=== PATIENT | male | born 1945 | race Caucasian/White ===

== ENCOUNTER 2023-12-30 10:14 | Inpatient (IN) | payer MEDICARE, SELFPAY ==
[2023-12-30] VITALS (12 sets, daily range): BP systolic 111–152; BP diastolic 62–82; PULSE 77–82; RESP 16–24; TEMP 36.2–36.9; O2SAT 93–99; BMI 23.5
--- NOTE | ~2023-12-30 | XR_ITS ---
EXAMINATION: XR chest 1V DATE: 12/30/2023 11:19 INDICATION: Cough. Weakness. TECHNIQUE: A single frontal view of the chest was obtained on 2 radiographs. COMPARISON: None. FINDINGS: A calcified right lung nodule and calcified right hilar lymph nodes are consistent with old granulomatous disease. No pleural effusion or pneumothorax. The heart size is normal. There are ashley ges of aortic valve replacement. There is a left chest wall pacer with leads in the right atrium and right ventricle. IMPRESSION: 1. No acute cardiopulmonary disease. Reviewed, dictated and finalized at location A.
--- NOTE | ~2023-12-30 | CT_ITS ---
EXAMINATION: CTA BRAIN/CAROTID DATE: 12/30/2023 11:14 INDICATION: Stroke with weakness and transient left facial droop TECHNIQUE: Computed tomographic angiography (CTA) of the head and neck was performed with 100 mL Omni paque-350 intravenous contrast. Multiplanar reconstructions and maximum intensity projection 3D-recon structions of the carotid arteries and of the intracranial arteries were created by the technologist on a separate workstation. Precontrast CT of the head was also obtained. Automated exposure control and iterative reconstruction technique were employed.The dose-length product was 1801.02 mGy-cm. COMPARISON: None. FINDINGS: Carotid arteries: Small amount of nonhemodynamically significant atherosclerotic plaque along the normal caliber aortic arch and along the proximal aspect of the arteries arising from the arch. No aneurysm or dissection. There is small amount of atherosclerotic plaque with 0% stenosis of the right and left carotid bulbs relative to normal distal artery lumen diameter (NASCET criteria). Bilateral vertebral arteries are codominant with small amount nonhemodynamically significant atherosclerotic plaque at the origins of both arteries. Expiratory phase of imaging with minimal dependent atelectasis in the bilateral upper lobes. Cervical soft tissues are unremarkable. Mild cervical spondylosis. Head: Small old lacunar infarct at the right internal capsule. No acute intracranial hemorrhage, acute infa rction or abnormal extra axial fluid collection. There is mild scattered white matter hypoattenuation consistent with chronic small vessel ischemic disease. Symmetric prominence of the sulci and ventric les consistent with mild to moderate age-appropriate diffuse cerebral volume loss. No mass/mass effec t. Changes of bilateral intraocular lens replacement. The orbits, paranasal sinuses and mastoid air c ells are normal. No abnormally enhancing brain lesions on the postcontrast imaging Intracranial arteries Arteries are codominant with small amount of nonhemodynamically significant atherosclerotic plaque al teetee both arteries. There is additional small amount of nonhemodynamically significant atherosclerotic plaque at the bilateral carotid siphons. There is no hemodynamically significant stenosis in the jordan tebral, basilar and internal carotid arteries. There are no aneurysms identified. Both A1 and P1 seg ments are patent. Cerebral arterial arborization appears symmetric. IMPRESSION: 1. 0% stenosis of the right and left carotid bulbs relative to normal distal artery lumen diameter (N ASCET criteria). 2. Small amount of nonhemodynamically significant atherosclerotic plaque at the bilateral vertebral a rteries and bilateral carotid siphons. No cerebral hemodynamically significant stenosis, thrombosis o r aneurysm. 3. Small old lacunar infarct in the right internal capsule and mild scattered white matter hypoattenu ation consistent with additional chronic small vessel ischemic disease. No acute intracranial process or abnormally enhancing brain lesions. Reviewed, dictated and finalized at location B. IMPRESSION: 1. 0% stenosis of the right and left carotid bulbs relative to normal distal ar an lumen diameter (NASCET criteria). 2. Small amount of nonhemodynamically significant atherosclerotic plaque at the bilateral vertebral arteries and bilateral carotid siphons. No cerebral hemody namically significant stenosis, thrombosis or aneurysm. 3. Small old lacunar infarct in the right internal capsule and mild scattered w pavithra matter hypoattenuation consistent with additional chronic small vessel isc hemic disease. No acute intracranial process or abnormally enhancing brain lesi ons.
--- NOTE | 2023-12-30 11:09 | PC.NURSE ---
Pt to CT/XRAY via stretcher at this time.
[2023-12-30 11:10] LABS: Basophils Percent Auto 0.2 % (0.2-1.2); Eosinophils Absolute Auto 0.1 K/mm3 (0-0.3); Eosinophils Percent Auto 0.7 % (0-4.4); Hematocrit 35.5 % (42.0-52.0); Hemoglobin 12.1 g/dL (14.0-18.0); Immature Granulocyte Absolute 0.21 K/mm3 (0.00-0.031); Immature Granulocyte Percent A 1.1 % (0-0.5); Immature Platelet Fraction Pct 16.4 % (0.9-11.2); Lymphocytes Absolute Auto 2.45 K/mm3 (0.9-3.2); Lymphocytes Percent Auto 13.2 % (18.3-44.2); Mean Corpuscular HGB Conc 34.1 g/dl (32-36); Mean Corpuscular Hemoglobin 31.8 pg (26-34); Mean Corpuscular Volume 93.4 fl (80-100); Mean Platelet Volume 13.7 fl (7.4-10.4); Monocytes Absolute Auto 1.6 K/mm3 (0.1-0.6); Monocytes Percent Auto 8.5 % (2.6-8.5); Neutrophils Absolute Auto 14.2 K/mm3 (1.3-6.7); Neutrophils Percent Auto 76.3 % (45.5-73.1); Platelet Count Result 55 k/mm3 (150-375); White Blood Count 18.6 K/mm3 (4.5-10.0)
[2023-12-30 11:19] LABS: INR 1.1; Prothrombin Time 14.2 Seconds (11.1-14.7)
[2023-12-30 11:20] LABS: Partial Thromboplastin Time 28.8 Seconds (22.3-36.8)
[2023-12-30 11:21] LABS: Alanine Aminotransferase 63 U/L (6-50); Albumin Level 3.4 g/dL (3.5-5.1); Alkaline Phosphatase 88 U/L (38-126); Anion Gap 5 mmol/L (4-12); Aspartate Amino Transferase 48 U/L (17-59); Bilirubin,Total 0.7 mg/dL (0.2-1.3); Blood Urea Nitrogen 66 mg/dL (9-20); Calcium 8.7 mg/dL (8.4-10.2); Carbon Dioxide 30 mmol/L (22-30); Chloride 100 mmol/L (98-107); Estimated CRCL calculation 34 ml/min; Estimated Glomerular Filt Rate 37; Glucose 131 mg/dL (65-110); Lactic Acid Reflex 1.5 mmol/L (0.7-2.0); Potassium 3.9 mmol/L (3.4-5.0); Sodium 135 mmol/L (137-145)
[2023-12-30 11:32] LABS: Troponin I < 0.012 ng/mL (0.000-0.034)
[2023-12-30 11:39] LABS: Magnesium 2.4 mg/dL (1.6-2.3)
[2023-12-30 12:22] LABS: Procalcitonin 0.1 ng/mL
[2023-12-30 13:00] LABS: Appearance Urine Clear (Clear); Bacteria Urine None Seen /hpf; Bilirubin Urine Negative (Negative); Blood Urine Negative (Negative); Color Urine Yellow (Yellow); Glucose Urine UA Negative (Negative); Ketones Urine Negative (Negative); Leukocyte Esterase Ur Negative LEU/UL (Negative); Need Manual Microscopic Reviewed; Nitrate Urine Negative (Negative); Protein Urine 1+ mg/dL (Negative); RBC Urine 0-2 /hpf (0-2); Specific Grav Ur 1.035 (1.001-1.035); Squamous Epithelial Cell Urine None Seen /hpf (Few); Urobilinogen Urine 0.2 mg/dL (<2.0); WBC Urine 0-5 /hpf (0-3)
[2023-12-30 13:03] LABS: Add Urine Microscopic? NO
--- NOTE | 2023-12-30 13:22 | ECG_ITS ---
Test Date: 2023-12-30 13:31:08 Measurements Intervals [place] Rate: 81 P: 255 MT: 211 QRS: -10 QRSD: 113 T: 73 QT: 385 QTc: 449 Interpretive Statements ELECTRONIC ATRIAL PACEMAKER INTRAVENTRICULAR CONDUCTION DELAY NONSPECIFIC ST & T-WAVE ABNORMALITY- LAT/HIGH LAT LEADS BORDERLINE ECG No previous ECG available for comparison Electronically Signed On 12-30-2023 14:59:43 CDT by Rashaad Gallagher D.O.
[2023-12-30 13:58] LABS: Troponin I < 0.012 ng/mL (0.000-0.034)
--- NOTE | 2023-12-30 15:18 | ED.GENADULT ---
HPI - General Adult General Chief complaint: Neuro Symptoms/Deficit Stated complaint: poss stroke Time Seen by Provider: 12/30/23 10:20 History of Present Illness HPI narrative: Patient 78-year-old gentleman who presents emergency department with chief complaint of an left-sided weakness. Patient was at rehab had sudden onset of left upper extremity weakness and facial droop the patient's symptoms had resolved upon EMS arrival the patient has continued to be at his baseline since the episode. The patient does have prior history of a pacemaker Related Data Home Medications Medication Instructions Recorded Confirmed Glucosamine Chondroitin 1,500 mg PO BID 12/29/23 12/29/23 atorvastatin 80 mg tablet 80 mg PO HS 12/29/23 12/29/23 cefdinir 300 mg capsule 300 mg PO Q12H 12/29/23 12/29/23 cetirizine 10 mg tablet 10 mg PO HS 12/29/23 12/29/23 donepezil 10 mg tablet 10 mg PO HS 12/29/23 12/29/23 ezetimibe 10 mg tablet 10 mg PO HS 12/29/23 12/29/23 ferrous sulfate 325 mg (65 mg 325 mg PO DAILY 12/29/23 12/29/23 iron) tablet fluticasone propionate 50 50 mcg intranasal DAILY 12/29/23 12/29/23 mcg/actuation nasal spray,suspension levothyroxine 75 mcg tablet 75 mcg PO DAILY 12/29/23 12/29/23 losartan 100 mg tablet 100 mg PO 12/29/23 12/29/23 melatonin 5 mg tablet 5 mg PO HS 12/29/23 12/29/23 nebivolol 20 mg PO DAILY 12/29/23 12/29/23 prednisone 20 mg tablet 20 mg PO DAILY 12/29/23 12/29/23 sertraline 50 mg tablet 50 mg PO HS 12/29/23 12/29/23 tamsulosin 0.4 mg capsule 0.4 mg PO DAILY 12/29/23 12/29/23 trazodone 50 mg tablet 50 mg PO HS 12/29/23 12/29/23 trospium 20 mg tablet 20 mg PO BID 12/29/23 12/29/23 Allergies Allergy/AdvReac Type Severity Reaction Status Date / Time No Known Allergies Allergy Verified 06/10/23 19:40 Review of Systems Review of Systems: A 10 system review of systems was completed on the patient and is negative except for what is stated in the HPI. Nursing and ancillary documentation was reviewed. PMFSH Family History Family History Mother Hypertension Father Polycythemia Sibling Cancer Social History Social History Smoking status: Never smoker Alcohol intake: former Substance use: never Do You Feel Safe in your Home?: Yes Lack of Transportation: No Lack of Food: Never True Current Housing: I Have Housing Concerned About Future Housing: No Difficulty Paying Gas/Electric Bills: No Difficulty Paying for Meds: No Currently Unemployed: No Education: High School Diploma/GED Difficulty w/ Childcare or Family Care: No Spiritual care concerns: No Exam Narrative: GENERAL: Well-appearing, well-nourished, and in no acute distress. HEAD: Normocephalic, atraumatic. EYES: PERRLA and EOMI. ENT: Nares clear, no rhinorrhea or epistaxis. Mucous membranes moist. NECK: Supple. CHEST: Clear to auscultation. No respiratory distress. HEART: Regular rate and rhythm. No murmur heard. Normal peripheral pulses. ABDOMEN: Soft, nontender, nondistended, normal active bowel sounds. EXTREMITIES: Normal range of motion. No edema. SKIN: Warm, dry, no rash. NEURO: No focal deficits. Alert and oriented x3. PSYCH: Normal mood and affect. Course Vital Signs Vital signs: Vital Signs Temperature 36.2 C L 12/30/23 10:10 Pulse Rate 77 12/30/23 10:10 Respiratory Rate 20 12/30/23 10:10 Blood Pressure 112/62 12/30/23 10:10 Pulse Oximetry 97 12/30/23 10:10 Oxygen Delivery Room Air 12/30/23 10:10 Temperature 36.2 C L 12/30/23 10:10 Pulse Rate 80 12/30/23 15:23 Respiratory Rate 20 12/30/23 15:23 Blood Pressure 142/78 H 12/30/23 15:23 Pulse Oximetry 98 12/30/23 15:23 Oxygen Delivery Room Air 12/30/23 10:10 Medical Decision Making MDM Narrative Medical decision making narrative: Differential diagnosis
--- NOTE | 2023-12-30 17:28 | ADMGEN ---
This patient, David Acosta, was admitted to Medical Room 345-01. Patient/family oriented to hospital policies and general routines including ID bracelet, bed and alarms, visiting hours, pain management, procedures, bathroom and other care routines, personal items, smoking policy, room service/diet, and visiting hours. Information on how to activate the Rapid Response Team has been discussed. Patient/Family are encouraged to report perceived risks to care and to ask questions if they do not understand what they are told or what they should do.
[2023-12-30] MEDS: BENZOCAINE (*SP) 60 ML SPRAY CAN (HURRICAINE) 1 SPRAY MUCOUS MEM (22:08)
[2023-12-31] VITALS (10 sets, daily range): BP systolic 125–165; BP diastolic 61–84; PULSE 70–87; RESP 18–20; TEMP 36.1–37; O2SAT 97–99
--- NOTE | 2023-12-31 01:51 | PM.IMHP ---
H&P: HPI History of Present Illness Date/Time: 12/31/23 01:51 Chief Complaint: Left upper extremity weakness and facial droop Narrative: 78-year-old male with PMH dementia, hypertension, history of DVT, paroxysmal AFib, CKD, aortic stenosis, cardiomyopathy, hyperlipidemia, osteoarthritis sick sinus syndrome status post permanent pacemaker, history of SVT, BPH, iron deficiency anemia, hypothyroidism, who presents with left-sided arm weakness with slurred speech and facial droop (not reported which side). A few weeks ago the patient presented to [facility] emergency room with progressive weakness and was diagnosed with likely upper respiratory infection. He also had a fall at home and had swelling of the left gluteus muscle and his blood thinners were stopped. He then went [facility], transferred from there to [facility]. ER demonstrated a hemodynamic stable male with the with WBC count 16.9 and then 18.6. Hemoglobin 12.1. Platelets 57, sodium 134, serum creatinine 1.5-1.8, BUN 65, blood sugar 132, procalcitonin 0.1. Chest x-ray did not demonstrate acute disease, head and neck CTA demonstrates small old lacunar infarct in the right internal capsule with chronic small-vessel disease in 0% stenosis of the right and left carotid bulbs. Patient has a pacemaker, neurology at [facility] transfer center suggested no transferred for MRI since the symptoms had resolved by the time the patient was evaluated in the ER. Dr. Ram suggested the patient could be handled locally without MRI performed. Speaking to the patient in room 345 he has no focal deficits. He only complains of a dry cough and a sore throat. Denies shortness of breath. Review of Systems Review of Systems: All systems reviewed & are unremarkable except as noted in HPI and below (Subjective) [facility] Family History Family History Mother Hypertension Father Polycythemia Sibling Cancer Social History Social History Smoking status: Never smoker Alcohol intake: former Substance use: never Do You Feel Safe in your Home?: Yes Lack of Transportation: No Lack of Food: Never True Current Housing: I Have Housing Concerned About Future Housing: No Difficulty Paying Gas/Electric Bills: No Difficulty Paying for Meds: No Currently Unemployed: No Education: High School Diploma/GED Difficulty w/ Childcare or Family Care: No Spiritual care concerns: No Meds Home Medications and Allergies Home Medications Medication Instructions Recorded Confirmed Type Glucosamine Chondroitin 1,500 mg PO BID 12/29/23 12/30/23 History atorvastatin 80 mg tablet 80 mg PO HS 12/29/23 12/30/23 History cefdinir 300 mg capsule 300 mg PO Q12H 12/29/23 12/30/23 History cetirizine 10 mg tablet 10 mg PO HS 12/29/23 12/30/23 History donepezil 10 mg tablet 10 mg PO HS 12/29/23 12/30/23 History ezetimibe 10 mg tablet 10 mg PO HS 12/29/23 12/30/23 History ferrous sulfate 325 mg (65 mg 325 mg PO DAILY 12/29/23 12/30/23 History iron) tablet fluticasone propionate 50 50 mcg intranasal DAILY 12/29/23 12/30/23 History mcg/actuation nasal spray,suspension levothyroxine 75 mcg tablet 75 mcg PO DAILY 12/29/23 12/30/23 History losartan 100 mg tablet 100 mg PO HS 12/29/23 12/30/23 History melatonin 5 mg tablet 6 mg PO HS 12/29/23 12/30/23 History nebivolol 20 mg PO DAILY 12/29/23 12/30/23 History sertraline 50 mg tablet 50 mg PO HS 12/29/23 12/30/23 History tamsulosin 0.4 mg capsule 0.4 mg PO DAILY 12/29/23 12/30/23 History trazodone 50 mg tablet 50 mg PO HS 12/29/23 12/30/23 History oxybutynin chloride 5 mg PO BID 12/30/23 12/30/23 History Allergies Allergy/AdvReac Type Severity Reaction Status Date / Time No Known Allergies Allergy Verified 12/30/23 17:27 Vital Signs Vital Signs - 24 hr 12/30/23 10:10 12/30/23 10:18 12/30/23 10:22 Temper
[2023-12-31 02:52] LABS: Influenza A QL RT-PCR Negative (Negative); Influenza B QL RT-PCR Negative (Negative); RSV RNA, RT-PCR Negative (Negative); SARS-CoV-2 RNA PCR Negative (Negative)
[2023-12-31] MEDS: LEVOTHYROXINE SODIUM 75 MCG TABLET PO (05:35)
[2023-12-31 05:43] LABS: Basophils Absolute Auto 0.1 K/mm3 (0.0-0.1); Basophils Percent Auto 0.3 % (0.2-1.2); Eosinophils Absolute Auto 0.1 K/mm3 (0-0.3); Eosinophils Percent Auto 0.7 % (0-4.4); Hematocrit 40.3 % (42.0-52.0); Hemoglobin 13.5 g/dL (14.0-18.0); Immature Granulocyte Absolute 0.19 K/mm3 (0.00-0.031); Immature Granulocyte Percent A 1.2 % (0-0.5); Immature Platelet Fraction Pct 15.1 % (0.9-11.2); Lymphocytes Absolute Auto 2.71 K/mm3 (0.9-3.2); Lymphocytes Percent Auto 17.7 % (18.3-44.2); Mean Corpuscular HGB Conc 33.5 g/dl (32-36); Mean Corpuscular Volume 92.6 fl (80-100); Monocytes Absolute Auto 1.1 K/mm3 (0.1-0.6); Monocytes Percent Auto 7.3 % (2.6-8.5); Neutrophils Absolute Auto 11.1 K/mm3 (1.3-6.7); Neutrophils Percent Auto 72.8 % (45.5-73.1); Platelet Count Result 59 k/mm3 (150-375); Red Blood Count 4.35 M/mm3 (4.6-6.20); Red Cell Distribution Width 12.8 % (11.5-14.5); White Blood Count 15.3 K/mm3 (4.5-10.0)
[2023-12-31 05:55] LABS: Alanine Aminotransferase 74 U/L (6-50); Albumin Level 3.8 g/dL (3.5-5.1); Alkaline Phosphatase 105 U/L (38-126); Anion Gap 3 mmol/L (4-12); Aspartate Amino Transferase 54 U/L (17-59); Bilirubin,Total 0.8 mg/dL (0.2-1.3); Blood Urea Nitrogen 53 mg/dL (9-20); Calcium 9.2 mg/dL (8.4-10.2); Carbon Dioxide 29 mmol/L (22-30); Chloride 101 mmol/L (98-107); Estimated CRCL calculation 36 ml/min; Estimated Glomerular Filt Rate 39; Glucose 102 mg/dL (65-110); Magnesium 2.2 mg/dL (1.6-2.3); Potassium 4.3 mmol/L (3.4-5.0); Sodium 133 mmol/L (137-145)
[2023-12-31] MEDS: TAMSULOSIN HCL 0.4 MG CAPSULE PO (09:51)
[2023-12-31] MEDS: oxyBUTYnin CHLORIDE 5 MG TABLET PO ×2 (09:51→17:42)
[2023-12-31] MEDS: FLUTICASONE PROPIONATE 0.05% NA SPR 16 GM BTL (*BKC) 2 SPRAY NASAL (09:51)
[2023-12-31] MEDS: NEBIVOLOL HCL 5 MG TABLET 20 MG PO (09:51)
--- NOTE | 2023-12-31 10:06 | PM.IMPN ---
Progress Note: A&P Assessment and Plan (1) Brain TIA: Code(s): G45.9 - Transient cerebral ischemic attack, unspecified Status: Acute Assessment and Plan: Presented with left-sided weakness and questionable facial droop. CTA on arrival with no acute infarcts, however evidence of old lacunar infarct, 0% stenosis of bilateral carotid bulbs. Case was discussed with transfer center a [facility] this patient has a pacemaker and not able to have MRI at this facility. It was determined that MRI could be deferred as his symptoms had resolved. Neuro exam unremarkable today. Appreciate neurology consult. Will check TSH, B12, folate, lipid panel, and A1c. Continue neurologic checks. Continue to monitor on telemetry. Continue home atorvastatin. (2) Dementia: Code(s): F03.90 - Unspecified dementia, unspecified severity, without behavioral disturbance, psychotic disturbance, mood disturbance, and anxiety Status: Acute Assessment and Plan: Seems to be at baseline. Continue home donepezil (3) Thrombocytopenia: Code(s): D69.6 - Thrombocytopenia, unspecified Status: Acute Assessment and Plan: Chronic issue with acute worsening. Platelet count [id number] today. Anticoagulation has been on hold as a result of this. Holding off on initiation of aspirin/Plavix at this time due to this. Can consider Hematology evaluation if aspirin/Plavix is necessary from neurologic standpoint (4) Leukocytosis: Code(s): D72.829 - Elevated white blood cell count, unspecified Status: Acute Assessment and Plan: Allergy not entirely clear. WBC elevated up to 18.6. Possibly stress response. UA and CXR without findings consistent with infection. Quad viral panel negative. Patient is afebrile. WBC improving today to 15.3 without initiation of antibiotics or other intervention. Continue to monitor WBC closely. (5) PRIYANKA (acute kidney injury): Code(s): N17.9 - Acute kidney failure, unspecified Status: Acute Assessment and Plan: Slight elevation of creatinine from baseline to 1.7 today. IV fluids ordered on admission, though patient refused. Now no longer has IV axis. Begin IV fluids once IV access is reobtained if pain is agreeable. Monitor BUN and creatinine closely. Losartan on hold at this time (6) Atrial fibrillation: Code(s): I48.91 - Unspecified atrial fibrillation Status: Acute Assessment and Plan: Rate is controlled at this time. Continue nebivolol. Chronic anticoagulation was recently stopped due to thrombocytopenia and recent falls (7) Upper respiratory tract infection: Code(s): J06.9 - Acute upper respiratory infection, unspecified Status: Resolved Assessment and Plan: Recently hospitalized at outside facility for presumed upper respiratory infection. Asymptomatic at this time Subjective Date/time seen: 12/31/23 10:06 Interval history: David is doing well today. He complains of feeling weak and fatigued. He endorses mild dizziness and lightheadedness which he states is typical for him. Is unsure why he is hospitalized currently he denies headache, visual changes, speech changes, facial drooping, focal weakness. He denies abdominal pain, nausea, vomiting, fever, or chills. Denies shortness of breath, cough, chest pain, or palpitations. He does report constipation, though he cannot recall his last bowel movement. He denies any urinary symptoms. Review of Systems Review of Systems: All systems reviewed & are unremarkable except as noted in HPI and below Exam Narrative: General: Well-nourished, well-appearing 78-year-old male, sitting up in bed, comfortable, NARD Neuro: awake, alert and oriented x2, speech clear, CN II-XII intact, strength 4/5 throughout, sensation intact, no pronator drift, bilateral map colorer strength equal, some difficulty following instructions when completing neuro exam, slightl
[2023-12-31] MEDS: BENZOCAINE (*SP) 60 ML SPRAY CAN (HURRICAINE) 1 SPRAY MUCOUS MEM ×2 (10:13→12:12)
[2023-12-31] MEDS: FERROUS SULFATE 325 MG TABLET DR PO (12:12)
--- NOTE | 2023-12-31 14:08 | WPDNEURCNPN ---
Assessment and Plan Assessment and plan (1) Brain TIA: Code(s): G45.9 - Transient cerebral ischemic attack, unspecified Status: Acute Assessment and Plan: The differential diagnosis with partial seizure would be a consideration however over description is seems to lean towards a vascular etiology. She is not show any large vessel occlusion. Possibility of small vessel disease is likely however antiplatelets will be difficult to justify in view of the low platelet count falls since he already noted during this examination. I spoke to the family members regarding the risk of using antiplatelets and if they would still like to take a risk Plavix could be a consideration of complications such as bleeding an undesirable areas. (2) Dementia: Code(s): F03.90 - Unspecified dementia, unspecified severity, without behavioral disturbance, psychotic disturbance, mood disturbance, and anxiety Status: Acute Assessment and Plan: The patient does appear to have moderate degree of dementia and cognitive impairment. He is already on Aricept 10 mg a day we can add data 5 mg a day for now and gradually increase the dose to next 1 or 2 months to 10 mg twice a day (3) Atrial fibrillation: Code(s): I48.91 - Unspecified atrial fibrillation Status: Acute Assessment and Plan: The patient has been through ablation and I believe a left at atrial appendage ablation is being considered and is off Eliquis on account of low platelet count and falls. Doing by the patient daughter (4) [id number]-[id number] kidney injury: Code(s): N17.9 - Acute kidney failure, unspecified; N18.9 - Chronic kidney disease, unspecified Status: Acute (5) Thrombocytopenia: Code(s): D69.6 - Thrombocytopenia, unspecified Status: Acute Plan At this time the patient was noted to be on Lipitor 80 mg a day his 's account high at 15,000 thousand and platelet count is low. Anticoagulation or antiplatelets and as per the discussion above the be difficult to put him on any of those in view of and low platelet count. And hence supportive care is recommended. Platelet count should be followed up and at the appropriate point if feasible 1 May conceivably consider 1 of the antiplatelets and he should follow with no bake molder regarding ablation of the left atrial appendage. An EEG is recommended will also obtain a baseline prolactin level also order a serum B12 and folic acid level and thyroid function test and lipid profile. Consult date: 12/31/23 HPI: David Acosta is a 78 year old male with history of recurrent spells of the weakness in the left upper limb speech difficulty. His daughter show me a very she was driving with him he suddenly had some being for few seconds. T of the left face. And then spell that flu which also lasted for few minutes and he there are any lapse in his awareness for sure taken off Eliquis because of low platelet count and some bruising tendency at [facility] where he go for his cardiac care. Patient has had a vertigo is valve surgery and also a 10. He has a cardiac pacemaker in place. He also been diagnosed to have dementia and is on at CT scan of the brain done on this admission CT angiogram of the head and neck did not show significant abnormalities. In the renal function. His platelet count was 10542. Patient is a bruise on the left face for having a fall. He also tends to fall frequently patient's son El is a power of health care attorney. Patient himself does not offer much in the way of history which was obtained mainly from his daughter he denies any headache Review of Systems Review of Systems: All systems reviewed & are unremarkable except as noted in HPI and below PMFSH Family History Family History Mother Hypertension Father Polycythemia Sibling Cancer Social History Social History (Reviewed 12/31/23 @ 14:11 by
[2023-12-31 15:53] LABS: Cholesterol 107 mg/dL (0-200); HDL Direct 30 mg/dL; Triglycerides 246 mg/dL (<150)
[2023-12-31 16:04] LABS: LDL Cholesterol Direct 54 mg/dL
[2023-12-31 17:27] LABS: Vitamin D 25 Hydroxy 71.3 ng/mL
[2023-12-31] MEDS: ATORVASTATIN 40 MG TABLET 80 MG PO (19:59)
[2023-12-31] MEDS: EZETIMIBE 10 MG TABLET PO (19:59)
[2023-12-31] MEDS: SERTRALINE HCL 50 MG TABLET PO (20:00)
[2023-12-31] MEDS: traZODone HCL 50 MG TABLET PO (20:00)
[2023-12-31] MEDS: DONEPEZIL HCL 10 MG TABLET PO (20:00)
[2023-12-31] MEDS: MELATONIN 3 MG TABLET 6 MG PO (20:00)
[2023-12-31] MEDS: LORATADINE 10 MG TABLET PO (20:00)
[2023-12-31] MEDS: SODIUM CHLORIDE 0.9% IV 1,000 ML 75 ML IV CONT (22:45)
[2024-01-01] VITALS: PULSE 80
[2024-01-01 04:00] VITALS: PULSE 80
[2024-01-01 05:38] VITALS: BP 169/93; PULSE 78; RESP 20; TEMP 36.6; O2SAT 98
[2024-01-01] MEDS: LEVOTHYROXINE SODIUM 75 MCG TABLET PO (06:01)
[2024-01-01 06:03] LABS: Basophils Percent Auto 0.3 % (0.2-1.2); Eosinophils Absolute Auto 0.2 K/mm3 (0-0.3); Eosinophils Percent Auto 2.6 % (0-4.4); Hematocrit 38.1 % (42.0-52.0); Hemoglobin 12.9 g/dL (14.0-18.0); Immature Granulocyte Absolute 0.09 K/mm3 (0.00-0.031); Immature Platelet Fraction Pct 13.3 % (0.9-11.2); Lymphocytes Absolute Auto 2.17 K/mm3 (0.9-3.2); Lymphocytes Percent Auto 23.7 % (18.3-44.2); Mean Corpuscular HGB Conc 33.9 g/dl (32-36); Mean Corpuscular Hemoglobin 31.2 pg (26-34); Mean Corpuscular Volume 92.3 fl (80-100); Mean Platelet Volume 12.6 fl (7.4-10.4); Monocytes Absolute Auto 0.8 K/mm3 (0.1-0.6); Monocytes Percent Auto 8.6 % (2.6-8.5); Neutrophils Absolute Auto 5.8 K/mm3 (1.3-6.7); Neutrophils Percent Auto 63.8 % (45.5-73.1); Platelet Count Result 58 k/mm3 (150-375); Red Blood Count 4.13 M/mm3 (4.6-6.20); Red Cell Distribution Width 12.7 % (11.5-14.5); White Blood Count 9.1 K/mm3 (4.5-10.0)
[2024-01-01 06:16] LABS: Alanine Aminotransferase 76 U/L (6-50); Albumin Level 3.4 g/dL (3.5-5.1); Alkaline Phosphatase 97 U/L (38-126); Anion Gap 3 mmol/L (4-12); Aspartate Amino Transferase 59 U/L (17-59); Blood Urea Nitrogen 44 mg/dL (9-20); Carbon Dioxide 30 mmol/L (22-30); Chloride 103 mmol/L (98-107); Cholesterol 108 mg/dL (0-200); Estimated CRCL calculation 47 ml/min; Estimated Glomerular Filt Rate 54; Glucose 108 mg/dL (65-110); HDL Direct 31 mg/dL; Potassium 4.5 mmol/L (3.4-5.0); Sodium 136 mmol/L (137-145); Triglycerides 156 mg/dL (<150)
[2024-01-01 06:27] LABS: LDL Cholesterol Direct 58 mg/dL
[2024-01-01 07:08] LABS: Hemoglobin A1C 5.9 % (<5.7)
[2024-01-01 07:21] LABS: Folic Acid 12.2 ng/mL (2.76->20)
[2024-01-01 09:04] VITALS: O2SAT 97
[2024-01-01] MEDS: TAMSULOSIN HCL 0.4 MG CAPSULE PO (10:01)
[2024-01-01 10:02] VITALS: PULSE 80
[2024-01-01] MEDS: NEBIVOLOL HCL 5 MG TABLET 20 MG PO (10:02)
[2024-01-01] MEDS: oxyBUTYnin CHLORIDE 5 MG TABLET PO (10:02)
[2024-01-01] MEDS: MEMANTINE 5 MG TABLET PO (10:02)
[2024-01-01] MEDS: FLUTICASONE PROPIONATE 0.05% NA SPR 16 GM BTL (*BKC) 2 SPRAY NASAL (10:03)
[2024-01-01] MEDS: BENZOCAINE (*SP) 60 ML SPRAY CAN (HURRICAINE) 1 SPRAY MUCOUS MEM (10:04)
[2024-01-01] MEDS: FERROUS SULFATE 325 MG TABLET DR PO (12:39)
[2024-01-01] MEDS: SODIUM CHLORIDE 0.9% IV 1,000 ML 75 ML IV CONT (12:39)
--- NOTE | 2024-01-01 13:56 | PM.DS ---
DS: Admitting Diagnosis Discharge Date 12/31/2022 Admitting Diagnosis Left upper extremity weakness and facial droop DS: Summary Hospital Course Reason for hospitalization: Left upper extremity weakness and facial droop Hospital Course: Left upper extremity weakness and facial droop Narrative: 78-year-old male with PMH dementia, hypertension, history of DVT, paroxysmal AFib, CKD, aortic stenosis, cardiomyopathy, hyperlipidemia, osteoarthritis sick sinus syndrome status post permanent pacemaker, history of SVT, BPH, iron deficiency anemia, hypothyroidism, who presents with left-sided arm weakness with slurred speech and facial droop (not reported which side). A few weeks ago the patient presented to [facility] emergency room with progressive weakness and was diagnosed with likely upper respiratory infection. He also had a fall at home and had swelling of the left gluteus muscle and his blood thinners were stopped. He then went [facility], transferred from there to [facility]. ER demonstrated a hemodynamic stable male with the with WBC count 16.9 and then 18.6. Hemoglobin 12.1. Platelets 57, sodium 134, serum creatinine 1.5-1.8, BUN 65, blood sugar 132, procalcitonin 0.1. Chest x-ray did not demonstrate acute disease, head and neck CTA demonstrates small old lacunar infarct in the right internal capsule with chronic small-vessel disease in 0% stenosis of the right and left carotid bulbs. Patient has a pacemaker, neurology at [facility] transfer center suggested no transferred for MRI since the symptoms had resolved by the time the patient was evaluated in the ER. Dr. Ram suggested the patient could be handled locally without MRI performed. patient was seen by neurologist recommended antiplatelets to prevent strokes however patient with low platelets counts is high risk of bleeding, family has decided not to start antiplatelets, patient is clinically stable is accepted by [facility], will transfer patient today Time Spent with Patient Time attestation: Total time spent providing and/or coordinating discharge services: Exam Narrative: GENE: elderly frail, comfortable, NAD HEENT: eyes are icteric, clear, HEART: RR S1S2 LUNGS: CTA ABD: BS+ soft nontender Ext: no edema Neuro: grossly intact; DS: Data Data Completed and Pending Labs on day of discharge: Labs from last 24 hours 01/01/24 12/31/23 05:37 15:36 WBC 9.1 RBC 4.13 L Hgb 12.9 L Hct 38.1 L MCV 92.3 MCH 31.2 MCHC 33.9 RDW 12.7 Plt Count 58 L MPV 12.6 H Immature Gran % (Auto) 1.0 H Neut % (Auto) 63.8 Lymph % (Auto) 23.7 Lucas % (Auto) 8.6 H Eos % (Auto) 2.6 Baso % (Auto) 0.3 Lymph # (Auto) 2.17 Lucas # (Auto) 0.8 H Eos # (Auto) 0.2 Baso # (Auto) 0.0 Abs Immat Gran (auto) 0.09 H Absolute Neuts (auto) 5.8 Absolute Nucleated RBC 0.000 Nucleated RBC % 0.0 % Immature Plt Fraction 13.3 H Sodium 136 L Potassium 4.5 Chloride 103 Carbon Dioxide 30 Anion Gap 3 L BUN 44 H Creatinine 1.30 Estim Creat Clear Calc 47 Estimated GFR 54 L Glucose 108 Hemoglobin A1c 5.9 H Calcium 9.0 Total Bilirubin 1.0 AST 59 ALT 76 H Alkaline Phosphatase 97 Total Protein 6.0 L Albumin 3.4 L Triglycerides 156 H 246 H Cholesterol 108 107 LDL Cholesterol Direct 58 54 HDL Direct 31 30 Vitamin B12 749.0 Methylmalonic Acid Pending Vitamin D 25-Hydroxy 71.3 Folate 12.2 TSH 1.780 TSH (Reflex) 2.570 Discharge Plan Discharge Attending physician on discharge: Santosh Ahuja Consulting providers: Pollo Ram Discharging Clinician: Santosh Ahuja Patient Disposition: [facility] Activity: as tolerated Diet: heart healthy Discharge Instructions: patient is being discharged to [facility], patient to follow up with his primary care provider and neurologist as soon as possible. Discharge Medications: New
[2024-01-04 04:14] LABS: Methylmalonic Acid 277 nmol/L (69-390)
== END 2024-01-01 16:40 | DRG 69 ==
LOC: ANHED 15:21 → ANH3MED 16:17
PROVIDERS: General Practice; Physician Assistant; Psychiatry & Neurology Neurology; Admitting Provider Family Medicine; Emergency Provider Emergency Medicine; PCP Internal Medicine; Visit Provider Family Medicine
DX: G45.9 Transient cerebral ischemic attack, unspecified (principal); I42.9 Cardiomyopathy, unspecified; N17.9 Acute kidney failure, unspecified; N18.9 Chronic kidney disease, unspecified; I12.9 Hypertensive chronic kidney disease with stage 1 through stage 4 chronic kidney disease, or unspecified chronic kidney disease; I48.0 Paroxysmal atrial fibrillation; I35.0 Nonrheumatic aortic (valve) stenosis; I49.5 Sick sinus syndrome; D69.6 Thrombocytopenia, unspecified; N40.0 Benign prostatic hyperplasia without lower urinary tract symptoms; E78.5 Hyperlipidemia, unspecified; D50.9 Iron deficiency anemia, unspecified; E03.9 Hypothyroidism, unspecified; M19.90 Unspecified osteoarthritis, unspecified site; F03.90 Unspecified dementia, unspecified severity, without behavioral disturbance, psychotic disturbance, mood disturbance, and anxiety; Z86.718 Personal history of other venous thrombosis and embolism; Z95.0 Presence of cardiac pacemaker; Z86.73 Personal history of transient ischemic attack (TIA), and cerebral infarction without residual deficits
CPT/HCPCS: 36415; 70496; 70498; 71045; 80053; 80061; 81003; 82306; 82607; 82746; 83036; 83605; 83735; 83921; 84145; 84443; 84484; 85025; 85055; 85610; 85730; 87637; 93005; 99285; A9270; G0378; J7030; Q9967

== ENCOUNTER 2024-08-31 08:38 | Inpatient (IN) | payer MEDICARE, SELFPAY ==
--- NOTE | ~2024-08-31 | XR_ITS ---
XR chest 1V Ordering provider: Parris Myers PA-C History: 79 years Male with . ams, hypoxia . Comparison: December 30, 2023 FINDINGS: MEDIASTINUM: The cardiac silhouette is not enlarged. Left bipolar pacemaker. Valve prosthesis is note d. LUNGS: No effusions or pneumothorax. Minimal opacification the left lung base medially is seen which may indicate atelectasis versus pneumonia. Follow-up advised. Calcified granuloma in the right midzon e. OTHER: No free air under the diaphragm. Degenerative spine. IMPRESSION: Left basilar atelectasis versus pneumonia. Reviewed, dictated and finalized at location A. [employer]
--- NOTE | ~2024-08-31 | XR_ITS ---
EXAMINATION: XR barium swallow modified DATE: 09/02/2024 11:08 INDICATION: Choking. TECHNIQUE: The patient was given barium-containing material of multiple consistencies to swallow by t mariajose speech pathologist while I performed fluoroscopy. Fluoroscopy exposure time was 0.8 minutes. The n umber of fluoroscopy images saved to the PACS was 1. Dose-area product was 0.441 Gy-cm^2. FINDINGS: There is reduced laryngeal elevation, reduced laryngeal adduction, reduced tongue base retraction, re duced pharyngeal squeeze, vallecular residue, pyriform sinus residue, pharyngeal wall residue, laryng eal penetration, and aspiration. IMPRESSION: 1. Silent aspiration of thin liquids and pudding. 2. Please refer to the speech therapy report for recommendations. Reviewed, dictated and finalized at location A. CIPAL SYSTEMS ARCHITECT
--- NOTE | ~2024-08-31 | XR_ITS ---
EXAMINATION: XR abdomen gastric tube insert DATE: 09/02/2024 15:20 INDICATION: Nasogastric tube placement TECHNIQUE: A supine view of the abdomen and lower chest was obtained for evaluation of feeding tube placement. COMPARISON: None. FINDINGS: Nasogastric tube tip in the body the stomach with proximal side-port approximately 1 cm above level o f the gastroesophageal junction. No dilated loops of gas-filled bowel to suggest obstruction. Promine nt calcific densities project over the left lower quadrant which could represent heterotopic ossifica tion or ingested material. Calcified nodule right midlung zone along with calcified right hilar and m ediastinal lymph nodes consistent with old granulomatous disease. Heart size is normal. Dual lead pac emaker seen with leads projecting over the expected locations of the right atrium and right ventricle . Aortic valve repair. Left atrial appendage occlusion device. IMPRESSION: 1. Nasogastric tube tip in the body the stomach. Consider advancement by [address] the proximal s diana-port below level of the gastroesophageal junction. Reviewed, dictated and finalized at location B. [employer] TE[employer] IMPRESSION: 1. Nasogastric tube tip in the body the stomach. Consider advancement by [address] the proximal side-port below level of the gastroesophageal junction.
--- NOTE | ~2024-08-31 | CT_ITS ---
CT brain wo con Ordering provider: Parris Myers PA-C History: 79 years Male with . ams . Comparison: January 02, 2024 Technique: CT of the head without contrast. Radiation reduction technique utilized. The dose-length p roduct was 605.33 mGy-cm. FINDINGS: BRAIN PARENCHYMA AND CSF SPACES: Mild leukoaraiosis and diffuse cortical atrophy. Mild atheromatous d isease. No midline shift, mass effect or hemorrhage. The brain parenchyma and CSF spaces are otherwi se normal. VISUALIZED PARANASAL SINUSES: Well aerated. MASTOIDS: Well aerated. BONES: The bones appear intact. SOFT TISSUES: Visualized nasopharynx is normal. Superficial soft tissues are normal. IMPRESSION: No acute intracranial findings. Reviewed, dictated and finalized at location A. [employer]
[2024-08-31 08:33] VITALS: BP 156/64; PULSE 88; RESP 20; TEMP 36.7; O2SAT 94
--- NOTE | 2024-08-31 08:46 | ECG_ITS ---
Test Date: 2024-08-31 08:41:22 Measurements Intervals [place] Rate: 80 P: 259 [place]: 205 QRS: -12 QRSD: 109 T: 51 QT: 371 QTc: 428 Interpretive Statements ELECTRONIC ATRIAL PACEMAKER NONSPECIFIC ST AND T WAVE ABNORMALITY ABNORMAL RHYTHM ECG Compared to ECG 12/30/2023 13:31:08 NO SIGNIFICANT CHANGES Electronically Signed On 08-31-2024 15:47:53 BLOW MOLD MACHINE OPERATOR by Lan Easley M.D.
[2024-08-31 08:57] LABS: Basophils Percent Auto 0.3 % (0.2-1.2); Eosinophils Percent Auto 0.4 % (0-4.4); Hemoglobin 10.8 g/dL (14.0-18.0); Immature Granulocyte Absolute 0.05 K/mm3 (0.00-0.031); Immature Granulocyte Percent A 0.7 % (0-0.5); Lymphocytes Absolute Auto 1.53 K/mm3 (0.9-3.2); Lymphocytes Percent Auto 21.4 % (18.3-44.2); Mean Corpuscular HGB Conc 31.8 g/dl (32-36); Mean Corpuscular Volume 97.7 fl (80-100); Mean Platelet Volume 12.4 fl (7.4-10.4); Monocytes Absolute Auto 0.9 K/mm3 (0.1-0.6); Monocytes Percent Auto 12.3 % (2.6-8.5); Neutrophils Absolute Auto 4.6 K/mm3 (1.3-6.7); Neutrophils Percent Auto 64.9 % (45.5-73.1); Platelet Count Result 84 k/mm3 (150-375); Red Blood Count 3.48 M/mm3 (4.6-6.20); Red Cell Distribution Width 13.8 % (11.5-14.5); White Blood Count 7.1 K/mm3 (4.5-10.0)
--- NOTE | 2024-08-31 09:01 | ED_ITS ---
HPI - Altered Mental Status General Chief Complaint: Altered Mental Status <Parris Myers PA-C - Last Filed: 08/31/24 13:37> Stated Complaint: AMS <KHADAR Gómez Last Filed: 08/31/24 13:37> Time Seen by Provider: 08/31/24 09:00 <Parris Myers PA-C - Last Filed: 08/31/24 13:37> Source: patient, family, RN notes reviewed and old records reviewed <KHADAR Gómez Last Filed: 08/31/24 13:37> Mode of arrival: EMS <KHADAR Gómez Last Filed: 08/31/24 13:37> Limitations: clinical condition <KHADAR Gómez Last Filed: 08/31/24 13:37> History of Present Illness HPI narrative: Patient is a 79 y/o male, with PMH of dementia, CVA, AFIB on eliquis, hypothyroidism, CKD, seizure disorder on keppra, pacemaker, who presents to the ED via EMS with report of AMS. Patient is resident of [facility]. Per family at bedside, patient has been steadily declining over the last several years. Reports his baseline mental status will vary from day-to-day, but he has been increasingly confused and weak over the last few days. They are concerned for dehydration. They are also concerned for aspiration. Patient has had issues with this since last year. Patient denies any pain. Per EMS, patient was noted to be hypoxic upon arrival down to 88% on room air. He was placed on 2 L nasal cannula. O2 stable upon arrival. <KHADAR Gómez Last Filed: 08/31/24 13:37> Related Data Home Medications: Home Medications ?Medication ?Instructions ?Recorded ?Confirmed ?Last Taken ?Type Glucosamine Chondroitin 1,500 mg PO BID 12/29/23 04/28/24 Unknown History <KHADAR Gómez Last Filed: 08/31/24 13:37> Allergies/Adverse Reactions: Allergies Allergy/AdvReac Type Severity Reaction Status Date / Time No Known Allergies Allergy Verified 08/31/24 09:57 <Parris Myers PA-C - Last Filed: 08/31/24 13:37> Review of Systems 2 Review of Systems: All systems reviewed & are unremarkable except as noted in HPI. <Parris Myers PA-C - Last Filed: 08/31/24 13:37> All systems reviewed & are unremarkable except as noted in HPI and below < Parris Myers PA-C - Last Filed: 08/31/24 13:37> [facility] Family History Family History: Family History Mother Hypertension Father Polycythemia Sibling Cancer <Parris Myers PA-C - Last Filed: 08/31/24 13:37> Social History Social History: Social History Smoking status: Never smoker Alcohol intake: former Substance use: never Do You Feel Safe in your Home?: Yes Lack of Transportation: No Lack of Food: Never True Current Housing: I Have Housing Concerned About Future Housing: No Difficulty Paying Gas/Electric Bills: No Difficulty Paying for Meds: No Currently Unemployed: No Education: High School Diploma/GED Difficulty w/ Childcare or Family Care: No Spiritual care concerns: No <Parris Myers PA-C - Last Filed: 08/31/24 13:37> Exam 2 Narrative: GENERAL: Elderly, chronically ill-appearing, thin, non-toxic, in no acute distress. HEAD: Normocephalic, atraumatic. ENT: MMs very dry. RESPIRATORY: Airway patent, respirations nonlabored. Coarse lung sounds in bases bilaterally. No significant distress. CARDIOVASCULAR: Regular rate and rhythm without murmurs, rubs, or gallops. ABDOMINAL: Soft, no appreciable tenderness, nondistended. Normoactive BS. MUSCULOSKELETAL: Moves all extremities. No gross deformities. No peripheral edema. SKIN: Warm, dry, normal color. NEURO: A&O X2, unsure of year/month/president. Speech clear. Cranial nerves II- XII grossly intact. No ataxic movements. No appreciable focal deficits. Follows most commands. PSYCHIATRIC: Appropriate mood and affect. Normal interaction. <Parris Myers PA-C - Last Filed: 08/31/24 13:37> Course PROFESSOR OF LANGUAGES/PA Physician Supervision For this patient encounter, I reviewed the PROFESSOR OF LANGUAGES or PA documentation, treatment plan, and medical decision making; and I had [id number] time with this patient. <Peter George MD - Last Filed: 08/31/24 18:32> Vital Signs Vital signs: Vital Signs Temperature 98.1 F 08/31/24 08:33 Pulse Rate 88 08/31/24 08:33 Respiratory Rate 20 08/31/24 08:33 Blood Pressure 156/64 H 08/31/24 08:33 Pulse Oximetry 94 08/31/24 08:33 Oxygen Delivery Room Air 08/31/24 08:33 Temperature 98.1 F 08/31/24 08:33 Pulse Rate 85 08/31/24 13:39 Respiratory Rate 14 08/31/24 13:39 Blood Pressure 177/88 H 08/31/24 13:39 Pulse Oximetry 96 08/31/24 13:39 Oxygen Delivery Room Air 08/31/24 15:22 <Parris Myers PA-C - Last Filed: 08/31/24 13:37> Vital Signs Temperature 98.1 F 08/31/24 08:33 Pulse Rate 88 08/31/24 08:33 Respiratory Rate 20 08/31/24 08:33 Blood Pressure 156/64 H 08/31/24 08:33 Pulse Oximetry 94 08/31/24 08:33 Oxygen Delivery Room Air 08/31/24 08:33 Temperature 98.1 F 08/31/24 08:33 Pulse Rate 85 08/31/24 13:39 Respiratory Rate 14 08/31/24 13:39 Blood Pressure 177/88 H 08/31/24 13:39 Pulse Oximetry 96 08/31/24 13:39 Oxygen Delivery Room Air 08/31/24 15:22 <Peter George MD - Last Filed: 08/31/24 18:32> MDM - Altered Mental Status MDM Narrative Medical decision making narrative: Patient presented to ED with altered mental status, concerned for dehydration/aspiration. From local long-term facility. Family unable to give a clear picture on patient's baseline mental status. He does have hx of dementia. Vital signs are stable upon arrival. He was noted to be hypoxic by EMS, but is not currently requiring any supplemental oxygen. SaO2 ranging around 94% on room air upon my evaluation. He is afebrile here. I do not appreciate any focal neurologic deficits. He denies any acute complaints. CBC without leukocytosis. Chronic mild anemia, consistent with previous records. Chronic thrombocytopenia, again consistent with previous records. CMP with stable electrolytes. Does appear consistent with slight dehydration. BUN elevated to 39. Fluids initiated. Creatinine is stable. Consistent with previous records. CK within normal range. TSH WNL. EKG with paced rhythm, nonspecific ST changes. Baseline troponin is undetectable. Patient denies chest pain. Urine appears infectious. Sent for culture. No previous positive culture results to review. Blood cultures obtained. Rocephin started in the ED. Viral swabs resulted positive for Influenza A. CT brain negative for acute intracranial pathology. Chest x-ray showing left basilar atelectasis versus pneumonia. Given influenza positive and family's report of frequent aspiration and concern over this recently, will cover for infectious pulm etiology. Will switch to zosyn to cover for potential aspiration. Patient will be admitted for further evaluation. Discussed case with Dr. Rush, hospitalist, accepted patient for admission. Family in agreement with plan and admission. < Parris Myers PA-C - Last Filed: 08/31/24 13:37> Medical Records Attestation: I reviewed the patient's medical records. <Parris Myers PA-C - Last Filed: 08/31/24 13:37> Lab Data Attestation: I reviewed the patient's lab results. <Parris Myers PA-C - Last Filed: 08/31/24 13:37> Result diagrams: 08/31/24 08:49 08/31/24 08:49 <Parris Myers PA-C - Last Filed: 08/31/24 13:37> Labs: Lab Results 08/31/24 08/31/24 08/31/24 Range/Units 08:48 08:49 08:51 WBC 7.1 (4.5-10.0) K/mm3 RBC 3.48 L (4.6-6.20) M/mm3 Hgb 10.8 L (14.0-18.0) g/dL Hct 34.0 L (42.0-52.0) % MCV 97.7 (80-100) fl MCH 31.0 (26-34) pg MCHC 31.8 L (32-36) g/dl RDW 13.8 (11.5-14.5) % Plt Count 84 L (150-375) k/mm3 MPV 12.4 H (7.4-10.4) fl Immature Gran % (Auto) 0.7 H (0-0.5) % Neut % (Auto) 64.9 (45.5-73.1) % Lymph % (Auto) 21.4 (18.3-44.2) % Todd % (Auto) 12.3 H (2.6-8.5) % Eos % (Auto) 0.4 (0-4.4) % Baso % (Auto) 0.3 (0.2-1.2) % Lymph # (Auto) 1.53 (0.9-3.2) K/mm3 Todd # (Auto) 0.9 H (0.1-0.6) K/mm3 Eos # (Auto) 0.0 (0-0.3) K/mm3 Baso # (Auto) 0.0 (0.0-0.1) K/mm3 Abs Immat Gran (auto) 0.05 H (0.00-0.031) K/mm3 Absolute Neuts (auto) 4.6 (1.3-6.7) K/mm3 Absolute Nucleated RBC 0.000 (0.0-0.012) K/mm3 Nucleated RBC % 0.0 (0.0-0.2) % % Immature Plt Fraction 10.0 (0.9-11.2) % PT 16.2 H (11.1-14.7) Seconds INR 1.3 APTT 41.8 H (22.3-36.8) Seconds Sodium 145 (137-145) mmol/L Potassium 4.4 (3.4-5.0) mmol/L Chloride 108 H (98-107) mmol/L Carbon Dioxide 28 (22-30) mmol/L Anion Gap 9 (4-12) mmol/L BUN 39 H (9-20) mg/dL Creatinine 1.29 (0.7-1.3) mg/dL Estim Creat Clear Calc 39 ml/min Estimated GFR 54 L (59 - ) Glucose 114 H (65-110) mg/dL Calcium 9.2 (8.4-10.2) mg/dL Total Bilirubin 0.5 (0.2-1.3) mg/dL AST 35 (17-59) U/L ALT 27 (6-50) U/L Alkaline Phosphatase 74 (38-126) U/L Total Creatine Kinase 23 L (55-170) U/L Troponin I < 0.012 (0.000-0.034) ng/mL NT-Pro-B Natriuret Pep 1380 H (19.9-100) pg/mL Total Protein 6.0 L (6.3-8.2) g/dL Albumin 3.5 (3.5-5.1) g/dL TSH (Reflex) 3.590 (0.465-4.68) uIU/mL Urine Color Dark yellow (Yellow) Urine Appearance Clear (Clear) Urine pH 5.0 (5.0-9.0) Ur Specific [place] 1.024 (1.001-1.035) Urine Protein 2+ H (Negative) mg/dL Urine Glucose (UA) Negative (Negative) mg/dL Urine Ketones Trace H (Negative) mg/dL Ur Blood (Man) Negative (Negative) Urine Nitrate Positive H (Negative) Urine Bilirubin Negative (Negative) Urine Urobilinogen 0.2 (<2.0) mg/dL Leukocyte Esterase Rfl 1+ H (Negative) MEHNAZ/UL Urine RBC 0-2 (0-2) /hpf Urine WBC 21-50 H (0-3) /hpf Ur Squamous Epith Cells None seen (Few) /hpf Urine Bacteria 4+ H /hpf Urine Casts 3-5 Influenza A (RT-PCR) (Negative) Influenza B (RT-PCR) (Negative) RSV (RT-PCR) (Negative) SARS-CoV-2 RNA (RT-PCR) (Negative) 08/31/24 Range/Units 09:32 WBC (4.5-10.0) K/mm3 RBC (4.6-6.20) M/mm3 Hgb (14.0-18.0) g/dL Hct (42.0-52.0) % MCV (80-100) fl MCH (26-34) pg MCHC (32-36) g/dl RDW (11.5-14.5) % Plt Count (150-375) k/mm3 MPV (7.4-10.4) fl Immature Gran % (Auto) (0-0.5) % Neut % (Auto) (45.5-73.1) % Lymph % (Auto) (18.3-44.2) % Todd % (Auto) (2.6-8.5) % Eos % (Auto) (0-4.4) % Baso % (Auto) (0.2-1.2) % Lymph # (Auto) (0.9-3.2) K/mm3 Todd # (Auto) (0.1-0.6) K/mm3 Eos # (Auto) (0-0.3) K/mm3 Baso # (Auto) (0.0-0.1) K/mm3 Abs Immat Gran (auto) (0.00-0.031) K/mm3 Absolute Neuts (auto) (1.3-6.7) K/mm3 Absolute Nucleated RBC (0.0-0.012) K/mm3 Nucleated RBC % (0.0-0.2) % % Immature Plt Fraction (0.9-11.2) % PT (11.1-14.7) Seconds INR APTT (22.3-36.8) Seconds Sodium (137-145) mmol/L Potassium (3.4-5.0) mmol/L Chloride (98-107) mmol/L Carbon Dioxide (22-30) mmol/L Anion Gap (4-12) mmol/L BUN (9-20) mg/dL Creatinine (0.7-1.3) mg/dL Estim Creat Clear Calc ml/min Estimated GFR (59 - ) Glucose (65-110) mg/dL Calcium (8.4-10.2) mg/dL Total Bilirubin (0.2-1.3) mg/dL AST (17-59) U/L ALT (6-50) U/L Alkaline Phosphatase (38-126) U/L Total Creatine Kinase (55-170) U/L Troponin I (0.000-0.034) ng/mL NT-Pro-B Natriuret Pep (19.9-100) pg/mL Total Protein (6.3-8.2) g/dL Albumin (3.5-5.1) g/dL TSH (Reflex) (0.465-4.68) uIU/mL Urine Color (Yellow) Urine Appearance (Clear) Urine pH (5.0-9.0) Ur Specific [place] (1.001-1.035) Urine Protein (Negative) mg/dL Urine Glucose (UA) (Negative) mg/dL Urine Ketones (Negative) mg/dL Ur Blood (Man) (Negative) Urine Nitrate (Negative) Urine Bilirubin (Negative) Urine Urobilinogen (<2.0) mg/dL Leukocyte Esterase Rfl (Negative) MEHNAZ/UL Urine RBC (0-2) /hpf Urine WBC (0-3) /hpf Ur Squamous Epith Cells (Few) /hpf Urine Bacteria /hpf Urine Casts Influenza A (RT-PCR) Positive A (Negative) Influenza B (RT-PCR) Negative (Negative) RSV (RT-PCR) Negative (Negative) SARS-CoV-2 RNA (RT-PCR) Negative (Negative) <Parris Myers PA-C - Last Filed: 08/31/24 13:37> Lab Results 08/31/24 08/31/24 08/31/24 Range/Units 08:48 08:49 08:51 WBC 7.1 (4.5-10.0) K/mm3 RBC 3.48 L (4.6-6.20) M/mm3 Hgb 10.8 L (14.0-18.0) g/dL Hct 34.0 L (42.0-52.0) % MCV 97.7 (80-100) fl MCH 31.0 (26-34) pg MCHC 31.8 L (32-36) g/dl RDW 13.8 (11.5-14.5) % Plt Count 84 L (150-375) k/mm3 MPV 12.4 H (7.4-10.4) fl Immature Gran % (Auto) 0.7 H (0-0.5) % Neut % (Auto) 64.9 (45.5-73.1) % Lymph % (Auto) 21.4 (18.3-44.2) % Todd % (Auto) 12.3 H (2.6-8.5) % Eos % (Auto) 0.4 (0-4.4) % Baso % (Auto) 0.3 (0.2-1.2) % Lymph # (Auto) 1.53 (0.9-3.2) K/mm3 Todd # (Auto) 0.9 H (0.1-0.6) K/mm3 Eos # (Auto) 0.0 (0-0.3) K/mm3 Baso # (Auto) 0.0 (0.0-0.1) K/mm3 Abs Immat Gran (auto) 0.05 H (0.00-0.031) K/mm3 Absolute Neuts (auto) 4.6 (1.3-6.7) K/mm3 Absolute Nucleated RBC 0.000 (0.0-0.012) K/mm3 Nucleated RBC % 0.0 (0.0-0.2) % % Immature Plt Fraction 10.0 (0.9-11.2) % PT 16.2 H (11.1-14.7) Seconds INR 1.3 APTT 41.8 H (22.3-36.8) Seconds Sodium 145 (137-145) mmol/L Potassium 4.4 (3.4-5.0) mmol/L Chloride 108 H (98-107) mmol/L Carbon Dioxide 28 (22-30) mmol/L Anion Gap 9 (4-12) mmol/L BUN 39 H (9-20) mg/dL Creatinine 1.29 (0.7-1.3) mg/dL Estim Creat Clear Calc 39 ml/min Estimated GFR 54 L (59 - ) Glucose 114 H (65-110) mg/dL Calcium 9.2 (8.4-10.2) mg/dL Total Bilirubin 0.5 (0.2-1.3) mg/dL AST 35 (17-59) U/L ALT 27 (6-50) U/L Alkaline Phosphatase 74 (38-126) U/L Total Creatine Kinase 23 L (55-170) U/L Troponin I < 0.012 (0.000-0.034) ng/mL NT-Pro-B Natriuret Pep 1380 H (19.9-100) pg/mL Total Protein 6.0 L (6.3-8.2) g/dL Albumin 3.5 (3.5-5.1) g/dL TSH (Reflex) 3.590 (0.465-4.68) uIU/mL Urine Color Dark yellow (Yellow) Urine Appearance Clear (Clear) Urine pH 5.0 (5.0-9.0) Ur Specific [place] 1.024 (1.001-1.035) Urine Protein 2+ H (Negative) mg/dL Urine Glucose (UA) Negative (Negative) mg/dL Urine Ketones Trace H (Negative) mg/dL Ur Blood (Man) Negative (Negative) Urine Nitrate Positive H (Negative) Urine Bilirubin Negative (Negative) Urine Urobilinogen 0.2 (<2.0) mg/dL Leukocyte Esterase Rfl 1+ H (Negative) MEHNAZ/UL Urine RBC 0-2 (0-2) /hpf Urine WBC 21-50 H (0-3) /hpf Ur Squamous Epith Cells None seen (Few) /hpf Urine Bacteria 4+ H /hpf Urine Casts 3-5 Influenza A (RT-PCR) (Negative) Influenza B (RT-PCR) (Negative) RSV (RT-PCR) (Negative) SARS-CoV-2 RNA (RT-PCR) (Negative) 08/31/24 Range/Units 09:32 WBC (4.5-10.0) K/mm3 RBC (4.6-6.20) M/mm3 Hgb (14.0-18.0) g/dL Hct (42.0-52.0) % MCV (80-100) fl MCH (26-34) pg MCHC (32-36) g/dl RDW (11.5-14.5) % Plt Count (150-375) k/mm3 MPV (7.4-10.4) fl Immature Gran % (Auto) (0-0.5) % Neut % (Auto) (45.5-73.1) % Lymph % (Auto) (18.3-44.2) % Todd % (Auto) (2.6-8.5) % Eos % (Auto) (0-4.4) % Baso % (Auto) (0.2-1.2) % Lymph # (Auto) (0.9-3.2) K/mm3 Todd # (Auto) (0.1-0.6) K/mm3 Eos # (Auto) (0-0.3) K/mm3 Baso # (Auto) (0.0-0.1) K/mm3 Abs Immat Gran (auto) (0.00-0.031) K/mm3 Absolute Neuts (auto) (1.3-6.7) K/mm3 Absolute Nucleated RBC (0.0-0.012) K/mm3 Nucleated RBC % (0.0-0.2) % % Immature Plt Fraction (0.9-11.2) % PT (11.1-14.7) Seconds INR APTT (22.3-36.8) Seconds Sodium (137-145) mmol/L Potassium (3.4-5.0) mmol/L Chloride (98-107) mmol/L Carbon Dioxide (22-30) mmol/L Anion Gap (4-12) mmol/L BUN (9-20) mg/dL Creatinine (0.7-1.3) mg/dL Estim Creat Clear Calc ml/min Estimated GFR (59 - ) Glucose (65-110) mg/dL Calcium (8.4-10.2) mg/dL Total Bilirubin (0.2-1.3) mg/dL AST (17-59) U/L ALT (6-50) U/L Alkaline Phosphatase (38-126) U/L Total Creatine Kinase (55-170) U/L Troponin I (0.000-0.034) ng/mL NT-Pro-B Natriuret Pep (19.9-100) pg/mL Total Protein (6.3-8.2) g/dL Albumin (3.5-5.1) g/dL TSH (Reflex) (0.465-4.68) uIU/mL Urine Color (Yellow) Urine Appearance (Clear) Urine pH (5.0-9.0) Ur Specific [place] (1.001-1.035) Urine Protein (Negative) mg/dL Urine Glucose (UA) (Negative) mg/dL Urine Ketones (Negative) mg/dL Ur Blood (Man) (Negative) Urine Nitrate (Negative) Urine Bilirubin (Negative) Urine Urobilinogen (<2.0) mg/dL Leukocyte Esterase Rfl (Negative) MEHNAZ/UL Urine RBC (0-2) /hpf Urine WBC (0-3) /hpf Ur Squamous Epith Cells (Few) /hpf Urine Bacteria /hpf Urine Casts Influenza A (RT-PCR) Positive A (Negative) Influenza B (RT-PCR) Negative (Negative) RSV (RT-PCR) Negative (Negative) SARS-CoV-2 RNA (RT-PCR) Negative (Negative) <Peter George MD - Last Filed: 08/31/24 18:32> Imaging Data Attestation: I personally reviewed and interpreted this imaging study as follows: < Parris Myers PA-C - Last Filed: 08/31/24 13:37> Radiologist's impression: ITS Impressions Head CT 08/31/24 09:34 IMPRESSION: No acute intracranial findings. Chest X-Ray 08/31/24 09:52 IMPRESSION: Left basilar atelectasis versus pneumonia. <Parris Myers PA-C - Last Filed: 08/31/24 13:37> ECG Data EKG #1: Attestation: I personally reviewed and interpreted this ECG as follows: <Parris Myers PA-C - Last Filed: 08/31/24 13:37> ECG completion date: 08/31/24 <Parris Myers PA-C - Last Filed: 08/31/24 13:37> ECG completion time: 08:41 <Parris Myers PA-C - Last Filed: 08/31/24 13:37> EKG Interpretation: normal rate (80), sinus rhythm and non-specific ST changes <Parris Myers PA-C - Last Filed: 08/31/24 13:37> Pacemaker function: normal pacer function <Parris Myers PA-C - Last Filed: 08/31/24 13:37> Discharge Plan Discharge Clinical Impression: Influenza A, Thrombocytopenia Altered mental status Qualifiers: Altered mental status type: unspecified Qualified Code(s): R41.82 - Altered mental status, unspecified UTI (urinary tract infection) Qualifiers: Urinary tract infection type: acute cystitis Hematuria presence: without hematuria Qualified Code(s): N30.00 - Acute cystitis without hematuria Left lower lobe pneumonia Qualifiers: Pneumonia type: due to unspecified organism Qualified Code(s): J18.9 - Pneumonia, unspecified organism <Parris Myers PA-C - Last Filed: 08/31/24 13:37> Patient Disposition: Still a Patient <Parris Myers PA-C - Last Filed: 08/31/24 13:37> Condition: Stable <Parris Myesr PA-C - Last Filed: 08/31/24 13:37>
[2024-08-31 09:05] LABS: Alanine Aminotransferase 27 U/L (6-50); Albumin Level 3.5 g/dL (3.5-5.1); Alkaline Phosphatase 74 U/L (38-126); Anion Gap 9 mmol/L (4-12); Aspartate Amino Transferase 35 U/L (17-59); Bilirubin,Total 0.5 mg/dL (0.2-1.3); Blood Urea Nitrogen 39 mg/dL (9-20); Calcium 9.2 mg/dL (8.4-10.2); Carbon Dioxide 28 mmol/L (22-30); Chloride 108 mmol/L (98-107); Estimated CRCL calculation 39 ml/min; Estimated Glomerular Filt Rate 54; Glucose 114 mg/dL (65-110); Potassium 4.4 mmol/L (3.4-5.0); Sodium 145 mmol/L (137-145)
[2024-08-31 09:07] LABS: INR 1.3; Prothrombin Time 16.2 Seconds (11.1-14.7)
[2024-08-31 09:08] LABS: Partial Thromboplastin Time 41.8 Seconds (22.3-36.8)
--- OUTSIDE RECORDS SUMMARY | 2024-08-31 09:09 | XMS_ITS | Data Portability ---
Author Organization [place] - [facility], Main Office Address [address] [facility] [address] [place] [address] Care Team Providers Care Watch Adjuster Name Role Phone SABINE DIAZ Primary Care Provider [phone] Assessment No assessment recorded. Plan of Treatment Reminders Order Date Submit Date Provider Last Modified By Organization Details Last Modified Time Details Appointments None recorded. Lab None recorded. Referral None recorded. Procedures None recorded. Surgeries None recorded. Imaging None recorded. Medication Orders clotrimaz ole-betam ethasone 1 %-0.05 % topical cream 2018 019 INTERFACE [facility], [address] [place], [address], 9 11:21:52 Patient TargetsNo targets recorded. Patient Instructions Encounter Date Encounter Id Patient Instructions Last Modified By Organization Details Last Modified Time 04/29/2018 [id number] Patient counsele d to F/U immediately if temp. greater than 100.4, if is unable to urinate, increased rectal pain or any other concerns. Not available 05/07/2018 17:46:08 He will follow u p in 1 - 2 weeks and I will treat his LL internal hemorrhoid (maybe take another look at his RA). I discussed with him he will probably be 3 - 5 treatments total this series. On today's visit I spent a total of {{30 35* 40 45 50 55 60}} minutes evhg-mq-eioc with the patient and over 50% of this time was spent discussing treatment options, risks/benefits of each option and alternatives. Not available 05/07/2018 17:48:01 05/11/2018 [id number] Patient counsele d to F/U immediately if temp. greater than 100.4, if is unable to urinate, increased rectal pain or any other concerns. Not available 05/11/2018 12:57:22 He will follow u p in 7 - 8 weeks and I will try to retreat all 3 areas. That will probably be his last treatment. Not available 05/11/2018 20:01:30 07/13/2018 [id number] He will follow u p with me only as needed. On today's visit I spent a total of {{15# 30 35 40 45 50 55 60}} minutes meri-ws-nflz with the patient and over 50% of this time was spent discussing treatment options, risks/benefits of each option and alternatives. Not available 07/25/2018 17:41:19 05/12/2019 [id number] Patient counsele d to F/U immediately if temp. greater than 100.4, if is unable to urinate, increased rectal pain or any other concerns. Not available 05/29/2019 18:49:33 He will follow u p with me only as needed. I advised that if he feels he needs another treatment the soonest I would see him would be in 8 weeks. On today's visit I spent a total of {{25# 30 35 40 45 50 55 60}} minutes rrul-tj-yucl with the patient and over 50% of this time was spent discussing treatment options, risks/benefits of each option and alternatives and answering his questions. Not available 05/29/2019 18:50:07 Reason for Referral None Reported. Problems Name Problem SNOMED Code Status Onset Date Resolution Date Notes Provider Name and Address Organization Details Recorded Time External hemorrhoids 88868072 Active 2011 Betty Fontenot [facility] 9 15:19:09 Pile easily reducible 820168178 Active 2011 Tx #1: 09/15/11 1.2 x 10 RP Tx #2: 09/22/11 1.2 x 8 LL Tx #3: 09/29/11 1.1 x 6 RA Tx #4: 10/13/11 1.2 x 7 RP Tx #5: 10/27/11 1.2 x 6 LL and 1.2 x 3 RA Tx #6: 04/29/18 1.2 x 9 RP Tx #7: 05/11/18 1.2 x 6 LL and 1.1 x 4 RA07/13/18 : No Tx - on warfarin Tx #8: 05/12/19 1.2 x 4 RP and 1.2 x 5 LL Adriane Franco MD [address] [place] [address],[address], [place], [address], [facility] 9 18:41:52 Constipatio n 49319431 [facility] 9 15:19:09 Screening for malignant neoplasm [facility] colon [facility] 9 15:19:09 History of deep vein thrombosis 210991763 [facility] 9 15:19:09 Anticoagula nt therapy Active [facility] 9 15:19:09 Perianal dermatitis 088451764 Active 2018 Adriane Franco MD [address] [place] [address],[address], [place], [address], [facility] 9 11:20:56 Problem Notes None recorded. Procedures Surgical History Date Name Laterality Status Provider Name and Address Organization Details Recorded Time 9 IRC completed Adriane Franco MD [address] [place] [address],[address], [place], [address], [facility] 05/29/2019 18:44:11 9 Prostate Surgery completed Adriane Franco MD [address] [place] [address],[address], [place], [address], [facility] 05/29/2019 18:39:13 8 IRC completed Adriane Franco MD [address] [place] [address],[address], [place], [address], [facility] 05/11/2018 13:24:06 8 IRC completed Adriane Franco MD [address] [facility],[address], [place], [address], [facility] 05/07/2018 17:28:19 4 Colonoscopy completed Siria Fuentes [facility] 04/29/2018 12:52:03 2 [place] [address] [place] [address],[address], [place], [address], [facility] 04/28/2018 19:06:10 Imaging Results None recorded. Procedure Notes None recorded. Medical Equipment None Reported. Allergies No known drug allergies Medications Name Sig Start Date Stop Date Status Note LastModified by Organization Details LastModified Time atorvasta tin 40 mg tablet active Not Available Not Available Not Available Tylenol 500 mg capsule Take 2 tablets every 4 hours by oral route. active Not Available Not Available No t Available amiodaron e 200 mg tablet Take 1 tablet every day by oral route for 30 days. active Not Available Not Available No t Available valacyclo vir 1 gram tablet Take 1 tablet every 12 hours by oral route. active Not Available Not Available No t Available hydrocodo ne 5 mg-acetam inophen 325 mg tablet active Not Available Not Available Not Available fluticaso ne propionat e 0.05 % topical cream active Not Available Not Available Not Available betametha sone, augmented 0.05 % topical cream active Not Available Not Available Not Available aspirin 81 mg tablet,de layed release Take 1 tablet every day by oral route. 07/13 completed 04/29/18: He takes for preventi on only and denies taking any other aspirin products . Not Available Not Available Not Available spironola ctone 25 mg tablet active Not Available Not Available No t Available simvastat in 40 mg tablet Take 1 tablet every day by oral route. 07/13 completed Not Available Not Available Not Available warfarin 3 mg tablet 05/12 completed Not Available Not Available Not Available nortripty line 25 mg capsule 05/12 completed Not Available Not Available Not Available losartan 100 mg-hydroc hlorothia zide 25 mg tablet 07/13 completed Not Available Not Available Not Available alprazola m 0.5 mg tablet active Not Available Not Available Not Available levothyro xine 50 mcg tablet active Not Available Not Available Not Available hydrocodo ne 7.5 mg-acetam inophen 325 mg tablet Take 1 tablet every 6 hours by oral route. active Not Available Not Available No t Available cephalexi n 500 mg capsule active Not Available Not Available Not Available clotrimaz ole-betam ethasone 1 %-0.05 % topical cream Apply 2 g twice a day by topical route as directed for 14 days. 2018 active Not Available Not Available Not Avai lable warfarin 2 mg tablet 05/12 completed Not Available Not Available Not Available warfarin 5 mg tablet Take 1 tablet every day by oral route. 05/12 completed Not Available Not Available Not Available minocycli ne 50 mg capsule 07/13 completed Not Available Not Available Not Available metoprolo l tartrate 50 mg tablet Take 1 tablet twice a day by oral route. active Not Available Not Available No t Available ipratropi um bromide 42 mcg (0.06 %) nasal spray active Not Available Not Available Not Available indometha kaylie ER 75 mg capsule,e xtended release active Not Available Not Available Not Available clobetaso l 0.05 % scalp solution active Not Available Not Available Not Available losartan 100 mg tablet Take 1 tablet every day by oral route. active Not Available Not Available No t Available naproxen 500 mg tablet Take 1 tablet twice a day by oral route. 07/13 completed Not Available Not Available Not Available cyclobenz aprine 5 mg tablet 07/13 completed Not Available Not Available Not Available Restasis 0.05 % eye drops in a dropperet te 07/13 completed Not Available Not Available Not Available Cialis 10 mg tablet Take 1 tablet every day by oral route. 07/13 completed Not Available Not Available Not Available zinc active Not Available Not Availa ble Not Available Fish Oil 07/13 completed Not Available Not Available Not Available Vitamin D active Not Available Not Natalie ilable Not Available Glucosami ne active Not Available Not Available Not Available cane active Not Available Not Availa ble Not Available amlodipin e besylate (bulk) 10 mg 2018 active Not Available Not Available Not Avai lable doxycycli ne 100mg capsule and topical skin cleanser no.19 active Not Available Not Available Not Available Eliquis 5 mg tablet active Not Available Not Available No t Available testoster one cypionate 200 mg/mL intramusc ular kit Inject 0.75 mL every 2 weeks by intramus cular route. 07/13 completed Not Available Not Available Not Available biotin 5,000 mcg disintegr ating tablet Take by oral route. active Not Available Not Available No t Available Vitals Date Recorded Body weight Body mass index (BMI) Body height Respiratory rate Body temperature Heart rate Systolic blood pressure Diastolic blood pressure Provider Name and Address Organization Details Last Updated DateTime 8 63166.7 1 g 28.6 kg/m2 182.88 cm 16 /min 98.6 [degF] 77 /min 163 mm[Hg] 87 mm[Hg] [facility] 8 13:28:19 Date Recorded Body height Provider Name an d Address Organization Details Last Updated DateTime 05/11/2018 182.88 cm [facility] 05/11/2018 12:52:02 Date Recorded Body height Provider Name an d Address Organization Details Last Updated DateTime 07/13/2018 182.88 cm [facility] 07/13/2018 11:23:24 Date Recorded Body height Body mass index (BMI) Body weight Body temperature Respiratory rate Heart rate Systolic blood pressure Diastolic blood pressure Provider Name and Address Organization Details Last Updated DateTime 9 182.88 cm 29.4 kg/m2 82494.5 4 g 98.1 [degF] 14 /min 59 /min 167 mm[Hg] 86 mm[Hg] [facility] 9 10:47:48 Social History Question Answer Notes LastModified by Organizat ion Details LastModified Time Tobacco Smoking Status Never Smoker Not Available [facility] 05/01/2020 03:38:34 Alcohol Use No Information n ot available 04/29/2018 Caffeine Use Yes Information not available 04/29/2018 Illicit Drug Use No Information not available 04/29/2018 What Was The Date Of Your Most Recent Tobacco Screening? 07/13/2018 [id number] Information not available 05/01/2020 Sex: Unknown Functional Status None recorded. Mental Status None recorded. Family History Relationship Description Onset Age of this Age Resolved Age Notes LastModified by Organization Details LastModified Time Mother Cerebrovascu lar accident Not available 06/2017 12:51:18 Medical History Condition Response Coronary Artery Disease N Other Y Atrial Fibrillation Y Kidney Stones N Hyperthyroidism N Hernia N Depression N COPD N Glaucoma N Hypothyroidism N Accidental Bowel Leakage N Headaches/Migraines N Deep Vein Thrombosis Y Anxiety Disorder N Cardiac Dysrhythmia N MRSA/VRE Exposure N Diverticulosis N Cancer N Stroke N Head Trauma N Crohn's Disease N Genital Warts N Liver Disease/Hepatitis N HIV/AIDS N High Cholesterol Y Irritable Bowel Syndrome N Autoimmune Disease N Kidney Disease N Anemia N Arthritis/Gout Y Celiac Disease N Anal/Rectal Trauma/Injury N Diabetes N Cataracts N Bleeding Disorder N Seizures/Epilepsy N Diverticulitis N Asthma N Reflux/GERD N Ulcerative Colitis N Sleep Apnea N Aneurysm N Heart Disease N Pulmonary Embolism Y Hypertension Y Colon/Rectal Polyps N Past Encounters Encounter ID Performer Location Encounter Start Date Encounter Closed Date Diagnosis/Indication Diagnosis SNOMED-CT Code Diagnosis ICD10 Code Diagnosis Note [id number] Adriane Franco MD Main Office [address] [address] 04/29/2018 12:49:55 04/29/2018 14:45:02 Pile easily reducible 410584446 K64.1 Stage 2 - 3 internal hemorrhoid s: He has done well with infrared coagulatio n in the past and I think he would benefit now. I reviewed full informed consent with him including risks/bene fits and alternativ es. He wanted to proceed with treatment. His 6th overall (1st in this series) treatment was done today on the right posterior. I advised that he should go off of his baby aspirin as we go through treatment until 3 weeks after his last treatment. External hemorrhoids 239 69234 K64.4 These will improve with IRC. He understand s the only way to directly treat external hemorrhoid s would be with surgery and he does not wish to pursue this and his hemorrhoid s are not bad enough to require surgery. I discussed with him he should consistent ly use the flushable wipes as well as a good skin protectant (I wrote down Desitin, Calmosepte ne, Pranicura and powders). Constipation 67415095 K5 9.00 This is not bad. He of course needs to be eating a high fiber diet and drinking plenty of water. I advised that he start Bene Fiber at very low dose and slowly increase to try to maintain soft daily BM's. Screening for malignant neoplasm of colon 332505160 Z12.11 He is not due for a colonoscop y until 2023 however that would put him at 79 years old. I discussed with him that if he is still very healthy he might want to go ahead and get a scope or possibly a ColoGuard test. It is still 6 years away. [id number] Adriane Franco MD Main Office [address] [facility] [address] [place] [address] 05/11/2018 12:51:32 05/11/2018 13:30:00 Rhoda easily reducible 790602149 K64.1 Stage 2 - 3 internal hemorrhoid s: He is doing well with infrared coagulatio n treatment. His 7th overall (2nd in this series) treatment was done today on the LL and RA internal hemorrhoid s. External hemorrhoids 239 04176 K64.4 Improved with IRC. He is going to continue with the Desitin but not use so much at 1 time. Constipation 60278728 K5 9.00 Is doing well with the Bene Fiber. I advised take forever and adjust doses as needed to maintain soft daily BM's. Screening for malignant neoplasm of colon 414144411 Z12.11 He is not due for a colonoscop y until 2023 however that would put him at 79 years old. I discussed with him that if he is still very healthy he might want to go ahead and get a scope or possibly a ColoGuard test. It is still 6 years away. [id number] Adriane Franco MD Main Office [address] [place] [address] 07/13/2018 11:14:15 07/13/2018 12:19:26 Pile easily reducible 407596862 K64.1 I discussed with him that is he is not having much in the way of symptoms I do not want to do another treatment given he will be back on his warfarin soon (and should be back on it now). If his symptoms worsen or he goes off of the warfarin (which he things he is supposed to at 6 months) then we will consider treating again. History of deep vein thrombosis 988858951 Z86.718 See above. I advised he needs to let his cardiology office know he is not back on his warfarin and he should not go off of it unless he has been instructed to do so (and should go back on when he is instructed to do so). Anticoagulant therapy 18 5777772 Z79.01 [id number] Adriane Franco MD Main Office [address] [facility] [address] [place] [address] 05/12/2019 10:20:54 05/12/2019 11:27:35 Perianal dermatitis 586093665 L30.9 I discussed with him how to use the Lotrisone Cream - he should use it consistent ly BID for 2 weeks but then go off of it. He needs to then consistent ly use a good skin protectant (I wrote down Desitin, Calmosepte ne and Pranicura) . He needs to be following good skin care techniques (I pointed him to the [employer] website for these). Pile easily reducible 27 8640480 K64.1 Stage 2 internal hemorrhoid s: He has done well with infrared coagulatio n in the past and I think he would benefit now. I reviewed full informed consent with him including risks/bene fits and alternativ es. He wanted to proceed with treatment. His 8th overall treatment was done today on his RP and LL internal hemorrhoid s. External hemorrhoids 239 37976 K64.4 These will improve with IRC. He understand s the only way to directly treat external hemorrhoid s/skin tags would be with a surgical excision. He does not wish to pursue this and his hemorrhoid s are not bad enough to warrant surgery. Constipation 63204550 K5 9.00 He of course needs to consistent ly eat a high fiber diet and drink plenty of water. Is doing well with his fiber supplement . I advised take forever and adjust doses as needed to maintain soft daily BM's. History of deep vein thrombosis 322567280 Z86.718 He is going to go on Eliquis. He understand s that this does increase his risk for bleeding. I voiced understand ing that he should go off of it if he does get heavy bleeding. Health Concerns Section Related Observation LastModified by Organization Detai ls LastModified Time None Recorded Concern Status LastModified by Organization Details LastModified Time None Recorded Advance Directives Directive None Recorded Payers Encounter Date Sequence Insurance Name Policy Number Policy Reid Covered Member ID Reid Member ID Guarantor Name 04/29/2018 1 [place]LON Leslie Dave [id number] David Leslie Dave 04/29/2018 2 [place] [id number] David Leslie Dave [id number] David Leslie Dave 05/11/2018 1 [place] Leslie Dave [id number] David Leslie Dave 05/11/2018 2 [place] [id number] David Leslie Dave [id number] David Leslie Dave 07/13/2018 1 [place] Leslie Dave [id number] David Leslie Dave 07/13/2018 2 [employer] OPTIONS (MEDICARE SUPPLEMENT) Murali Leslie Dave [id number] David Leslie Dave 05/12/2019 1 [place] Leslie Dave [id number] David Leslie Dave 05/12/2019 2 [employer] OPTIONS (MEDICARE SUPPLEMENT) Murali Leslie Dave [id number] David Leslie Dave Notes Date Note Type Note Provider Name and Address Organization Details Recorded Time 04/29/2018 text/html See previous visits. He states he has been doing extremely well with his hemorrhoid symptoms since I last treated him on 10/27/11. He had no symptoms at all until the last 6 months. His symptoms were intermittent for the first 3 months but have been getting much more persistent. He presents today for an evaluation and treatment if it is appropriate. Bleeding: He has had some bright red blood on the wipe with BM's and this is getting more frequent. He has had a few episodes of some drip in the water. Pain: Not really Itching: He has had some external itching. It is not bad. Discharge: It is always hard to get clean after BM's because of swelling and irritation. He does not have difficulty staying clean - he does not have to re-wipe. He has no drainage. Prolapse: Not that he feels External swelling: He has had external swelling after BM's and if he is more flared. Discomfort: He has the external irritation and discomfort. He has some internal pressure, a sense of being blocked when trying to have a BM and a sense of incomplete emptying after BM's. Previous Hemorrhoid Treatment: Only the [facility] treatments here Previous Lower GI Endoscopy: He is up to date on his colonoscopies Bowel Habits: His BM's are daily but are not always soft depending on his diet. He has not been taking any fiber supplements. Adriane Franco MD [address] [place] [address],[address], [place], [address], [facility] 05/07/2018 17:50:54 05/11/2018 text/html No problem with tx and he feels he is doing very well. He has less swelling and discomfort. He has been using the Desitin but states it is really messy . He has been putting quite a bit on at one time. He has had no bleeding. It is easier to get clean. He did start a very low dose of Bene Fiber and his [place] [address] [place] [address],[address], [place], [address], [facility] 05/11/2018 20:01:56 07/13/2018 text/html See previous vis its and phone note from 07/06. He has been started on warfarin due to a. fib. and a DVT with PE. I advised that he not come back in for another treatment until he gets this stabilized and his hemorrhoid symptoms were doing well. He cancelled his appointment. He called yesterday telling the office staff he was off warfarin so he made an appointment today. He states that his hemorrhoid symptoms are still doing much better than they had been in April. He occasionally gets some slight external irritation but he uses a small amount of Prep H and it goes away (sometimes it just goes away with using the Prep H). What he did not tell the office staff is that he is off of the warfarin because his INR was elevated (he thinks it was a 2.7). He has since had his INR rechecked and it is back in treatment range and he has been instructed by the cardiology office to go back on his warfarin (this was yesterday). He however is staying off of it because he his having an steroid spinal injection on 07/15 for some minor back pain. He did not tell his cardiology office he is not going back on the warfarin. His BM's have been soft. Adriane Franco MD [address] [facility],[address], [place], [address], [facility] 07/25/2018 17:42:36 05/12/2019 text/html See previous visits. He is off of his warfarin but is getting ready to go on Eliquis due to his history of DVT with a PE in 05/2018. He recently had prostate clips placed for BPH with significant nocturia symptoms so he had to go off of his warfarin. He states his hemorrhoid symptoms have been doing well over the last year (his last IRC treatment was on 05/11/18). We did not do a final treatment last year due to the fact that he was doing so well and he had been placed on the warfarin. He comes in today because he is off all blood thinners, but also because he has had anal swelling and irritation over the last 3 weeks. He presents for an evaluation and treatment if it would be helpful. Bleeding: He has had a scant amount of bright red blood on the wipe with some BM's. He has not had heavy bleeding or leakage of blood in between BM's. Pain: None Itching: He has a lot of external irritation and itching. He has been using OTC hemorrhoid creams but they have not been helpful. Discharge: Over the last 3 weeks he has had difficulty getting clean after BM's and has to re-wipe shortly after his BM's. He has not had leakage heavy enough that he has to wear a pad. Prolapse: Not that he feels or has to manually reduce. External swelling: He gets some external swelling after BM's but does not have persistent swelling. Discomfort: He has the external irritation/discomfo rt. He denies internal symptoms of pressure, a sense of being blocked when trying to have a BM or a sense of incomplete emptying after BM's. Previous Hemorrhoid Treatment: He has had the IRC treatments here. He has used OTC products. Previous Lower GI Endoscopy: He has had 2 negative colonoscopies - his last one was in about 2013. He is due for a repeat in 2023. Bowel Habits: He has been taking fiber supplements and his BM's are daily and soft. Ardiane Franco MD [address] [facility],[address], [place], [address], [facility] 05/29/2019 18:50:50
--- OUTSIDE RECORDS SUMMARY | 2024-08-31 09:09 | XMS_ITS | Encounter Summary ---
Author Organization [facility] Address [address] [place] [address] Phone Care Team Providers Care Battery Installer Name Role Phone Torres Manzano MD Primary Care Provider [phone] Johnathon Gonsalez MD Unavailable Encounter Details Date Type Department Care Team (Late st Contact Info) Description 07/01/2021 Orders Only [facility] Cardiology [address] [facility] [address] [place] [address] [place] [address] Fahad Gutierrez MD [address] [facility] [address] [place] [address] Social History Tobacco Use Types Packs/Day Years Used Date Smoking Tobacco: Never Smokeless Tobacco: Never Alcohol Use Standard Drinks/Week Comments Yes 0 (1 standard drink = 0.6 oz pur e alcohol) AUDIT-C Answer Date Recorded Q1: How often do you have a drink containing alc ohol? Monthly or less 07/01/2021 Q2: How many drinks containi ng alcohol do you have on a typical day when you are drinking? 1 or 2 07/01/2021 Q3: How often do you have si x or more drinks on one occasion? Never 07/01/2021 Sex and Gender Information Value Date Recorded Sex Assigned at Not on file Legal Sex Male 9:21 AM [employer] Gender Identity Not on file Sexual Orientation Not on file documented as of this encounter Functional Status documented as of this encounter Plan of Treatment Not on file documented as of this encounter Visit Diagnoses Not on filedocumented in this encounter Care Teams Battery Installer Relationship Specialty Start Date End Date Torres Manzano MD [address] [place] [address] PCP - General 02/02/19 Johnathon Gonsalez MD [address] [place] [address] Referring Physician Neurology 08/05/22 09/26/22 Christiane Sanchez, BIOLOGICAL SCIENCE TECHNICIAN FISH [address] [facility] [address] [employer] Worker Infectious Diseases 09/22/22 documented as of this encounter
--- OUTSIDE RECORDS SUMMARY | 2024-08-31 09:10 | XMS_ITS | Patient Health Record ---
Author Organization [facility] Address [address] [place] [address] Care Team Providers Care Car Seat Maker Name Role Phone Sally Beltran Unavailable [phone] Migration, Provider Unavailable Unavailable Allergies No Known Allergies Reason For Referral No Information Medications Medication SIG (Take, Route, Frequency, Duration) Notes Start Date End Date Status Fluticasone Propionate 50 MCG/ACT USE 2 SPRAY(S) IN EACH NOSTRIL ONCE DAILY Nasal for 30 Days Active Tamsulosin HCl 0.4 MG TAKE 1 CAPSULE BY MOUTH ONCE DAILY Oral for 90 Days Active Donepezil HCl 10 MG TAKE 1 TABLET BY ADI TH AT BEDTIME FOR 30 DAYS Oral for 30 Days Active Losartan Potassium 100 MG TAKE 1 TABLET BY MOUTH IN THE EVENING Oral for 90 Days Active Nebivolol HCl 20 MG TAKE 1 TABLET BY ADI TH ONCE DAILY Oral for 90 Days Active Trospium Chloride 20 MG TAKE 1 TABLET BY MOUTH TWICE DAILY Oral for 30 Days Active Levothyroxine Sodium 75 MCG Oral for 90 Days Active Atorvastatin Calcium 80 MG TAKE 1 TABLET BY MOUTH ONCE DAILY Oral for 90 Days Active Sertraline HCl 50 MG 1 tablet Oral at be dtime for 30 days Active traZODone HCl 50 MG 1 tablet at bedtime Orally at bedtime for 30 days Active Cefdinir 300 MG TAKE 1 CAPSULE BY MO UTH TWICE DAILY Oral for 10 Days Active Ezetimibe 10 MG TAKE 1 TABLET BY ADI TH ONCE DAILY Oral for 90 Days Active Social History Sex Assigned At : Social History Observation Description Sex Assigned At Male Section Notes: Substance UseDo you or have you ever smoked tobacco?: Never smokerHow much tobacco do you smoke?: NoneDo you or have you ever used any other forms of tobacco or nicotine?: NoDo you or have you ever used e-cigarettes or vape?: Never used electronic cigarettesWhat was the date of your most recent tobacco screening?: 03/05/2023Has tobacco cessation counseling been provided?: NoWhat is your level of alcohol consumption?: NoneHave you ever been counseled for unhealthy alcohol use?: NoDo you use any illicit or recreational drugs?: NoHave you used IV drugs?: NoWhat is your level of caffeine consumption?: NoneEducation and OccupationWhat is the highest grade or level of school you have completed or the highest degree you have received?: High school graduateAre you currently in school?: NoAre you currently employed?: NoMarriage and SexualityWhat is your relationship status?: DivorcedAre you sexually active?: NoHow many children do you have?: 3Home and EnvironmentAre you a caregiver?: NoAre there any guns present in your home?: YesLifestyleDo you feel stressed (tense, restless, nervous, or anxious, or unable to sleep at night)?: Only a littleDo you participate in Joturl?: NoDo you use your seat belt or car seat routinely?: YesAdvance DirectiveDo you have an advance directive?: YesDo you have a medical power of piping blocker?: YesPublic Health and TravelHave you been to an area known to be high risk for COVID-19?: NoIn the 14 days before symptom onset, have you had close contact with a laboratory-confirmed COVID-19 while that case was ill?: NoIn the 14 days before symptom onset, have you had close contact with a person who is under investigation for COVID-19 while that person was ill?: NoDo you reside in or have you traveled to an area where Ebola virus transmission is active?: NoGender Identity and LGBTQ IdentityGender identity: Identifies as MaleAssigned sex at : MaleFirst name used: TOMSexual orientation: Straight or heterosexual Substance UseDo you or have you ever smoked tobacco?: Never smokerHow much tobacco do you smoke?: NoneDo you or have you ever used any other forms of tobacco or nicotine?: NoDo you or have you ever used e-cigarettes or vape?: Never used electronic cigarettesWhat was the date of your most recent tobacco screening?: 03/05/2023Has tobacco cessation counseling been provided?: NoWhat is your level of alcohol consumption?: NoneHave you ever been counseled for unhealthy alcohol use?: NoDo you use any illicit or recreational drugs?: NoHave you used IV drugs?: NoWhat is your level of caffeine consumption?: NoneEducation and OccupationWhat is the highest grade or level of school you have completed or the highest degree you have received?: High school graduateAre you currently in school?: NoAre you currently employed?: NoMarriage and SexualityWhat is your relationship status?: DivorcedAre you sexually active?: NoHow many children do you have?: 3Home and EnvironmentAre you a caregiver?: NoAre there any guns present in your home?: YesLifestyleDo you feel stressed (tense, restless, nervous, or anxious, or unable to sleep at night)?: Only a littleDo you participate in social media?: NoDo you use your seat belt or car seat routinely?: YesAdvance DirectiveDo you have an advance directive?: YesDo you have a medical power of piping blocker?: YesPublic Health and TravelHave you been to an area known to be high risk for COVID-19?: NoIn the 14 days before symptom onset, have you had close contact with a laboratory-confirmed COVID-19 while that case was ill?: NoIn the 14 days before symptom onset, have you had close contact with a person who is under investigation for COVID-19 while that person was ill?: NoDo you reside in or have you traveled to an area where Ebola virus transmission is active?: NoGender Identity and LGBTQ IdentityGender identity: Identifies as MaleAssigned sex at : MaleFirst name used: TOMSexual orientation: Straight or heterosexual Problems Problem Type SNOMED Code ICD Code Onset Dates Problem Status W/U Status Risk Notes Problem Mild recurrent major depression (46414956) Major depressive disorder, recurrent, mild (F33.0) 3 Active confirmed Problem Generalized anxiety disorder (93948509) Generalized anxiety disorder (F41.1) 3 Active confirmed Problem 2091093 Primary insomnia (F51.01) Active confirmed Problem Amnesia (97834130) Other amnesia (R41.3) Active confirmed Vital Signs Heart Rate 84 /min 02/23/2024 Respiratory Rate 17 /min 12/24/2023 Height-cm 182.88 cm 02/23/2024 Blood pressure diastolic 89 mm Hg 02/23/2024 Weight-kg 77.11 kg 12/24/2023 Height 72.00 in 02/23/2024 Blood pressure systolic 143 mm Hg 02/23/2024 Weight 170.0 lbs 12/24/2023 BMI 23.05 kg/m2 12/24/2023 Encounters Encounter Location Date Provider Diagnosis [facility] [employer] [address] [address] 12/24/2023 Sally Beltran Major depressive disorder, recurrent, mild F33.0 ; Generalized anxiety disorder F41.1 ; Other amnesia R41.3 and Primary insomnia F51.01 [facility] [employer] [address] [address] 02/23/2024 Sally Beltran Major depressive disorder, recurrent, mild F33.0 ; Generalized anxiety disorder F41.1 ; Other amnesia R41.3 and Primary insomnia F51.01 [facility] [employer] [place] [address] [facility] [address] [address] 05/31/2024 Sally Beltran Major depressive disorder, recurrent, mild F33.0 ; Generalized anxiety disorder F41.1 ; Other amnesia R41.3 and Primary insomnia F51.01 [facility] [employer] [place] [address] [facility] [address] [address] 11/14/2023 Provider Migration [facility] [employer] [address] [place] [phone] 11/15/2023 Provider Migration [facility] [employer] [address] 12/03/2023 Sally Beltran Assessments Encounter Date Diagnosis (ICD Code) Assessment Notes Treatment Notes Treatment Clinical Notes Section Notes 12/24/2023 Major depressive disorder, recurrent, mild (ICD-10 - F33.0) Mild recurrent major depression -patient see pocket machine operator Zoloft 50 mg to take at bedtime educated on medications therapy educated on healthy diet and eating on regular basis and protien and stay hydrated discuss using walker and/or for gait- educated on all medications, benefits, side effects and risk, and educated on depression, anxiety, and mood d/o and educated on compliance of medications, metabolic and movement d/o education appointment's , continue therapy discussion with patient about course of treatmentand patient instructions. education on serotonin syndrome F33.0: Major depressive disorder, recurrent, mild recurrent sertraline 50 mg tablet - Take 1 tablet(s) every day by oral route at bedtime for 30 days. Qty: (30) tablet Refills: 0 Pharmacy: [facility] 2. Generalized anxiety disorder -Sertraline 50 mg bedtime F41.1: Generalized anxiety disorde rZoloft 50 mg bedtime 3. Primary Insomnia Add Trazodone 25-50 mg at bedtime - educated on rx 4. Memory impairment - reviewed CANS/MCI 01/28/23 reviewed SLUMS 18 01/28/[address] [facility] - Neurologist prescribed Aricpet 12/24/2023 Generalized anxiety disorder (ICD-10 - F41.1) Mild recurrent major depression -patient see pocket machine operator Zoloft 50 mg to take at bedtime educated on medications therapy educated on healthy diet and eating on regular basis and protien and stay hydrated discuss using walker and/or for gait- educated on all medications, benefits, side effects and risk, and educated on depression, anxiety, and mood d/o and educated on compliance of medications, metabolic and movement d/o education appointment's , continue therapy discussion with patient about course of treatmentand patient instructions. education on serotonin syndrome F33.0: Major depressive disorder, recurrent, mild recurrent sertraline 50 mg tablet - Take 1 tablet(s) every day by oral route at bedtime for 30 days. Qty: (30) tablet Refills: 0 Pharmacy: [id number] 2. Generalized anxiety disorder -Sertraline 50 mg bedtime F41.1: Generalized anxiety disorde rZoloft 50 mg bedtime 3. Primary Insomnia Add Trazodone 25-50 mg at bedtime - educated on rx 4. Memory impairment - reviewed CANS/MCI 01/28/23 reviewed SLUMS 18 01/28/[address] [facility] - Neurologist prescribed Aricpet 02/23/2024 Major depressive disorder, recurrent, mild (ICD-10 - F33.0) Mild recurrent major depression -patient see pocket machine operator Zoloft 50 mg to take at bedtime discuss increase Zoloft for depression and anxiety patient reported prefer not to increase or change rx educated on medications therapy educated on healthy diet and eating on regular basis and protien and stay hydrated discuss using walker and/or for gait- educated on all medications, benefits, side effects and risk, and educated on depression, anxiety, and mood d/o and educated on compliance of medications, metabolic and movement d/o education appointment's , continue therapy discussion with patient about course of treatmentand patient instructions. education on serotonin syndrome 2. Generalized anxiety disorder -Sertraline 50 mg bedtime 3. Primary Insomnia Trazodone 50 mg at bedtime - educated on rx Melatonin 10 mg OTC 4. Memory impairment - reviewed CANS/MCI 01/28/23 reviewed SLUMS 18 01/28/[address] [facility] - Neurologist prescribed Aricpet 05/31/2024 Major depressive disorder, recurrent, mild (ICD-10 - F33.0) Mild recurrent major depression -patient see pocket machine operator Zoloft 50 mg to take at bedtime daughter check with [facility] with Pharmacy for [facility] [place] patient will see PCP today discuss Zoloft for depression and anxiety pateint in PT educated on medications therapy educated on healthy diet and eating on regular basis and protien and stay hydrated educated on all medications, benefits, side effects and risk, and educated on depression, anxiety, and mood d/o and educated on compliance of medications, metabolic and movement d/o education appointment's , continue therapy discussion with patient about course of treatmentand patient instructions. education on serotonin syndrome 2. Generalized anxiety disorder -Sertraline 50 mg bedtime 3. Primary Insomnia Trazodone 50 mg at bedtime - educated on rx Melatonin 10 mg OTC 4. Memory impairment - reviewed CANS/MCI 01/28/23 reviewed SLUMS 18 01/28/[address] 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 [facility] right side weakness 05/31/2024 Generalized anxiety disorder (ICD-10 - F41.1) Mild recurrent major depression -patient see pocket machine operator Zoloft 50 mg to take at bedtime daughter check with [facility] with Pharmacy for rx [facility] [place] patient will see PCP today discuss Zoloft for depression and anxiety pateint in PT educated on medications therapy educated on healthy diet and eating on regular basis and protien and stay hydrated educated on all medications, benefits, side effects and risk, and educated on depression, anxiety, and mood d/o and educated on compliance of medications, metabolic and movement d/o education appointment's , continue therapy discussion with patient about course of treatmentand patient instructions. education on serotonin syndrome 2. Generalized anxiety disorder -Sertraline 50 mg bedtime 3. Primary Insomnia Trazodone 50 mg at bedtime - educated on rx Melatonin 10 mg OTC 4. Memory impairment - reviewed CANS/MCI 01/28/23 reviewed SLUMS 18 01/28/[address] 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 [facility] right side weakness 02/23/2024 Generalized anxiety disorder (ICD-10 - F41.1) Mild recurrent major depression -patient see pocket machine operator Zoloft 50 mg to take at bedtime discuss increase Zoloft for depression and anxiety patient reported prefer not to increase or change rx educated on medications therapy educated on healthy diet and eating on regular basis and protien and stay hydrated discuss using walker and/or for gait- educated on all medications, benefits, side effects and risk, and educated on depression, anxiety, and mood d/o and educated on compliance of medications, metabolic and movement d/o education appointment's , continue therapy discussion with patient about course of treatmentand patient instructions. education on serotonin syndrome 2. Generalized anxiety disorder -Sertraline 50 mg bedtime 3. Primary Insomnia Trazodone 50 mg at bedtime - educated on rx Melatonin 10 mg OTC 4. Memory impairment - reviewed CANS/MCI 01/28/23 reviewed SLUMS 18 01/28/[address] [facility] - Neurologist prescribed Aricpet 12/24/2023 Other amnesia (ICD-10 - R41.3) Mild recurrent major depression -patient see pocket machine operator Zoloft 50 mg to take at bedtime educated on medications therapy educated on healthy diet and eating on regular basis and protien and stay hydrated discuss using walker and/or for gait- educated on all medications, benefits, side effects and risk, and educated on depression, anxiety, and mood d/o and educated on compliance of medications, metabolic and movement d/o education appointment's , continue therapy discussion with patient about course of treatmentand patient instructions. education on serotonin syndrome F33.0: Major depressive disorder, recurrent, mild recurrent sertraline 50 mg tablet - Take 1 tablet(s) every day by oral route at bedtime for 30 days. Qty: (30) tablet Refills: 0 Pharmacy: [facility] [id number] 2. Generalized anxiety disorder -Sertraline 50 mg bedtime F41.1: Generalized anxiety disorde rZoloft 50 mg bedtime 3. Primary Insomnia Add Trazodone 25-50 mg at bedtime - educated on rx 4. Memory impairment - reviewed CANS/MCI 01/28/23 reviewed SLUMS 18 01/28/[address] [facility] - Neurologist prescribed Aricpet 02/23/2024 Other amnesia (ICD-10 - R41.3) Mild recurrent major depression -patient see pocket machine operator Zoloft 50 mg to take at bedtime discuss increase Zoloft for depression and anxiety patient reported prefer not to increase or change rx educated on medications therapy educated on healthy diet and eating on regular basis and protien and stay hydrated discuss using walker and/or for gait- educated on all medications, benefits, side effects and risk, and educated on depression, anxiety, and mood d/o and educated on compliance of medications, metabolic and movement d/o education appointment's , continue therapy discussion with patient about course of treatmentand patient instructions. education on serotonin syndrome 2. Generalized anxiety disorder -Sertraline 50 mg bedtime 3. Primary Insomnia Trazodone 50 mg at bedtime - educated on rx Melatonin 10 mg OTC 4. Memory impairment - reviewed CANS/MCI 01/28/23 reviewed SLUMS 18 01/28/[address] [facility] - Neurologist prescribed Aricpet 05/31/2024 Other amnesia (ICD-10 - R41.3) Mild recurrent major depression -patient see pocket machine operator Zoloft 50 mg to take at bedtime daughter check with [facility] with [facility]acy for rx [facility] [place] patient will see PCP today discuss Zoloft for depression and anxiety pateint in PT educated on medications therapy educated on healthy diet and eating on regular basis and protien and stay hydrated educated on all medications, benefits, side effects and risk, and educated on depression, anxiety, and mood d/o and educated on compliance of medications, metabolic and movement d/o education appointment's , continue therapy discussion with patient about course of treatmentand patient instructions. education on serotonin syndrome 2. Generalized anxiety disorder -Sertraline 50 mg bedtime 3. Primary Insomnia Trazodone 50 mg at bedtime - educated on rx Melatonin 10 mg OTC 4. Memory impairment - reviewed CANS/MCI 01/28/23 reviewed SLUMS 18 01/28/[address] 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 right side weakness 12/24/2023 Primary insomnia (ICD-10 - F51.01) Mild recurrent major depression -patient see pocket machine operator Zoloft 50 mg to take at bedtime educated on medications therapy educated on healthy diet and eating on regular basis and protien and stay hydrated discuss using walker and/or for gait- educated on all medications, benefits, side effects and risk, and educated on depression, anxiety, and mood d/o and educated on compliance of medications, metabolic and movement d/o education appointment's , continue therapy discussion with patient about course of treatmentand patient instructions. education on serotonin syndrome F33.0: Major depressive disorder, recurrent, mild recurrent sertraline 50 mg tablet - Take 1 tablet(s) every day by oral route at bedtime for 30 days. Qty: (30) tablet Refills: 0 Pharmacy: [facility] [employer] [id number] 2. Generalized anxiety disorder -Sertraline 50 mg bedtime F41.1: Generalized anxiety disorde rZoloft 50 mg bedtime 3. Primary Insomnia Add Trazodone 25-50 mg at bedtime - educated on rx 4. Memory impairment - reviewed CANS/MCI 01/28/23 reviewed SLUMS 18 01/28/[address] [facility] - Neurologist prescribed Aricpet 05/31/2024 Primary insomnia (ICD-10 - F51.01) Mild recurrent major depression -patient see pocket machine operator Zoloft 50 mg to take at bedtime daughter check with [facility] with Pharmacy for rx [facility] [place] patient will see PCP today discuss Zoloft for depression and anxiety pateint in PT educated on medications therapy educated on healthy diet and eating on regular basis and protien and stay hydrated educated on all medications, benefits, side effects and risk, and educated on depression, anxiety, and mood d/o and educated on compliance of medications, metabolic and movement d/o education appointment's , continue therapy discussion with patient about course of treatmentand patient instructions. education on serotonin syndrome 2. Generalized anxiety disorder -Sertraline 50 mg bedtime 3. Primary Insomnia Trazodone 50 mg at bedtime - educated on rx Melatonin 10 mg OTC 4. Memory impairment - reviewed CANS/MCI 01/28/23 reviewed SLUMS 18 01/28/[address] 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 right side weakness 02/23/2024 Primary insomnia (ICD-10 - F51.01) Mild recurrent major depression -patient see pocket machine operator Zoloft 50 mg to take at bedtime discuss increase Zoloft for depression and anxiety patient reported prefer not to increase or change rx educated on medications therapy educated on healthy diet and eating on regular basis and protien and stay hydrated discuss using walker and/or for gait- educated on all medications, benefits, side effects and risk, and educated on depression, anxiety, and mood d/o and educated on compliance of medications, metabolic and movement d/o education appointment's , continue therapy discussion with patient about course of treatmentand patient instructions. education on serotonin syndrome 2. Generalized anxiety disorder -Sertraline 50 mg bedtime 3. Primary Insomnia Trazodone 50 mg at bedtime - educated on rx Melatonin 10 mg OTC 4. Memory impairment - reviewed CANS/MCI 01/28/23 reviewed SLUMS 18 01/28/[address] [facility] - Neurologist prescribed Aricpet 12/24/2023 Other . Mild recurrent major depression -patient see pocket machine operator Zoloft 50 mg to take at bedtime educated on medicationstherapy educated on healthy diet and eating on regular basis and protien and stay hydrated discuss using walker and/or for gait- patient refused educated on all medications, benefits, side effects and risk, and educated on depression, anxiety, and mood d/o and educated on compliance of medications, metabolic and movement d/o education appointment's, continue therapy discussion with patient about course of treatmentand patient instructions. education on serotonin syndrome F33.0: Major depressive disorder, recurrent, mildrecurrentsertraline 50 mg tablet - Take 1 tablet(s) every day by oral route at bedtime for 30 days. Qty: (30) tablet Refills: 0 Pharmacy: [facility] [id number] 2. Generalized anxiety disorder -Sertraline 50 mg gxpfwupI67.1: Generalized anxiety disorderZoloft 50 mg bedtime 3. Primary Insomnia Add Trazodone 25-50 mg at bedtime - educated on rx 4. Memory impairment -reviewed CANS/MCI 01/28/23reviewed SLUMS 18 01/28/[address] [facility] - Neurologist prescribed Aricpet Mild recurrent major depression -patient see pocket machine operator Zoloft 50 mg to take at bedtime educated on medications therapy educated on healthy diet and eating on regular basis and protien and stay hydrated discuss using walker and/or for gait- educated on all medications, benefits, side effects and risk, and educated on depression, anxiety, and mood d/o and educated on compliance of medications, metabolic and movement d/o education appointment's , continue therapy discussion with patient about course of treatmentand patient instructions. education on serotonin syndrome F33.0: Major depressive disorder, recurrent, mild recurrent sertraline 50 mg tablet - Take 1 tablet(s) every day by oral route at bedtime for 30 days. Qty: (30) tablet Refills: 0 Pharmacy: [place] [id number] 2. Generalized anxiety disorder -Sertraline 50 mg bedtime F41.1: Generalized anxiety disorde rZoloft 50 mg bedtime 3. Primary Insomnia Add Trazodone 25-50 mg at bedtime - educated on rx 4. Memory impairment - reviewed CANS/MCI 01/28/23 reviewed SLUMS 18 01/28/[address] [facility] - Neurologist prescribed Aricpet 02/23/2024 Other referral to the local chapter or national office of the Alzheimer's Association ( ; http://www.alz.org), the Alzheimer's Disease Education and Referral Center (ADEAR) ( ; http://www.jim.nih.gov/Al littleimers/), Mild recurrent major depression -patient see pocket machine operator Zoloft 50 mg to take at bedtime discuss increase Zoloft for depression and anxiety patient reported prefer not to increase or change rx educated on medications therapy educated on healthy diet and eating on regular basis and protien and stay hydrated discuss using walker and/or for gait- educated on all medications, benefits, side effects and risk, and educated on depression, anxiety, and mood d/o and educated on compliance of medications, metabolic and movement d/o education appointment's , continue therapy discussion with patient about course of treatmentand patient instructions. education on serotonin syndrome 2. Generalized anxiety disorder -Sertraline 50 mg bedtime 3. Primary Insomnia Trazodone 50 mg at bedtime - educated on rx Melatonin 10 mg OTC 4. Memory impairment - reviewed CANS/MCI 01/28/23 reviewed SLUMS 18 01/28/[address] [facility] - Neurologist prescribed Aricpet Plan Of Treatment No Information Insurance Providers Payer Name Payer Address Payer Phone Subscriber Number Group Number Insured Name Patient Relationship to Insured Coverage Start Date Coverage End Date Medicare-I l Medicare [address] [facility] [place] [address] [id number] CONNOR MCRAE Self - patient is the insured [facility] Medicare Supplement [address] [facility] [place] [address] [id number] CONNOR MCRAE Self - patient is the insured Medical (General) History Medical History History ICD Code Problems: Generalized anxiety disorder Memory impairment Mild recurrent major depression , Anxiety Disorder: Y Depressi on Major: Y Atrial Fibrillation: Y Cardiac Pacemaker: Y Hyperlipidemia: Y Hypertension: Y Hypothyroidism: Y Notes: Anxiety, A'Fib, CKD, Gout, HLD. HTN, Hypothyroidism Surgical History Surgery Date(Month/Year) Cataract surgery (36460) Heart surgery
--- OUTSIDE RECORDS SUMMARY | 2024-08-31 09:10 | XMS_ITS ---
Author Organization [facility] [employer] Address [address] [place] [address] Care Team Providers Care Newspaper Correspondent Name Role Phone Sally Beltran Unavailable [phone] Allergies No Known Allergies REASON FOR VISIT f/u rx Medications Medication SIG (Take, Route, Frequency, Duration) Notes Start Date End Date Status Losartan Potassium 100 MG TAKE 1 TABLET [...] ONCE DAILY Oral for 90 Days Active Fluticasone Propionate 50 MCG/ACT USE 2 SPRAY(S) IN EACH NOSTRIL ONCE DAILY Nasal for 30 Days Active Tamsulosin HCl 0.4 MG TAKE 1 CAPSULE BY MOUTH ONCE DAILY Oral for 90 Days Active Donepezil HCl 10 MG TAKE 1 TABLET BY ADI TH AT BEDTIME FOR 30 DAYS Oral for 30 Days Active Cefdinir 300 MG TAKE 1 CAPSULE BY MO UTH TWICE DAILY Oral for 10 Days Active Ezetimibe 10 MG TAKE 1 TABLET BY ADI TH ONCE DAILY Oral for 90 Days Active Sertraline HCl 50 MG 1 tablet Oral at be dtime for 30 days Active traZODone HCl 50 MG 1 tablet at bedtime Orally at bedtime for 30 days Active Social History Sex Assigned At : Social History Observation Description Sex Assigned At Male Encounters Encounter Location Date Provider Diagnosis [facility] [employer] [facility] [address] [place] [address] 05/31/2024 Sally Beltran Major depressive disorder, recurrent, mild F33.0 ; Generalized anxiety disorder F41.1 ; Other amnesia R41.3 and Primary insomnia F51.01 Assessments Encounter Date Diagnosis (ICD Code) Assessment Notes Treatment Notes Treatment Clinical Notes Section Notes 05/31/2024 Major depressive disorder, recurrent, mild (ICD-10 - F33.0) Mild recurrent major depression -patient see equipment man Zoloft 50 mg to take at bedtime daughter check with [facility] with Pharmacy for rx [facility] [place] patient will see PCP today discuss Zoloft [...] prescribed Aricpet CVA 05/22 - PRESENTLY AT [facility] right side weakness 05/31/2024 Generalized anxiety disorder (ICD-10 - F41.1) Mild recurrent major depression -patient see equipment man Zoloft 50 mg to take at bedtime daughter check with [facility] with Pharmacy for rx [facility] [place] patient will see PCP today discuss Zoloft [...] prescribed Aricpet CVA 05/22 - PRESENTLY AT [facility] right side weakness 05/31/2024 Other amnesia (ICD-10 - R41.3) Mild recurrent major depression -patient see equipment man Zoloft 50 mg to take at bedtime daughter check with [facility] with Pharmacy for rx [facility] [place] patient will see PCP today discuss Zoloft [...] prescribed Aricpet CVA 05/22 - PRESENTLY AT [facility] right side weakness 05/31/2024 Primary insomnia (ICD-10 - F51.01) Mild recurrent major depression -patient see equipment man Zoloft 50 mg to take at bedtime daughter check with [facility] with Pharmacy for rx [facility] [place] patient will see PCP today discuss Zoloft [...] prescribed Aricpet CVA 05/22 - PRESENTLY AT [facility] right side weakness Plan Of Treatment Medication Medication Name Sig Start Date Stop Date Notes Sertraline HCl 50 MG 1 tablet Oral at bedtime for 30 days traZODone HCl 50 MG 1 tablet at bedtime Orally at bedtime for 30 days Next Appt Details Follow Up: 3 Months, Reason: f/u rx Progress Notes * CONNOR MCRAEDOB: [birth year] (79 yo M)Acc No.[id number]:05/31/2024 Patient: O CONNOR GARCIA Provider: MITZI MOSS :1945 A ge:79 Y S ex:Male Date:05/31/2024 Address:[address] [place] [address] Check In:11:47 AM CSTCheck O ut:12:05 PM RN ORTHOPEDIC Subjective: * Chief Complaints: * 1 . F/u rx. * HPI: D epression Screening: MALIK-7 (2018 Edition) F eeling nervous, anxious, or on edge?Several days, N ot being able to stop or control worrying S everal days, W orrying too much about different things S everal days, T rouble relaxing S everal days, B eing so restless that it is hard to sit still S everal days, B ecoming easily annoyed or irritable S everal days, F eeling afraid as if something awful might happen S everal days, Total MALIK-7 Score 7 , I f you checked any problems, how difficult have they made it for you to do your work, take care of things at home, or get along with other people? S omewhat difficult, I nterpretation of Total ( 5 to 9) Mild. D epression screening: PHQ-9 L ittle interest or pleasure in doing things S everal days, F eeling down, depressed, or hopeless S everal days, T rouble falling or staying asleep, or sleeping too much S everal days, F eeling tired or having little energy S everal days, P oor appetite or overeating N ot at all, F eeling bad about yourself or that you are a failure, or have let yourself or your family down N ot at all, T rouble concentrating on things, such as reading the newspaper or watching television S ever days, M oving or speaking so slowly that other people could have noticed; or the opposite, being so fidgety or restless that you have been moving around a lot more than usual N ot at all, T houghts that you would be better off or of hurting yourself in some way N ot at all, T otal Score 5, I nterpretation M ild Depression. I ntervention D epression Screening Findings?Positve, F ollow-Up for Depression M anagement of mental health treatment, S uicide Risk Assessment Performed , A dditional Evaluation for Depression P sychiatric interview and evaluation, N love of the standardized tool used for adult depression screening: P atient Health Questionnaire (PHQ-9). H istory of Presenting Problem: Follow up depression and anxiety chronic since last visit reported sitting in W/C say brissa, cough noted, noted asphgia how can I be anything but sad and down in bed all the time, speech low not really do activity in PT, go to meals and I think so with anxious and nervous, I am sleeping, appetite be better if my hand and arm will move, talks about steak n shake, I am able to take rx crush up and water, no psychosis, no SI/HI present with family- not much change had CVA couple weeks ago and moved back to [place] lives at [facility] and was at [facility] and not proper place now, sleep a lot, and no changes in rx and he fell and fx 4 ribs and then had CVA, rt arm and leg not working properly or talk very well and once in a while voice comes out whisper and hard ot understand. Has to be lifted with machine and plan to stop it with PT, does not eat a lot and prefer steak n shake, he will see PCP today also and unsure which pharmacy will fill rx yet at [facility] denies SI/HI no plans or intent no thoughts harm to self or others, no past attempts, no psychiatric hospital weapons in home guns not locked up educated on locking in safe, FH none ETOH- occasional, minimal if any wine smoking- denies labs- PCP drugs- denies CT brain and been to [facility] for most test, I been to ENT for ears, pacer and AFIB Amy Reported by vanessa wing.Notes:Denies Psychosis Reported by vanessa wing.Notes:denies RX HX Wellbutrin, Trazodone, Zoloft. * ROS: Vanessa wing reports no fever, no significant weight gain, and significant weight loss; p oor eating habits. Ears:: t innitus hx He reports no nausea, no vomiting, and no constipation; G I issues upset some. He reports i ncreased urinary frequency b ut reports no difficulty urinating. H e reports m uscle weakness (fatigue), arthralgias/joint pain (minimal), and difficulty walking (slow gait and unsteady); use W/C CVA 2 weeks ago right side weakness He reports d izziness, no frequent or severe headaches (reported minimal dizzy), and gait dysfunction (slow gait). CVA 05/22 He reports d epression, anxiety, and memory loss b ut reports no sleep disturbances, no alcohol abuse, no hallucinations, no suicidal thoughts, and no mood swings. He reports f atigue. He reports no palpitations. HX AFIB and pace maker H e reports cough and no shortness of breath. * Medical History: Vanessa dale: Generalized anxiety disorder, Memory impairment, Mild recurrent major depression, ,, Anxiety Disorder: Y Depression Major: Y Atrial Fibrillation: Y Cardiac Pacemaker: Y Hyperlipidemia: Y Hypertension: Y Hypothyroidism: Y Notes: Anxiety, A'Fib, CKD, Gout, HLD. HTN, Hypothyroidism. * Medications: T aking Cefdinir 300 MG Capsule TAKE 1 CAPSULE BY MOUTH TWICE DAILY Oral , Taking Ezetimibe 10 MG Tablet TAKE 1 TABLET BY MOUTH ONCE DAILY Oral , Taking Fluticasone Propionate 50 MCG/ACT Suspension USE 2 SPRAY(S) IN EACH NOSTRIL ONCE DAILY Nasal , Taking Tamsulosin HCl 0.4 MG Capsule TAKE 1 CAPSULE BY MOUTH ONCE DAILY Oral , Taking Donepezil HCl 10 MG Tablet TAKE 1 TABLET BY MOUTH AT BEDTIME FOR 30 DAYS Oral , Taking Losartan Potassium 100 MG Tablet TAKE 1 TABLET BY MOUTH IN THE EVENING Oral , Taking Nebivolol HCl 20 MG Tablet TAKE 1 TABLET BY MOUTH ONCE DAILY Oral , Taking Trospium Chloride 20 MG Tablet TAKE 1 TABLET BY MOUTH TWICE DAILY Oral , Taking Levothyroxine Sodium 75 MCG Tablet Oral , Taking Atorvastatin Calcium 80 MG Tablet TAKE 1 TABLET BY MOUTH ONCE DAILY Oral , Taking Sertraline HCl 50 MG Tablet 1 tablet Oral at bedtime , Taking traZODone HCl 50 MG Tablet 1 tablet at bedtime Orally at bedtime , Medication List reviewed and reconciled with the patient * Allergies: N .K.D.A. Objective: * Vitals: * Examination: P sychiatry: Dementia S afety concern screening for dangerousness to self and environment risks provided: Y esWhat action was taken to mitigate the risk? E ducation provided yesTopics discussed for environmental risks: H ome safety risks that could arise from cooking or smoking, Access to firearms or other weapons, Access to potentially dangerous chemicals and other materials 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Topics discussed for dangerousness to self: M edication misuse, Financial mismanagement no issuesfamily assist with money and good support systemassistance living assist with rxSafety concern mitigation recommendation provided: N ot requiredScreening Result: N egativeCaregiver education and support provided Y es. Appearance: w ell-groomed, well-nourished, appears older, thin. Abnormal body movements: n one. Affect / mood: a ppropriate, full range. Aggression: l ow. Anger control: g ood. Attention: g ood. Attitude: c ooperative. Homicidal ideation: n one. Suicidal ideation: n one. Memory status: r eported memory impairment. Degree of awareness of surroundings: w ithin normal limits.? Delusions: n o. Hallucinations: n o. Impulse control: g ood. Insight: f air. Intellectual functioning: a verage. Comprehension - Intellectual function: a verage. Judgement: f air. Orientation: d ay week unable month- unable year - unable town reported in between a bunch towns and tricky S LOW RECALL Morris alert to self and family 47 [address] [place] days week backwards slow recall 01/02. Perceptual disorders: n o perceptual disorder noted. Psychomotor activity: W C and slow gait hx falls CVA 11/24. Speech / language: proper grammar used, reduced volume. Thought content: a ppropriate. Thought process: i ntact. F unctional Assessment: Camacho Index of ADL S core: 7 1 point for independence, 0 for help. Physical Functioning P ersonal hygiene: including combing hair, brushing teeth, shaving, applying makeup, washing/drying face and hands (exclude baths and showers) L imited assistanceBathing: how client takes full-body bath/shower or sponge bath (exclude washing of back and hair). Includes how each part of body is bathed: arms, upper and lower legs, chest, abdomen, perineal area. (code for most dependent episode in last 7 days) L imited assistanceDressing upper body: how client dresses and undresses (street clothes, underwear) above the waist, includes prostheses, orthotics, fasteners, pullovers, etc. L imited assistanceDressing lower body: how client dresses and undresses (street clothes, underwear), from the waist down, includes prostheses, orthotics, belts, pants, skirts, shoes, and fasteners L imited assistanceEating - Including taking in food by any method, including tube feedings L imited assistanceToilet use: including using the toilet room or commode, bedpan, urinal, transferring on/off toilet, cleaning self after toilet use or incontinent episode, changing pad, managing any special devices required (ostomy or catheter), and adjusting clothes. L imited assistanceTransfer: including moving to and between surfaces--to/from bed, chair, wheelchair, standing position (excludes to/from bath/toilet) L imited assistanceTransportation G reat difficultyContinence: D ependent (0). 1 point for independence, 0 for help. Assessment: * Assessment: 1. M ajor depressive disorder, recurrent, mild - F33.0 (Primary) 2 . G eneralized anxiety disorder - F41.1 3 . O ther amnesia - R41.3 4 .?Primary insomnia - F51.01 Mild recurrent major depress ion -patient see equipment man Zoloft 50 mg to take at bedtime daughter check with [facility] with Pharmacy for rx Critical Care Pharm[facility] [place] patient will see PCP today discuss Zoloft [...] prescribed Aricpet CVA 05/22 - PRESENTLY AT [facility] right side weakness Plan: * Treatment: 2. P rimary insomnia Refill traZODone HCl Tablet, 50 MG, 1 tablet at bedtime, Orally, at bedtime, 30 days, 30 Tablet, Refills 3. * Procedure Codes: G 2211 VISIT COMPLEXITY INHERENT TO ONGOING CARE RELATED TO A PATIENT'S SINGLE, SERIOUS CONDITION OR A COMPLEX CONDITION * Follow Up: 3 Months (Reason: f/u rx) * Billing Information: * Visit Code: 75622 OFFICE OUTPATIENT VISIT 25 MINUTES DETAILED HISTORY AND EXAM/MODERATE MEDICAL DECISION MAKING. * Procedure Codes: G2211 VISIT COMPLEXITY INHERENT TO ONGOING CARE RELATED TO A PATIENT'S SINGLE, SERIOUS CONDITION OR A COMPLEX CONDITION. * ORTHOPEDIC Sign off status: Completed true * Provider: MITZI MOSS Date: 08/01/2023 Generated for Gilberto randolph/Deepthi/Gabriel on: 0 08/31/2024 09:10 AM RN ORTHOPEDIC History and Physical Notes * HPI (History of Present Illness) Category Sub-Category Detail Notes Category Not es History of Presenting Problem Follow up depression and anxiety chronic since last visit reported sitting in W/C say hello, cough noted, noted asphgia how can I be anything but sad and down in bed all the time, speech low not really do activity in PT, go to meals and I think so with anxious and nervous, I am sleeping, appetite be better if my hand and arm will move, talks about steak n shake, I am able to take rx crush up and water, no psychosis, no SI/HI present with family- not much change had CVA couple weeks ago and moved back to [place] [facility] now, sleep a lot, and no changes in rx and he fell and fx 4 ribs and then had CVA, rt arm and leg not working properly or talk very well and once in a while voice comes out whisper and hard ot understand. Has to be lifted with machine and plan to stop it with PT, does not eat a lot and prefer steak n shake, he will see PCP today also and unsure which pharmacy will fill rx yet at [facility] denies SI/HI no plans or intent no thoughts harm to self or others, no past attempts, no psychiatric hospital weapons in home guns not locked up educated on locking in safe, FH none ETOH- occasional, minimal if any wine smoking- denies labs- PCP drugs- denies CT brain and been to [facility] for most test, I been to ENT for ears, pacer and AFIB Amy Reported by patient.Notes:Denies Psychosis Reported by patient.Notes:denies RX HX Wellbutrin, Trazodone, Zoloft Depression screening PHQ-9 Little interest or pleasure in doing things: Several days Feeling down, depressed, or hopeless: Se veral days Trouble falling or staying asleep, or sl eeping too much: Several days Feeling tired or having little energy: S everal days Poor appetite or overeating: Not at all Feeling bad about yourself o r that you are a failure, or have let yourself or your family down: Not at all Trouble concentrating on thi ngs, such as reading the newspaper or watching television: Several days Moving or speaking so slowly that other people could have noticed; or the opposite, being so fidgety or restless that you have been moving around a lot more than usual: Not at all Thoughts that you would be b suzanne off or of hurting yourself in some way: Not at all Total Score: 5 Interpretation: Mild Depression Intervention Depression Screening Findings: P galen Follow-Up for Depression: Management of mental health treatment Suicide Risk Assessment Performed: Additional Evaluation for De pression: Psychiatric interview and evaluation Name of the standardized too l used for adult depression screening:: Patient Health Questionnaire (PHQ-9) Depression Screening MALKI-7 (2018 Edition) Feelin g nervous, anxious, or on edge: Several days Not being able to stop or control worryi ng: Several days Worrying too much about different things : Several days Trouble relaxing: Several days Being so restless that it is hard to sit still: Several days Becoming easily annoyed or irritable: Se veral days Feeling afraid as if something awful tonya ht happen: Several days Total MALIK-7 Score: 7 If you checked any problems, how difficult have they made it for you to do your work, take care of things at home, or get along with other people?: Somewhat difficult Interpretation of Total: (5 to 9) Mild Examination Category Sub-Category Detail Notes Category Not es Psychiatry Appearance: well-groomed, we ll-nourished, appears older, thin Attitude: cooperative Psychomotor activity: WC and slow gait h x falls CVA 05/22 Abnormal body movements: none Attention: good Degree of awareness of surroundings: wit hin normal limits Orientation: day week unable ambrose h- unable year - unable town reported in between a bunch towns and tricky SLOW RECALL Morris alert to self and family 47 [address] [place] Obama week backwards slow recall 01/02 Affect / mood: appropriate, full ra nge Speech / language: proper grammar used, reduced volume Insight: fair Judgement: fair Thought process: intact Thought content: appropriate Perceptual disorders: no perceptual diso rder noted Aggression: low Anger control: good Suicidal ideation: none Homicidal ideation: none Intellectual functioning: average Impulse control: good Memory status: reported memory impa irment Delusions: no Hallucinations: no Comprehension - Intellectual function: a verage Dementia Safety concern scree lalit for dangerousness to self and environment risks provided:: Yes What action was taken to mitigate the risk?: Education provided yes Topics discussed for environmental risks:: Home safety risks that could arise from cooking or smoking, Access to firearms or other weapons, Access to potentially dangerous chemicals and other materials 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 Topics discussed for dangerousness to self:: Medication misuse, Financial mismanagement no issues family assist with money and good support system assistance living assist with rx Safety concern mitigation recommendation provided:: Not required Screening Result:: Negative Caregiver education and support provided : Yes Functional Assessment Camacho Index of ADL Score:: 7 1 point for independence, 0 for help 1 point for independence, 0 for help Physical Functioning Personal hygiene: i ncluding combing hair, brushing teeth, shaving, applying makeup, washing/drying face and hands (exclude baths and showers): Limited assistance Bathing: how client takes fu ll-body bath/shower or sponge bath (exclude washing of back and hair). Includes how each part of body is bathed: arms, upper and lower legs, chest, abdomen, perineal area. (code for most dependent episode in last 7 days): Limited assistance Dressing upper body: how cli ent dresses and undresses (street clothes, underwear) above the waist, includes prostheses, orthotics, fasteners, pullovers, etc.: Limited assistance Dressing lower body: how cli ent dresses and undresses (street clothes, underwear), from the waist down, includes prostheses, orthotics, belts, pants, skirts, shoes, and fasteners: Limited assistance Eating - Including taking in food by any method, including tube feedings: Limited assistance Toilet use: including using the toilet room or commode, bedpan, urinal, transferring on/off toilet, cleaning self after toilet use or incontinent episode, changing pad, managing any special devices required (ostomy or catheter), and adjusting clothes.: Limited assistance Transfer: including moving t o and between surfaces--to/from bed, chair, wheelchair, standing position (excludes to/from bath/toilet): Limited assistance Transportation: Great difficulty Continence:: Dependent (0)
--- OUTSIDE RECORDS SUMMARY | 2024-08-31 09:10 | XMS_ITS ---
Author Organization [facility] Address [address] [place] [address] Care Team Providers Care Veneer Sander Name Role Phone Natacha EARL, Torres Primary Care Provider Dr. Jagjit Alvarado [facility] [phone] Encounters Encounter Location Date Provider Diagnosis [facility] [address] [place] [address] 07/16/2023 Jagjit Vang Plan Of Treatment No Information Progress Notes * David ACOSTA ADOB:1945 (79 yo M)Acc No.[id number]:07/16/2023 Progress Notes Patient: David FONSECA Provider: Kermit Vang MD :1945 A ge:78 Y S ex:Male Date:07/16/2023 Address:[address] [place], [place] [id number] Pcp:Torres Manzano MD Subjective: * Chief Complaints: * * Medical History: Objective: * Vitals: Assessment: Plan: * Treatment: * Billing Information: * Visit Code: * Procedure Codes: * Electronic signature of Dr. Jagjit Vang MD on 08/31/2024 at 09:10 AM EDGING MACHINE CATCHER Sign off status: Pending * Provider: Kermit Vang MD Date: 07/16/2023 Generated for Printi ng/Faxing/eTransmitting on: 0 08/31/2024 09:10 AM EDGING MACHINE CATCHER
--- OUTSIDE RECORDS SUMMARY | 2024-08-31 09:10 | XMS_ITS | Encounter Summary ---
Author Organization [facility] Address [address] [facility] [place] [address] Care Team Providers Care Construction Management Instructor Name Role Phone Torres Manzano MD Primary Care Provider [phone] Encounter Details Date Type Department Care Team (Late st Contact Info) Description 02/13/2022 Lab Requisition [facility] DermPath Lab [address] [facility] [place] [id number] Amrik Huynh MD [address] [facility] [place] [address] Social History Tobacco Use Types Packs/Day Years Used Date Smoking Tobacco: Never Assessed Sex and Gender Information Value Date Recorded Sex Assigned at Not on file Gender Identity Not on file Sexual Orientation Not on file documented as of this encounter Plan of Treatment Not on file documented as of this encounter Procedures Procedure Name Priority Date/Time Associated Diagnosis Comments DERMATOPATHOLOGY Routine 02/11/2022 3:33 AM CDT documented in this encounter Results * DERMATOPATHOLOGY (02/11/2022 3:33 AM CDT) Case Report Dermatopathology Report Case: [id number] Authorizing Provider: Amrik Huynh MD Collected: 02/11/2022 03:33 AM Ordering Location: [facility] DermPath Lab Received: 02/13/2022 06:59 AM Pathologist: Tasha Ash MD Specimen: Skin, left jaw 4:58 PM CDT DERMATOPATHOLOGY LABORATORY Final Diagnosis Specimen A. SKIN, left jaw: SQUAMOUS CELL CARCINOMA IN SITU, PRESENT AT THE BASE OF THE SPECIMEN (D04.39) (see microscopic description and comment) 2 4:58 PM CDT DERMATOPATHOLOGY LABORATORY Clinical History Psoriasis vs. BCCA vs. SCCA. Path# [id number] 2 4:58 PM CDT DERMATOPATHOLOGY LABORATORY Gross Description Specimen A: Received is one formalin filled container labeled with the patient's name and designated left jaw. The specimen consists of a shave biopsy measuring [id number]. Jar 0. 2 4:58 PM CDT DERMATOPATHOLOGY LABORATORY Microscopic Description Specimen A. SKIN, left jaw: The epidermis shows parakeratosis, full thickness disorderly maturation of keratinocytes, mitoses at different levels, and dyskeratotic cells. The lesion extends to the base of the biopsy. COMMENT: An invasive squamous cell carcinoma cannot be ruled out. 2 4:58 PM CDT DERMATOPATHOLOGY LABORATORY Disclaimer An external and internal positive and negative controls are appropriate for the histochemical, immunohistochemical and immunofluorescence stain(s) in this case (if any), except where stated explicitly. The performance characteristics of the stain(s) cited in this report were developed and its performance characteristic determined by the Dermatopathology Laboratory at [facility], directed by Dr. Larry Muse. These tests need not be, and therefore are not, approved by the [place] Food and Drug Administration. The tests are used for clinical purposes. Billing Codes Specimen Charges Stain Charges 23805 1 2 4:58 PM CDT DERMATOPATHOLOGY LABORATORY Embedded Images 2 4:58 PM CDT DERMATOPATHOLOGY LABORATORY Pathology/Cytolo gy TISSUE SPECIMEN FROM SKIN / Unknown 02/11/2022 3:33 AM CDT 02/13/2022 6:59 AM CDT Amrik Huynh MD LAB - PATHOLOGY/CYTO LOGY ORDERABLES DERMATOPATHOLOGY LABORATORY [facility] - Department of Dermatology [address], [address] [phone] documented in this encounter Visit Diagnoses Not on filedocumented in this encounter Care Teams Construction Management Instructor Relationship Specialty Start Date End Date Torres Manzano MD [address] [place] [id number] PCP - General Internal Medicine 06/04/24 documented as of this encounter
--- OUTSIDE RECORDS SUMMARY | 2024-08-31 09:10 | XMS_ITS | Referral Summary ---
Author Organization [facility] Address [address] [place] [address] Care Team Providers Care Facility Technician Name Role Phone Torres Manzano MD Primary Care Provider [phone] Source Comments [facility],non-owned Affiliates and Associated Physician Practices is amultiple site organization consisting of ambulatory clinics and hospital sitesin [place], [place], [place] and [place]. This disclosure is being madepursuant to the Care Everywhere program and may not contain all information available regarding this patient. Last updated 18.[facility] Encounters Date Type Department Care Team Description 06/04/2024 11:05 AM RECEIVING INSPECTOR - 06/07/2024 6:44 PM [facility] Hospital Encounter [facility] 5N ACUTE [address] [place] [address] Briseida Fish MD Edgell, Randall C, MD Emergency Medicine Discharge Disposition: [facility] 06/04/2024 Travel from Last 3 Months Allergies No known active allergies Medications * Be aware that medications may not be up to date on this document. Alwaysverify current medications with the patient. Medication Sig Dispensed Refills Start Date End Date Status apixaban (Eliquis) 5 MG tablet Take 1 (one) tablet by mouth 2 times daily 30 tablet 06/07/2024 Active levETIRAcetam (Keppra) 750 MG tablet Take 1 (one) tablet by mouth 2 times daily 06/07/2024 Active sertraline (Zoloft) 50 MG tablet Take 1 (one) tablet by mouth once daily 06/08/2024 Active atorvastatin (Lipitor) 80 MG tablet Take 1 (one) tablet by mouth at bedtime 06/07/2024 Active hydrALAZINE (Apresoline) 10 MG tablet Take 1 (one) tablet by mouth every 8 hours 06/07/2024 Active polyethylene glycol 3350 (Miralax) 17 g packet Take 17 (seventeen) g by mouth once daily 06/08/2024 Active senna-docusate (Senokot-S) 8.6-50 MG tablet Take 1 (one) tablet by mouth once daily 06/08/2024 Active tamsulosin (Flomax) 0.4 MG capsule Take 1 (one) capsule by mouth once daily At the same time every day after a meal. 06/08/2024 Active donepezil (Aricept) 10 MG tablet Take 1 (one) tablet by mouth at bedtime 06/07/2024 Active memantine (Namenda) 5 MG tablet Take 1 (one) tablet by mouth once daily 06/08/2024 Active levothyroxine (Synthroid) 75 MCG tablet Take 1 (one) tablet by mouth once daily 06/08/2024 Active Active Problems Problem Noted Date Diagnosed Date Seizure 06/05/2024 Hypothyroidism 06/05/2024 CVA (cerebral vascular accident) 06/04/2024 HTN (hypertension) 06/04/2024 HLD (hyperlipidemia) 06/04/2024 CKD (chronic kidney disease) 06/04/2024 A-fib 06/04/2024 aortic stenosis s/p TAVR 06/04/2024 Dementia 06/04/2024 DVT (deep vein thrombosis) in 06/04/20 BPH (benign prostatic hyperplasia) 06/04/2024 Aphasia 06/04/2024 Generalized weakness 06/04/2024 Weakness 06/04/2024 Social History Tobacco Use Types Packs/Day Years Used Date Smoking Tobacco: Never Passive Smoke Exposure: Never Smokeless Tobacco: Never Tobacco Cessation:Counseling Given: No Alcohol Use Standard Drinks/Week Comments Not Currently 0 (1 standard drink = 0.6 oz pur e alcohol) AUDIT-C Answer Date Recorded Q1: How often do you have a drink containing alcohol? 4 or more times a week 06/06/2024 Q2: How many drinks containi ng alcohol do you have on a typical day when you are drinking? Patient unable to answer Q3: How often do you have si x or more drinks on one occasion? Never 06/06/2024 Overall Financial Resource Strain (CARDIA) Answe r Date Recorded How hard is it for you to pa y for the very basics like food, housing, medical care, and heating? Not hard at all 06/06/2024 PHQ-2 Answer Date Recorded Patient Health Questionnaire-2 Score 0 06/05/2024 [facility] Occup[facility] - Occupational Stress Questionnaire Answer Date Recorded Do you feel stress - tense, restless, nervous, or anxious, or unable to sleep at night because your mind is troubled all the time - these days? Not at all 06/06/2024 Hunger Vital Sign Answer Date Recorded Within the past 12 months, y ou worried that your food would run out before you got the money to buy more. Never true 06/06/20 24 Within the past 12 months, t he food you bought just didn't last and you didn't have money to get more. Never true 06/06/2024 PRAPARE - Transportation Answer Date Re corded In the past 12 months, has l ack of transportation kept you from medical appointments or from getting medications? No 02/2024 In the past 12 months, has l ack of transportation kept you from meetings, work, or from getting things needed for daily living? No 06/06/2024 Housing Stability Vital Sign Answer Gil e Recorded In the last 12 months, was t here a time when you were not able to pay the mortgage or rent on time? No 06/06/2024 In the past 12 months, how m any times have you moved where you were living? 0 06/06/2024 At any time in the past 12 m [facility], were you homeless or living in a prison (including now)? No 06/06/2024 Sex and Gender Information Value Date Recorded Sex Assigned at Not on file Gender Identity Not on file Sexual Orientation Not on file Last Filed Vital Signs Vital Sign Reading Time Taken Comments Blood Pressure 170/89 06/07/2024 1:47 PM RECEIVING INSPECTOR Pulse 79 06/07/2024 1:47 PM RECEIVING INSPECTOR Temperature 35.8 C (96.5 F) 06/07/2024 1:47 PM RECEIVING INSPECTOR Respiratory Rate 16 06/07/2024 1:47 PM RECEIVING INSPECTOR Oxygen Saturation 94% 06/07/2024 3:33 AM RECEIVING INSPECTOR Inhaled Oxygen Concentration - - Weight 72.6 kg (160 lb) 06/07/2024 7:51 AM RECEIVING INSPECTOR Height 182.9 cm (6') 06/07/2024 7:51 AM RECEIVING INSPECTOR Body Mass Index 21.7 06/07/2024 7:51 AM RECEIVING INSPECTOR Functional Status Functional Status Response Date of Assess ment Is person deaf or have serious hearing difficult y? No 06/06/2024 Is person blind or have serious difficulty seein g? Yes 06/06/2024 Does person have serious dif ficulty walking/climbing stairs? Yes 06/06/2024 Does person have difficulty dressing/bathing? Ye s 06/06/2024 Does person have difficulty doing errands alone? Yes 06/06/2024 Cognitive Status Response Date of Assessm ent Does person have difficulty concentrating/remembering/making decisions? Yes 06/06/2024 Plan of Treatment Not on file Medical Devices Implanted Type Area Photographer Device Identifier Shelf Expiration Date Model / Serial / Lot Sunshine Pacemaker 2021 [id number] / [id number] / Sunshine Pacemaker Lead 29mm [id number] / [id number] / Procedures Procedure Name Priority Date/Time Associated Diagnosis Comments CARDIAC EKG ORDER 06/08/2024 1:4 6 PM RECEIVING INSPECTOR GLUCOSE - POINT OF CARE Routine 06/07/2024 4:44 PM RECEIVING INSPECTOR ECHO LIMITED W CONTRAST Routine 06/07/2024 1:03 PM RECEIVING INSPECTOR Weakness Aphasia GLUCOSE - POINT OF CARE Routine 06/07/2024 12:53 PM RECEIVING INSPECTOR GLUCOSE - POINT OF CARE Routine 06/07/2024 6:58 AM RECEIVING INSPECTOR PHOSPHORUS BLOOD Routine 06/07/2024 2:47 AM RECEIVING INSPECTOR MAGNESIUM BLOOD Routine 06/07/2024 2:47 AM RECEIVING INSPECTOR CBC W/O DIFFERENTIAL Routine 06/07/2024 2:47 AM RECEIVING INSPECTOR BASIC METABOLIC PANEL (CALCIUM TOTAL) Routine 06/07/2024 2:47 AM RECEIVING INSPECTOR GLUCOSE - POINT OF CARE Routine 06/06/2024 9:10 PM RECEIVING INSPECTOR GLUCOSE - POINT OF CARE Routine 06/06/2024 5:33 PM RECEIVING INSPECTOR MRI BRAIN WO CONTRAST Routine 06/06/2024 2:57 PM RECEIVING INSPECTOR Weakness Aphasia GLUCOSE - POINT OF CARE Routine 06/06/2024 12:29 PM RECEIVING INSPECTOR GLUCOSE - POINT OF CARE Routine 06/06/2024 6:19 AM RECEIVING INSPECTOR PHOSPHORUS BLOOD Routine 06/06/2024 4:24 AM RECEIVING INSPECTOR MAGNESIUM BLOOD Routine 06/06/2024 4:24 AM RECEIVING INSPECTOR CBC W/O DIFFERENTIAL Routine 06/06/2024 4:24 AM RECEIVING INSPECTOR BASIC METABOLIC PANEL (CALCIUM TOTAL) Routine 06/06/2024 4:24 AM RECEIVING INSPECTOR HEMOGLOBIN A1C Add on 06/06/2024 4:24 AM RECEIVING INSPECTOR GLUCOSE - POINT OF CARE Routine 06/05/2024 9:53 PM RECEIVING INSPECTOR PHOSPHORUS BLOOD STAT 06/05/2024 4:52 AM RECEIVING INSPECTOR MAGNESIUM BLOOD STAT 06/05/2024 4:52 AM RECEIVING INSPECTOR CBC W/O DIFFERENTIAL STAT 06/05/2024 4:52 AM RECEIVING INSPECTOR BASIC METABOLIC PANEL (CALCIUM TOTAL) STAT 06/05/2024 4:52 AM RECEIVING INSPECTOR LIPID PROFILE STAT 06/05/2024 4:52 AM RECEIVING INSPECTOR GLUCOSE - POINT OF CARE Routine 06/05/2024 12:41 AM RECEIVING INSPECTOR TROPONIN-I HIGH SENSITIVE REFLEX 1HOUR Timed 06/04/2024 4:27 PM RECEIVING INSPECTOR GLUCOSE - POINT OF CARE Routine 06/04/2024 4:26 PM RECEIVING INSPECTOR TROPONIN-I HIGH SENSITIVE BASELINE + 1HR STAT 06/04/2024 3:27 PM RECEIVING INSPECTOR URINE MICROSCOPIC ONLY REFLEX TO CULTURE STAT 06/04/2024 3:21 PM RECEIVING INSPECTOR URINE DRUG SCREEN IMMUNOASSAY STAT 06/04/2024 3:21 PM RECEIVING INSPECTOR URINALYSIS REFLEX MICROSCOPIC REFLEX CULTURE STAT 06/04/2024 3:21 PM RECEIVING INSPECTOR PHOSPHORUS BLOOD STAT 06/04/2024 1:47 PM RECEIVING INSPECTOR MAGNESIUM BLOOD STAT 06/04/2024 1:47 PM RECEIVING INSPECTOR COMPREHENSIVE METABOLIC PANEL STAT 06/04/2024 1:47 PM RECEIVING INSPECTOR XR CHEST 1VW PORTABLE STAT 06/04/2024 12:12 PM RECEIVING INSPECTOR Weakness BLOOD TYPE VERIFICATION STAT 06/04/2024 11:58 AM RECEIVING INSPECTOR EKG 12-LEAD STAT 06/04/2024 11:33 AM RECEIVING INSPECTOR Weakness CT ANGIO BRAIN NECK STROKE STAT 06/04/2024 11:31 AM RECEIVING INSPECTOR Weakness TYPE + SCREEN PANEL STAT 06/04/2024 1 1:28 AM RECEIVING INSPECTOR PT-INR [facility] STAT 06/04/2024 11:28 AM RECEIVING INSPECTOR CBC W AUTO DIFFERENTIAL STAT 06/04/2024 11:28 AM RECEIVING INSPECTOR CREATININE - POCT INTERFACED Routine 06/04/2024 11:18 AM RECEIVING INSPECTOR INR WHOLE BLOOD - POINT OF CARE (IP) STROKE Routine 06/04/2024 11:[address] BRAIN STROKE STAT 06/04/2024 11:13 AM RECEIVING INSPECTOR Weakness from Last 3 Months Results * CARDIAC EKG ORDER (06/08/2024 1:46 PM RECEIVING INSPECTOR) Narrative 06/08/2024 1:46 PM RECEIVING INSPECTOR Ordered by an unspecified provider. Scanned Document CARDIAC SERVICES ORD ERABLES * (ABNORMAL) GLUCOSE - POINT OF CARE (06/07/2024 4:44 PM RECEIVING INSPECTOR) Only the most recent of10 resultswithin the time period is included. Glucose WB/POC 123(H) 70 - 99 mg/dL 06/07/2024 4:49 PM RECEIVING INSPECTOR [facility] Specimen Type Cap Fingerstick 2023 4:49 PM RECEIVING INSPECTOR [facility] Blood BLOOD SPECIMEN / Unknown 06/07/2024 4:44 PM RECEIVING INSPECTOR 06/07/2024 4:49 PM RECEIVING INSPECTOR Michael Syed MD LAB - POINT OF CARE ORDERABLES Performing Organization Address City/State/[facility] Co de Phone Number [facility] [address] [address], [facility] [phone] * ECHO LIMITED W CONTRAST (06/07/2024 1:03 PM RECEIVING INSPECTOR) LVOT diam 2.16 cm SSM CV FUJ I PACS LVOT pk aamir 91.735 cm/s SSM CV F UJI PACS LVOT VTI 19.566 cm SSM CV FUJ I PACS LA size 4.092 cm SSM CV FUJ I PACS AV mn grad 4.603 mmHg SSM CV FU JI PACS AV pk aamir 156.094 cm/s SSM CV FUJ I PACS AV VTI 27.15 cm SSM CV FUJ I PACS MV A pk aamir 76.573 cm/s SSM CV F UJI PACS MV E pk aamir 40.65 cm/s SSM CV F UJI PACS MV mn grad 0.735 mmHg SSM CV FU JI PACS MV VTI 16.469 cm SSM CV FUJ I PACS PV pk aamir 110.494 cm/s SSM CV FUJ I PACS PV VTI 18.852 cm SSM CV FUJ I PACS Myocardial strain charge 2 unitless SSM CV FUJI PACS Anatomical Region Laterality Modality Ultrasound 06/07/2024 1:21 PM RECEIVING INSPECTOR Narrative 06/07/2024 6:01 PM RECEIVING INSPECTOR Summary * The left ventricle is not well visualized, but appears grossly normal in size with low normal systolic function and an estimated ejection fraction of 50-55% by visual estimate. Left ventricular wall motion is unable to be assessed secondary to poor endocardial definition. * The left ventricular diastolic function is consistent with grade I diastolic dysfunction and normal left atrial filling pressure. * Right ventricle is not well visualized, but appears grossly normal in size with normal systolic function. * There is a unknown size bioprosthetic valve in the aortic position. * The valve is well seated. * The leaflets are not well visualized. * There is trace regurgitation. * There is no significant paravalvular regurgitation. * AVR indices; a peak velocity of 1.6 m/s, a mean gradient of 5 mmHg, a valve area of 2.15 cm2, and an AV DI of 0.72. Findings are consistent with normal valve function. Patient Info Name: David Acosta Age: 79 years : 1945 Gender: Male Ht: 72 in Wt: 160 lb BSA: 1.92 m2 HR: 77 bpm BP: 170 / 89 mmHg Exam Date: 06/07/2024 1:21 PM Patient Status: I/P Study Site: [facility] Primary Location: [facility] EStudy Info Technical Quality: Technically Difficult Exam Type: ECHO LIMITED W CONTRAST Indications R53.1 - Weakness R47.01 - Aphasia Procedure(s) * Parasternal long axis, Parasternal short axis, Right parasternal window, Apical 4 chamber view, Suprasternal and Apical long axis view(s) obtained during the procedure. * A limited 2D, color Doppler, spectral Doppler and M-Mode transthoracic echocardiogram was performed with an Ultrasound Enhancing Agent (UEA). Contrast/Agitated Saline Contrast / Saline: Definity Amount: 0.50 ml Administered By: Alan Torres Reaction to Contrast: no Reason for Technically Difficult Study: poor echocardiographic windows, lung interference, body habitus, poor acoustic windows Staff Referring Physician: Michael Syed Ordering Provider: Michael Syed Attending Physician: Michael Syed Traffic Court Magistrate: Alan Torres Left Ventricle The left ventricle is not well visualized, but appears grossly normal in size. Left ventricular systolic function is low normal with an estimated ejection fraction of 50-55% by visual estimate. Left ventricular segmental wall motion is unable to be assessed secondary to poor endocardial definition. The left ventricular diastolic function is consistent with grade I diastolic dysfunction and normal left atrial filling pressure. Right Ventricle The right ventricle is not well visualized, but appears grossly normal in size. Right ventricular systolic function is normal. Left Atrium The left atrium is normal in size. Right Atrium The right atrium is not well visualized and cannot be evaluated. Atrial Septum Interatrial septum not well visualized by 2D and color Doppler imaging. Aortic Valve There is a unknown size bioprosthetic valve in the aortic position. The valve is well seated. The leaflets are not well visualized. There is trace regurgitation. There is no significant paravalvular regurgitation. AVR indices; a peak velocity of 1.6 m/s, a mean gradient of 5 mmHg, a valve area of 2.15 cm2, and an AV DI of 0.72. Findings are consistent with normal valve function. Pulmonic Valve The pulmonic valve is grossly normal. There is no pulmonic valve stenosis. There is no significant pulmonic regurgitation. Mitral Valve The mitral valve is not well visualized. There is no mitral valve stenosis. There is no significant mitral valve regurgitation. Tricuspid Valve The tricuspid valve is not well visualized. There is no significant tricuspid valve regurgitation. Pericardium/Pleural There is a trivial pericardial effusion. Measurements Left Ventricular Outflow Tract Name Value Normal LVOT 2D LVOT Diameter 2.2 cm LVOT Area 3.7 cm2 LVOT Doppler LVOT Peak Velocity 0.9 m/s LVOT Peak Gradient 3 mmHg LVOT Mean Velocity 66.55 cm/s LVOT Mean Gradient 2 mmHg LVOT VTI 19.6 cm LVOT VTI/AV VTI Ratio 0.7 LVOT Stroke Volume 72 ml LVOT Stroke Volume Index 37 ml/m2 35-58 LVOT CO 5.5 l/min LVOT CI 2.9 l/min/m2 Pulmonic Valve Name Value Normal PV Doppler PV Peak Velocity 1.1 m/s PV Peak Gradient 5 mmHg PV Mean Gradient 3 mmHg Mitral Valve Name Value Normal MV Doppler MV Peak Gradient 2 mmHg MV Mean Gradient 1 mmHg MV DI (VTI) 0.84 MV PHT 60 ms MV Area (PHT) 3.67 cm2 4.00-5.00 MV Area (Cont Eq VTI) 4.35 cm2 MV Diastolic Function MV E Peak Velocity 0.4 m/sec MV A Peak Velocity 0.8 m/sec MV E/A 0.5 MV Decel Time (PW) 257 ms MV A Wave Duration 163 ms Tricuspid Valve Name Value Normal Estimated PAP/RSVP RA Pressure 8 mmHg <=5 Aortic Valve Name Value Normal AV Doppler AV Peak Velocity 1.56 m/s AV Peak Gradient 10 mmHg AV Mean Gradient 5 mmHg AV VTI 27 cm AV Area (Cont Eq VTI) 2.64 cm2 >=2.00 AV Area (Cont Eq Aamir) 2.15 cm2 AV DI (VTI) 0.72 AV DI (Aamir) 0.59 AV Regurgitation 2D LVOT Area 3.66 cm2 Atria Name Value Normal LA Dimensions LA Dimension (2D) 4.1 cm 3.0-4.1 LA Dimen Index (2D) 2.1 cm/m2 Report Signatures Finalized by Reji Rodriguez on 06/07/2024 06:01 PM Procedure Note Reji Rodriguez MD - 06/07/2024 Summary * The left ventricle is not well visualized, but appears grossly normalin size with low normal systolic function and an estimated ejection fractionof 50-55% by visual estimate. Left ventricular wall motion is unable to be assessed secondary to poor endocardial definition. * The left ventricular diastolic function is consistent with grade I diastolic dysfunction and normal left atrial filling pressure. * Right ventricle is not well visualized, but appears grossly normal insize with normal systolic function. * There is a unknown size bioprosthetic valve in the aortic position. * The valve is well seated. * The leaflets are not well visualized. * There is trace regurgitation. * There is no significant paravalvular regurgitation. * AVR indices; a peak velocity of 1.6 m/s, a mean gradient of 5 mmHg,a valve area of 2.15 cm2, and an AV DI of 0.72. Findings are consistentwith normal valve function. Patient Info Name: David Acosta Age: 79 years : 1945 Gender: Male Ht: 72 in Wt: 160 lb BSA: 1.92 m2 HR: 77 bpm BP: 170 / 89 mmHg Exam Date: 06/07/2024 1:21 PM Patient Status: I/P Study Site: [facility] Technical Quality: Technically Difficult Exam Type: ECHO LIMITED W CONTRAST Indications R53.1 - Weakness R47.01 - Aphasia Procedure(s) * Parasternal long axis, Parasternal short axis, Right parasternalwindow, Apical 4 chamber view, Suprasternal and Apical long axis view(s)obtained during the procedure. * A limited 2D, color Doppler, spectral Doppler and M-Modetransthoracic echocardiogram was performed with an Ultrasound Enhancing Agent (UEA). Contrast/Agitated Saline Contrast / Saline: Definity Amount: 0.50 ml Administered By: Alan Torres Reaction to Contrast: no Reason for Technically Difficult Study: poor echocardiographicwindows, lung interference, body habitus, poor acoustic windows Staff Referring Physician: Michael Syed Ordering Provider: Michael Syed Attending Physician: Michael Syed Traffic Court Magistrate: Alan Torres Left Ventricle The left ventricle is not well visualized, but appears grossly normalin size. Left ventricular systolic function is low normal with an estimated ejection fraction of 50-55% by visual estimate. Left ventricularsegmental wall motion is unable to be assessed secondary to poor endocardialdefinition. The left ventricular diastolic function is consistent with grade Idiastolic dysfunction and normal left atrial filling pressure. Right Ventricle The right ventricle is not well visualized, but appears grossly normalin size. Right ventricular systolic function is normal. Left Atrium The left atrium is normal in size. Right Atrium The right atrium is not well visualized and cannot be evaluated. Atrial Septum Interatrial septum not well visualized by 2D and color Dopplerimaging. Aortic Valve There is a unknown size bioprosthetic valve in the aortic position.The valve is well seated. The leaflets are not well visualized. There istrace regurgitation. There is no significant paravalvular regurgitation. AVR indices; a peak velocity of 1.6 m/s, a mean gradient of 5 mmHg, a valvearea of 2.15 cm2, and an AV DI of 0.72. Findings are consistent with normalvalve function. Pulmonic Valve The pulmonic valve is grossly normal. There is no pulmonic valvestenosis. There is no significant pulmonic regurgitation. Mitral Valve The mitral valve is not well visualized. There is no mitral valvestenosis. There is no significant mitral valve regurgitation. Tricuspid Valve The tricuspid valve is not well visualized. There is no significant tricuspid valve regurgitation. Pericardium/Pleural There is a trivial pericardial effusion. Measurements Left Ventricular Outflow Tract Name Value Normal LVOT 2D LVOT Diameter 2.2 cm LVOT Area 3.7 cm2 LVOT Doppler LVOT Peak Velocity 0.9 m/s LVOT Peak Gradient 3 mmHg LVOT Mean Velocity 66.55 cm/s LVOT Mean Gradient 2 mmHg LVOT VTI 19.6 cm LVOT VTI/AV VTI Ratio 0.7 LVOT Stroke Volume 72 ml LVOT Stroke Volume Index 37 ml/m2 35-58 LVOT CO 5.5 l/min LVOT CI 2.9 l/min/m2 Pulmonic Valve Name Value Normal PV Doppler PV Peak Velocity 1.1 m/s PV Peak Gradient 5 mmHg PV Mean Gradient 3 mmHg Mitral Valve Name Value Normal MV Doppler MV Peak Gradient 2 mmHg MV Mean Gradient 1 mmHg MV DI (VTI) 0.84 MV PHT 60 ms MV Area (PHT) 3.67 cm2 4.00-5.00 MV Area (Cont Eq VTI) 4.35 cm2 MV Diastolic Function MV E Peak Velocity 0.4 m/sec MV A Peak Velocity 0.8 m/sec MV E/A 0.5 MV Decel Time (PW) 257 ms MV A Wave Duration 163 ms Tricuspid Valve Name Value Normal Estimated PAP/RSVP RA Pressure 8 mmHg <=5 Aortic Valve Name Value Normal AV Doppler AV Peak Velocity 1.56 m/s AV Peak Gradient 10 mmHg AV Mean Gradient 5 mmHg AV VTI 27 cm AV Area (Cont Eq VTI) 2.64 cm2 >=2.00 AV Area (Cont Eq Aamir) 2.15 cm2 AV DI (VTI) 0.72 AV DI (Aamir) 0.59 AV Regurgitation 2D LVOT Area 3.66 cm2 Atria Name Value Normal LA Dimensions LA Dimension (2D) 4.1 cm 3.0-4.1 LA Dimen Index (2D) 2.1 cm/m2 Report Signatures Finalized by Reji Rodriguez on 06/07/2024 06:01 PM Michael Syed MD ECHO CUPID * (ABNORMAL) CBC W/O DIFFERENTIAL (06/07/2024 2:47 AM RECEIVING INSPECTOR) Only the most recent of3 resultswithin the time period is included. WBC 7.9 4.0 - 10.7 x10E9/L 06/07/2024 4:02 AM [facility] RBC Count 3.39(L) 4.30 - 5.80 x10E12/L 06/07/2024 4:02 AM [facility] Hemoglobin 10.3(L) 13.3 - 17.5 g/dL 06/07/2024 4:02 AM [facility] Hematocrit 29.9(L) 38.7 - 51.1 % 06/07/2024 4:02 AM [facility] MCV 88.2 80.0 - 98.0 fL 06/07/2024 4:02 AM [facility] MCH 30.4 26.7 - 33.6 pg 06/07/2024 4:02 AM [facility] MCHC 34.4 31.7 - 36.3 g/dL 06/07/2024 4:02 AM [facility] RDW-CV 12.2 11.3 - 14.8 % 06/07/2024 4:02 AM [facility] Platelet Count 178 150 - 420 x10E9/L 06/07/2024 4:02 AM [facility] MPV 11.4 7.8 - 11.4 fL 06/07/2024 4:02 AM [facility] Blood BLOOD SPECIMEN / Unknown Lab Venipuncture / Unknown 06/07/2024 2:47 AM RECEIVING INSPECTOR 06/07/2024 3:56 AM RECEIVING INSPECTOR Michael Syed MD LAB - HEMATOLOGY ORD ERABLES [facility] [address] [place] [address], [facility] [phone] * (ABNORMAL) BASIC METABOLIC PANEL (CALCIUM TOTAL) (06/07/2024 2:47 AM RECEIVING INSPECTOR) Only the most recent of3 resultswithin the time period is included. [facility] BUN 24 7 - 26 mg/dL 06/07/2024 4:21 AM [facility] Creatinine 1.01 0.71 - 1.16 mg/dL 06/07/2024 4:21 AM [facility] Sodium 139 136 - 145 mmol/L 06/07/2024 4:21 AM [facility] Potassium 3.6 3.5 - 4.5 mmol/L 06/07/2024 4:21 AM [facility] Chloride 107 98 - 107 mmol/L 06/07/2024 4:21 AM [facility] CO2 23 22 - 29 mmol/L 06/07/2024 4:21 AM [facility] Glucose 101(H) 70 - 99 mg/dL 06/07/2024 4:21 AM [facility] Calcium 8.8 8.4 - 10.2 mg/dL 06/07/2024 4:21 AM [facility] Anion Gap 9 6 - 16 06/07/2024 4:21 AM [facility] BUN/Creatinine Ratio 24(H) 7 - 23 06/07/2024 4:21 AM [facility] Osmolality Calculated 292 275 - 295 mOsm/kg 06/07/2024 4:21 AM [facility] eGFR by CKD-EPI 76(L) >=90 mL/min/1.7 3 m2 06/07/2024 4:21 AM [facility] Blood BLOOD SPECIMEN / Unknown Lab Venipuncture / Unknown 06/07/2024 2:47 AM RECEIVING INSPECTOR 06/07/2024 3:51 AM [facility] Michael Syed MD LAB - CHEMISTRY [facility] Organization Address City/State/ZIP Co de Phone Number [facility] [address] [place] [phone], [facility] [phone] * (ABNORMAL) PHOSPHORUS BLOOD (06/07/2024 2:47 AM RECEIVING INSPECTOR) Only the most recent of4 resultswithin the time period is included. [facility] Phosphorus 2.6(L) 2.8 - 5.1 mg/dL 06/07/2024 4:21 AM RECEIVING INSPECTOR [facility] Blood BLOOD SPECIMEN / Unknown Lab Venipuncture / Unknown 06/07/2024 2:47 AM RECEIVING INSPECTOR 06/07/2024 3:51 AM RECEIVING INSPECTOR Michael Syed MD LAB - CHEMISTRY DECLAN PEREZ Performing Organization Address City/[facility]/ZIP Co de Phone Number [facility] [address] [place] [phone], [facility] [phone] * MAGNESIUM BLOOD (06/07/2024 2:47 AM RECEIVING INSPECTOR) Only the most recent of4 resultswithin the time period is included. Magnesium 1.7 1.6 - 2.6 mg/dL 06/07/2024 4:21 AM RECEIVING INSPECTOR [facility] Blood BLOOD SPECIMEN / Unknown Lab Venipuncture / Unknown 06/07/2024 2:47 AM RECEIVING INSPECTOR 06/07/2024 3:51 AM RECEIVING INSPECTOR Michael Syed MD LAB - CHEMISTRY DECLAN PEREZ Performing Organization Address [facility] Co de Phone Number [address] [phone], [facility] [phone] * MRI Brain Wo Contrast (06/06/2024 2:57 PM RECEIVING INSPECTOR) Anatomical Region Laterality Modality Head Magnetic Resonan ce 06/06/2024 3:03 PM RECEIVING INSPECTOR Impressions 06/06/2024 3:51 PM RECEIVING INSPECTOR IMPRESSION: Small focus of subtle restricted diffusion noted in the left posterior centrum semiovale could represent evolving acute to subacute infarct. No evidence of hemorrhagic transformation or significant mass effect. Moderate volume loss with chronic ischemic small vessel disease. These findings were discussed in detail with the patient's care provider, Dr. Lisa Yusuf by Dr. Dunne via telephone at 3:00 PM on 06/06/2024 with readback comprehension and verification. This study was dictated by interventional radiology technologist Andrez Dunne MD and reviewed and edited by the attending. ILiliana MD have personally reviewed and interpreted this examination/study. > Interpreting Provider: Liliana Watkins MD on 06/06/2024 3:51 PM Narrative 06/06/2024 3:51 PM RECEIVING INSPECTOR PROCEDURE: MRI BRAIN WO CONTRAST, DATE/TIME OF EXAM: 06/06/2024 2:57 PM, LOCATION [facility] INDICATION: R53.1: Weakness R47.01: Aphasia ADDITIONAL CLINICAL INFORMATION: Ordering Provider Reason For Exam: stroke Technologist Note: Additional: TECHNIQUE: MRI of the brain was performed without contrast according to standard protocol. COMPARISON: CT of brain 06/04/2024 FINDINGS: A small focus of diffusion abnormality with subtle restriction (series 3 and 4, image 20) the left posterior centrum semiovale with mild T2/FLAIR hyperintensity, most likely represents a evolving small acute/subacute infarct. No evidence of acute hemorrhage is identified. Small focus of susceptibility along the left left parietal cortex most likely secondary to chronic microhemorrhage. Otherwise no evidence of acute or chronic hemorrhage is noted.. There is moderate cerebral volume loss with associated ex vacuo ventricular dilatation. No mass effect or midline shift is seen. Confluent periventricular, scattered subcortical and pontine white matter FLAIR hyperintensities likely represent sequelae of chronic small vessel ischemic disease. There is diffuse thinning of anterior and mid portions of corpus callosum. The sella appear normal. The posterior fossa, brainstem, and craniocervical junction otherwise appear normal. Other than mild paranasal sinus disease and evidence of bilateral cataract surgery, the visualized portions of the orbits, paranasal sinuses, and mastoids appear normal. Normal flow voids are demonstrated in the carotid arteries and basilar artery. The calvarium and visualized cervical spine appear unremarkable, other than degenerative changes of the upper cervical spine. Procedure Note Liliana Watkins MD - 06/06/2024 PROCEDURE: MRI BRAIN WO CONTRAST, DATE/TIME OF EXAM: 06/06/2024 2:57PM, LOCATION [facility] INDICATION: R53.1: Weakness R47.01: Aphasia ADDITIONAL CLINICAL INFORMATION: Ordering Provider Reason For Exam: stroke Technologist Note: Additional: TECHNIQUE: MRI of the brain was performed without contrast according to standard protocol. COMPARISON: CT of brain 06/04/2024 FINDINGS: A small focus of diffusion abnormality with subtle restriction (series 3 and 4, image 20) the left posterior centrum semiovale with mild T2/FLAIR hyperintensity, most likely represents a evolving small acute/subacute infarct. No evidence of acute hemorrhage is identified. Small focus of susceptibility along the left left parietal cortex most likely secondaryto chronic microhemorrhage. Otherwise no evidence of acute or chronic hemorrhage is noted.. There is moderate cerebral volume loss with associated ex vacuo ventricular dilatation. No mass effect or midlineshift is seen. Confluent periventricular, scattered subcortical and pontinewhite matter FLAIR hyperintensities likely represent sequelae of chronic small vessel ischemic disease. There is diffuse thinning of anterior and mid portions of corpus callosum. The sella appear normal. The posteriorfossa, brainstem, and craniocervical junction otherwise appear normal. Other than mild paranasal sinus disease and evidence of bilateralcataract surgery, the visualized portions of the orbits, paranasal sinuses, and mastoids appear normal. Normal flow voids are demonstrated in thecarotid arteries and basilar artery. The calvarium and visualized cervical spine appear unremarkable, other than degenerative changes of the uppercervical spine. IMPRESSION: Small focus of subtle restricted diffusion noted in the left posterior centrum semiovale could represent evolving acute to subacute infarct. No evidence of hemorrhagic transformation or significant mass effect.Moderate volume loss with chronic ischemic small vessel disease. These findings were discussed in detail with the patient's careprovider, Dr. Lisa Yusuf by Dr. Dunne via telephone at 3:00 PM on06/06/2024 with readback comprehension and verification. This study was dictated by interventional radiology technologist Andrez Dunne MD and reviewed and edited by the attending. I, Liliana Watkins MD have personally reviewed and interpreted this examination/study. > Interpreting Provider: Liliana Watkins MD on 06/06/2024 3:51 PM Michael Syed MD MR ORDERABLES * (ABNORMAL) HEMOGLOBIN A1C (06/06/2024 4:24 AM RECEIVING INSPECTOR) Hemoglobin A1c 6.2(H) <=5.6 % 06/06/2024 1:00 PM RECEIVING INSPECTOR [facility] Estimated Average Glucose 131 mg/dL 06/06/2024 1:00 [address] [facility] Comment: HbA1c Interpretation: Normal : < 5.7% Pre-diabetes: 5.7-6.4% Diabetes: Equal to or greater than 6.5% Test results diagnostic of diabetes should be repeated for confirmation. Treatment target values recommended by ADA and other clinical organizations should be used to evaluate metabolic control in patients. Reference: [place] [employer], Standards of Care in Diabetes -2020 In patients 70 years and older consider HbA1c target range of 7.0-7.5% (Reference: Leroy Leslie et al. JAMDA. 2012) The Sebia assay for the measurement of HbA1c is a National Glycohemoglobin Standardization Program (NGSP) certified method. Blood BLOOD SPECIMEN / Unknown Venipuncture / Unknown 06/06/2024 4:24 AM RECEIVING INSPECTOR 06/06/2024 1:00 PM RECEIVING INSPECTOR Michael Syed MD LAB - CHEMISTRY DECLAN PEREZ [facility] Organization Address City/State/ZIP Co de Phone Number [address] [phone] [phone] * (ABNORMAL) LIPID PROFILE (06/05/2024 4:52 AM RECEIVING INSPECTOR) Cholesterol Total 83 <200 mg/dL 06/05/2024 5:26 AM [facility] HDL 25(L) >40 mg/dL 06/05/2024 5:26 AM [facility] Comment: ATP III Classification of HDL Cholesterol: <40 mg/dL: Considered a major risk factor. >60 mg/dL: Considered a negative risk factor. LDL Calculated 42 <100 mg/dL 06/05/2024 5:26 AM [facility] Comment: ATP III Classification of LDL Cholesterol: <100 mg/dL: Optimal 100 - 129 mg/dL: Near Optimal/Above Optimal 130 - 159 mg/dL: Borderline High 160 - 189 mg/dL: High >190 mg/dL: Very High Triglycerides 81 <150 mg/dL 06/05/2024 5:26 AM [facility] Comment: ATP III Classification of Triglycerides: <150 mg/dL: Normal 150 - 199 mg/dL: Borderline High 200 - 400 mg/dL: High >500 mg/dL: Very High Blood BLOOD SPECIMEN / Unknown Venipuncture / Unknown 06/05/2024 4:52 AM RECEIVING INSPECTOR 06/05/2024 4:59 AM RECEIVING INSPECTOR Michael Syed MD LAB - CHEMISTRY [place]CL[place] PEREZ [address] [address], [place] [phone] * TROPONIN-I HIGH SENSITIVE REFLEX 1HOUR (06/04/2024 4:27 PM RECEIVING INSPECTOR) Troponin I High Sensitive 13 <=35 ng/L 06/04/2024 5:08 PM RECEIVING INSPECTOR [facility] [place] Troponin I HS 0 <6 ng/L 06/04/2024 5:08 PM RECEIVING INSPECTOR [facility] Blood BLOOD SPECIMEN / Unknown Venipuncture / Unknown 06/04/2024 4:27 PM RECEIVING INSPECTOR 06/04/2024 4:30 PM RECEIVING INSPECTOR Michael Syed MD LAB - CHEMISTRY DECLAN PEREZ Performing Organization Address City/[facility]/ZIP Co de Phone Number [address] [address], [place] [phone] * TROPONIN-I HIGH SENSITIVE BASELINE + 1HR (06/04/2024 3:27 PM RECEIVING INSPECTOR) Troponin I High Sensitive 13 <=35 ng/L 06/04/2024 4:13 PM RECEIVING INSPECTOR [facility] Blood BLOOD SPECIMEN / Unknown Venipuncture / Unknown 06/04/2024 3:27 PM RECEIVING INSPECTOR 06/04/2024 3:37 PM RECEIVING INSPECTOR Michael Syed MD LAB - CHEMISTRY [facility]CLAN PEREZ Performing Organization Address City/[facility]/ZIP Co de Phone Number [address] [address], [place] [phone] * URINE MICROSCOPIC ONLY REFLEX TO CULTURE (06/04/2024 3:21 PM RECEIVING INSPECTOR) Reflex Status Culture not indicated 06/04/2024 3:44 PM [facility] WBC UA 0-5 None Seen, 0-5 /HPF 06/04/2024 3:44 PM [facility] Squamous Epithelial Cells UA None Seen None Seen, 0-2, 3-5 /HPF 06/04/2024 3:44 PM [facility] Mucus UA 1+ /LPF 06/04/2024 3:44 PM [facility] Urine URINE SPECIMEN OBTAINED BY CLEAN CATCH PROCEDURE / Unknown Collection / Unknown 06/04/2024 3:21 PM RECEIVING INSPECTOR 06/04/2024 3:24 PM RECEIVING INSPECTOR [facility] - 06/04/2024 3:44 PM RECEIVING INSPECTOR Briseida Fish MD LAB - URINALYSIS ORD ERABLES [facility] [address] [place] [address], [facility] [phone] * (ABNORMAL) URINALYSIS REFLEX MICROSCOPIC REFLEX CULTURE (06/04/2024 3:21 PM RECEIVING INSPECTOR) Color UA Yellow Straw, Yellow 06/04/2024 3:37 PM [facility] Clarity UA Clear Clear 06/04/2024 3:37 PM [facility] Specific [place] UA 1.051(H) 1.005 - 1.030 06/04/2024 3:37 PM [facility] pH UA 5.0 5.0 - 8.0 pH 06/04/2024 3:37 PM [facility] Protein UA 2+(A) Negative 06/04/2024 3:37 PM [facility] Glucose UA Negative Negative 06/04/2024 3:37 PM [facility] Ketone UA Negative Negative 06/04/2024 3:37 PM [facility] Bilirubin UA Negative Negative 06/04/2024 3:37 PM [facility] Blood UA Negative Negative 06/04/2024 3:37 PM [facility] Nitrite UA Negative Negative 06/04/2024 3:37 PM [facility] Leukocyte Esterase Negative Negative 06/04/2024 3:37 PM [facility] Urobilinogen UA Negative Negative mg/dL 06/04/2024 3:37 PM [facility] Urine URINE SPECIMEN OBTAINED BY CLEAN CATCH PROCEDURE / Unknown Collection / Unknown 06/04/2024 3:21 PM RECEIVING INSPECTOR 06/04/2024 3:24 PM RECEIVING INSPECTOR Narrative [facility] - 06/04/2024 3:37 PM RECEIVING INSPECTOR Briseida Fish MD LAB - URINALYSIS ORD ERABLES [facility] [address] [place] [phone], [facility] [phone] * URINE DRUG SCREEN IMMUNOASSAY (06/04/2024 3:21 PM RECEIVING INSPECTOR) [facility] Amphetamines Screen Urine Negative Negative: < 1000 ng/mL 06/04/2024 3:42 PM [facility] Barbiturates Screen Urine Negative Negative: < 200 ng/mL 06/04/2024 3:42 PM [facility] Benzodiazepine Screen Urine Negative Negative: < 200 ng/mL 06/04/2024 3:42 PM [facility] Opiates Urine Negative Negative: < 300 ng/mL 06/04/2024 3:42 PM [facility] Cocaine Metabolites Urine Negative Negative: < 300 ng/mL 06/04/2024 3:42 PM [facility] Phencyclidine Screen Urine Negative Negative: < 25 ng/ml 06/04/2024 3:42 PM [facility] Cannabinoids Screen Urine Negative Negative: <50 ng/mL 06/04/2024 3:42 PM [facility] Methadone Screen Urine Negative Negative: < 300 ng/mL 06/04/2024 3:42 PM [facility] Fentanyl Screen Urine Negative Negative: <1.5 ng/mL 06/04/2024 3:42 PM [facility] Urine URINE / Unknown Collection / Unknown 06/04/2024 3:21 PM RECEIVING INSPECTOR 06/04/2024 3:24 PM RECEIVING INSPECTOR Narrative [facility] - 06/04/2024 3:42 PM RECEIVING INSPECTOR The Urine Toxicology Screening Panel does not screen for Propoxyphene, Meprobamate, Carisoprodol, Trazodone, [id number] medications and/or volatiles (Acetone, Isopropanol, Methanol or Ethylene Glycol). Ethanol, Salicylate, Acetaminophen, Tricyclic Antidepressants and several therapeutic drugs may be individually assayed in serum or plasma specimen. Toxicology testing by the [facility] is an aid to medical diagnosis and treatment of patients. No documented chain of custody was maintained. Results are intended to be used for clinical purposes only. Briseida Fish MD LAB - URINE CHEMISTR Y ORDERABLES [facility] [address] [place] [address], [facility] [phone] * (ABNORMAL) COMPREHENSIVE METABOLIC PANEL (06/04/2024 1:47 PM RECEIVING INSPECTOR) BUN 29(H) 7 - 26 mg/dL 06/04/2024 2:22 PM [facility] Creatinine 1.31(H) 0.71 - 1.16 mg/dL 06/04/2024 2:22 PM [facility] Sodium 140 136 - 145 mmol/L 06/04/2024 2:22 PM [facility] Potassium 4.4 3.5 - 4.5 mmol/L 06/04/2024 2:22 PM [facility] Chloride 105 98 - 107 mmol/L 06/04/2024 2:22 PM [facility] CO2 25 22 - 29 mmol/L 06/04/2024 2:22 PM [facility] Glucose 119(H) 70 - 99 mg/dL 06/04/2024 2:22 PM [facility] Calcium 9.1 8.4 - 10.2 mg/dL 06/04/2024 2:22 PM [facility] Protein Total 6.6 6.0 - 8.3 g/dL 06/04/2024 2:22 PM [facility] Albumin 3.0(L) 3.4 - 5.0 g/dL 06/04/2024 2:22 PM [facility] Bilirubin Total 0.6 0.2 - 1.2 mg/dL 06/04/2024 2:22 PM [facility] Alkaline Phosphatase 107 40 - 150 U/L 06/04/2024 2:22 PM [facility] ALT 52 5 - 55 U/L 06/04/2024 2:22 PM [facility] AST 40(H) 5 - 34 U/L 06/04/2024 2:22 PM [facility] Anion Gap 10 6 - 16 06/04/2024 2:22 PM [facility] BUN/Creatinine Ratio 22 7 - 23 06/04/2024 2:22 PM [facility] Osmolality Calculated 297(H) 275 - 295 mOsm/kg 06/04/2024 2:22 PM [facility] Albumin/Globulin Ratio 0.8(L) 1.1 - 2.3 06/04/2024 2:22 PM [facility] eGFR by CKD-EPI 56(L) >=90 mL/min/1.7 3 m2 06/04/2024 2:22 PM [facility] Blood BLOOD SPECIMEN / Unknown Venipuncture / Unknown 06/04/2024 1:47 PM RECEIVING INSPECTOR 06/04/2024 1:52 PM RECEIVING INSPECTOR Alirio Domínguez MD LAB - CHEMISTRY DECLAN PEREZ [facility] Organization Address City/State/ZIP Co de Phone Number [facility] [address] [place] [address], [facility] [phone] * XR Chest 1Vw Portable (06/04/2024 12:12 PM RECEIVING INSPECTOR) Anatomical Region Laterality Modality Chest Digital Radiogra phy 06/04/2024 12:0 3 PM RECEIVING INSPECTOR Narrative 06/04/2024 1:55 PM RECEIVING INSPECTOR PROCEDURE: XR CHEST 1VW PORTABLE, DATE/TIME OF EXAM: 06/04/2024 11:52 AM, LOCATION [facility] INDICATION: R53.1: Weakness ADDITIONAL CLINICAL INFORMATION: Ordering Provider Reason For Exam: r/o pneumonia Technologist Note: Additional: COMPARISON: None. TECHNIQUE: Frontal radiograph of the chest. FINDINGS/IMPRESSION: Left chest wall cardiac device with subclavian leads terminating in the right atrium and right ventricle. 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 Mild bibasilar atelectasis. There is no focal consolidation, pleural effusion, or pneumothorax. The cardiomediastinal silhouette is normal. The visible bony thorax is intact. Report dictated by Mack Easley MD, (interventional radiology technologist). Santosh Dean MD have personally reviewed and interpreted this examination/study. > Interpreting Provider: Santosh Cote MD on 06/04/2024 1:55 PM Procedure Note Santosh Cote MD - 06/04/2024 PROCEDURE: XR CHEST 1VW PORTABLE, DATE/TIME OF EXAM: 06/04/2024 11:52AM, LOCATION [facility] INDICATION: R53.1: Weakness ADDITIONAL CLINICAL INFORMATION: Ordering Provider Reason For Exam: r/o pneumonia Technologist Note: Additional: COMPARISON: None. TECHNIQUE: Frontal radiograph of the chest. FINDINGS/IMPRESSION: Left chest wall cardiac device with subclavian leads terminating in the right atrium and right ventricle. TAVR and left atrial appendageocclusion device are present. Mild bibasilar atelectasis. There is no focal consolidation, pleural effusion, or pneumothorax. The cardiomediastinal silhouette is normal.The visible bony thorax is intact. Report dictated by Mack Easley MD, (interventional radiology technologist). Santosh Dean MD have personally reviewed and interpreted this examination/study. > Interpreting Provider: Santosh Cote MD on 06/04/2024 1:55 PM Briseida Fish MD DIAGNOSTIC IMAGING O RDERABLES * BLOOD TYPE VERIFICATION (06/04/2024 11:58 AM RECEIVING INSPECTOR) ABO Rh A POS 06/04/2024 1:5 0 PM RECEIVING INSPECTOR [facility] Blood Bank BLOOD SPECIMEN / Unknown Venipuncture / Unknown 06/04/2024 11:58 AM RECEIVING INSPECTOR 06/04/2024 1:28 PM RECEIVING INSPECTOR Alirio Domínguez MD LAB - BLOOD BANK ORD ERABLES [facility] [address] [place] [address], [facility] [phone] * EKG 12-LEAD (06/04/2024 11:33 AM RECEIVING INSPECTOR) Ventricular Rate 88 BPM [facility] Atrial Rate 88 BPM [facility] P-R Interval 192 ms [facility] QRS Duration ms 102 ms [facility] Q-T Interval ms 350 ms [facility] MUSE QTC Calculation (Bezet) 423 ms [facility] Calculated P [place] 77 degrees [facility] Calculated R [place] 33 degrees [facility] Calculated T [place] 64 degrees [facility] Interpretation EKG NORMAL SINUS RHYTHM MINIMAL VOLTAGE CRITERIA FOR LVH, MAY BE NORMAL VARIANT ( Bacilio product ) BORDERLINE ECG NO PREVIOUS ECGS AVAILABLE Confirmed by BRAYAN RUSS DO ([id number]) on 06/10/2024 11:52:09 AM [facility] MUSE 06/04/2024 11:3 3 AM RECEIVING INSPECTOR 06/10/2024 11:52 AM RECEIVING INSPECTOR Alirio Domínguez MD ECG ORDERABLES [facility] MUSE * CT ANGIO BRAIN NECK STROKE (06/04/2024 11:31 AM RECEIVING INSPECTOR) Anatomical Region Laterality Modality Head Computed Tomogra phy 06/04/2024 11:3 5 AM RECEIVING INSPECTOR Impressions 06/04/2024 11:47 AM RECEIVING INSPECTOR IMPRESSION: 1. No large arterial occlusions or significant stenoses identified in the head or neck. > Interpreting Provider: Hernando Ewing MD on 06/04/2024 11:47 AM Narrative 06/04/2024 11:47 AM RECEIVING INSPECTOR PROCEDURE: CT ANGIO BRAIN NECK STROKE, DATE/TIME OF EXAM: 06/04/2024 11:32 AM, LOCATION [facility] INDICATION: Code Stroke ADDITIONAL CLINICAL INFORMATION: Ordering Provider Reason For Exam: Technologist Note: Additional: EXAMINATION: 1. Computed tomographic (CT) angiography of the head with contrast 2. CT angiography of the neck with contrast TECHNIQUE: CT angiography of the head and neck was obtained after the uneventful administration of intravenous contrast. Three dimensional postprocessing was performed by the technologist and sent to the workstation for review. CONTRAST: IOPAMIDOL 76 % IV SOLN:75 mL COMPARISON: Comparison is made with a study from earlier today. FINDINGS: Non-angiographic findings: Please refer to the report of a concurrent noncontrasted head CT for detailed intracranial findings. No soft tissue abnormalities are identified in the neck. Moderate multilevel degenerative disc and joint disease is noted in the cervical spine. Angiographic findings: Neck: There is atherosclerotic disease of the aortic arch. The configuration of the brachiocephalic vessels is typical. There is scattered atherosclerotic calcification of the innominate and subclavian arteries. There is scattered atherosclerotic disease in the right common carotid artery, the right carotid bifurcation and origin and the distal portion of the right internal carotid artery. No hemodynamically significant stenosis is noted in the right common and internal carotid arteries. There is scattered atherosclerotic disease in the left common carotid artery, the left carotid bifurcation and origin and the distal portion of the left internal carotid artery. No hemodynamically significant stenosis is noted in the left common and internal carotid arteries. Other than mild focal stenosis at their origins due to atherosclerotic disease, the cervical vertebral arteries are patent. Head: There is atherosclerotic disease involving the distal internal carotid arteries without significant focal stenosis. The anterior cerebral arteries are patent. The middle cerebral arteries are patent. The posterior cerebral arteries are patent. The distal vertebral arteries are patent. The basilar artery is patent patent. No aneurysms, spot sign, or signs of a high flow vascular malformation are identified. Procedure Note Hernando Ewing MD - 06/04/2024 PROCEDURE: CT ANGIO BRAIN NECK STROKE, DATE/TIME OF EXAM: :32 AM, LOCATION [facility] INDICATION: Code Stroke ADDITIONAL CLINICAL INFORMATION: Ordering Provider Reason For Exam: Technologist Note: Additional: EXAMINATION: 1. Computed tomographic (CT) angiography of the head with contrast 2. CT angiography of the neck with contrast TECHNIQUE: CT angiography of the head and neck was obtained after the uneventful administration of intravenous contrast. Three dimensional postprocessing was performed by the technologist and sent to the workstation for review. CONTRAST: IOPAMIDOL 76 % IV SOLN:75 mL COMPARISON: Comparison is made with a study from earlier today. FINDINGS: Non-angiographic findings: Please refer to the report of a concurrent noncontrasted head CT for detailed intracranial findings. No soft tissue abnormalities are identified in the neck. Moderate multilevel degenerative disc and joint disease is noted in the cervical spine. Angiographic findings: Neck: There is atherosclerotic disease of the aortic arch. The configurationof the brachiocephalic vessels is typical. There is scatteredatherosclerotic calcification of the innominate and subclavian arteries. There isscattered atherosclerotic disease in the right common carotid artery, the right carotid bifurcation and origin and the distal portion of the rightinternal carotid artery. No hemodynamically significant stenosis is noted in the right common and internal carotid arteries. There is scattered atherosclerotic disease in the left common carotid artery, the leftcarotid bifurcation and origin and the distal portion of the left internalcarotid artery. No hemodynamically significant stenosis is noted in the leftcommon and internal carotid arteries. Other than mild focal stenosis at their origins due to atherosclerotic disease, the cervical vertebral arteriesare patent. Head: There is atherosclerotic disease involving the distal internal carotid arteries without significant focal stenosis. The anterior cerebralarteries are patent. The middle cerebral arteries are patent. The posterior cerebral arteries are patent. The distal vertebral arteries are patent.The basilar artery is patent patent. No aneurysms, spot sign, or signs of a high flow vascular malformation are identified. IMPRESSION: 1. No large arterial occlusions or significant stenoses identified inthe head or neck. > Interpreting Provider: Hernando Ewing MD on 06/04/2024 11:47 AM Alirio Domínguez MD CT ORDERABLES * PT-INR [facility] (06/04/2024 11:28 AM RECEIVING INSPECTOR) PT 13.1 12.1 - 14.8 Seconds 06/04/2024 12:00 PM RECEIVING INSPECTOR [facility] INR 1.0 See Comment 06/04/2024 12:00 PM RECEIVING INSPECTOR [facility] Comment:The suggested therap eutic range for standard coumadin (warfarin) therapy is an INR of 2.0-3.0. For high-risk patients (Mechanical Mitral Valve Prosthesis, etc.), the suggested prophylactic therapeutic range is an INR of 2.5-3.5. Blood BLOOD SPECIMEN / Unknown Venipuncture / Unknown 06/04/2024 11:28 AM RECEIVING INSPECTOR 06/04/2024 11:38 AM RECEIVING INSPECTOR Alirio Domínguez MD LAB - COAGULATION OR DERABLES [facility] [address] [place] [address], [facility] [phone] * TYPE + SCREEN PANEL (06/04/2024 11:28 AM RECEIVING INSPECTOR) [facility] Antibody Screen NEG 12:18 PM [facility] ABO Rh A POS 06/04/2024 12:18 PM [facility] Blood Bank BLOOD SPECIMEN / Unknown Venipuncture / Unknown 06/04/2024 11:28 AM RECEIVING INSPECTOR 06/04/2024 11:42 AM RECEIVING INSPECTOR Alirio Domínguez MD LAB - BLOOD BANK ORD ERABLES [facility] [place] [address], [facility] [phone] * (ABNORMAL) CBC W AUTO DIFFERENTIAL (06/04/2024 11:28 AM RECEIVING INSPECTOR) [facility] WBC 10.7 4.0 - 10.7 x10E9/L 06/04/2024 11:49 [address] [facility] RBC Count 3.99(L) 4.30 - 5.80 x10E12/L 06/04/2024 11:49 AM [facility] Hemoglobin 12.3(L) 13.3 - 17.5 g/dL 06/04/2024 11:49 AM [facility] Hematocrit 36.7(L) 38.7 - 51.1 % 06/04/2024 11:49 AM [facility] MCV 92.0 80.0 - 98.0 fL 06/04/2024 11:49 AM [facility] MCH 30.8 26.7 - 33.6 pg 06/04/2024 11:49 AM [facility] MCHC 33.5 31.7 - 36.3 g/dL 06/04/2024 11:49 AM [facility] RDW-CV 12.3 11.3 - 14.8 % 06/04/2024 11:49 AM [facility] Platelet Count 210 150 - 420 x10E9/L 06/04/2024 11:49 AM [facility] MPV 11.1 7.8 - 11.4 fL 06/04/2024 11:49 AM [facility] Neutrophil % 85.1(H) 41.0 - 74.0 % 06/04/2024 11:49 AM [facility] Lymphocyte % 9.4(L) 17.0 - 47.0 % 06/04/2024 11:49 AM [facility] Monocyte % 4.2 3.0 - 11.0 % 06/04/2024 11:49 AM [facility] Eosinophil % 0.5 0.0 - 7.0 % 06/04/2024 11:49 AM [facility] Basophil % 0.5 0.0 - 1.6 % 06/04/2024 11:49 AM [facility] Immature Granulocytes % 0.3 0.0 - 1.0 % 06/04/2024 11:49 AM [facility] Neutrophil Absolute 9.13(H) 1.60 - 7.50 x10E9/L 06/04/2024 11:49 AM [facility] Lymphocyte Absolute 1.01 1.00 - 4.40 x10E9/L 06/04/2024 11:49 AM [facility] Monocyte Absolute 0.45 0.15 - 1.00 x10E9/L 06/04/2024 11:49 AM [facility] Eosinophil Absolute 0.05 0.00 - 0.60 x10E9/L 06/04/2024 11:49 AM [facility] Basophil Absolute 0.05 0.00 - 0.13 x10E9/L 06/04/2024 11:49 AM [facility] Blood BLOOD SPECIMEN / Unknown Venipuncture / Unknown 06/04/2024 11:28 AM RECEIVING INSPECTOR 06/04/2024 11:38 AM RECEIVING INSPECTOR Alirio Domínguez MD LAB - HEMATOLOGY ORD ERABLES [facility] [address] [place] [address], [facility] [phone] * (ABNORMAL) CREATININE - POCT INTERFACED (06/04/2024 11:18 AM RECEIVING INSPECTOR) Creatinine POCT 1.12 0.30 - 1.30 mg/dL 06/04/2024 11:21 AM [facility] eGFR 67(L) >=90 mL/min/1.7 3 m2 06/04/2024 11:21 AM [facility] Blood BLOOD SPECIMEN / Unknown 06/04/2024 11:18 AM RECEIVING INSPECTOR 06/04/2024 11:21 AM RECEIVING INSPECTOR Provider Unknown LAB - POINT OF CARE ORDERABLES [facility] [address] [place] [id number], [facility] [phone] * INR WHOLE BLOOD - POINT OF CARE (IP) STROKE (06/04/2024 11:17 AM RECEIVING INSPECTOR) INR 1.1 0.9 - 1.2 06/04/2024 11:20 AM [facility] Device [id number] 06/04/2024 11:20 AM [facility] Oil Spot Washer ID [id number] 06/04/2024 11:20 AM [facility] Blood BLOOD SPECIMEN / Unknown 06/04/2024 11:17 AM RECEIVING INSPECTOR 06/04/2024 11:20 AM RECEIVING INSPECTOR Provider Unknown LAB - POINT OF CARE ORDERABLES [address] [address], [facility] [phone] * CT BRAIN - Stroke (06/04/2024 11:13 AM RECEIVING INSPECTOR) Anatomical Region Laterality Modality Head Computed Tomogra phy 06/04/2024 11:1 6 AM RECEIVING INSPECTOR Impressions 06/04/2024 11:21 AM RECEIVING INSPECTOR IMPRESSION: 1.No acute intracranial hemorrhage. 2.Please note that CT is insensitive to nonhemorrhagic strokes and MRI of the brain should be considered, if there is clinical concern for acute cerebral infarction. Disclaimer: 1.Brain areas including the cerebral sulci, the dural sinuses, the cavernous sinuses, the basilar artery/posterior circulation, the craniocervical junction, and the brain stem, may not be well evaluated on noncontrast CT. MRI of the brain is more sensitive for parenchymal changes related to the above-mentioned brain regions. If there is clinical concern for pathology involving the above-mentioned areas, MRI of the brain is recommended for further evaluation.. Results of this exam were communicated with closed loop confirmation to Dr. Sandi Summers on 06/04/2024 at 11:16 AM with read back comprehension and verification. > Interpreting Provider: Vasile Summers MD on 06/04/2024 11:21 AM Narrative 06/04/2024 11:21 AM RECEIVING INSPECTOR PROCEDURE: CT BRAIN STROKE, DATE/TIME OF EXAM: 06/04/2024 11:20 AM, LOCATION [facility] INDICATION: Code Stroke EXAMINATION: Computed tomography (CT) of the head without contrast ADDITIONAL CLINICAL INFORMATION: Ordering Provider Reason For Exam: Code stroke. Technologist Note: None. Additional: None. TECHNIQUE: CT of the head was performed without contrast according to standard protocol. CT dose reduction technique was used, including Automated Exposure Control. COMPARISON: No prior study is available for comparison at the time of this dictation. FINDINGS: No acute intra- or extra-axial fluid collections are identified. There is moderate cerebral volume loss with associated ex vacuo ventricular dilatation. The basilar cisterns are patent. No mass effect or midline shift is seen. The campos-white matter differentiation otherwise appears normal. Confluent periventricular white matter hypoattenuation is indicative of chronic small vessel ischemic disease. Nonspecific hypoattenuation in the brainstem and the deep nuclei. Prominent small focus of hypoattenuation in the left thalamus. There is vascular calcification of the carotid siphons and the V4 segments of the vertebral arteries. No acute calvarial fracture is identified. Possible cataract extraction. The orbits appear otherwise grossly unremarkable. There is mild paranasal sinus disease. Deformity of the nasal septum. Chronic nasal bone deformities are suspected. The mastoid air cells are grossly clear. No soft tissue abnormality is identified. Procedure Note Vasile Summers MD - 06/04/2024 PROCEDURE: CT BRAIN STROKE, DATE/TIME OF EXAM: 06/04/2024 11:20 AM, LOCATION [facility] INDICATION: Code Stroke EXAMINATION: Computed tomography (CT) of the head without contrast ADDITIONAL CLINICAL INFORMATION: Ordering Provider Reason For Exam: Code stroke. Technologist Note: None. Additional: None. TECHNIQUE: CT of the head was performed without contrast according to standard protocol. CT dose reduction technique was used, including Automated Exposure Control. COMPARISON: No prior study is available for comparison at the time ofthis dictation. FINDINGS: No acute intra- or extra-axial fluid collections are identified. Thereis moderate cerebral volume loss with associated ex vacuo ventricular dilatation. The basilar cisterns are patent. No mass effect or midline shift is seen. The campos-white matter differentiation otherwise appears normal. Confluent periventricular white matter hypoattenuation is indicative of chronic small vessel ischemic disease. Nonspecific hypoattenuation in the brainstem and the deep nuclei. Prominent smallfocus of hypoattenuation in the left thalamus. There is vascular calcificationof the carotid siphons and the V4 segments of the vertebral arteries. Noacute calvarial fracture is identified. Possible cataract extraction. Theorbits appear otherwise grossly unremarkable. There is mild paranasal sinus disease. Deformity of the nasal septum. Chronic nasal bone deformitiesare suspected. The mastoid air cells are grossly clear. No soft tissue abnormality is identified. IMPRESSION: 1.No acute intracranial hemorrhage. 2.Please note that CT is insensitive to nonhemorrhagic strokes and MRIof the brain should be considered, if there is clinical concern for acute cerebral infarction. Disclaimer: 1.Brain areas including the cerebral sulci, the dural sinuses, the cavernous sinuses, the basilar artery/posterior circulation, the craniocervical junction, and the brain stem, may not be well evaluatedon noncontrast CT. MRI of the brain is more sensitive for parenchymalchanges related to the above-mentioned brain regions. If there is clinicalconcern for pathology involving the above-mentioned areas, MRI of the brain is recommended for further evaluation.. Results of this exam were communicated with closed loop confirmation toDr. Sandi Summers on 06/04/2024 at 11:16 AM with read back comprehension and verification. > Interpreting Provider: Vasile Summers MD on 06/04/2024 11:21 AM Alirio Domínguez MD CT ORDERABLES from Last 3 Months Advance Directives * Full Code (Latest Code Status on File) Date Activated Date Inactivated Comments 06/04/2024 3:10 PM 06/07/2024 7:54 PM Care Teams Facility Technician Relationship Specialty Start Date End Date Torres Manzano MD [address] [place] [id number] PCP - General Internal Medicine 06/04/24
--- OUTSIDE RECORDS SUMMARY | 2024-08-31 09:10 | XMS_ITS | Referral Summary ---
Author Organization [facility] Address [address] [place] [address] Care Team Providers [employer] Cook Name Role Phone Torres Manzano MD Primary Care Provider [phone] Allergies No known active allergies Medications loratadine (CLARITIN) 10 mg tablet Take 10 mg by mouth daily Active vitamin B complex capsule Take 1 capsule by mouth daily Active glucosamine sulfate (SYNOVACIN ORAL) 1,500 mg Act alexei apixaban (ELIQUIS) 5 mg tablet Take 1 tablet (5 mg total) by mouth 2 (two) times a day 60 tablet 020 Active levothyroxine sodium (TIROSINT) 50 mcg capsule Take 50 mcg by mouth soil specialist before breakfast Active fluticasone propionate (FLONASE) 50 mcg/actuation nasal spray Administer 2 sprays into each nostril daily [place] 2 sprays in each nostril daily for a week then go to 1 spray in each nostril daily thereafter 1 each 3 021 Active Additional Information Patient not taking.Reported on 12/23/2022 pyridoxine (VITAMIN B-6) 100 mg tablet Take 1 tablet (100 mg total) by mouth daily Active L.acid-B.bifidum-B.anim al-FOS 25 billion cell -100 mg capsule Take by mouth daily Active fluticasone furoate-vilanteroL (BREO ELLIPTA) 200-25 mcg/dose diskus inhaler Inhale 1 puff daily Rinse mouth with water after use. Do not swallow. 60 each Active Additional Information Patient not taking.Reported on 12/23/2022 ipratropium (ATROVENT) 42 mcg (0.06 %) nasal spray Active melatonin tablet Take 1 tablet (3 mg total) by mouth nightly as needed Active Euthyrox 50 mcg tablet Take 1 tablet (50 mcg total) by mouth every morning Active cholecalciferol (VITAMIN D-3) 400 unit capsule Active aspirin 81 mg enteric coated tablet Take 1 tablet (81 mg total) by mouth daily Active omeprazole (PriLOSEC) 20 mg capsule Take 20 mg by mouth daily Active losartan (COZAAR) 100 mg tablet Take 1 tablet by mouth once daily 90 tablet 023 Active metoprolol XL (TOPROL-XL) 50 mg extended release tabletIndications:Essen tial hypertension,Persistent atrial fibrillation (HCC) Take 1 tablet (50 mg total) by mouth 2 (two) times a day 180 tablet 1 023 Active atorvastatin (LIPITOR) 80 mg tablet Take 1 tablet by mouth once daily 90 tablet 3 024 Active ezetimibe (ZETIA) 10 mg tabletIndications:Pure hypercholesterolemia Take 1 tablet by mouth once daily 90 tablet 3 024 Active Active Problems Problem Noted Date Diagnosed Date Long COVID 09/26/2022 Vitamin D deficiency, unspecified 09/26/2022 COVID-19 morteza dasilva manifesting chronic fatigue 09/26/2022 COVID-19 morteza dasilva manifes ting chronic decreased mobility and endurance 09/26/2022 COVID-19 morteza dasilva manifes ting chronic neurologic symptoms 09/26/2022 Depression 09/26/2022 Persistent atrial fibrillation 04/02/2022 Pure hypercholesterolemia 04/02/2022 Vitreous syneresis of right eye 03/07/2022 Assessment & Plan (03/07/2022 12:10 PM CDT): Dense vitreous syneresis OD may be contributing to patient's symptoms. He reports episodes of cloudy vision, without any blacking out or graying out of vision, that last less than 5 minutes and spontaneously resolve. Occasionally artificial tears can provide partial relief. He does report some milder episodes OS but it is much more noticeable and bothersome OD, although these episodes are improving overall. Dilated exam is reassuring, with peripheral CRS of each eye. Patient is s/p RD repair OS so is avitretic on this side. OCT of optic nerve and macula were without any concerning findings today. Discussed symptoms in detail with patient. Offered neuro-ophthalmology appointment non-urgently, but patient will hold off until his workup with neurology has been completed. If symptoms persist or worsen, okay to schedule with neuro-ophthalmology for next available new appointment slot. Epiretinal membrane (ERM) of left eye 03/07/2022 Assessment & Plan (03/07/2022 12:11 PM CDT): Not visually significant, follow. Optic nerve cupping of both eyes 03/07/2022 Assessment & Plan (03/07/2022 12:12 PM CDT): Moderate-large CDR OU but reassuring OCT nerve today. Follow. 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 With cessation of several medications, his symptoms have eased. No orthostatic hypotension is evidence on examination today. Observation for the neurological standpoint would be appropriate at this time. If his symptoms worsen, consideration of additional salt loading, fludcortisone, or midodrine could be all considered. I will plan on seeing him back from the neurological standpoint per his previous scheduled appointment next year. Orthostatic hypotension 05/29/2020 Assessment & Plan (05/31/2020 11:18 AM CELL POURER): P/w worsening orthostatic hypotension with profound drops in SBP (69mmHg on recent stress test, 64mmHg in ED from lying to standing despite 1L fluids before). Recent stress test was unremarkable for ischemia and showed normal EF. Recent ECHO was normal. Symptoms not improving despite holding amlodipine. Did not improve with IV fluids and no other evidence of dehydration. No palpitations, ECG shows NSR. - Repeat TTE 05/30 with normal EF and no evidence of structural or valvular disease to explain orthostatic hypotension - Stop Aricept oxybutynin, and nortriptyline as they can cause postural hypotension - Trial of LEANDRO hose - Holding amlodipine 2.5mg daily per outpatient cards direction - Continue losartan 25mg daily, decrease metoprolol XL 25mg from bid to daily - Not a good candidate for fludrocortisone or midodrine given supine hypertension - Cortisol stimulation test normal - Discussed and provided education sheet on counter pressure maneuvers with patient - Monitor on tele - PT/OT - Given negative cardiac workup, will refer patient to his outpatient Neurologist, Dr. Harvey, for evaluation of autonomic neuropathy, appt scheduled for 06/01/20 Assessment & Plan (05/30/2020 9:27 AM CELL POURER): Presenting with worsening orthostatic hypotension with profound drops in SBP (69mmHg on recent stress test, 64mmHg in ED from lying to standing despite 1L fluids before). Recent stress test was unremarkable for ischemia and showed normal EF. Has not had dedicated TTE yet. Symptoms not improving despite holding amlodipine. Did not improve with IV fluids and no other evidence of dehydration. On both Aricept and nortriptyline which may be contributing. No palpitations, ECG shows NSR. - TTE ordered - Monitor on tele - Given Aricept and nortriptyline is known to cuase postural hypotension, will hold both of these. I discussed this with the patient who is in agreement. - Trial of LEANDRO hose - Holding amlodipine 2.5mg daily per outpatient cards direction - Continue metoprolol XL 25mg bid, losartan 25mg daily for now - Hold on starting fludrocortisone and/or midodrine until see the effect of the above - PT/OT Hypothyroidism 05/29/2020 Assessment & Plan (05/31/2020 11:03 AM CELL POURER): TSH wnl on current Synthroid dose. - Continue Synthroid 50mcg daily Assessment & Plan (05/30/2020 9:25 AM CELL POURER): TSH wnl on current Synthroid dose. - Continue Synthroid 50mcg daily TRAVIS (obstructive sleep apnea) 05/29/2020 Assessment & Plan (05/31/2020 11:12 AM CELL POURER): Diagnosed on recent sleep study, now currently on CPAP due to intolerance, working on getting mouthpiece. - Defer further eval to outpatient Assessment & Plan (05/30/2020 9:27 AM CELL POURER): Diagnosed on recent sleep study, now currently on CPAP due to intolerance, working on getting mouthpiece. - Defer further eval to outpatient Osteoarthritis of left acromioclavicular joint 1 07/10/2019 Primary osteoarthritis of left shoulder 05/10/20 20 Superior glenoid labrum lesion of left shoulder 05/10/2020 Postural dizziness 03/27/2020 CHF (congestive heart failure) 02/28/2020 Hyperlipidemia 02/23/2020 Assessment & Plan (05/31/2020 11:03 AM CELL POURER): - Continue Lipitor 80mg daily Assessment & Plan (05/30/2020 9:25 AM CELL POURER): - Continue Lipitor 80mg daily Mild cognitive impairment 02/23/2020 Assessment & Plan (06/01/2020 3:41 PM CELL POURER): Patient's history of mild cognitive impairment. He was taking donepezil but it has been discontinued given the potential for orthostatic hypotension. With the cessation of the donepezil in addition to other medications, his orthostasis has improved. I have not seen any significant change in his cognition. Observation off donepezil would be appropriate at this time. Assessment & Plan (05/31/2020 11:03 AM CELL POURER): History of MCI, on Aricept. - Hold Aricept in setting of orthostatic hypotension Assessment & Plan (05/30/2020 9:25 AM CELL POURER): History of MCI, on Aricept. - Hold Aricept in setting of orthostatic hypotension Assessment & Plan (02/23/2020 1:35 PM CDT): Since last seeing me in July 2019, he has been initiated on donepezil therapy currently at 10 mg daily. He states good tolerability, no adverse effects, and he has noticed improvement in cognitive latency. Cognitive testing today is improved to . I have renewed his donepezil 10 mg daily, and I will plan on seeing him back in 1 year. Idiopathic peripheral neuropathy 06/23/2019 Assessment & Plan (06/01/2020 3:39 PM CELL POURER): Patient has history of idiopathic peripheral neuropathy manifest clinically as appendicular sensory loss and sensory ataxia. He has no neuropathic pain issues at this point, so supportive care is indicated from the neurological standpoint. Assessment & Plan (02/23/2020 1:36 PM CDT): Patient has antecedent history of idiopathic peripheral neuropathy, and his physical examination is unchanged with respect of his neuropathy findings from July 2019. He is having no pain issues at this point necessitating initiation of neuropathic analgesics. Supportive care is indicated. Murmur, heart 06/02/2019 Essential hypertension 04/28/2019 Assessment & Plan (05/31/2020 11:02 AM CELL POURER): History of HTN on metoprolol XL 25mg bid, losartan 25mg daily, amlodipine 2.5mg daily. Now presenting with elevated BP while lying, sitting, but profound orthostatic hypotension. - See discussion above for orthostatic hypotension Assessment & Plan (05/30/2020 9:24 AM CELL POURER): History of HTN on metoprolol XL 25mg bid, losartan 25mg daily, amlodipine 2.5mg daily. Now presenting with elevated BP while lying, sitting, but profound orthostatic hypotension. - See discussion above for orthostatic hypotension Dry eyes 07/12/2018 History of laser assisted in situ keratomileusis 07/12/2018 Meibomian gland dysfunction 07/12/2018 Fatigue 07/09/2018 History of pulmonary embolism 06/05/2018 Assessment & Plan (05/31/2020 11:03 AM CELL POURER): History of DVT/PE, on Eliquis. - Continue Eliquis 5mg bid Assessment & Plan (05/30/2020 9:25 AM CELL POURER): History of DVT/PE, on Eliquis. - Continue Eliquis 5mg bid Cervical spinal stenosis 06/05/2018 History of atrial fibrillation 06/05/2018 Assessment & Plan (05/31/2020 11:03 AM CELL POURER): History of afib in 2018 following DVT/PE, cardioverted with amiodarone, recurrence 02/28/2020. S/p PVI 04/30/2020 at [facility], now off amiodarone. - Continue Eliquis 5mg BID - Change Metoprolol XL 25mg BID to daily in setting of orthostatic hypotension Assessment & Plan (05/30/2020 9:24 AM CELL POURER): History of afib in 2018 following DVT/PE, cardioverted with amiodarone, recurrence 02/28/2020. S/p PVI 04/30/2020 at [facility], now off amiodarone. 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 Peripheral opacity of cornea 04/16/2015 Pseudophakia 04/10/2014 Anxiety 09/20/2012 Resolved Problems Problem Noted Date Diagnosed Date Resolved Date Pneumothorax 07/06/2021 07/09/2021 Overview (07/06/2021): Requiring R sided chest tube. Failure with initial attempt to water seal and placed back on suction. Assessment & Plan (07/07/2021 9:12 AM CELL POURER): S/P chest tube placement. Had to be placed back on suction but stable this AM. AM cxr with no clear Ptx however on exam significant air leak with cough. Would leave on WS and check CXR in AM. If worsens clinically place back on suction. Discussed with patient who is eager to go home that this should resolve on its own but needs time to heal. Assessment & Plan (07/06/2021 11:01 AM CELL POURER): S/P chest tube placement. Had to be placed back on suction but stable this AM. AM cxr with some residual apical ptx. Unclear if this was done before or after waterseal but I suspect placed on waterseal after cxr. Would favor repeat film this afternoon given recent history. If remains stable would leave on Waterseal overnight and likely give trial of clamping tomorrow. Elevated ALT measurement 06/02/201906/2019 Fatigue 04/28/2019 05/29/2020 Excessive anticoagulation 07/13/2018 Cardiomyopathy 06/05/2018 06/02/2019 Overview (05/16/2019): Transthoracic 05/29/18 The left ventricular size is mildly enlarged. The left ventricular systolic function is moderately depressed. Estimated left ventricular ejection fraction is 35-40%. Mild to moderate symmetrical left ventricular hypertrophy. The right ventricle size is normal. The right ventricular function is normal. Possible echodensity on mitral valve - poorly visualized - artifact vs. thrombus/vegetation. Clinical correlation recommended OLIVIA 06/01/2018: 1) Good image quality. No pericardial effusion 2) Est. LVEF 40-45%. Normal LV chamber size (LVIDd 5.5 cm, Mild LVH) 3) Grossly normal RV size 4) Trileaflet aortic valve. No . Trace/mild central AR. Prominent lambl's excresnces 5) No mitral stenosis or prolapse. Mild MR. No vegetations or masses seen on mitral leaflets or mitral annulus. 6) Grossly normal tricupid leaflets. Mild TR 7) Grossly normal pulmonic leaflets 8) The interatrial septum appears intact to 2D and color Doppler assessment 9) No RODGER thrombus 10) Mild atherosclerosis of the thoracic aorta PSVT (paroxysmal supraventri cular tachycardia) 06/05/2018 05/29/2020 Overview (02/23/2020): 48 hour Holter 05/25/2018: 48 hours of Holter monitoring is reviewed. A diary was not returned for correlation. The patient's baseline rhythm was a sinus rhythm which was actually a sinus tachycardia. The minimum heart rate was 56 beats per minute at 5:24 a.m. on Thursday. The maximum heart rate was 195 beats per minute at 5:45 a.m. on Thursday which was a supraventricular tachycardia. The average heart rate was 101 beats per minute. There were 490 isolated ectopic beats which represents less than 1% of the total. There were 244 supraventricular ectopic beats which represents less than 1% of the total. There were no pauses. There were no runs of wide complex tachycardia. There were no runs of atrial fibrillation. There were 3 supraventricular runs. Most notably there was a paroxysmal supraventricular tachycardia at 183 beats per minute for 15 beats at 5:45 a.m. on Thursday. There was a 9-beat run of paroxysmal supraventricular tachycardia at about 135 beats per minute at 9:12 p.m. on Thursday. There was a 4-beat run of paroxysmal supraventricular tachycardia at 117 beats per minute at 12:31 p.m. on Thursday. Other pulmonary embolism wit hout acute cor pulmonale 05/28/2018 05/29/2020 Immunizations Immunization Administration Dates Next Due Influenza, Quadrivalent, Maddie l Culture-based MDCK, Antibiotic Free, Intramuscular 03/29/2020 Influenza, Quadrivalent, Hig h Dose, Preservative Free, Intrr 03/12/2020,04/27/2019 Influenza, Quadrivalent, Spl it, Preservative Free, Intramuscular 05/23/2015 Influenza, Trivalent, High D ose, Split, Preservative Free, Intramuscular 03/12/2020,04/27/2019,04/06/2018,04/02,03/26/2016 Influenza, Unspecified 04/12/2021,2019,04/29/2018,05/09,02/01/2014,07/27/2013,04/27/2012 Pfizer SARS-CoV-2 Monovalent Vaccination (12+ Yrs) PURPLE 09/11/2020,08/18/2020 Pneumococcal Conjugate PCV 13 06/18/2015 Pneumococcal Polysaccharide PPV23 04/27/2012 Tdap 04/20/2018,11/09/2012 Social History Tobacco Use Types Packs/Day Years Used Date Smoking Tobacco: Never Smokeless Tobacco: Never Tobacco Cessation:Counseling Given: Not Answered Alcohol Use Standard Drinks/Week Comments Yes 0 [...] on file Legal Sex Male 9:21 AM CELL POURER Gender Identity Not on file Sexual Orientation Not on file Last Filed Vital Signs Vital Sign Reading Time Taken Comments Blood Pressure 110/60 12/23/2022 1:50 PM CDT Pulse 79 12/23/2022 1:50 PM CDT Temperature 36.9 C (98.4 F) 09/22/2022 2:30 PM CDT Respiratory Rate 18 07/09/2021 3:33 PM CELL POURER Oxygen Saturation 95% 12/23/2022 1:50 PM CDT Inhaled Oxygen Concentration - - Weight 92.2 kg (203 lb 3.2 oz) 12/23/2022 1:50 P M CDT Height 182.9 cm (6' 0.01 ) 09/22/2022 2:30 PM CD T Body Mass Index 27.55 09/22/2022 2:30 PM CDT Plan of Treatment Not on file Medical Devices Implanted Type Area Icicle Machine Operator Device Identifier Shelf Expiration Date Model / Serial / Lot [employer] 2088tc/58 Tendril Sts 6fr 58cm Is-1 Connector Active Fixation Bipolar Soft - [id number] - [id number] Implanted:Qty : 1 on 07/01/2021 by Fahad Gutierrez MD at [facility] Lead Left: Heart [employer] 02/27/20248TC/58 / [id number] / [employer] 2087tc/52 Tendril Sts 6fr 52cm Is-1 Connector Active Fixation Bipolar Soft - [id number] - [id number] Implanted:Qty : 1 on 07/01/2021 by Fahad Gutierrez MD at [facility] Lead Left: Heart [employer] 01/27/20248TC/52 / [id number] / [employer] [id number] Assurity Mri [id number] 2 Chamber Is-1 Connector Thk6mm Pacemaker - [id number] - [id number] Implanted:Qty : 1 on 07/01/2021 by Fahad Gutierrez MD at [facility] Pacemaker Left: Chest Wall [employer] 10/26/2022 [id number] / [id number] / Insurance MEDICARE [facility] Member Subscriber Plan / Payer (Ef fective 2018-Present) Name:David Acosta Relation to Subscriber:Self Name:David Acosta Payer ID:[id number] Group ID:Not on file Type:Language Learning Class Address: [address] [place] [id number] MEDICARE [facility] MEDICARE [facility] Advance Directives For more information, please contact: [phone] Documents on File Type Date Recorded Patient Crusher Plant Operator Expl anation ADVANCE DIRECTIVE 07/31/2017 12:00 AM POWER OF HASHER MACHINE OPERATOR FINANCIAL/MEDICAL ADVANCE DIRECTIVE 07/31/2017 12:00 AM LING JOHNSON * Full Code (Latest Code Status on File) Date Activated Date Inactivated Comments 06/26/2021 2:19 PM 07/09/2021 9:41 PM * Full Code Date Activated Date Inactivated Comments 05/29/2020 9:56 PM 05/31/2020 4:59 PM Healthcare Agents on File Name Relationship Healthcare Agent [facility] Communication So Acosta Daughter Health Care Agent Ni Taylor Daughter Health Care Agent El Acosta Son Health Care Agent Care Teams [employer] Relationship Specialty Start Date End Date Torres Manzano MD [address] [place] [address] PCP - General 02/02/19 Christiane Sanchez, HISTORICAL ARCHEOLOGIST [address] [facility] [id number] [place] Infectious Diseases 09/22/22
--- OUTSIDE RECORDS SUMMARY | 2024-08-31 09:10 | XMS_ITS ---
Author Organization [facility] [employer] Address [address] [place] [address] Care Team Providers Care Senior Peoplesoft Developer Name Role Phone Sally Beltran Unavailable [phone] Allergies No Known Allergies REASON FOR VISIT f/u rx Medications Medication SIG (Take, Route, Frequency, Duration) Notes Start Date End Date Status traZODone HCl 50 MG 1 tablet at bedtime Orally at bedtime for 90 days 12/24/2023 Active Nebivolol HCl 20 MG TAKE 1 TABLET BY ADI TH ONCE DAILY Oral for 90 Days Active Losartan Potassium 100 MG TAKE 1 TABLET BY MOUTH IN THE EVENING Oral for 90 Days Active Atorvastatin Calcium 80 MG TAKE 1 TABLET BY MOUTH ONCE DAILY Oral for 90 Days Active Levothyroxine Sodium 75 MCG Oral for 90 Days Active Trospium Chloride 20 MG TAKE 1 TABLET BY MOUTH TWICE DAILY Oral for 30 Days Active Donepezil HCl 10 MG TAKE 1 TABLET BY ADI TH AT BEDTIME FOR 30 DAYS Oral for 30 Days Active Tamsulosin HCl 0.4 MG TAKE 1 CAPSULE BY MOUTH ONCE DAILY Oral for 90 Days Active Fluticasone Propionate 50 MCG/ACT USE 2 SPRAY(S) IN EACH NOSTRIL ONCE DAILY Nasal for 30 Days Active Ezetimibe 10 MG TAKE 1 TABLET BY ADI TH ONCE DAILY Oral for 90 Days Active Cefdinir 300 MG TAKE 1 CAPSULE BY MO UTH TWICE DAILY Oral for 10 Days Active Sertraline HCl 50 MG 1 tablet Oral at be dtime for 90 days Active Social History Sex Assigned At [...] Only a littleDo you participate in social Asteres?: NoDo you use your seat belt or car seat routinely?: YesAdvance DirectiveDo you have an advance directive?: YesDo you have a medical power of civil attorney?: YesPublic Health and TravelHave you been to [...] Risk Notes Problem Mild recurrent major depression (60199637) Major depressive disorder, recurrent, mild (F33.0) 3 Active confirmed Problem Generalized anxiety disorder (40366690) Generalized anxiety disorder (F41.1) 3 Active confirmed Problem Amnesia (76147856) Other amnesia (R41.3) 3 Active confirmed Problem [id number] Primary insomnia (F51.01) Active confirmed Vital Signs Blood pressure systolic 140 mm Hg 12/24/19 24 Blood pressure diastolic 92 mm Hg 024 Heart Rate 80 /min 12/24/2023 Respiratory Rate 17 /min 12/24/2023 Height 72.00 in 12/24/2023 Weight 170.0 lbs 12/24/2023 BMI 23.05 kg/m2 12/24/2023 Height-cm 182.88 cm 12/24/2023 Weight-kg 77.11 kg 12/24/2023 Encounters Encounter Location Date Provider Diagnosis [facility] [employer] [facility] [address] [place] [address] 12/24/2023 Sally Beltran Major depressive disorder, recurrent, mild F33.0 ; Generalized anxiety disorder F41.1 ; Other amnesia R41.3 and Primary insomnia F51.01 Assessments Encounter Date Diagnosis (ICD Code) Assessment Notes Treatment Notes Treatment Clinical Notes Section Notes 12/24/2023 Major depressive disorder, recurrent, mild (ICD-10 - F33.0) Mild recurrent major depression -patient see integration analyst Zoloft 50 mg to take at bedtime [...] days. Qty: (30) tablet Refills: 0 Pharmacy: [facility] [email or web address] [id number] 2. Generalized anxiety disorder -Sertraline 50 mg bedtime F41.1: Generalized anxiety disorde rZoloft 50 mg bedtime 3. Primary Insomnia Add Trazodone 25-50 mg at bedtime - educated on rx 4. Memory impairment - reviewed CANS/MCI 01/28/23 reviewed SLUMS 18 01/28/[address] [facility] - Neurologist prescribed Aricpet 12/24/2023 Generalized anxiety disorder (ICD-10 - F41.1) Mild recurrent major depression -patient see integration analyst Zoloft 50 mg to take at bedtime [...] days. Qty: (30) tablet Refills: 0 Pharmacy: [facility] 2. Generalized anxiety disorder -Sertraline 50 mg bedtime F41.1: Generalized anxiety disorde rZoloft 50 mg bedtime 3. Primary Insomnia Add Trazodone 25-50 mg at bedtime - educated on rx 4. Memory impairment - reviewed CANS/MCI 01/28/23 reviewed SLUMS 18 01/28/[address] [facility] - Neurologist prescribed Aricpet 12/24/2023 Other amnesia (ICD-10 - R41.3) Mild recurrent major depression -patient see integration analyst Zoloft 50 mg to take at bedtime [...] days. Qty: (30) tablet Refills: 0 Pharmacy: [facility] 2. Generalized anxiety disorder -Sertraline 50 mg bedtime F41.1: Generalized anxiety disorde rZoloft 50 mg bedtime 3. Primary Insomnia Add Trazodone 25-50 mg at bedtime - educated on rx 4. Memory impairment - reviewed CANS/MCI 01/28/23 reviewed SLUMS 18 01/28/[address] [facility] - Neurologist prescribed Aricpet 12/24/2023 Primary insomnia (ICD-10 - F51.01) Mild recurrent major depression -patient see integration analyst Zoloft 50 mg to take at bedtime [...] days. Qty: (30) tablet Refills: 0 Pharmacy: [facility] [id number] 2. Generalized anxiety disorder -Sertraline 50 mg bedtime F41.1: Generalized anxiety disorde rZoloft 50 mg bedtime 3. Primary Insomnia Add Trazodone 25-50 mg at bedtime - educated on rx 4. Memory impairment - reviewed CANS/MCI 01/28/23 reviewed SLUMS 18 01/28/[address] [facility] - Neurologist prescribed Aricpet 12/24/2023 Other . Mild recurrent major depression -patient see integration analyst Zoloft 50 mg to take at bedtime [...] days. Qty: (30) tablet Refills: 0 Pharmacy: [facility] 2. Generalized anxiety disorder -Sertraline 50 mg ppxqzntZ23.1: Generalized anxiety disorderZoloft 50 mg bedtime 3. Primary Insomnia Add Trazodone 25-50 mg at bedtime - educated on rx 4. Memory impairment -reviewed CANS/MCI 01/28/23reviewed SLUMS 18 01/28/[address] [facility] - Neurologist prescribed Aricpet Mild recurrent major depression -patient see integration analyst Zoloft 50 mg to take at bedtime [...] days. Qty: (30) tablet Refills: 0 Pharmacy: [facility] [id number] 2. Generalized anxiety disorder -Sertraline 50 mg bedtime F41.1: Generalized anxiety disorde rZoloft 50 mg bedtime 3. Primary Insomnia Add Trazodone 25-50 mg at bedtime - educated on rx 4. Memory impairment - reviewed CANS/MCI 01/28/23 reviewed SLUMS 18 01/28/[address] [facility] - Neurologist prescribed Arisakshiet Plan Of Treatment Medication Medication Name Sig Start Date Stop Date Notes traZODone HCl 50 MG 1 tablet at bedtime Orally at bedtime for 90 days 12/24/2023 Sertraline HCl 50 MG 1 tablet Oral at bedtime for 90 days Treatment Notes Assessment Notes Other . Mild recurrent major depression -patient see integration analyst Zoloft 50 mg to take at bedtime [...] days. Qty: (30) tablet Refills: 0 Pharmacy: [facility] [facility] [id number] 2. Generalized anxiety disorder -Sertraline 50 mg guevlibU11.1: Generalized anxiety disorderZoloft 50 mg bedtime 3. Primary Insomnia Add Trazodone 25-50 mg at bedtime - educated on rx 4. Memory impairment -reviewed CANS/MCI 01/28/23reviewed SLUMS 18 01/28/[address] [facility] - Neurologist prescribed Aricpet Next Appt Details Follow Up: 2 Months, Reason: f/u rx Progress Notes * CONNOR MCRAEDOB: [birth year] (78 yo M)Acc No.[id number]:12/24/2023 Patient: O RADHA CONNOR MEDLEY Provider: MITZI MOSS :1945 A ge:78 Y S ex:Male Date:12/24/2023 Address:[address] [place] [address] Subjective: * Chief Complaints: * 1 . F/u rx. * HPI: H istory of Presenting Problem: Generalized Anxiety DisorderReported by elie wing. Severity: m oderate Context: d epression; life stressors Modifying Factors: p sychotropic medication Associated Symptoms: d ifficulty concentrating; d ifficulty controlling worry; f atigue; s leep disturbances: Follow up depression and anxiety chronic since last visit reported using walker and slow gait, I am tired, weak and off balance, I feel horrible, wish it will go away, I feel combinatin mentally and physically horrible it goes together, noted bruises under left eye and arms, I have fallen, at least 2-3 times, one son lives with him, sore throat, cough, I feel sad,d own how could I not, from all issues I have, I guess hopeless and helpless, anxiety not good, I am watching tv not move around a lot, and sit on couch, sleep restless, average bed 9pm and sleep takes a long time and not much sleep and take Melatonin I cut back on mg, not too much stomach I am dizzy, appetite was good and now has decreased and lost weight since 11/19, memory not real good, c oncentration and focus not real well to focus on tv and n o A/V psychosis no jennifer, no SI/HI no delusions, no paranoia, no self cutting no self harm, no nightmares or flashbacks, some agitation and irritable just life.?I am living in [place] in a duplex now, present with family- PCP been filling rx x1 hx fx pelvic 07/22, and falls recently at least 3 x and one brother lives with him, pace maker, Urgent care and thraot and fluid in ears and saw PCP last Thursday and on steriods and antibiotic, was in Urgent care before PCP. c/o dizzy and neck pain for years and saw wyatt specialist for years, has hx TIA and had a lot of them, had one other day. On many B/P rx, not able to remembr how to turn on tv, [place] and worked a lot up to his 70's and constantly busy and 2018 fell off ladder and not tell anyone for few days and black out nad hot telephone poll and AFIB and procedure, test and pace maker, decline since, denies SI/HI no plans or intent no thoughts harm to self or others, no past attempts, no psychiatric hospital weapons in home guns not locked up educated on locking in safe, FH none ETOH- occasional, minimal if any wine smoking- denies labs- PCP drugs- denies CT brain and been to [facility] for most test, I been to ENT for ears, pacer and AFIB Major Depressive DisorderReported by elie wing. Severity: m oderate Context: h istory of depression Modifying Factors: p sychotropic medication Associated Symptoms: n o agitation; change in appetite; weight loss; weight gain;? feelings of hopelessness; feelings of helplessness; no inappropriate guilt; participates in usual acitivities; no suicidal ideations; no hallucinations; no delusions; d ifficulty concentrating; f atigue; s leep disturbances ManiaReported by elie wing.Notes:Denies PsychosisReported by elie wing.Notes:denies Psychotherapy InterventionReported by elie wing. RX HX Wellbutrin, Trazodone, Zoloft. * ROS: P mecca reports no fever, no significant weight gain, and significant weight loss; p oor eating habits. Ears:: t innitus hx improved He reports no nausea, no vomiting, and no constipation; G I issues upset some. He reports i ncreased urinary frequency b ut reports no difficulty urinating. H e reports m uscle weakness (fatigue), arthralgias/joint pain (minimal), and difficulty walking (slow gait and unsteady); use walker He reports d izziness, no frequent or severe headaches (reported minimal dizzy), and gait dysfunction (slow gait). He reports d epression, anxiety, and memory loss b ut reports sleep disturbances, no alcohol abuse, no hallucinations, no suicidal thoughts, and no mood swings. He reports f atigue. He reports no palpitations. HX AFIB and pace maker H e reports cough and no shortness of breath. on antibiotic Thursday. * Medical History: P marah: Generalized anxiety disorder, Memory impairment, Mild recurrent major depression, ,, Anxiety Disorder: Y Depression Major: Y Atrial Fibrillation: Y Cardiac Pacemaker: Y Hyperlipidemia: Y Hypertension: Y Hypothyroidism: Y Notes: Anxiety, A'Fib, CKD, Gout, HLD. HTN, Hypothyroidism. * Surgical History: C ataract surgery (61506) , Heart surgery . * Social History: M igrated Social History: M igrated Social History: Alcohol Intake: None 01/29/2023,Tobacco Years: Never smoker 10/28/2022. S ubstance UseDo you or have you ever smoked [...] YesDo you have a medical power of civil attorney?: YesPublic Health and TravelHave you been to [...] MaleFirst name used: TOMSexual orientation: Straight or heterosexual. * Medications: T aking Cefdinir 300 MG [...] , Taking Sertraline HCl 50 MG Tablet TAKE 1 TABLET BY MOUTH IN THE EVENING Oral , Taking Trospium Chloride 20 MG Tablet TAKE 1 TABLET BY MOUTH TWICE DAILY Oral , Taking Levothyroxine Sodium 75 MCG Tablet Oral , Taking Atorvastatin Calcium 80 MG Tablet TAKE 1 TABLET BY MOUTH ONCE DAILY Oral , Discontinued Ezetimibe 10 MG Tablet Oral , Discontinued Trospium Chloride 20 MG Tablet Oral , Discontinued Losartan Potassium 50 MG Tablet Oral , Discontinued Vitamin D , Notes to Pharmacist: *Pick strength- form from [employer] for eRX*, Discontinued Metoprolol Succinate ER 50 MG Tablet Extended Release 24 Hour Oral , Discontinued Melatonin 5 MG Tablet Oral , Discontinued Levothyroxine Sodium 50 MCG Tablet Oral , Discontinued Atorvastatin Calcium 80 MG Tablet Oral , Discontinued Eliquis 5 MG Tablet Oral , Discontinued Metoprolol Succinate ER 25 MG Tablet Extended Release 24 Hour Oral , Discontinued Sertraline HCl 50 MG Tablet Oral , Discontinued METOPROLOL SUCCINATE ER 50 MG CAPSULE SPRINKLE, EXT. RELEASE 24 HR , Notes to Pharmacist: *Reorder from [employer] for eRx and Interaction Alerts*, Discontinued Asopzfov-Xdcemkoik-Jneezfay [id number] Suspension Ophthalmic , Discontinued Doxycycline Monohydrate 100 MG Tablet Oral , Discontinued valACYclovir HCl 500 MG Tablet Oral , Discontinued Losartan Potassium 100 MG Tablet Oral , Discontinued Fluticasone Propionate Diskus 50 MCG/ACT Aerosol Powder Breath Activated Inhalation , Notes to Pharmacist: *Reorder from [employer] for eRx and Interaction Alerts*, Discontinued amLODIPine Besylate 5 MG Tablet Oral , Medication List reviewed and reconciled with the patient * Allergies: N .K.D.A. Objective: * Vitals: B P:140/92mm Hg, HR:80/min, RR:17/min, Wt:170.0lbs, Wt-k.11 kg, Ht: 72.00 in, Ht-cm: 182.88 cm, BMI:23.05Index, Body Surface Area: 1.98. * Examination: P sychiatry: Appearance: w ell-groomed, well-nourished, appears older, thin. [...] a verage. Judgement: f air. Orientation: d month- unable year - unable [facility] alert to self and family 47 [address] [employer] Limon Obama backwards slow recall 01/02. Perceptual disorders: n o perceptual disorder noted. Psychomotor activity: u ses walker and slow gait hx falls. Speech / language: a ppropriate pitch/modulation, clear and coherent, normal rate, volume, and articulation (RVR), proper grammar used. Thought content: a ppropriate. Thought process: i ntact. * Physical Examination: C onstitutional:: G eneral Appearance (with 3 Vital) alert, well-groomed, clean, well developed, appears well rested, and ( normal) slender habitus. Behavior: cooperative, calm, pleasant, and eye contact Good. Musculoskeletal: G ait And Stance:* normal gait, stance phases, and swing phase; s low gait. Muscle Strength and tone normal strength upper extremities and in lower extremities; normal muscle tone and bulk; and no tremor, tics, or involuntary movements (dyskinesia). Psychiatric: Speech: * language is appropriate for education level and rate/ fluency intact and speech is articulate and coherent and volume is normal. Psychiatric:Thought Processes * logical, Coherent thought processes, goal-directed thought process, no thought blocking, and (normal) no approximate answering. Thought Content: No suicidal ideations and suicidal: plan and unremarkable, no ideas of reference, obsessions, NO suicidal intent, and no dangerousness: suicide risk. Psychiatric: Associations * no loosening of associations and No clang associations. Psychiatric: Abnormal or Psychotic thoughts no hallucinations. Psychiatric Mood: * euthymic. Affect: pleasant and congruent to thought content. Psychiatric Insight * is aware of psychiatric problems and acts appropriately in social situations. Judgment: intact Fair. Orientation: oriented to person, place, situation, and time; normal attention and concentrating ability; and memory intact. Memory: Recent no impairment noticed and remote no impairment noticed;?days week backwards 01/02. Attention/Concentration: normal attention span and attention span sustained without motivating activities. Language: recognize objects. Fund of Knowledge: use of vocabulary. Assessment: * Assessment: 1. M eddie depressive disorder, recurrent, mild - F33.0 (Primary) 2 . G eneralized anxiety disorder - F41.1 3 . O ther amnesia - R41.3 4 .?Primary insomnia - F51.01 M ild recurrent major depression - patient see integration analyst Zoloft 50 mg to take at bedtime [...] mild recurrent sertraline 50 mg tablet - T ramirez 1 tablet(s) every day by oral route at bedtime for 30 days. ? Qty: (30) tablet Refills: 0 Pharmacy: [facility] [employer] [facility] [id number] 2. Generalized anxiety disorder - Sertraline 50 mg bedtime F41.1: Generalized anxiety disorde rZoloft 50 mg bedtime 3. Primary Insomnia Add Trazodone 25-50 mg at bedtime - educated on rx 4. Memory impairment - reviewed CANS/MCI 01/28/23 reviewed SLUMS 18 01/28/[address] [facility] - Neurologist prescribed Aricpet Plan: * Treatment: 2. P rimary insomnia Start traZODone HCl Tablet, 50 MG, 1 tablet at bedtime, Orally, at bedtime, 90 days, 90 Tablet, Refills 0. 3. O thers Notes: . Mild recurrent major depression -patient see integration analyst Zoloft 50 mg to take at bedtime [...] depressive disorder, recurrent, mildrecurrentsertraline 50 mg tablet -Take 1 tablet(s) every day by oral route at bedtime for 30 days. Qty: (30) tablet Refills: 0 Pharmacy: [facility] [id number] 2. Generalized anxiety disorder -Sertraline 50 mg hnujoeyR15.1: Generalized anxiety disorderZoloft 50 mg bedtime 3. Primary Insomnia Add Trazodone 25-50 mg at bedtime - educated on rx 4. Memory impairment -reviewed CANS/MCI 01/28/23reviewed SLUMS 18 01/28/[address] [facility] - Neurologist prescribed Aricpet * Procedure Codes: G 2211 VISIT COMPLEXITY INHERENT TO ONGOING CARE RELATED TO A PATIENT'S SINGLE, SERIOUS CONDITION OR A COMPLEX CONDITION * Follow Up: 2 Months (Reason: f/u rx) * Billing Information: * Visit Code: 25055 OFFICE OUTPATIENT VISIT 25 MINUTES DETAILED HISTORY AND EXAM/MODERATE MEDICAL DECISION MAKING. * Procedure Codes: G2211 VISIT COMPLEXITY INHERENT TO ONGOING CARE RELATED TO A PATIENT'S SINGLE, SERIOUS CONDITION OR A COMPLEX CONDITION. * Sign off status: Completed true * Provider: MITZI MOSS Date: 0 12/24/2023 Generated for Gilberto randolph/Deepthi/Gabriel on: 0 08/31/2024 09:10 AM AUDIT INTERN History and Physical Notes * HPI (History of Present Illness) Category Sub-Category Detail Notes Category Not es History of Presenting Problem Generalized Anxiety DisorderReported by patient. Severity: moderate Context: depression; life stressors Modifying Factors: psychotropic medication Associated Symptoms: difficulty concentrating; difficulty controlling worry; fatigue; sleep disturbances: Follow up depression and anxiety chronic since last visit reported using walker and slow gait, I am tired, weak and off balance, I feel horrible, wish it will go away, I feel combinatin mentally and physically horrible it goes together, noted bruises under left eye and arms, I have fallen, at least 2-3 times, one son lives with him, sore throat, cough, I feel sad,d own how could I not, from all issues I have, I guess hopeless and helpless, anxiety not good, I am watching tv not move around a lot, and sit on couch, sleep restless, average bed 9pm and sleep takes a long time and not much sleep and take Melatonin I cut back on mg, not too much stomach I am dizzy, appetite was good and now has decreased and lost weight since 11/19, memory not real good, concentration and focus not real well to focus on tv and no A/V psychosis no jennifer, no SI/HI no delusions, no paranoia, no self cutting no self harm, no nightmares or flashbacks, some agitation and irritable just life. I am living in [place] in a duplex now, present with family- PCP been filling rx x1 hx fx pelvic 07/22, and falls recently at least 3 x and one brother lives with him, pace maker, Urgent care and thraot and fluid in ears and saw PCP last Thursday and on steriods and antibiotic, was in Urgent care before PCP. c/o dizzy and neck pain for years and saw wyatt specialist for years, has hx TIA and had a lot of them, had one other day. On many B/P rx, not able to remembr how to turn on tv, [place] and worked a lot up to his 70's and constantly busy and 2018 fell off ladder and not tell anyone for few days and black out nad hot telephone poll and AFIB and procedure, test and pace maker, decline since, denies SI/HI no plans or intent no thoughts harm to self or others, no past attempts, no psychiatric hospital weapons in home guns not locked up educated on locking in safe, FH none ETOH- occasional, minimal if any wine smoking- denies labs- PCP drugs- denies CT brain and been to [facility] for most test, I been to ENT for ears, pacer and AFIB Major Depressive DisorderReported by patient. Severity: moderate Context: history of depression Modifying Factors: psychotropic medication Associated Symptoms: no agitation; change in appetite; weight loss; weight gain; feelings of hopelessness; feelings of helplessness; no inappropriate guilt; participates in usual acitivities; no suicidal ideations; no hallucinations; no delusions; difficulty concentrating; fatigue; sleep disturbances ManiaReported by patient.Notes:Denies PsychosisReported by patient.Notes:denies Psychotherapy InterventionReported by patient. RX HX Wellbutrin, Trazodone, Zoloft Physical Examination Category Sub-Category Detail Notes Section Note s Constitutional:: General Appearance (with 3 Vital) alert, well-groomed, clean, well developed, appears well rested, and (normal) slender habitus. Behavior: cooperative, calm, pleasant, and eye contact Good. Musculoskeletal: Gait And Stance:* normal gait, stance phases, and swing phase; slow gait. Muscle Strength and tone normal strength upper extremities and in lower extremities; normal muscle tone and bulk; and no tremor, tics, or involuntary movements (dyskinesia). Psychiatric: Speech: * language is appropriate for education level and rate/ fluency intact and speech is articulate and coherent and volume is normal. Psychiatric:Thought Processes * logical, Coherent thought processes, goal-directed thought process, no thought blocking, and (normal) no approximate answering. Thought Content: No suicidal ideations and suicidal: plan and unremarkable, no ideas of reference, obsessions, NO suicidal intent, and no dangerousness: suicide risk. Psychiatric: Associations * no loosening of associations and No clang associations. Psychiatric: Abnormal or Psychotic thoughts no hallucinations. Psychiatric Mood: * euthymic. Affect: pleasant and congruent to thought content. Psychiatric Insight * is aware of psychiatric problems and acts appropriately in social situations. Judgment: intact Fair. Orientation: oriented to person, place, situation, and time; normal attention and concentrating ability; and memory intact. Memory: Recent no impairment noticed and remote no impairment noticed; days week backwards 01/02. Attention/Concentration: normal attention span and attention span sustained without motivating activities. Language: recognize objects. Fund of Knowledge: use of vocabulary. Examination Category Sub-Category Detail Notes Category Not es Psychiatry Appearance: well-groomed, we ll-nourished, appears older, thin Attitude: cooperative Psychomotor activity: uses walker and sl ow gait hx falls Abnormal body movements: none Attention: good Degree of awareness of surroundings: wit hin normal limits Orientation: day nth- unable year - unable [facility] alert to self and family 47 [employer] Jenn Limon Obama days week backwards slow recall 01/02 Affect / mood: appropriate, full ra nge Speech / language: appropriate pitch/mo dulation, clear and coherent, normal rate, volume, and articulation (RVR), proper grammar used Insight: fair Judgement: fair Thought process: intact Thought content: appropriate Perceptual disorders: no perceptual diso rder noted Aggression: low Anger control: good Suicidal ideation: none Homicidal ideation: none Intellectual functioning: average Impulse control: good Memory status: reported memory impa irment Delusions: no Hallucinations: no Comprehension - Intellectual function: a verage
--- OUTSIDE RECORDS SUMMARY | 2024-08-31 09:10 | XMS_ITS | Patient Health Summary ---
Author Organization [facility] Address [address] [place] [address] Care Team Providers Care Bulb Filler Name Role Phone Torres Manzano MD Primary Care Provider [phone] Note from [facility],non-owned Affiliates and Associated Physician Practices is amultiple site organization consisting of ambulatory clinics and hospital sitesin [place], [place], [place] and [place]. This disclosure is being madepursuant to the Care Everywhere program and may not contain all information available regarding this patient. Last updated 18.[facility] Allergies No known active allergies Medications * Be aware that medications may not be up to date on this document. Alwaysverify current medications with the patient. * apixaban (Eliquis) 5 MG tablet(Started 06/07/2024) Take 1 (one) tablet by mouth 2 times daily * levETIRAcetam (Keppra) 750 MG tablet(Started 06/07/2024) Take 1 (one) tablet by mouth 2 times daily * sertraline (Zoloft) 50 MG tablet(Started 06/08/2024) Take 1 (one) tablet by mouth once daily * atorvastatin (Lipitor) 80 MG tablet(Started 06/07/2024) Take 1 (one) tablet by mouth at bedtime * hydrALAZINE (Apresoline) 10 MG tablet(Started 06/07/2024) Take 1 (one) tablet by mouth every 8 hours * polyethylene glycol 3350 (Miralax) 17 g packet(Started 06/08/2024) Take 17 (seventeen) g by mouth once daily * senna-docusate (Senokot-S) 8.6-50 MG tablet(Started 06/08/2024) Take 1 (one) tablet by mouth once daily * tamsulosin (Flomax) 0.4 MG capsule(Started 06/08/2024) Take 1 (one) capsule by mouth once daily At the same time every day after a meal. * donepezil (Aricept) 10 MG tablet(Started 06/07/2024) Take 1 (one) tablet by mouth at bedtime * memantine (Namenda) 5 MG tablet(Started 06/08/2024) Take 1 (one) tablet by mouth once daily * levothyroxine (Synthroid) 75 MCG tablet(Started 06/08/2024) Take 1 (one) tablet by mouth once daily Active Problems Problem Noted Date Diagnosed Date Seizure 06/05/2024 Hypothyroidism 06/05/2024 CVA (cerebral vascular accident) 06/04/2024 HTN (hypertension) 06/04/2024 HLD (hyperlipidemia) 06/04/2024 CKD (chronic kidney disease) 06/04/2024 A-fib 06/04/2024 aortic stenosis s/p TAVR 06/04/2024 Dementia 06/04/2024 DVT (deep vein thrombosis) in 06/04/20 24 BPH (benign prostatic hyperplasia) 06/04/2024 Aphasia 06/04/2024 [...] Recorded Patient Health Questionnaire-2 Score 0 06/05/2024 [facility] [place] of Occupat ional Health - Occupational Stress [...] any time in the past 12 m [facility] [place], were you homeless or living in a custodial (including now)? No 06/06/2024 Sex and Gender Information Value Date Recorded Sex Assigned at Not on file Gender Identity Not on file Sexual Orientation Not on file Last Filed Vital Signs Vital Sign Reading Time Taken Comments Blood Pressure 170/89 06/07/2024 1:47 PM SURVEY ASSOCIATE Pulse 79 06/07/2024 1:47 PM SURVEY ASSOCIATE Temperature 35.8 C (96.5 F) 06/07/2024 1:47 PM SURVEY ASSOCIATE Respiratory Rate 16 06/07/2024 1:47 PM SURVEY ASSOCIATE Oxygen Saturation 94% 06/07/2024 3:33 AM SURVEY ASSOCIATE Inhaled Oxygen Concentration - - Weight 72.6 kg (160 lb) 06/07/2024 7:51 AM SURVEY ASSOCIATE Height 182.9 cm (6') 06/07/2024 7:51 AM SURVEY ASSOCIATE Body Mass Index 21.7 06/07/2024 7:51 AM SURVEY ASSOCIATE Medical Devices Implanted Type Area Service Director Device Identifier Shelf Expiration Date Model / Serial / Lot Sunshine Pacemaker 2021 [id number] / [id number] / Sunshine Pacemaker Lead 29mm [id number] / [id number] / Procedures * CARDIAC EKG ORDER(Performed 06/08/2024) * GLUCOSE - POINT OF CARE(Performed 06/07/2024) * ECHO LIMITED W CONTRAST(Performed 06/07/2024) Performed for Weakness, Aphasia * GLUCOSE - POINT OF CARE(Performed 06/07/2024) * GLUCOSE - POINT OF CARE(Performed 06/07/2024) * PHOSPHORUS BLOOD(Performed 06/07/2024) * MAGNESIUM BLOOD(Performed 06/07/2024) * CBC W/O DIFFERENTIAL(Performed 06/07/2024) * BASIC METABOLIC PANEL (CALCIUM TOTAL)(Performed 06/07/2024) * GLUCOSE - POINT OF CARE(Performed 06/06/2024) * GLUCOSE - POINT OF CARE(Performed 06/06/2024) * MRI BRAIN WO CONTRAST(Performed 06/06/2024) Performed for Weakness, Aphasia * GLUCOSE - POINT OF CARE(Performed 06/06/2024) * GLUCOSE - POINT OF CARE(Performed 06/06/2024) * PHOSPHORUS BLOOD(Performed 06/06/2024) * MAGNESIUM BLOOD(Performed 06/06/2024) * CBC W/O DIFFERENTIAL(Performed 06/06/2024) * BASIC METABOLIC PANEL (CALCIUM TOTAL)(Performed 06/06/2024) * HEMOGLOBIN A1C(Performed 06/06/2024) * GLUCOSE - POINT OF CARE(Performed 06/05/2024) * PHOSPHORUS BLOOD(Performed 06/05/2024) * MAGNESIUM BLOOD(Performed 06/05/2024) * CBC W/O DIFFERENTIAL(Performed 06/05/2024) * BASIC METABOLIC PANEL (CALCIUM TOTAL)(Performed 06/05/2024) * LIPID PROFILE(Performed 06/05/2024) * GLUCOSE - POINT OF CARE(Performed 06/05/2024) * TROPONIN-I HIGH SENSITIVE REFLEX 1HOUR(Performed 06/04/2024) * GLUCOSE - POINT OF CARE(Performed 06/04/2024) * TROPONIN-I HIGH SENSITIVE BASELINE + 1HR(Performed 06/04/2024) * URINE MICROSCOPIC ONLY REFLEX TO CULTURE(Performed 06/04/2024) * URINE DRUG SCREEN IMMUNOASSAY(Performed 06/04/2024) * URINALYSIS REFLEX MICROSCOPIC REFLEX CULTURE(Performed 06/04/2024) * PHOSPHORUS BLOOD(Performed 06/04/2024) * MAGNESIUM BLOOD(Performed 06/04/2024) * COMPREHENSIVE METABOLIC PANEL(Performed 06/04/2024) * XR CHEST 1VW PORTABLE(Performed 06/04/2024) Performed for Weakness * BLOOD TYPE VERIFICATION(Performed 06/04/2024) * EKG 12-LEAD(Performed 06/04/2024) Performed for Weakness * CT ANGIO BRAIN NECK STROKE(Performed 06/04/2024) Performed for Weakness * TYPE + SCREEN PANEL(Performed 06/04/2024) * PT-INR [facility](Performed 06/04/2024) * CBC W AUTO DIFFERENTIAL(Performed 06/04/2024) * CREATININE - POCT INTERFACED(Performed 06/04/2024) * INR WHOLE BLOOD - POINT OF CARE (IP) STROKE(Performed 06/04/2024) * CT BRAIN STROKE(Performed 06/04/2024) Performed for Weakness * DERMATOPATHOLOGY(Performed 04/09/2022) * DERMATOPATHOLOGY(Performed 02/11/2022) Results * CARDIAC EKG ORDER (06/08/2024 1:46 PM SURVEY ASSOCIATE) Narrative 06/08/2024 1:46 PM SURVEY ASSOCIATE Ordered by an unspecified provider. Scanned Document CARDIAC SERVICES ORD ERABLES * (ABNORMAL) GLUCOSE - POINT OF CARE (06/07/2024 4:44 PM SURVEY ASSOCIATE) Only the most recent of10 resultswithin the time period is included. Glucose WB/POC 123(H) 70 - 99 mg/dL 06/07/2024 4:49 PM SURVEY ASSOCIATE [facility] Specimen Type Cap Fingerstick 2023 4:49 PM SURVEY ASSOCIATE [facility] Blood BLOOD SPECIMEN / Unknown 06/07/2024 4:44 PM SURVEY ASSOCIATE 06/07/2024 4:49 PM SURVEY ASSOCIATE Michael Syed MD LAB - POINT OF CARE ORDERABLES [facility] [address] [place] [address], [place] [phone] * ECHO LIMITED W CONTRAST (06/07/2024 1:03 PM SURVEY ASSOCIATE) LVOT diam 2.16 cm [facility] CV FUJ [...] Region Laterality Modality Ultrasound 06/07/2024 1:21 PM SURVEY ASSOCIATE Narrative 06/07/2024 6:01 PM SURVEY ASSOCIATE Summary * The left ventricle is not [...] 1:21 PM Patient Status: I/P Study Site: [facility] Primary Location: [facility] EStud Info Technical Quality: Technically Difficult Exam Type: [...] Provider: Michael Syed Attending Physician: Michael Syed Outside Plant Supervisor: Alan Torres Left Ventricle The left ventricle [...] 1:21 PM Patient Status: I/P Study Site: [facility] Primary Location: [facility] EStudy Info Technical Quality: Technically Difficult Exam [...] Provider: Michael Syed Attending Physician: Michael Syed Outside Plant Supervisor: Alan Torres Left Ventricle The left ventricle [...] (ABNORMAL) CBC W/O DIFFERENTIAL (06/07/2024 2:[address] [facility]) Only the most recent of3 resultswithin the time period is included. WBC 7.9 4.0 - 10.7 x10E9/L 06/07/2024 4:02 AM [facility] RBC Count 3.39(L) 4.30 - 5.80 x10E12/L 06/07/2024 4:02 AM [facility] Hemoglobin 10.3(L) 13.3 - 17.5 g/dL 06/07/2024 4:02 AM [facility] Hematocrit 29.9(L) 38.7 - 51.1 % 06/07/2024 4:02 AM [facility] MCV 88.2 80.0 - 98.0 fL 06/07/2024 4:02 AM [facility] MCH 30.4 26.7 - 33.6 pg 06/07/2024 4:02 AM [facility] MCHC 34.4 31.7 - 36.3 g/dL 06/07/2024 4:02 AM [facility] RDW-CV 12.2 11.3 - 14.8 % 06/07/2024 4:02 AM [facility] Platelet Count 178 150 - 420 x10E9/L 06/07/2024 4:02 AM [facility] MPV 11.4 7.8 - 11.4 fL 06/07/2024 4:02 AM [facility] Blood BLOOD SPECIMEN / Unknown Lab Venipuncture / Unknown 06/07/2024 2:47 AM SURVEY ASSOCIATE 06/07/2024 3:56 AM SURVEY ASSOCIATE Michael Syed MD LAB - HEMATOLOGY ORD ERABLES [facility] [address] [place] [address], [facility] [phone] * (ABNORMAL) BASIC METABOLIC PANEL (CALCIUM TOTAL) (06/07/2024 2:47 AM SURVEY ASSOCIATE) Only the most recent of3 resultswithin the time period is included. BUN 24 7 - 26 mg/dL 06/07/2024 4:21 AM [facility] Creatinine 1.01 0.71 - 1.16 mg/dL 06/07/2024 4:21 AM [facility] Sodium 139 136 - 145 mmol/L 06/07/2024 4:21 AM [facility] Potassium 3.6 3.5 - 4.5 mmol/L 06/07/2024 4:21 AM [facility] Chloride 107 98 - 107 mmol/L 06/07/2024 4:21 AM [facility] CO2 23 22 - 29 mmol/L 06/07/2024 4:21 AM [facility] Glucose 101(H) 70 - 99 mg/dL 06/07/2024 4:21 AM [facility] Calcium 8.8 8.4 - 10.2 mg/dL 06/07/2024 4:21 AM [facility] Anion Gap 9 6 - 16 06/07/2024 4:21 AM [facility] BUN/Creatinine Ratio 24(H) 7 - 23 06/07/2024 4:21 AM [facility] Osmolality Calculated 292 275 - 295 mOsm/kg 06/07/2024 4:21 AM SURVEY ASSOCIATE [facility] eGFR by CKD-EPI 76(L) >=90 mL/min/1.7 3 m2 06/07/2024 4:21 AM SURVEY ASSOCIATE [facility] Blood BLOOD SPECIMEN / Unknown Lab Venipuncture / Unknown 06/07/2024 2:47 AM SURVEY ASSOCIATE 06/07/2024 3:51 AM SURVEY ASSOCIATE Michael Syed MD LAB - CHEMISTRY DECLAN PEREZ [facility] [address] [place] [address], [place] [phone] * (ABNORMAL) PHOSPHORUS BLOOD (06/07/2024 2:47 AM SURVEY ASSOCIATE) Only the most recent of4 resultswithin the time period is included. Phosphorus 2.6(L) 2.8 - 5.1 mg/dL 06/07/2024 4:21 AM SURVEY ASSOCIATE [facility] Blood BLOOD SPECIMEN / Unknown Lab Venipuncture / Unknown 06/07/2024 2:47 AM SURVEY ASSOCIATE 06/07/2024 3:51 AM SURVEY ASSOCIATE Michael Syed MD LAB - CHEMISTRY DECLAN PEREZ Performing Organization Address City/[facility]/ZIP Co de Phone Number [address] [address], [place] [phone] * MAGNESIUM BLOOD (06/07/2024 2:47 AM SURVEY ASSOCIATE) Only the most recent of4 resultswithin the time period is included. Magnesium 1.7 1.6 - 2.6 mg/dL 06/07/2024 4:21 AM SURVEY ASSOCIATE [facility] Blood BLOOD SPECIMEN / Unknown Lab Venipuncture / Unknown 06/07/2024 2:47 AM SURVEY ASSOCIATE 06/07/2024 3:51 AM SURVEY ASSOCIATE Michael Syed MD LAB - CHEMISTRY DECLAN PEREZ [address] [address] [phone] * MRI Brain Wo Contrast (06/06/2024 2:57 PM SURVEY ASSOCIATE) Anatomical Region Laterality Modality Head Magnetic Resonan ce 06/06/2024 3:03 PM SURVEY ASSOCIATE Impressions 06/06/2024 3:51 PM SURVEY ASSOCIATE IMPRESSION: Small focus of subtle restricted diffusion [...] and verification. This study was dictated by resident engineer Andrez Dunne MD and reviewed and edited by the attending. I, Liliana Watkins MD have personally reviewed and interpreted this examination/study. > Interpreting Provider: Liliana Watkins MD on 06/06/2024 3:51 PM Narrative 06/06/2024 3:51 PM SURVEY ASSOCIATE PROCEDURE: MRI BRAIN WO CONTRAST, DATE/TIME OF EXAM: 06/06/2024 2:57 PM, LOCATION [facility] INDICATION: R53.1: Weakness R47.01: Aphasia ADDITIONAL CLINICAL [...] CONTRAST, DATE/TIME OF EXAM: 06/06/2024 2:57PM, LOCATION [facility] INDICATION: R53.1: Weakness R47.01: Aphasia ADDITIONAL CLINICAL [...] and verification. This study was dictated by resident engineer Andrez Dunne MD and reviewed and edited by the attending. I, Liliana Watkins MD have personally reviewed and interpreted this examination/study. > Interpreting Provider: Liliana Watkins MD on 06/06/2024 3:51 PM Michael Syed MD MR ORDERABLES * (ABNORMAL) HEMOGLOBIN A1C (06/06/2024 4:24 AM SURVEY ASSOCIATE) Hemoglobin A1c 6.2(H) <=5.6 % 06/06/2024 1:00 PM SURVEY ASSOCIATE [facility] Estimated Average Glucose 131 mg/dL 06/06/2024 1:00 PM [facility] Comment: HbA1c Interpretation: Normal : < 5.7% Pre-diabetes: 5.7-6.4% Diabetes: Equal to or greater than 6.5% Test results diagnostic of diabetes should be repeated for confirmation. Treatment target values recommended by ADA and other clinical organizations should be used to evaluate metabolic control in patients. Reference: [place] [employer], Standards of Care in Diabetes -2020 In patients 70 years and older consider HbA1c target range of 7.0-7.5% (Reference: Leroy Leslie, et al. JAMDA. 2012) The Sebia assay for the measurement of HbA1c is a National Glycohemoglobin Standardization Program (NGSP) certified method. Blood BLOOD SPECIMEN / Unknown Venipuncture / Unknown 06/06/2024 4:24 AM SURVEY ASSOCIATE 06/06/2024 1:00 PM SURVEY ASSOCIATE Michael Syed MD LAB - CHEMISTRY DECLAN PEREZ [facility] Organization Address City/State/ZIP Co de Phone Number [facility] [address] [address], [facility] [phone] * (ABNORMAL) LIPID PROFILE (06/05/2024 4:52 AM SURVEY ASSOCIATE) Cholesterol Total 83 <200 mg/dL 06/05/2024 5:26 AM [facility] HDL 25(L) >40 mg/dL 06/05/2024 5:26 AM [facility] Comment: ATP III Classification of HDL Cholesterol: <40 mg/dL: Considered a major risk factor. >60 mg/dL: Considered a negative risk factor. LDL Calculated 42 <100 mg/dL 06/05/2024 5:26 AM [facility] Comment: ATP III Classification of LDL Cholesterol: <100 mg/dL: Optimal 100 - 129 mg/dL: Near Optimal/Above Optimal 130 - 159 mg/dL: Borderline High 160 - 189 mg/dL: High >190 mg/dL: Very High Triglycerides 81 <150 mg/dL 06/05/2024 5:26 AM [facility] Comment: ATP III Classification of Triglycerides: <150 mg/dL: Normal 150 - 199 mg/dL: Borderline High 200 - 400 mg/dL: High >500 mg/dL: Very High Blood BLOOD SPECIMEN / Unknown Venipuncture / Unknown 06/05/2024 4:52 AM SURVEY ASSOCIATE 06/05/2024 4:59 AM SURVEY ASSOCIATE Michael Syed MD LAB - CHEMISTRY DECLAN PEREZ [address] [address], [place] [phone] * TROPONIN-I HIGH SENSITIVE REFLEX 1HOUR (06/04/2024 4:27 PM SURVEY ASSOCIATE) Troponin I High Sensitive 13 <=35 ng/L 06/04/2024 5:08 PM [facility] Delta Troponin I HS 0 <6 ng/L 06/04/2024 5:08 PM [facility] Blood BLOOD SPECIMEN / Unknown Venipuncture / Unknown 06/04/2024 4:27 PM SURVEY ASSOCIATE 06/04/2024 4:30 PM SURVEY ASSOCIATE Michael Syed MD LAB - CHEMISTRY DECLAN PEREZ [address] [address], [place] [phone] * TROPONIN-I HIGH SENSITIVE BASELINE + 1HR (06/04/2024 3:27 PM SURVEY ASSOCIATE) Troponin I High Sensitive 13 <=35 ng/L 06/04/2024 4:13 PM [facility] Blood BLOOD SPECIMEN / Unknown Venipuncture / Unknown 06/04/2024 3:27 PM SURVEY ASSOCIATE 06/04/2024 3:37 PM SURVEY ASSOCIATE Michael Syed MD LAB - CHEMISTRY DECLAN PEREZ [address] [address], [place] [phone] * URINE MICROSCOPIC ONLY REFLEX TO CULTURE (06/04/2024 3:21 PM SURVEY ASSOCIATE) Pathologist [facility] Reflex Status Culture not indicated 06/04/2024 3:44 PM [facility] WBC UA 0-5 None Seen, 0-5 /HPF 06/04/2024 3:44 PM [facility] Squamous Epithelial Cells UA None Seen None Seen, 0-2, 3-5 /HPF 06/04/2024 3:44 PM [facility] Mucus UA 1+ /LPF 06/04/2024 3:44 PM [facility] Urine URINE SPECIMEN OBTAINED BY CLEAN CATCH PROCEDURE / Unknown Collection / Unknown 06/04/2024 3:21 PM SURVEY ASSOCIATE 06/04/2024 3:24 PM SURVEY ASSOCIATE Narrative [facility] - 06/04/2024 3:44 PM SURVEY ASSOCIATE Briseida Fish MD LAB - URINALYSIS ORD ERASLY [address] [address], [place] [phone] * (ABNORMAL) URINALYSIS REFLEX MICROSCOPIC REFLEX CULTURE (06/04/2024 3:21 PM SURVEY ASSOCIATE) Color UA Yellow Straw, Yellow 06/04/2024 3:37 PM SURVEY ASSOCIATE [facility] Clarity UA Clear Clear 06/04/2024 3:37 PM [facility] Specific Faith UA 1.051(H) 1.005 - 1.030 06/04/2024 3:37 PM [facility] pH UA 5.0 5.0 - 8.0 pH 06/04/2024 3:37 PM [facility] Protein UA 2+(A) Negative 06/04/2024 3:37 PM [facility] Glucose UA Negative Negative 06/04/2024 3:37 PM [facility] Ketone UA Negative Negative 06/04/2024 3:37 PM [facility] Bilirubin UA Negative Negative 06/04/2024 3:37 PM [facility] Blood UA Negative Negative 06/04/2024 3:37 PM [facility] Nitrite UA Negative Negative 06/04/2024 3:37 PM [facility] Leukocyte Esterase Negative Negative 06/04/2024 3:37 PM [facility] Urobilinogen UA Negative Negative mg/dL 06/04/2024 3:37 PM [facility] Urine URINE SPECIMEN OBTAINED BY CLEAN CATCH PROCEDURE / Unknown Collection / Unknown 06/04/2024 3:21 PM SURVEY ASSOCIATE 06/04/2024 3:24 PM [facility] - 06/04/2024 3:37 PM SURVEY ASSOCIATE Briseida Fish MD LAB - URINALYSIS ORD ERABLES [address] [address], [facility] [phone] * URINE DRUG SCREEN IMMUNOASSAY (06/04/2024 3:21 PM SURVEY ASSOCIATE) Amphetamines Screen Urine Negative Negative: < 1000 ng/mL 06/04/2024 3:42 PM [facility] Barbiturates Screen Urine Negative Negative: < 200 ng/mL 06/04/2024 3:42 PM [facility] Benzodiazepine Screen Urine Negative Negative: < 200 ng/mL 06/04/2024 3:42 PM [facility] Opiates Urine Negative Negative: < 300 ng/mL 06/04/2024 3:42 PM [facility] Cocaine Metabolites Urine Negative Negative: < 300 ng/mL 06/04/2024 3:42 PM [facility] Phencyclidine Screen Urine Negative Negative: < 25 ng/ml 06/04/2024 3:42 PM [facility] Cannabinoids Screen Urine Negative Negative: <50 ng/mL 06/04/2024 3:42 PM [facility] Methadone Screen Urine Negative Negative: < 300 ng/mL 06/04/2024 3:42 PM [facility] Fentanyl Screen Urine Negative Negative: <1.5 ng/mL 06/04/2024 3:42 PM [facility] Urine URINE / Unknown Collection / Unknown 06/04/2024 3:21 PM SURVEY ASSOCIATE 06/04/2024 3:24 PM [facility] - 06/04/2024 3:42 PM SURVEY ASSOCIATE The Urine Toxicology Screening Panel does not screen for Propoxyphene, Meprobamate, Carisoprodol, Trazodone, yjad-cyr-gbmepmg medications and/or volatiles (Acetone, Isopropanol, Methanol or Ethylene Glycol). Ethanol, Salicylate, Acetaminophen, Tricyclic Antidepressants and several therapeutic drugs may be individually assayed in serum or plasma specimen. Toxicology testing by the [facility] is an aid to medical diagnosis and treatment of patients. No documented chain of custody was maintained. Results are intended to be used for clinical purposes only. Briseida Fish MD LAB - URINE CHEMISTR Y ORDERABLES [facility] [address] [place] [address], [facility] [phone] * (ABNORMAL) COMPREHENSIVE METABOLIC PANEL (06/04/2024 1:47 PM SURVEY ASSOCIATE) BUN 29(H) 7 - 26 mg/dL 06/04/2024 2:22 PM [facility] Creatinine 1.31(H) 0.71 - 1.16 mg/dL 06/04/2024 2:22 PM [facility] Sodium 140 136 - 145 mmol/L 06/04/2024 2:22 PM [facility] Potassium 4.4 3.5 - 4.5 mmol/L 06/04/2024 2:22 PM [facility] Chloride 105 98 - 107 mmol/L 06/04/2024 2:22 PM [facility] CO2 25 22 - 29 mmol/L 06/04/2024 2:22 PM [facility] Glucose 119(H) 70 - 99 mg/dL 06/04/2024 2:22 PM [facility] Calcium 9.1 8.4 - 10.2 mg/dL 06/04/2024 2:22 PM [facility] Protein Total 6.6 6.0 - 8.3 g/dL 06/04/2024 2:22 PM [facility] Albumin 3.0(L) 3.4 - 5.0 g/dL 06/04/2024 2:22 PM [facility] Bilirubin Total 0.6 0.2 - 1.2 mg/dL 06/04/2024 2:22 PM [facility] Alkaline Phosphatase 107 40 - 150 U/L 06/04/2024 2:22 PM [facility] ALT 52 5 - 55 U/L 06/04/2024 2:22 PM [facility] AST 40(H) 5 - 34 U/L 06/04/2024 2:22 PM [facility] Anion Gap 10 6 - 16 06/04/2024 2:22 PM [facility] BUN/Creatinine Ratio 22 7 - 23 06/04/2024 2:22 PM [facility] Osmolality Calculated 297(H) 275 - 295 mOsm/kg 06/04/2024 2:22 PM [facility] Albumin/Globulin Ratio 0.8(L) 1.1 - 2.3 06/04/2024 2:22 PM [facility] eGFR by CKD-EPI 56(L) >=90 mL/min/1.7 3 m2 06/04/2024 2:22 PM [facility] Blood BLOOD SPECIMEN / Unknown Venipuncture / Unknown 06/04/2024 1:47 PM SURVEY ASSOCIATE 06/04/2024 1:52 PM SURVEY ASSOCIATE Alirio Domínguez MD LAB - CHEMISTRY DECLAN PEREZ [facility] Organization Address City/State/ZIP Co de Phone Number [facility] [address] [place] [address], [facility] [phone] * XR Chest 1Vw Portable (06/04/2024 12:12 PM SURVEY ASSOCIATE) Anatomical Region Laterality Modality Chest Digital Radiogra phy 06/04/2024 12:0 3 PM SURVEY ASSOCIATE Narrative 06/04/2024 1:55 PM SURVEY ASSOCIATE PROCEDURE: XR CHEST 1VW PORTABLE, DATE/TIME OF EXAM: 06/04/2024 11:52 AM, LOCATION [facility] INDICATION: R53.1: Weakness ADDITIONAL CLINICAL INFORMATION: Ordering [...] intact. Report dictated by Mack Easley MD, (resident engineer). Santosh Dean MD have personally reviewed and interpreted this examination/study. > Interpreting Provider: Santosh Cote MD on 06/04/2024 1:55 PM Procedure Note Santosh Cote MD - 06/04/2024 PROCEDURE: XR CHEST 1VW PORTABLE, DATE/TIME OF EXAM: 06/04/2024 11:52AM, LOCATION [facility] INDICATION: R53.1: Weakness ADDITIONAL CLINICAL INFORMATION: Ordering [...] intact. Report dictated by Mack Easley MD, (resident engineer). Santosh Dean MD have personally reviewed and interpreted this examination/study. > Interpreting Provider: Santosh Cote MD on 06/04/2024 1:55 PM Briseida Fish MD DIAGNOSTIC IMAGING O RDERABLES * BLOOD TYPE VERIFICATION (06/04/2024 11:58 AM SURVEY ASSOCIATE) ABO Rh A POS 06/04/2024 1:5 0 PM SURVEY ASSOCIATE [facility] LAB Blood Bank BLOOD SPECIMEN / Unknown Venipuncture / Unknown 06/04/2024 11:58 AM SURVEY ASSOCIATE 06/04/2024 1:28 PM SURVEY ASSOCIATE Alirio Domínguez MD LAB - BLOOD BANK ORD ERABLES Performing Organization Address City/[facility]/ZIP Co de Phone Number [facility] BLOOD BANK LAB [address] [place] [address], [facility] [phone] * EKG 12-LEAD (06/04/2024 11:33 AM SURVEY ASSOCIATE) Ventricular Rate 88 BPM [facility] MUSE Atrial Rate 88 BPM [facility] MUSE P-R Interval 192 ms [facility] MUSE QRS Duration ms 102 ms [facility] MUSE Q-T Interval ms 350 ms [facility] MUSE QTC Calculation (Bezet) 423 ms [facility] MUSE Calculated P [place] 77 degrees SL MUSE Calculated R [place] 33 degrees SL MUSE Calculated T [place] 64 degrees SL MUSE Interpretation EKG NORMAL SINUS RHYTHM MINIMAL VOLTAGE CRITERIA FOR LVH, MAY BE NORMAL VARIANT ( Bacilio product ) BORDERLINE ECG NO PREVIOUS ECGS AVAILABLE Confirmed by BRAYAN RUSS DO ([id number]) on 06/10/2024 11:52:09 AM [facility] MUSE 06/04/2024 11:3 3 AM SURVEY ASSOCIATE 06/10/2024 11:52 AM SURVEY ASSOCIATE Alirio Domínguez MD ECG ORDERABLES Performing Organization Address City/[facility]/ZIP Co de Phone Number [facility] MUSE * CT ANGIO BRAIN NECK STROKE (06/04/2024 11:31 AM SURVEY ASSOCIATE) Anatomical Region Laterality Modality Head Computed Tomogra phy 06/04/2024 11:3 5 AM SURVEY ASSOCIATE Impressions 06/04/2024 11:47 AM SURVEY ASSOCIATE IMPRESSION: 1. No large arterial occlusions or significant stenoses identified in the head or neck. > Interpreting Provider: Hernando Ewing MD on 06/04/2024 11:47 AM Narrative 06/04/2024 11:47 AM SURVEY ASSOCIATE PROCEDURE: CT ANGIO BRAIN NECK STROKE, DATE/TIME OF EXAM: 06/04/2024 11:32 AM, LOCATION [facility] INDICATION: Code Stroke ADDITIONAL CLINICAL INFORMATION: Ordering [...] ANGIO BRAIN NECK STROKE, DATE/TIME OF EXAM: 1:32 AM, LOCATION [facility] INDICATION: Code Stroke ADDITIONAL CLINICAL INFORMATION: Ordering [...] Alirio Domínguez MD CT ORDERABLES * PT-INR [facility] (06/04/2024 11:28 AM SURVEY ASSOCIATE) PT 13.1 12.1 - 14.8 Seconds 06/04/2024 12:00 PM [facility] INR 1.0 See Comment 06/04/2024 12:00 PM [facility] Comment:The suggested therap eutic range for standard coumadin (warfarin) therapy is an INR of 2.0-3.0. For high-risk patients (Mechanical Mitral Valve Prosthesis, etc.), the suggested prophylactic therapeutic range is an INR of 2.5-3.5. Blood BLOOD SPECIMEN / Unknown Venipuncture / Unknown 06/04/2024 11:28 AM SURVEY ASSOCIATE 06/04/2024 11:38 AM SURVEY ASSOCIATE Alirio Domínguez MD LAB - COAGULATION OR DERABLES Performing Organization Address City/[facility]/ZIP Co de Phone Number [address] [address], [facility] [phone] * TYPE + SCREEN PANEL (06/04/2024 11:28 AM SURVEY ASSOCIATE) [facility] Antibody Screen NEG 12:18 PM [facility]OD [facility] ABO Rh A POS 06/04/2024 12:18 PM [facility] Blood Bank BLOOD SPECIMEN / Unknown Venipuncture / Unknown 06/04/2024 11:28 AM SURVEY ASSOCIATE 06/04/2024 11:42 AM SURVEY ASSOCIATE Alirio Domínguez MD LAB - BLOOD BANK ORD ERABLES Performing Organization Address City/[facility]/ZIP Co de Phone Number [facility] LAB [address] [place] [phone], [facility] [phone] * (ABNORMAL) CBC W AUTO DIFFERENTIAL (06/04/2024 11:28 AM SURVEY ASSOCIATE) [facility] WBC 10.7 4.0 - 10.7 x10E9/L 06/04/2024 11:49 AM [facility] RBC Count 3.99(L) 4.30 - 5.80 x10E12/L 06/04/2024 11:49 AM [facility] Hemoglobin 12.3(L) 13.3 - 17.5 g/dL 06/04/2024 11:49 AM [facility] Hematocrit 36.7(L) 38.7 - 51.1 % 06/04/2024 11:49 AM [facility] MCV 92.0 80.0 - 98.0 fL 06/04/2024 11:49 AM [facility] MCH 30.8 26.7 - 33.6 pg 06/04/2024 11:49 AM [facility] MCHC 33.5 31.7 - 36.3 g/dL 06/04/2024 11:49 AM [facility] RDW-CV 12.3 11.3 - 14.8 % 06/04/2024 11:49 AM [facility] Platelet Count 210 150 - 420 x10E9/L 06/04/2024 11:49 AM [facility] MPV 11.1 7.8 - 11.4 fL 06/04/2024 11:49 AM [facility] Neutrophil % 85.1(H) 41.0 - 74.0 % 06/04/2024 11:49 AM [facility] Lymphocyte % 9.4(L) 17.0 - 47.0 % 06/04/2024 11:49 AM [facility] Monocyte % 4.2 3.0 - 11.0 % 06/04/2024 11:49 AM [facility] Eosinophil % 0.5 0.0 - 7.0 % 06/04/2024 11:49 AM [facility] Basophil % 0.5 0.0 - 1.6 % 06/04/2024 11:49 AM [facility] Immature Granulocytes % 0.3 0.0 - 1.0 % 06/04/2024 11:49 AM [facility] Neutrophil Absolute 9.13(H) 1.60 - 7.50 x10E9/L 06/04/2024 11:49 AM [facility] Lymphocyte Absolute 1.01 1.00 - 4.40 x10E9/L 06/04/2024 11:49 AM [facility] Monocyte Absolute 0.45 0.15 - 1.00 x10E9/L 06/04/2024 11:49 AM SURVEY ASSOCIATE [facility] Eosinophil Absolute 0.05 0.00 - 0.60 x10E9/L 06/04/2024 11:49 AM [facility] Basophil Absolute 0.05 0.00 - 0.13 x10E9/L 06/04/2024 11:49 AM [facility] Blood BLOOD SPECIMEN / Unknown Venipuncture / Unknown 06/04/2024 11:28 AM SURVEY ASSOCIATE 06/04/2024 11:38 AM SURVEY ASSOCIATE Alirio Domínguez MD LAB - HEMATOLOGY ORD ERABLES [facility] [address] [place] [address], [facility] [phone] * (ABNORMAL) CREATININE - POCT INTERFACED (06/04/2024 11:18 AM SURVEY ASSOCIATE) Creatinine POCT 1.12 0.30 - 1.30 mg/dL 06/04/2024 11:21 AM [facility] eGFR 67(L) >=90 mL/min/1.7 3 m2 06/04/2024 11:21 AM [facility] Blood BLOOD SPECIMEN / Unknown 06/04/2024 11:18 AM SURVEY ASSOCIATE 06/04/2024 11:21 AM SURVEY ASSOCIATE Provider Unknown LAB - POINT OF CARE ORDERABLES [facility] [address] [place] [address], [facility] [phone] * INR WHOLE BLOOD - POINT OF CARE (IP) STROKE (06/04/2024 11:17 AM SURVEY ASSOCIATE) INR 1.1 0.9 - 1.2 06/04/2024 11:20 AM [facility] Device [id number] 06/04/2024 11:20 AM [facility] Val[employer]ner ID [id number] 06/04/2024 11:20 AM [facility] Blood BLOOD SPECIMEN / Unknown 06/04/2024 11:17 AM SURVEY ASSOCIATE 06/04/2024 11:20 AM SURVEY ASSOCIATE Provider Unknown LAB - POINT OF CARE ORDERABLES [place] [id number] [place] [address], [facility] [phone] * CT BRAIN - Stroke (06/04/2024 11:13 AM SURVEY ASSOCIATE) Anatomical Region Laterality Modality Head Computed Tomogra phy 06/04/2024 11:1 6 AM SURVEY ASSOCIATE Impressions 06/04/2024 11:21 AM SURVEY ASSOCIATE IMPRESSION: 1.No acute intracranial hemorrhage. 2.Please note [...] 06/04/2024 11:21 AM Narrative 06/04/2024 11:21 AM SURVEY ASSOCIATE PROCEDURE: CT BRAIN STROKE, DATE/TIME OF EXAM: 06/04/2024 11:20 AM, LOCATION [facility] INDICATION: Code Stroke EXAMINATION: Computed tomography (CT) [...] DATE/TIME OF EXAM: 06/04/2024 11:20 AM, LOCATION [facility] INDICATION: Code Stroke EXAMINATION: Computed tomography (CT) [...] 11:21 AM Alirio Domínguez MD CT ORDERABLES * DERMATOPATHOLOGY (04/09/2022 12:00 AM CDT) Only the most recent of2 resultswithin the time period is included. Case Report Dermatopathology Report Case: [id number] Authorizing Provider: Amrik Huynh MD Collected: 04/09/2022 12:00 AM Ordering Location: [facility] DermPath Lab Received: 04/11/2022 06:50 AM Pathologist: Laura No MD Specimen: Skin, left jaw 2 4:06 PM CDT DERMATOPATHOLOGY LABORATORY Final Diagnosis Specimen A. 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 Path#[id number]. Check margins 2 4:06 PM CDT DERMATOPATHOLOGY LABORATORY Gross Description Specimen A: Received is one formalin filled container labeled with the patient's name and designated left jaw. The specimen consists of a non-oriented ellipse of skin measuring [id number] mm. The epidermal surface is unremarkable. The margin is inked green. The 12 o'clock and 6 o'clock tips are submitted in cassette 1. The remainder of the ellipse is serially sectioned and submitted in cassette 2-4. Jar 0. 2 4:06 PM CDT DERMATOPATHOLOGY LABORATORY Microscopic Description Specimen A. SKIN, left jaw: The epidermis shows parakeratosis, full thickness disorderly maturation of keratinocytes, mitoses at different levels, and dyskeratotic cells. This lesion is not present at the margin of the specimen. There are fibroblasts and collagen bundles oriented parallel to the skin surface with elongated blood vessels, some of which are oriented perpendicular to the skin surface. 2 4:06 PM CDT DERMATOPATHOLOGY LABORATORY Disclaimer An external and internal positive and negative controls are appropriate for the histochemical, immunohistochemical and immunofluorescence stain(s) in this case (if any), except where stated explicitly. The performance characteristics of the stain(s) cited in this report were developed and its performance characteristic determined by the Dermatopathology Laboratory at [facility], directed by Dr. Larry Muse. These tests need not be, and therefore are not, approved by the [place] Food and Drug Administration. The tests are used for clinical purposes. Billing Codes Specimen Charges Stain Charges 29831 1 2 4:06 PM CDT DERMATOPATHOLOGY LABORATORY Embedded Images 2 4:06 PM CDT DERMATOPATHOLOGY LABORATORY Pathology/Cytolog y TISSUE SPECIMEN FROM SKIN / Unknown 04/09/2022 04/11/2022 6:50 AM CDT Amrik Huynh MD LAB - PATHOLOGY/CYTO LOGY ORDERABLES DERMATOPATHOLOGY LABORATORY [facility] - Department of Dermatology [facility] [address] [place] [address], [address] [phone] Care Teams Bulb Filler Relationship Specialty Start Date End Date Torres Manzano MD [address] [place] [id number] PCP - General Internal Medicine 06/04/24
--- OUTSIDE RECORDS SUMMARY | 2024-08-31 09:10 | XMS_ITS | Clinical Summary ---
Author Organization [facility] [employer] Address [address] [place] [address] Care Team Providers Care Diesel Power Mechanic Name Role Phone Torres Manzano MD Primary Care Provider [phone] Source Comments [facility] [employer],non-owned Affiliates and Associated Physician Practices is amultiple site organization consisting of ambulatory clinics and hospital sitesin [place], [place], [place] and [place]. This disclosure is being madepursuant to the Care Everywhere program and may not contain all information available regarding this patient. Last updated 18.[facility] Allergies No known active allergies Medications * [...] Aphasia 06/04/2024 Generalized weakness 06/04/2024 Weakness 06/04/2024 Encounters Date Type Department Care Team Description 06/04/2024 11:05 AM PROCESS SAFETY MANAGEMENT ENGINEER - 06/07/2024 6:44 PM [facility] Hospital Encounter [facility] 5N ACUTE [address] [place] [address] Briseida Fish MD Edgell, Randall C, MD Emergency Medicine Discharge Disposition: Detention Facility 06/04/2024 Travel from Last 3 Months Social History Tobacco Use Types Packs/Day Years [...] Recorded Patient Health Questionnaire-2 Score 0 06/05/2024 [facility] [place] of Occupat ional Health - Occupational Stress [...] any time in the past 12 m [facility], were you homeless or living in a [facility] (including now)? No 06/06/2024 Sex and Gender Information Value Date Recorded Sex Assigned at Not on file Gender Identity Not on file Sexual Orientation Not on file Last Filed Vital Signs Vital Sign Reading Time Taken Comments Blood Pressure 170/89 06/07/2024 1:47 PM PROCESS SAFETY MANAGEMENT ENGINEER Pulse 79 06/07/2024 1:47 PM PROCESS SAFETY MANAGEMENT ENGINEER Temperature 35.8 C (96.5 F) 06/07/2024 1:47 PM PROCESS SAFETY MANAGEMENT ENGINEER Respiratory Rate 16 06/07/2024 1:47 PM PROCESS SAFETY MANAGEMENT ENGINEER Oxygen Saturation 94% 06/07/2024 3:33 AM PROCESS SAFETY MANAGEMENT ENGINEER Inhaled Oxygen Concentration - - Weight 72.6 kg (160 lb) 06/07/2024 7:51 AM PROCESS SAFETY MANAGEMENT ENGINEER Height 182.9 cm (6') 06/07/2024 7:51 AM PROCESS SAFETY MANAGEMENT ENGINEER Body Mass Index 21.7 06/07/2024 7:51 AM PROCESS SAFETY MANAGEMENT ENGINEER Plan of Treatment Health Maintenance Due Date Last Done Comments MEDICARE AWV 12 MONTHS 1945 HEPATITIS C SCREENING 02/04/1964 DTAP/TDAP/TD VACCINES (1 - Tdap) 1965 PNEUMOCOCCAL VACCINE 50+ (1 of 2 - PCV) 1965 ZOSTER VACCINE (1 of 2) 02/09/1996 Respiratory Syncytial Virus (RSV) Vaccine Pt: or over 60 yrs (1 - 1-dose 75+ series) 2021 COVID-19 VACCINE ( season) 2024 04/26/2023, 04/26/2023, 03/23/2022, Additional history exists DEPRESSION SCREENING 06/29/2024 06/04/2024 INFLUENZA VACCINE Completed 03/31/2024, , 03/23/2022, Additional history exists HEPATITIS B VACCINE Aged Out No longe r eligible based on patient's age to complete this topic HIB VACCINE Aged Out No longer eligi ble based on patient's age to complete this topic HPV VACCINE Aged Out No longer eligi ble based on patient's age to complete this topic MENINGOCOCCAL (Group B) VACCINE Aged Out No longer eligible based on patient's age to complete this topic MENINGOCOCCAL VACCINE Aged Out No rosa anneliese eligible based on patient's age to complete this topic Medical Devices Implanted Type Area Ornamental Plaster Sticker Device Identifier Shelf Expiration Date Model / Serial / Lot Sunshine Pacemaker 2021 [id number] / [id number] / Sunshine Pacemaker Lead 29mm [id number] / [id number] / Procedures Procedure Name Priority Date/Time Associated Diagnosis Comments CARDIAC EKG ORDER 06/08/2024 1:4 6 PM PROCESS SAFETY MANAGEMENT ENGINEER GLUCOSE - POINT OF CARE Routine 06/07/2024 4:44 PM PROCESS SAFETY MANAGEMENT ENGINEER ECHO LIMITED W CONTRAST Routine 06/07/2024 1:03 PM PROCESS SAFETY MANAGEMENT ENGINEER Weakness Aphasia GLUCOSE - POINT OF CARE Routine 06/07/2024 12:53 PM PROCESS SAFETY MANAGEMENT ENGINEER GLUCOSE - POINT OF CARE Routine 06/07/2024 6:58 AM PROCESS SAFETY MANAGEMENT ENGINEER PHOSPHORUS BLOOD Routine 06/07/2024 2:47 AM PROCESS SAFETY MANAGEMENT ENGINEER MAGNESIUM BLOOD Routine 06/07/2024 2:47 AM PROCESS SAFETY MANAGEMENT ENGINEER CBC W/O DIFFERENTIAL Routine 06/07/2024 2:47 AM PROCESS SAFETY MANAGEMENT ENGINEER BASIC METABOLIC PANEL (CALCIUM TOTAL) Routine 06/07/2024 2:47 AM PROCESS SAFETY MANAGEMENT ENGINEER GLUCOSE - POINT OF CARE Routine 06/06/2024 9:10 PM PROCESS SAFETY MANAGEMENT ENGINEER GLUCOSE - POINT OF CARE Routine 06/06/2024 5:33 PM PROCESS SAFETY MANAGEMENT ENGINEER MRI BRAIN WO CONTRAST Routine 06/06/2024 2:57 PM PROCESS SAFETY MANAGEMENT ENGINEER Weakness Aphasia GLUCOSE - POINT OF CARE Routine 06/06/2024 12:29 PM PROCESS SAFETY MANAGEMENT ENGINEER GLUCOSE - POINT OF CARE Routine 06/06/2024 6:19 AM PROCESS SAFETY MANAGEMENT ENGINEER PHOSPHORUS BLOOD Routine 06/06/2024 4:24 AM PROCESS SAFETY MANAGEMENT ENGINEER MAGNESIUM BLOOD Routine 06/06/2024 4:24 AM PROCESS SAFETY MANAGEMENT ENGINEER CBC W/O DIFFERENTIAL Routine 06/06/2024 4:24 AM PROCESS SAFETY MANAGEMENT ENGINEER BASIC METABOLIC PANEL (CALCIUM TOTAL) Routine 06/06/2024 4:24 AM PROCESS SAFETY MANAGEMENT ENGINEER HEMOGLOBIN A1C Add on 06/06/2024 4:24 AM PROCESS SAFETY MANAGEMENT ENGINEER GLUCOSE - POINT OF CARE Routine 06/05/2024 9:53 PM PROCESS SAFETY MANAGEMENT ENGINEER PHOSPHORUS BLOOD STAT 06/05/2024 4:52 AM PROCESS SAFETY MANAGEMENT ENGINEER MAGNESIUM BLOOD STAT 06/05/2024 4:52 AM PROCESS SAFETY MANAGEMENT ENGINEER CBC W/O DIFFERENTIAL STAT 06/05/2024 4:52 AM PROCESS SAFETY MANAGEMENT ENGINEER BASIC METABOLIC PANEL (CALCIUM TOTAL) STAT 06/05/2024 4:52 AM PROCESS SAFETY MANAGEMENT ENGINEER LIPID PROFILE STAT 06/05/2024 4:52 AM PROCESS SAFETY MANAGEMENT ENGINEER GLUCOSE - POINT OF CARE Routine 06/05/2024 12:41 AM PROCESS SAFETY MANAGEMENT ENGINEER TROPONIN-I HIGH SENSITIVE REFLEX 1HOUR Timed 06/04/2024 4:27 PM PROCESS SAFETY MANAGEMENT ENGINEER GLUCOSE - POINT OF CARE Routine 06/04/2024 4:26 PM PROCESS SAFETY MANAGEMENT ENGINEER TROPONIN-I HIGH SENSITIVE BASELINE + 1HR STAT 06/04/2024 3:27 PM PROCESS SAFETY MANAGEMENT ENGINEER URINE MICROSCOPIC ONLY REFLEX TO CULTURE STAT 06/04/2024 3:21 PM PROCESS SAFETY MANAGEMENT ENGINEER URINE DRUG SCREEN IMMUNOASSAY STAT 06/04/2024 3:21 PM PROCESS SAFETY MANAGEMENT ENGINEER URINALYSIS REFLEX MICROSCOPIC REFLEX CULTURE STAT 06/04/2024 3:21 PM PROCESS SAFETY MANAGEMENT ENGINEER PHOSPHORUS BLOOD STAT 06/04/2024 1:47 PM PROCESS SAFETY MANAGEMENT ENGINEER MAGNESIUM BLOOD STAT 06/04/2024 1:47 PM PROCESS SAFETY MANAGEMENT ENGINEER COMPREHENSIVE METABOLIC PANEL STAT 06/04/2024 1:47 PM PROCESS SAFETY MANAGEMENT ENGINEER XR CHEST 1VW PORTABLE STAT 06/04/2024 12:12 PM PROCESS SAFETY MANAGEMENT ENGINEER Weakness BLOOD TYPE VERIFICATION STAT 06/04/2024 11:58 AM PROCESS SAFETY MANAGEMENT ENGINEER EKG 12-LEAD STAT 06/04/2024 11:33 AM PROCESS SAFETY MANAGEMENT ENGINEER Weakness CT ANGIO BRAIN NECK STROKE STAT 06/04/2024 11:31 AM PROCESS SAFETY MANAGEMENT ENGINEER Weakness TYPE + SCREEN PANEL STAT 06/04/2024 1 1:28 AM PROCESS SAFETY MANAGEMENT ENGINEER PT-INR [facility] STAT 06/04/2024 11:28 AM PROCESS SAFETY MANAGEMENT ENGINEER CBC W AUTO DIFFERENTIAL STAT 06/04/2024 11:28 AM PROCESS SAFETY MANAGEMENT ENGINEER CREATININE - POCT INTERFACED Routine 06/04/2024 11:18 AM PROCESS SAFETY MANAGEMENT ENGINEER INR WHOLE BLOOD - POINT OF CARE (IP) STROKE Routine 06/04/2024 11:17 AM PROCESS SAFETY MANAGEMENT ENGINEER CT BRAIN STROKE STAT 06/04/2024 11:13 AM PROCESS SAFETY MANAGEMENT ENGINEER Weakness from Last 3 Months Results * CARDIAC EKG ORDER (06/08/2024 1:46 PM PROCESS SAFETY MANAGEMENT ENGINEER) Narrative 06/08/2024 1:46 PM PROCESS SAFETY MANAGEMENT ENGINEER Ordered by an unspecified provider. Scanned Document CARDIAC SERVICES ORD ERABLES * (ABNORMAL) GLUCOSE - POINT OF CARE (06/07/2024 4:44 PM PROCESS SAFETY MANAGEMENT ENGINEER) Only the most recent of10 resultswithin the time period is included. [facility] Glucose WB/POC 123(H) 70 - 99 mg/dL 06/07/2024 4:49 PM PROCESS SAFETY MANAGEMENT ENGINEER [facility] LABORATORY [facility] Specimen Type Cap Fingerstick 2023 4:49 PM PROCESS SAFETY MANAGEMENT ENGINEER [facility] Blood BLOOD SPECIMEN / Unknown 06/07/2024 4:44 PM PROCESS SAFETY MANAGEMENT ENGINEER 06/07/2024 4:49 PM PROCESS SAFETY MANAGEMENT ENGINEER Michael Syed MD LAB - POINT OF CARE ORDERABLES [address] [address], [place] [phone] * ECHO LIMITED W CONTRAST (06/07/2024 1:03 PM PROCESS SAFETY MANAGEMENT ENGINEER) Pathologist [facility] LVOT diam 2.16 cm SSM CV FUJ [...] Region Laterality Modality Ultrasound 06/07/2024 1:21 PM PROCESS SAFETY MANAGEMENT ENGINEER Narrative 06/07/2024 6:01 PM PROCESS SAFETY MANAGEMENT ENGINEER Summary * The left ventricle is not [...] 1:21 PM Patient Status: I/P Study Site: [facility] Primary Location: [facility] Info Technical Quality: Technically Difficult Exam Type: [...] Provider: Michael Syed Attending Physician: Michael Syed Auto Body Builder Apprentice: Alan Torres Left Ventricle The left ventricle [...] 1:21 PM Patient Status: I/P Study Site: [facility] Primary Location: [facility] EStudy Info Technical Quality: Technically Difficult [...] Provider: Michael Syed Attending Physician: Michael Syed Auto Body Builder Apprentice: Alan Torres Left Ventricle The left ventricle [...] (ABNORMAL) CBC W/O DIFFERENTIAL (06/07/2024 2:47 AM [facility]) Only the most recent of3 resultswithin the time period is included. WBC 7.9 4.0 - 10.7 x10E9/L 06/07/2024 4:02 AM [facility] RBC Count 3.39(L) 4.30 - 5.80 x10E12/L 06/07/2024 4:02 AM [facility] Hemoglobin 10.3(L) 13.3 - 17.5 g/dL 06/07/2024 4:02 AM [facility] Hematocrit 29.9(L) 38.7 - 51.1 % 06/07/2024 4:02 AM [facility] MCV 88.2 80.0 - 98.0 fL 06/07/2024 4:02 AM [facility] MCH 30.4 26.7 - 33.6 pg 06/07/2024 4:02 AM [facility] MCHC 34.4 31.7 - 36.3 g/dL 06/07/2024 4:02 AM [facility] RDW-CV 12.2 11.3 - 14.8 % 06/07/2024 4:02 AM [facility] Platelet Count 178 150 - 420 x10E9/L 06/07/2024 4:02 AM [facility] MPV 11.4 7.8 - 11.4 fL 06/07/2024 4:02 AM [facility] Blood BLOOD SPECIMEN / Unknown Lab Venipuncture / Unknown 06/07/2024 2:47 AM PROCESS SAFETY MANAGEMENT ENGINEER 06/07/2024 3:56 AM PROCESS SAFETY MANAGEMENT ENGINEER Michael Syed MD LAB - HEMATOLOGY ORD ERABLES [facility] [address] [place] [address], [place] [phone] * (ABNORMAL) BASIC METABOLIC PANEL (CALCIUM TOTAL) (06/07/2024 2:47 AM PROCESS SAFETY MANAGEMENT ENGINEER) Only the most recent of3 resultswithin the time period is included. BUN 24 7 - 26 mg/dL 06/07/2024 4:21 AM [facility] Creatinine 1.01 0.71 - 1.16 mg/dL 06/07/2024 4:21 AM [facility] Sodium 139 136 - 145 mmol/L 06/07/2024 4:21 AM [facility] Potassium 3.6 3.5 - 4.5 mmol/L 06/07/2024 4:21 AM [facility] Chloride 107 98 - 107 mmol/L 06/07/2024 4:21 AM [facility] CO2 23 22 - 29 mmol/L 06/07/2024 4:21 AM [facility] Glucose 101(H) 70 - 99 mg/dL 06/07/2024 4:21 AM [facility] Calcium 8.8 8.4 - 10.2 mg/dL 06/07/2024 4:21 AM [facility] Anion Gap 9 6 - 16 06/07/2024 4:21 AM [facility] BUN/Creatinine Ratio 24(H) 7 - 23 06/07/2024 4:21 AM [facility] Osmolality Calculated 292 275 - 295 mOsm/kg 06/07/2024 4:21 AM [facility] eGFR by CKD-EPI 76(L) >=90 mL/min/1.7 3 m2 06/07/2024 4:21 AM PROCESS SAFETY MANAGEMENT ENGINEER [facility] Blood BLOOD SPECIMEN / Unknown Lab Venipuncture / Unknown 06/07/2024 2:47 AM PROCESS SAFETY MANAGEMENT ENGINEER 06/07/2024 3:51 AM PROCESS SAFETY MANAGEMENT ENGINEER Michael Syed MD LAB - CHEMISTRY DECLAN PEREZ [facility] [address] [place] [address], [place] [phone] * (ABNORMAL) PHOSPHORUS BLOOD (06/07/2024 2:47 AM PROCESS SAFETY MANAGEMENT ENGINEER) Only the most recent of4 resultswithin the time period is included. Phosphorus 2.6(L) 2.8 - 5.1 mg/dL 06/07/2024 4:21 AM PROCESS SAFETY MANAGEMENT ENGINEER [facility] Blood BLOOD SPECIMEN / Unknown Lab Venipuncture / Unknown 06/07/2024 2:47 AM PROCESS SAFETY MANAGEMENT ENGINEER 06/07/2024 3:51 AM PROCESS SAFETY MANAGEMENT ENGINEER Michael Syed MD LAB - CHEMISTRY DECLAN PEREZ Performing Organization Address City/[facility]/ZIP Co de Phone Number [facility] [address] [place] [address], [place] [phone] * MAGNESIUM BLOOD (06/07/2024 2:47 AM PROCESS SAFETY MANAGEMENT ENGINEER) Only the most recent of4 resultswithin the time period is included. Magnesium 1.7 1.6 - 2.6 mg/dL 06/07/2024 4:21 AM PROCESS SAFETY MANAGEMENT ENGINEER [facility] Blood BLOOD SPECIMEN / Unknown Lab Venipuncture / Unknown 06/07/2024 2:47 AM PROCESS SAFETY MANAGEMENT ENGINEER 06/07/2024 3:51 AM PROCESS SAFETY MANAGEMENT ENGINEER Michael Syed MD LAB - CHEMISTRY DECLAN PEREZ [facility] [address] [place] [phone], [place] [phone] * MRI Brain Wo Contrast (06/06/2024 2:57 PM PROCESS SAFETY MANAGEMENT ENGINEER) Anatomical Region Laterality Modality Head Magnetic Resonan ce 06/06/2024 3:03 PM PROCESS SAFETY MANAGEMENT ENGINEER Impressions 06/06/2024 3:51 PM PROCESS SAFETY MANAGEMENT ENGINEER IMPRESSION: Small focus of subtle restricted diffusion [...] verification. This study was dictated by resident care technician Andrez Dunne MD and reviewed and edited by the attending. I, Liliana Watkins MD have personally reviewed and interpreted this examination/study. > Interpreting Provider: Liliana Watkins MD on 06/06/2024 3:51 PM Narrative 06/06/2024 3:51 PM PROCESS SAFETY MANAGEMENT ENGINEER PROCEDURE: MRI BRAIN WO CONTRAST, DATE/TIME OF EXAM: 06/06/2024 2:57 PM, LOCATION [facility] INDICATION: R53.1: Weakness R47.01: Aphasia ADDITIONAL [...] CONTRAST, DATE/TIME OF EXAM: 06/06/2024 2:57PM, LOCATION [facility] INDICATION: R53.1: Weakness R47.01: Aphasia ADDITIONAL [...] verification. This study was dictated by resident care technician Andrez Dunne MD and reviewed and edited by the attending. I, Liliana Watkins MD have personally reviewed and interpreted this examination/study. > Interpreting Provider: Liliana Watkins MD on 06/06/2024 3:51 PM Michael Syed MD MR ORDERABLES * (ABNORMAL) HEMOGLOBIN A1C (06/06/2024 4:24 AM PROCESS SAFETY MANAGEMENT ENGINEER) Hemoglobin A1c 6.2(H) <=5.6 % 06/06/2024 1:00 PM [facility] Estimated Average Glucose 131 mg/dL 06/06/2024 1:00 PM [facility] Comment: HbA1c Interpretation: Normal : < 5.7% Pre-diabetes: 5.7-6.4% Diabetes: Equal to or greater than 6.5% Test results diagnostic of diabetes should be repeated for confirmation. Treatment target values recommended by ADA and other clinical organizations should be used to evaluate metabolic control in patients. Reference: [place] [employer], Standards of Care in Diabetes -2020 In patients 70 years and older consider HbA1c target range of 7.0-7.5% (Reference: Leroy Leslie, et al. JAMDA. 2012) The Sebia assay for the measurement of HbA1c is a National Glycohemoglobin Standardization Program (NGSP) certified method. Blood BLOOD SPECIMEN / Unknown Venipuncture / Unknown 06/06/2024 4:24 AM PROCESS SAFETY MANAGEMENT ENGINEER 06/06/2024 1:00 PM PROCESS SAFETY MANAGEMENT ENGINEER Michael Syed MD LAB - CHEMISTRY DECLAN PEREZ [facility] [address] [place] [phone], [place] [phone] * (ABNORMAL) LIPID PROFILE (06/05/2024 4:52 AM PROCESS SAFETY MANAGEMENT ENGINEER) Cholesterol Total 83 <200 mg/dL 06/05/2024 5:26 AM [facility] HDL 25(L) >40 mg/dL 06/05/2024 5:26 AM [facility] Comment: ATP III Classification of HDL Cholesterol: <40 mg/dL: Considered a major risk factor. >60 mg/dL: Considered a negative risk factor. LDL Calculated 42 <100 mg/dL 06/05/2024 5:26 AM [facility] Comment: ATP III Classification of LDL Cholesterol: <100 mg/dL: Optimal 100 - 129 mg/dL: Near Optimal/Above Optimal 130 - 159 mg/dL: Borderline High 160 - 189 mg/dL: High >190 mg/dL: Very High Triglycerides 81 <150 mg/dL 06/05/2024 5:26 AM [facility] Comment: ATP III Classification of Triglycerides: <150 mg/dL: Normal 150 - 199 mg/dL: Borderline High 200 - 400 mg/dL: High >500 mg/dL: Very High Blood BLOOD SPECIMEN / Unknown Venipuncture / Unknown 06/05/2024 4:52 AM PROCESS SAFETY MANAGEMENT ENGINEER 06/05/2024 4:59 AM PROCESS SAFETY MANAGEMENT ENGINEER Michael Syed MD LAB - CHEMISTRY DECLAN PEREZ Performing Organization Address City/[facility]/ZIP Co de Phone Number [address] [address], [place] [phone] * TROPONIN-I HIGH SENSITIVE REFLEX 1HOUR (06/04/2024 4:27 PM PROCESS SAFETY MANAGEMENT ENGINEER) Pathologist [facility] Troponin I High Sensitive 13 <=35 ng/L 06/04/2024 5:08 PM PROCESS SAFETY MANAGEMENT ENGINEER [facility] Delta Troponin I HS 0 <6 ng/L 06/04/2024 5:08 PM [facility] Blood BLOOD SPECIMEN / Unknown Venipuncture / Unknown 06/04/2024 4:27 PM PROCESS SAFETY MANAGEMENT ENGINEER 06/04/2024 4:30 PM PROCESS SAFETY MANAGEMENT ENGINEER Michael Syed MD LAB - CHEMISTRY DECLAN PEREZ Performing Organization Address City/[facility]/ZIP Co de Phone Number [address] [address], [place] [phone] * TROPONIN-I HIGH SENSITIVE BASELINE + 1HR (06/04/2024 3:27 PM PROCESS SAFETY MANAGEMENT ENGINEER) Troponin I High Sensitive 13 <=35 ng/L 06/04/2024 4:13 PM PROCESS SAFETY MANAGEMENT ENGINEER [facility] Blood BLOOD SPECIMEN / Unknown Venipuncture / Unknown 06/04/2024 3:27 PM PROCESS SAFETY MANAGEMENT ENGINEER 06/04/2024 3:37 PM PROCESS SAFETY MANAGEMENT ENGINEER Michael Syed MD LAB - CHEMISTRY DECLAN PEREZ Performing Organization Address City/[facility]/ZIP Co de Phone Number [address] [address], [place] [phone] * URINE MICROSCOPIC ONLY REFLEX TO CULTURE (06/04/2024 3:21 PM PROCESS SAFETY MANAGEMENT ENGINEER) Reflex Status Culture not indicated 06/04/2024 3:44 PM [facility] WBC UA 0-5 None Seen, 0-5 /HPF 06/04/2024 3:44 PM [facility] Squamous Epithelial Cells UA None Seen None Seen, 0-2, 3-5 /HPF 06/04/2024 3:44 PM [facility] Mucus UA 1+ /LPF 06/04/2024 3:44 PM [facility] Urine URINE SPECIMEN OBTAINED BY CLEAN CATCH PROCEDURE / Unknown Collection / Unknown 06/04/2024 3:21 PM PROCESS SAFETY MANAGEMENT ENGINEER 06/04/2024 3:24 PM PROCESS SAFETY MANAGEMENT ENGINEER Narrative [facility] - 06/04/2024 3:44 PM PROCESS SAFETY MANAGEMENT ENGINEER Briseida Fish MD LAB - URINALYSIS FELIPA FREEMAN Performing Organization Address City/[facility]/ZIP Co de Phone Number [address] [address], [place] [phone] * (ABNORMAL) URINALYSIS REFLEX MICROSCOPIC REFLEX CULTURE (06/04/2024 3:21 PM PROCESS SAFETY MANAGEMENT ENGINEER) Color UA Yellow Straw, Yellow 06/04/2024 3:37 PM [facility] Clarity UA Clear Clear 06/04/2024 3:37 PM [facility] Specific [place] UA 1.051(H) 1.005 - 1.030 06/04/2024 3:37 PM [facility] pH UA 5.0 5.0 - 8.0 pH 06/04/2024 3:37 PM [facility] Protein UA 2+(A) Negative 06/04/2024 3:37 PM [facility] Glucose UA Negative Negative 06/04/2024 3:37 PM [facility] Ketone UA Negative Negative 06/04/2024 3:37 PM [facility] Bilirubin UA Negative Negative 06/04/2024 3:37 PM [facility] Blood UA Negative Negative 06/04/2024 3:37 PM [facility] Nitrite UA Negative Negative 06/04/2024 3:37 PM [facility] Leukocyte Esterase Negative Negative 06/04/2024 3:37 PM [facility] Urobilinogen UA Negative Negative mg/dL 06/04/2024 3:37 PM [facility] Urine URINE SPECIMEN OBTAINED BY CLEAN CATCH PROCEDURE / Unknown Collection / Unknown 06/04/2024 3:21 PM PROCESS SAFETY MANAGEMENT ENGINEER 06/04/2024 3:24 PM [facility] - 06/04/2024 3:37 PM [facility] Briseida Fish MD LAB - URINALYSIS ORD ERABLES [facility] [address] [place] [phone], [place] [phone] * URINE DRUG SCREEN IMMUNOASSAY (06/04/2024 3:21 PM PROCESS SAFETY MANAGEMENT ENGINEER) Pathologist [facility] Amphetamines Screen Urine Negative Negative: < 1000 ng/mL 06/04/2024 3:42 PM [facility] Barbiturates Screen Urine Negative Negative: < 200 ng/mL 06/04/2024 3:42 PM [facility] Benzodiazepine Screen Urine Negative Negative: < 200 ng/mL 06/04/2024 3:42 PM [facility] Opiates Urine Negative Negative: < 300 ng/mL 06/04/2024 3:42 PM [facility] Cocaine Metabolites Urine Negative Negative: < 300 ng/mL 06/04/2024 3:42 PM [facility] Phencyclidine Screen Urine Negative Negative: < 25 ng/ml 06/04/2024 3:42 PM [facility] Cannabinoids Screen Urine Negative Negative: <50 ng/mL 06/04/2024 3:42 PM [facility] Methadone Screen Urine Negative Negative: < 300 ng/mL 06/04/2024 3:42 PM [facility] Fentanyl Screen Urine Negative Negative: <1.5 ng/mL 06/04/2024 3:42 PM [facility] Urine URINE / Unknown Collection / Unknown 06/04/2024 3:21 PM PROCESS SAFETY MANAGEMENT ENGINEER 06/04/2024 3:24 PM [facility] - 06/04/2024 3:42 PM PROCESS SAFETY MANAGEMENT ENGINEER The Urine Toxicology Screening Panel does not screen for Propoxyphene, Meprobamate, Carisoprodol, Trazodone, zzob-aly-alzdjfa medications and/or volatiles (Acetone, Isopropanol, Methanol or Ethylene Glycol). Ethanol, Salicylate, Acetaminophen, Tricyclic Antidepressants and several therapeutic drugs may be individually assayed in serum or plasma specimen. Toxicology testing by the [facility] is an aid to medical diagnosis and treatment of patients. No documented chain of custody was maintained. Results are intended to be used for clinical purposes only. Briseida Fish MD LAB - URINE CHEMISTR Y ORDERABLES [facility] [address] [place] [phone], [place] [phone] * (ABNORMAL) COMPREHENSIVE METABOLIC PANEL (06/04/2024 1:47 PM PROCESS SAFETY MANAGEMENT ENGINEER) BUN 29(H) 7 - 26 mg/dL 06/04/2024 2:22 PM [facility] Creatinine 1.31(H) 0.71 - 1.16 mg/dL 06/04/2024 2:22 PM [facility] Sodium 140 136 - 145 mmol/L 06/04/2024 2:22 PM [facility] Potassium 4.4 3.5 - 4.5 mmol/L 06/04/2024 2:22 PM [facility] Chloride 105 98 - 107 mmol/L 06/04/2024 2:22 PM [facility] CO2 25 22 - 29 mmol/L 06/04/2024 2:22 PM [facility] Glucose 119(H) 70 - 99 mg/dL 06/04/2024 2:22 PM [facility] Calcium 9.1 8.4 - 10.2 mg/dL 06/04/2024 2:22 PM [facility] Protein Total 6.6 6.0 - 8.3 g/dL 06/04/2024 2:22 PM [facility] Albumin 3.0(L) 3.4 - 5.0 g/dL 06/04/2024 2:22 PM [facility] Bilirubin Total 0.6 0.2 - 1.2 mg/dL 06/04/2024 2:22 PM [facility] Alkaline Phosphatase 107 40 - 150 U/L 06/04/2024 2:22 PM [facility] ALT 52 5 - 55 U/L 06/04/2024 2:22 PM [facility] AST 40(H) 5 - 34 U/L 06/04/2024 2:22 PM [facility] Anion Gap 10 6 - 16 06/04/2024 2:22 PM [facility] BUN/Creatinine Ratio 22 7 - 23 06/04/2024 2:22 PM [facility] Osmolality Calculated 297(H) 275 - 295 mOsm/kg 06/04/2024 2:22 PM [facility] Albumin/Globulin Ratio 0.8(L) 1.1 - 2.3 06/04/2024 2:22 PM [facility] eGFR by CKD-EPI 56(L) >=90 mL/min/1.7 3 m2 06/04/2024 2:22 PM [facility] Blood BLOOD SPECIMEN / Unknown Venipuncture / Unknown 06/04/2024 1:47 PM [employer]NAGEMENT ENGINEER 06/04/2024 1:52 PM PROCESS SAFETY MANAGEMENT ENGINEER Alirio Domínguez MD LAB - CHEMISTRY [facility] Organization Address City/State/ZIP Co de Phone Number [facility] [address] [place] [phone], [place] [phone] * XR Chest 1Vw Portable (06/04/2024 12:12 PM PROCESS SAFETY MANAGEMENT ENGINEER) Anatomical Region Laterality Modality Chest Digital Radiogra phy 06/04/2024 12:0 3 PM PROCESS SAFETY MANAGEMENT ENGINEER Narrative 06/04/2024 1:55 PM PROCESS SAFETY MANAGEMENT ENGINEER PROCEDURE: XR CHEST 1VW PORTABLE, DATE/TIME OF EXAM: 06/04/2024 11:52 AM, LOCATION [facility] INDICATION: R53.1: Weakness ADDITIONAL CLINICAL INFORMATION: [...] Report dictated by Mack Easley MD, (resident care technician). Santosh Dean MD have personally reviewed and interpreted this examination/study. > Interpreting Provider: Santosh Cote MD on 06/04/2024 1:55 PM Procedure Note Santosh Cote MD - 06/04/2024 PROCEDURE: XR CHEST 1VW PORTABLE, DATE/TIME OF EXAM: 06/04/2024 11:52AM, LOCATION [facility] INDICATION: R53.1: Weakness ADDITIONAL CLINICAL INFORMATION: [...] Report dictated by Mack Easley MD, (resident care technician). Santosh Dean MD have personally reviewed and interpreted this examination/study. > Interpreting Provider: Santosh Cote MD on 06/04/2024 1:55 PM Briseida Fish MD DIAGNOSTIC IMAGING O RDERABLES * BLOOD TYPE VERIFICATION (06/04/2024 11:58 AM PROCESS SAFETY MANAGEMENT ENGINEER) ABO Rh A POS 06/04/2024 1:5 0 PM PROCESS SAFETY MANAGEMENT ENGINEER [facility] BLOOD BANK LAB Blood Bank BLOOD SPECIMEN / Unknown Venipuncture / Unknown 06/04/2024 11:58 AM PROCESS SAFETY MANAGEMENT ENGINEER 06/04/2024 1:28 PM PROCESS SAFETY MANAGEMENT ENGINEER Alirio Domínguez MD LAB - BLOOD BANK ORD ERABLES Performing Organization Address [facility] Co de Phone Number [facility] BLOOD BANK LAB [address] [place] [address], [place] [phone] * EKG 12-LEAD (06/04/2024 11:33 AM PROCESS SAFETY MANAGEMENT ENGINEER) Ventricular Rate 88 BPM [facility] MUSE Atrial Rate 88 BPM [facility] MUSE P-R Interval 192 ms [facility] MUSE QRS Duration ms 102 ms [facility] MUSE Q-T Interval ms 350 ms [facility] MUSE QTC Calculation (Bezet) 423 ms [facility] MUSE Calculated P [place] 77 degrees [facility] MUSE Calculated R [place] 33 degrees [facility] MUSE Calculated T [place] 64 degrees [facility] MUSE Interpretation EKG NORMAL SINUS RHYTHM MINIMAL VOLTAGE CRITERIA FOR LVH, MAY BE NORMAL VARIANT ( Lanse product ) BORDERLINE ECG NO PREVIOUS ECGS AVAILABLE Confirmed by BRAYAN RUSS DO ([id number]) on 06/10/2024 11:52:09 AM [facility] MUSE 06/04/2024 11:3 3 AM PROCESS SAFETY MANAGEMENT ENGINEER 06/10/2024 11:52 AM PROCESS SAFETY MANAGEMENT ENGINEER Alirio Domínguez MD ECG ORDERABLES Performing Organization Address [facility] Co de Phone Number [facility] MUSE * CT ANGIO BRAIN NECK STROKE (06/04/2024 11:31 AM PROCESS SAFETY MANAGEMENT ENGINEER) Anatomical Region Laterality Modality Head Computed Tomogra phy 06/04/2024 11:3 5 AM PROCESS SAFETY MANAGEMENT ENGINEER Impressions 06/04/2024 11:47 AM PROCESS SAFETY MANAGEMENT ENGINEER IMPRESSION: 1. No large arterial occlusions or significant stenoses identified in the head or neck. > Interpreting Provider: Hernando Ewing MD on 06/04/2024 11:47 AM Narrative 06/04/2024 11:47 AM PROCESS SAFETY MANAGEMENT ENGINEER PROCEDURE: CT ANGIO BRAIN NECK STROKE, DATE/TIME OF EXAM: 06/04/2024 11:32 AM, LOCATION [facility] INDICATION: Code Stroke ADDITIONAL CLINICAL INFORMATION: [...] STROKE, DATE/TIME OF EXAM: 1:32 AM, LOCATION [facility] INDICATION: Code Stroke ADDITIONAL CLINICAL INFORMATION: [...] Alirio Domínguez MD CT ORDERABLES * PT-INR [facility] (06/04/2024 11:28 AM PROCESS SAFETY MANAGEMENT ENGINEER) PT 13.1 12.1 - 14.8 Seconds 06/04/2024 12:00 PM PROCESS SAFETY MANAGEMENT ENGINEER [facility] LABORATORY HOSPITAL INR 1.0 See Comment 06/04/2024 12:00 PM [facility] Comment:The suggested therap eutic range for standard coumadin (warfarin) therapy is an INR of 2.0-3.0. For high-risk patients (Mechanical Mitral Valve Prosthesis, etc.), the suggested prophylactic therapeutic range is an INR of 2.5-3.5. Blood BLOOD SPECIMEN / Unknown Venipuncture / Unknown 06/04/2024 11:28 AM PROCESS SAFETY MANAGEMENT ENGINEER 06/04/2024 11:38 AM PROCESS SAFETY MANAGEMENT ENGINEER Alirio Domínguez MD LAB - COAGULATION OR DERABLES Performing Organization Address City/[facility]/ZIP Co de Phone Number [facility] [address] [place] [phone], [place] [phone] * TYPE + SCREEN PANEL (06/04/2024 11:28 AM PROCESS SAFETY MANAGEMENT ENGINEER) Pathologist [facility] Antibody Screen NEG 12:18 PM [facility] BLOOD BANK LAB ABO Rh A POS 06/04/2024 12:18 PM [facility] BLOOD BANK LAB Blood Bank BLOOD SPECIMEN / Unknown Venipuncture / Unknown 06/04/2024 11:28 AM PROCESS SAFETY MANAGEMENT ENGINEER 06/04/2024 11:42 AM PROCESS SAFETY MANAGEMENT ENGINEER Alirio Domínguez MD LAB - BLOOD BANK ORD ERABLES Performing Organization Address [facility]/ZIP Co de Phone Number [facility] BLOOD BANK LAB [address] [place] [address], [place] [phone] * (ABNORMAL) CBC W AUTO DIFFERENTIAL (06/04/2024 11:28 AM PROCESS SAFETY MANAGEMENT ENGINEER) WBC 10.7 4.0 - 10.7 x10E9/L 06/04/2024 11:49 AM [facility] RBC Count 3.99(L) 4.30 - 5.80 x10E12/L 06/04/2024 11:49 AM [facility] Hemoglobin 12.3(L) 13.3 - 17.5 g/dL 06/04/2024 11:49 AM [facility] Hematocrit 36.7(L) 38.7 - 51.1 % 06/04/2024 11:49 AM [facility] MCV 92.0 80.0 - 98.0 fL 06/04/2024 11:49 AM [facility] MCH 30.8 26.7 - 33.6 pg 06/04/2024 11:49 AM [facility] MCHC 33.5 31.7 - 36.3 g/dL 06/04/2024 11:49 AM [facility] RDW-CV 12.3 11.3 - 14.8 % 06/04/2024 11:49 AM [facility] Platelet Count 210 150 - 420 x10E9/L 06/04/2024 11:49 AM [facility] MPV 11.1 7.8 - 11.4 fL 06/04/2024 11:49 AM [facility] Neutrophil % 85.1(H) 41.0 - 74.0 % 06/04/2024 11:49 AM [facility] Lymphocyte % 9.4(L) 17.0 - 47.0 % 06/04/2024 11:49 AM [facility] Monocyte % 4.2 3.0 - 11.0 % 06/04/2024 11:49 AM [facility] Eosinophil % 0.5 0.0 - 7.0 % 06/04/2024 11:49 AM [facility] Basophil % 0.5 0.0 - 1.6 % 06/04/2024 11:49 AM [facility] Immature Granulocytes % 0.3 0.0 - 1.0 % 06/04/2024 11:49 AM [facility] Neutrophil Absolute 9.13(H) 1.60 - 7.50 x10E9/L 06/04/2024 11:49 AM [facility] Lymphocyte Absolute 1.01 1.00 - 4.40 x10E9/L 06/04/2024 11:49 AM [facility] Monocyte Absolute 0.45 0.15 - 1.00 x10E9/L 06/04/2024 11:49 AM [facility] Eosinophil Absolute 0.05 0.00 - 0.60 x10E9/L 06/04/2024 11:49 AM [facility] Basophil Absolute 0.05 0.00 - 0.13 x10E9/L 06/04/2024 11:49 AM [facility] Blood BLOOD SPECIMEN / Unknown Venipuncture / Unknown 06/04/2024 11:28 AM PROCESS SAFETY MANAGEMENT ENGINEER 06/04/2024 11:38 AM PROCESS SAFETY MANAGEMENT ENGINEER Alirio Domínguez MD LAB - HEMATOLOGY ORD ERABLES [facility] [address] [place] [address], [place] [phone] * (ABNORMAL) CREATININE - POCT INTERFACED (06/04/2024 11:18 AM PROCESS SAFETY MANAGEMENT ENGINEER) Creatinine POCT 1.12 0.30 - 1.30 mg/dL 06/04/2024 11:21 AM [facility] eGFR 67(L) >=90 mL/min/1.7 3 m2 06/04/2024 11:21 AM [facility] Blood BLOOD SPECIMEN / Unknown 06/04/2024 11:18 AM PROCESS SAFETY MANAGEMENT ENGINEER 06/04/2024 11:21 AM PROCESS SAFETY MANAGEMENT ENGINEER Provider Unknown LAB - POINT OF CARE ORDERABLES [address] [address], [place] [phone] * INR WHOLE BLOOD - POINT OF CARE (IP) STROKE (06/04/2024 11:17 AM PROCESS SAFETY MANAGEMENT ENGINEER) INR 1.1 0.9 - 1.2 06/04/2024 11:20 AM PROCESS SAFETY MANAGEMENT ENGINEER [facility] Device [id number] 06/04/2024 11:20 AM [facility] Machine Pie Maker ID [id number] 06/04/2024 11:20 AM [facility] Blood BLOOD SPECIMEN / Unknown 06/04/2024 11:17 AM PROCESS SAFETY MANAGEMENT ENGINEER 06/04/2024 11:20 AM PROCESS SAFETY MANAGEMENT ENGINEER Provider Unknown LAB - POINT OF CARE ORDERABLES [address] [address], [place] [phone] * CT BRAIN - Stroke (06/04/2024 11:13 AM PROCESS SAFETY MANAGEMENT ENGINEER) Anatomical Region Laterality Modality Head Computed Tomogra phy 06/04/2024 11:1 6 AM PROCESS SAFETY MANAGEMENT ENGINEER Impressions 06/04/2024 11:21 AM PROCESS SAFETY MANAGEMENT ENGINEER IMPRESSION: 1.No acute intracranial hemorrhage. 2.Please note [...] 06/04/2024 11:21 AM Narrative 06/04/2024 11:21 AM PROCESS SAFETY MANAGEMENT ENGINEER PROCEDURE: CT BRAIN STROKE, DATE/TIME OF EXAM: 06/04/2024 11:20 AM, LOCATION [facility] INDICATION: Code Stroke EXAMINATION: Computed tomography [...] DATE/TIME OF EXAM: 06/04/2024 11:20 AM, LOCATION [facility] INDICATION: Code Stroke EXAMINATION: Computed tomography [...] 3:10 PM 06/07/2024 7:54 PM Care Teams Diesel Power Mechanic Relationship Specialty Start Date End Date Torres Manzano MD [address] [place] [id number] PCP - General Internal Medicine 06/04/24
--- OUTSIDE RECORDS SUMMARY | 2024-08-31 09:10 | XMS_ITS | Encounter Summary ---
Author Organization [facility] Address [address] [facility] [place] [address] Care Team Providers Care Sonar Subsystem Equipment Operator Name Role Phone Torres Manzano MD Primary Care Provider [phone] Encounter Details Date Type Department Care Team (Late st Contact Info) Description 04/11/2022 Lab Requisition [facility] DermPath Lab [address] [facility] [place] [id number] Amrik Huynh MD [address] [facility] [place] [address] Social History Tobacco Use Types Packs/Day Years Used Date Smoking Tobacco: Never Assessed Sex and Gender Information Value Date Recorded Sex Assigned at Not on file Gender Identity Not on file Sexual Orientation Not on file documented as of this encounter Plan of Treatment Not on file documented as of this encounter Procedures Procedure Name Priority Date/Time Associated Diagnosis Comments DERMATOPATHOLOGY Routine 04/09/2022 12:0 0 AM CDT documented in this encounter Results * DERMATOPATHOLOGY (04/09/2022 12:00 AM CDT) Case Report Dermatopathology Report Case: [id number] Authorizing Provider: Amrik Huynh MD Collected: 04/09/2022 12:00 AM Ordering Location: [facility] DermPath Lab Received: 04/11/2022 06:50 AM Pathologist: Laura No MD Specimen: Skin, left jaw 4:06 PM CDT DERMATOPATHOLOGY LABORATORY Final Diagnosis Specimen A. 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 Path#[id number]. Check margins 4:06 PM CDT DERMATOPATHOLOGY LABORATORY Gross Description Specimen A: Received is one formalin filled container labeled with the patient's name and designated left jaw. The specimen consists of a non-oriented ellipse of skin measuring 56g44x1 mm. The epidermal surface is unremarkable. The margin is inked green. The 12 o'clock and 6 o'clock tips are submitted in cassette 1. The remainder of the ellipse is serially sectioned and submitted in cassette 2-4. Jar 0. 4:06 PM CDT DERMATOPATHOLOGY LABORATORY Microscopic Description [...] are oriented perpendicular to the skin surface. 4:06 PM T DERMATOPATHOLOGY LABORATORY Disclaimer An external and internal positive and negative controls are appropriate for the histochemical, immunohistochemical and immunofluorescence stain(s) in this case (if any), except where stated explicitly. The performance characteristics of the stain(s) cited in this report were developed and its performance characteristic determined by the Dermatopathology Laboratory at [facility], directed by Dr. Larry Muse. These tests need not be, and therefore are not, approved by the [place] Food and Drug Administration. The tests are used for clinical purposes. Billing Codes Specimen Charges Stain Charges 77507 1 4:06 PM CDT DERMATOPATHOLOGY LABORATORY Embedded Images 4:06 PM CDT DERMATOPATHOLOGY LABORATORY Pathology/Cytolog y TISSUE SPECIMEN FROM SKIN / Unknown 04/09/2022 04/11/2022 6:50 AM CDT Amrik Huynh MD LAB - PATHOLOGY/CYTO LOGY ORDERABLES DERMATOPATHOLOGY LABORATORY [facility] Department of Dermatology [facility] Medicine [address] [place] [address], [address] [phone] documented in this encounter Visit Diagnoses Not on filedocumented in this encounter Care Teams Sonar Subsystem Equipment Operator Relationship Specialty Start Date End Date Torres Manzano MD [address] [place] [phone] PCP - General Internal Medicine 06/04/24 documented as of this encounter
--- OUTSIDE RECORDS SUMMARY | 2024-08-31 09:10 | XMS_ITS ---
Author Organization [facility] Address [address] [place] [address] Care Team Providers Care Puppy Trainer Name Role Phone Torres Manzano MD Primary Care Provider Unavail able Dr. Jagjit Vang Unavailable [phone] [employer]-Migration, Provider Unavailable Unavailab le REASON FOR VISIT Multum To Medispan Conversion Encounter Medications Medication SIG (Take, Route, Frequency, Duration) Notes Start Date End Date Status Trospium Chloride 20 MG 1 tab(s) orally 2 times a day for 30 day(s) Active Cetirizine HCl 10 MG 1 tab(s) orally once a day Active TRAZADONE 50MG 1 BY MOUTH AT BEDTIME *Please review for potential replacement for e-prescription and drug interaction check* Active Ezetimibe 10 MG 1 tab(s) orally once a day Active Melatonin 3 MG 1 tab(s) orally once a day (at bedtime) Active Glucosamine Sulfate 1000 MG as directed orally once a day Active valACYclovir HCl 500 MG 1 tab(s) orally once a day Active Levothyroxine Sodium 50 MCG 1 tab(s) orally once a day for 30 day(s) Active Metoprolol Tartrate 25 MG 1 tab(s) orally once a day Active Donepezil HCl 10 MG 1 tab(s) orally once a day (at bedtime) for 30 days 06/04/2023 Active Losartan Potassium 100 MG 1 tab(s) orally once a day Active Atorvastatin Calcium 80 MG 1 tab(s) orally once a day for 30 day(s) Active Vitamin D3 125 MCG 1 CAP(S) ORALLY ONCE A DAY for 30 DAY(S) *Please review and pick correct [facility]ulatio [facility]. If intended option is not shown, discontinue and re-order from Quick Search* Active Eliquis 5 MG as directed orally 2 times a day for 30 day(s) Active Sertraline HCl 50 MG 1 tab(s) orally once a day for 30 day(s) Active Encounters Encounter Location Date Provider Diagnosis [address] [address] 12/12/2023 Provider Bernard Alzheimer's disease with late onset G30.1 Assessments Encounter Date Diagnosis (ICD Code) Assessment Notes Treatment Notes Treatment Clinical Notes Section Notes 12/12/2023 Alzheimer's disease with late onset (ICD-10 - G30.1) Plan Of Treatment Medication Medication Name Sig Start Date Stop Date Notes Donepezil HCl 10 MG 1 tab(s) orally once a day (at bedtime) for 30 days 06/04/2023 Progress Notes * David ACOSTA ADOB:1945 (79 yo M)Acc No.[id number]:12/12/2023 Patient: Parul David GARCIA Provider: Vanessa Bello :1945 A ge:78 Y S ex:Male Date:12/12/2023 Address:[address] [place], [place] [id number] Pcp:Torres Manzano MD Subjective: * Chief Complaints: * 1 . [facility]. * Medical History: * Medications: T aking Glucosamine Sulfate 1000 MG Capsule as directed orally once a day , Taking Metoprolol Tartrate 25 MG Tablet 1 tab(s) orally once a day , Taking valACYclovir HCl 500 MG Tablet 1 tab(s) orally once a day , Taking Cetirizine HCl 10 MG Tablet 1 tab(s) orally once a day , Taking Trospium Chloride 20 MG Tablet 1 tab(s) orally 2 times a day , Taking Ezetimibe 10 MG Tablet 1 tab(s) orally once a day , Taking TRAZADONE 50MG 1 BY MOUTH AT BEDTIME , Notes to Pharmacist: *Please review for potential replacement for e-prescription and drug interaction check*, Taking Melatonin 3 MG Tablet 1 tab(s) orally once a day (at bedtime) , Taking Sertraline HCl 50 MG Tablet 1 tab(s) orally once a day , Taking Losartan Potassium 100 MG Tablet 1 tab(s) orally once a day , Taking Vitamin D3 125 MCG CAPSULE 1 CAP(S) ORALLY ONCE A DAY , Notes to Pharmacist: *Please review and pick correct strength-formulation from Medispan options. If intended option is not shown, discontinue and re-order from Quick Search*, Taking Atorvastatin Calcium 80 MG Tablet 1 tab(s) orally once a day , Taking Eliquis 5 MG Tablet as directed orally 2 times a day , Taking Levothyroxine Sodium 50 MCG Tablet 1 tab(s) orally once a day Objective: * Vitals: Assessment: * Assessment: 1. A lzheimer's disease with late onset - G30.1 Plan: * Treatment: * Billing Information: * Visit Code: * Procedure Codes: * Electronic signature of Prov brandon KENYON-Migration on 08/31/2024 at 09:09 AM WOOD PATTERNMAKER APPRENTICE Sign off status: Pending * Provider: Vanessa garcia Migration Date: 0 12/12/2023 Generated for Gilberto randolph/Deepthi/Gabriel on: 0 08/31/2024 09:09 AM WOOD PATTERNMAKER APPRENTICE
[2024-08-31 09:11] LABS: Add Urine Microscopic? YES; Appearance Urine Clear (Clear); Bacteria Urine 4+ /hpf; Bilirubin Urine Negative (Negative); Blood Urine Negative (Negative); Color Urine Dark Yellow (Yellow); Glucose Urine UA Negative (Negative); Ketones Urine Trace mg/dL (Negative); Leukocyte Esterase Ur 1+ LEU/UL (Negative); Nitrate Urine Positive (Negative); Protein Urine 2+ mg/dL (Negative); RBC Urine 0-2 /hpf (0-2); Specific Grav Ur 1.024 (1.001-1.035); Squamous Epithelial Cell Urine None Seen /hpf (Few); Urobilinogen Urine 0.2 mg/dL (<2.0); WBC Urine 21-50 /hpf (0-3)
--- OUTSIDE RECORDS SUMMARY | 2024-08-31 09:11 | XMS_ITS | Clinical Summary ---
Author Organization [facility] Address [address], [facility] [address] [place] [address] Phone Care Team Providers Care It Solutions Sales Consultant Name Role Phone Torres Manzano MD Primary Care Provider [phone] Allergies No known active allergies Medications levETIRAcetam (KEPPRA) 500 MG Tablet Take 500 mg by mouth. 01/11/2024 Active Cholecalciferol 10 MCG (400 UNIT) Capsule Active levothyroxine (SYNTHROID) 75 MCG Tablet Take 75 mcg by mouth. 09/22/2023 Active Nebivolol HCl 20 MG Tablet TAKE 1 TABLET BY MOUTH ONCE DAILY Oral for 90 Days Active trospium (SANCTURA) 20 MG Tablet Take 20 mg by mouth. 02/10/2024 Active Glucosamine-Cho ndroit-Vit C-Mn (GLUCOSAMINE 1500 COMPLEX PO) 1,500 mg. Active Multiple Vitamins-Minera ls (ADVANCED EYE HEALTH PO) Take 1 Tablet by mouth daily. Active atorvastatin (LIPITOR) 80 MG Tablet Take 80 mg by mouth. 01/20/2022 Active losartan (COZAAR) 50 MG Tablet Take 50 mg by mouth daily. 01/18/2024 Active cetirizine (ZyrTEC) 10 MG Tablet Take 10 mg by mouth. 02/15/2024 Active ezetimibe (ZETIA) 10 MG Tablet Take 10 mg by mouth. 06/21/2022 Active sertraline (ZOLOFT) 50 MG Tablet Take 50 mg by mouth. 12/03/2023 Active donepezil (ARICEPT) 5 MG Tablet TAKE 2 TABLETS BY MOUTH AT BEDTIME 01/12/2024 Active tamsulosin (FLOMAX) 0.4 MG Capsule Take 0.4 mg by mouth. 11/25/2023 Active traZODone (DESYREL) 50 MG Tablet 1 tablet at bedtime Orally at bedtime for 90 days Active valACYclovir (VALTREX) 1 GM Tablet Take 1 tablet every 12 hours by oral route. Active Melatonin 5 MG Tablet Take 5 mg by mouth. Active Ferrous Sulfate 325 (65 Fe) MG Tablet Delayed Response Take 1 Tablet by mouth daily. 90 Tablet 1 04/04/2024 Active Active Problems Problem Noted Date Diagnosed Date Iron deficiency anemia 03/22/2024 Anemia in stage 3a chronic kidney disease 2023 Family History Medical History Relation Name Comments Other-comment Father polycythemia v era Relation Name Status Comments Brother Alive Child 1 Alive Child 2 Alive Child 3 Alive Father Mother Sister Alive Social History Tobacco Use Types Packs/Day Years Used Date Smoking Tobacco: Never Smokeless Tobacco: Never Tobacco Cessation:Counseling Given: No Alcohol Use Standard Drinks/Week Comments Never 0 (1 standard drink = 0.6 oz pur e alcohol) Sex and Gender Information Value Date Recorded Sex Assigned at Not on file Legal Sex Male 3:52 PM CDT Gender Identity Not on file Sexual Orientation Not on file Last Filed Vital Signs Vital Sign Reading Time Taken Comments Blood Pressure 136/74 03/04/2024 1:45 PM CDT Pulse 86 03/04/2024 1:45 PM CDT Temperature 36.9 C (98.4 F) 03/04/2024 1:45 PM CDT Respiratory Rate 18 03/04/2024 1:45 PM CDT Oxygen Saturation 96% 03/04/2024 1:45 PM CDT Inhaled Oxygen Concentration - - Weight 75 kg (165 lb 6.4 oz) 03/04/2024 1:45 PM CDT Height 182.9 cm (6') 03/04/2024 1:45 PM CDT Body Mass Index 22.43 03/04/2024 1:45 PM CDT Plan of Treatment Health Maintenance Due Date Last Done Comments SARS-COV-2 Immunization () 02/28/2024 04/26/2023, 03/23/2022, 10/02/2021, Additional history exists Hepatitis C Virus (HCV) Screening Completed 03/24/2017 TdaP Immunization Completed 02/06/2022, , 11/09/2012 Pneumococcal Immunization (50+ years) Completed 09/18/2022, 06/18/2015, 04/27/2012 Zoster Immunization Completed 09/18/2022, Respiratory Syncytial Virus (RSV) Immunization (Adult) Completed 02/25/2023 Influenza Immunization Completed , 02/25/2023, 03/23/2022, Additional history exists Hepatitis B Immunization Aged Out No longer eligible based on patient's age to complete this topic Meningococcal Immunization (ACWY) Aged Out No longer eligible based on patient's age to complete this topic Rotavirus Immunization Aged Out No lo nger eligible based on patient's age to complete this topic Insurance MEDICARE [facility] Care Teams It Solutions Sales Consultant Relationship Specialty Start Date End Date Torres Manzano MD [address] [place] [address] PCP - General Family Medicine 01/21/24
--- OUTSIDE RECORDS SUMMARY | 2024-08-31 09:11 | XMS_ITS ---
Author Organization [facility] [employer] Address [address] [place] [address] Care Team Providers Care Turnaround Planner Name Role Phone Sally Beltran Unavailable [phone] Allergies No Known Allergies REASON FOR VISIT f/u rx Medications Medication SIG (Take, Route, Frequency, Duration) Notes Start Date End Date Status Nebivolol HCl 20 MG TAKE 1 TABLET BY ADI TH ONCE DAILY Oral for 90 Days Active Trospium Chloride 20 MG TAKE 1 TABLET BY MOUTH TWICE DAILY Oral for 30 Days Active Levothyroxine Sodium 75 MCG Oral for 90 Days Active Atorvastatin Calcium 80 MG TAKE 1 TABLET BY MOUTH ONCE DAILY Oral for 90 Days Active traZODone HCl 50 MG 1 tablet at bedtime Orally at bedtime for 90 days Active Losartan Potassium 100 MG TAKE 1 TABLET BY MOUTH IN THE EVENING Oral for 90 Days Active Sertraline HCl 50 MG 1 tablet Oral at be dtime for 90 days Active Fluticasone Propionate 50 MCG/ACT USE 2 SPRAY(S) IN EACH NOSTRIL ONCE DAILY Nasal for 30 Days Active Tamsulosin HCl 0.4 MG TAKE 1 CAPSULE BY MOUTH ONCE DAILY Oral for 90 Days Active Donepezil HCl 10 MG TAKE 1 TABLET BY ADI TH AT BEDTIME FOR 30 DAYS Oral for 30 Days Active Cefdinir 300 MG TAKE 1 CAPSULE BY MO UT TWICE DAILY Oral for 10 Days Active [...] Only a littleDo you participate in social Xtone?: NoDo you use your seat belt or car seat routinely?: YesAdvance DirectiveDo you have an advance directive?: YesDo you have a medical power of estate attorney?: YesPublic Health and TravelHave you been [...] name used: TOMSexual orientation: Straight or heterosexual Vital Signs Blood pressure systolic 143 mm Hg 02/23/20 24 Blood pressure diastolic 89 mm Hg 024 Heart Rate 84 /min 02/23/2024 Height 72.00 in 02/23/2024 Height-cm 182.88 cm 02/23/2024 Encounters Encounter Location Date Provider Diagnosis [facility] [address] [place] [address] 02/23/2024 Sally Beltran Major depressive disorder, recurrent, 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 - Neurologist prescribed Aricpet 02/23/2024 Generalized anxiety disorder (ICD-10 - F41.1) Mild recurrent major depression -patient see product responsibility liaison Zoloft 50 mg to take at bedtime [...] R41.3) Mild recurrent major depression -patient see product responsibility liaison Zoloft 50 mg to take at bedtime [...] [facility] - Neurologist prescribed Aricpet 02/23/2024 Primary insomnia (ICD-10 - F51.01) Mild recurrent major depression -patient see product responsibility liaison Zoloft 50 mg to take at bedtime [...] office of the Alzheimer's Association ( ; http://www.alz. org), the Alzheimer's Disease Education and Referral Center (ADEAR) ( ; http://www.jim. nih.gov/Alzheim ers/), Mild recurrent major depression -patient see product responsibility liaison Zoloft 50 mg to take at bedtime [...] - Neurologist prescribed Aricpet Plan Of Treatment Medication Medication Name Sig Start Date Stop Date Notes traZODone HCl 50 MG 1 tablet at bedtime Orally at bedtime for 90 days Sertraline HCl 50 MG 1 tablet Oral at bedtime for 90 days Treatment Notes Assessment Notes Other referral to the local chapter or national office of the Alzheimer's Association ( ; http://www.alz.org), the Alzheimer's Disease Education and Referral Center (ADEKY) ( ; http://www.jim.nih.gov/Alzheimers/), Next Appt Details Follow Up: 3 Months, Reason: f/u rx Zoloft and Trazodone Progress Notes * CONNOR MCRAEDOB: [birth year] (79 yo M)Acc No.[id number]:02/23/2024 Patient: CONNOR FONSECA GALINDO Provider: MITZI MOSS :1945 A ge:79 Y S ex:Male Date:02/23/2024 Address:[address] [place], [place] [id number] Subjective: * Chief Complaints: * 1 . [...] if something awful might happen S everal , Total MALIK-7 Score 7 , I f [...] eeling down, depressed, or hopeless S everal , T rouble falling or staying asleep, or [...] reading the newspaper or watching television S everal , M oving or speaking so slowly that [...] standardized tool used for adult depression screening: Elie wing Health Questionnaire (PHQ-9). H istory of Presenting Problem: Generalized Anxiety DisorderReported by elie wing. Severity: m oderate Context: d epression; life stressors Modifying Factors: p sychotropic medication Associated Symptoms: d ifficulty concentrating; d ifficulty controlling worry; f atigue; s leep disturbances: Follow up depression and anxiety chronic since last visit reported using W/C I feel depression and anxiety not to good now since I have fallen ill and not like it, I have fallen x1, I feel sad, down I feel not hopeless or helpless, anxiety and feel restless and fidgety, in the day I live in assistance living and not exciting, I do activity and therapy and is good for me, sleep restless, I feel it is ok, I feel it is better, average varies and still take Melatonin 10 mg and no?dizzy, appetite good I gain not much weight, memory not so great, c oncentration and focus not real well I am able to focus on tv and n o A/V psychosis no jennifer, no SI/HI no delusions, no paranoia, no self cutting no self harm, no nightmares or flashbacks, no agitation or irritable. I get along with everyone I live at [facility] in a duplex present with family- denies SI/HI no plans or intent no thoughts harm to self or others, no past attempts, no psychiatric hospital weapons in home guns not locked up educated on locking in safe, FH none ETOH- occasional, minimal if any wine smoking- denies labs- PCP drugs- denies CT brain and been to [facility] for most test, I been to ENT for ears, pacer and AFIB Major Depressive DisorderReported by elie wing. Severity: m oderate Context: h istory of depression Modifying Factors: p sychotropic medication Associated Symptoms: n o agitation; no change in appetite; no weight loss; w eight gain; no feelings of hopelessness; no feelings of helplessness; no inappropriate guilt; participates in usual acitivities; no suicidal ideations; no hallucinations; no delusions; d ifficulty concentrating; f atigue; s leep disturbances ManiaReported by p mecca.Notes:Denies PsychosisReported by elie wing.Notes:denies Psychotherapy InterventionReported by [...] on antibiotic Thursday. * Medical History: P beckielems: Generalized anxiety disorder, Memory impairment, Mild recurrent major depression, ,, Anxiety Disorder: Y Depression Major: Y Atrial Fibrillation: Y Cardiac Pacemaker: Y Hyperlipidemia: Y Hypertension: Y Hypothyroidism: Y Notes: Anxiety, A'Fib, CKD, Gout, HLD. HTN, Hypothyroidism. * Family History: F ather: . M other: . 1 brother(s) , 1 sister(s) . 2 son(s) , 1 daughter(s) . . * Social History: M igrated Social History: M igrated Social History: Alcohol Intake: None 01/29/2023,Tobacco Years: Never smoker 10/28/2022. D rug/Alcohol: D o you smoke marijuana?: Denies. Do you drink alcohol?: Yes, not very often. S ubstance UseDo you or have you [...] YesDo you have a medical power of estate attorney?: YesPublic Health and TravelHave you been [...] Allergies: N .K.D.A. Objective: * Vitals: B P:143/89mm Hg, HR:84/min, Ht: 72.00 in, Ht-cm: 182.88 cm. * Examination: P sychiatry: Dementia S afety concern screening for dangerousness to self and environment risks provided: Y esWhat action was taken to mitigate the risk? E ducation provided yesTopics discussed for environmental risks: H ome safety risks that could arise from cooking or smoking, Access to firearms or other weapons, Access to potentially dangerous chemicals and other materials Patient lives in recreational assistant livingTopics discussed for dangerousness to self: [...] reported in between a [place] towns and [place]man S LOW RECALL [place] alert to self and family 47 President Jenn Limon Obama week backwards slow recall 01/02. Perceptual disorders: n o perceptual disorder noted. Psychomotor activity: W C and slow gait hx falls. Speech / [...] food by any method, including tube feedings I ndependentToilet use: including using the toilet room or commode, bedpan, urinal, transferring on/off toilet, cleaning self after toilet use or incontinent episode, changing pad, managing any special devices required (ostomy or catheter), and adjusting clothes. L imited assistanceTransfer: including moving to and between surfaces--to/from bed, chair, wheelchair, standing position (excludes to/from bath/toilet) L imited assistanceTransportation G reat difficultyContinence: I ndependent (1). 1 point for independence, 0 for help. Assessment: * Assessment: 1. M dontrellor depressive disorder, recurrent, mild - F33.0 (Primary) 2 . G eneralized anxiety disorder - F41.1 3 . O ther amnesia - R41.3 4 .?Primary insomnia - F51.01 Mild recurrent major depress ion -patient see product responsibility liaison Zoloft 50 mg to take at bedtime [...] -Sertraline 50 mg bedtime 3. Primary Insomnia T razodone 50 mg at bedtime- educated on rx Melatonin 10 mg OTC 4. Memory impairment - reviewed CANS/MCI 01/28/23 reviewed SLUMS 18 01/28/[address] - Neurologist prescribed Aricpet Plan: * Treatment: 2. P rimary insomnia Start traZODone HCl Tablet, 50 MG, 1 tablet at bedtime, Orally, at bedtime, 90 days, 90 Tablet, Refills 0. 3. O thers Notes: referral to the [facility] office of the Alzheimer's Association ( ;http://www.alz.org), the [facility] Education [facility]erral [facility] (ADEKY) ( ;http://www.jim.nih.gov/Alzh ariel/), * Procedure Codes: 9 6127 BEHAV ASSMT W/SCORE & DOCD/STAND INSTRUMENT, 70027 BEHAV ASSMT W/SCORE & DOCD/STAND INSTRUMENT, G2211 VISIT COMPLEXITY INHERENT TO ONGOING CARE RELATED TO A PATIENT'S SINGLE, SERIOUS CONDITION OR A COMPLEX CONDITION * Follow Up: 3 Months (Reason: f/u rx Zoloft and Trazodone) * Billing Information: * Visit Code: 38018 OFFICE OUTPATIENT VISIT 25 MINUTES DETAILED HISTORY AND EXAM/MODERATE MEDICAL DECISION MAKING. * Procedure Codes: 09076 BEHAV ASSMT W/SCORE & DOCD/STAND INSTRUMENT. 57360 BEHAV ASSMT W/SCORE & DOCD/STAND INSTRUMENT. G2211 VISIT COMPLEXITY INHERENT TO ONGOING CARE RELATED TO A PATIENT'S SINGLE, SERIOUS CONDITION OR A COMPLEX CONDITION. * Sign off status: Completed true * Provider: MITZI MOSS Date: 0 02/23/2024 Generated for Gilberto randolph/Deepthi/Loriransmitting on: 0 08/31/2024 09:10 AM PLOW AND BORING MACHINE TENDER History and Physical Notes * HPI (History of Present Illness) Category Sub-Category Detail Notes Category Not es History of Presenting Problem Generalized Anxiety DisorderReported by patient. Severity: moderate Context: depression; life stressors Modifying Factors: psychotropic medication Associated Symptoms: difficulty concentrating; difficulty controlling worry; fatigue; sleep disturbances: Follow up depression and anxiety chronic since last visit reported using W/C I feel depression and anxiety not to good now since I have fallen ill and not like it, I have fallen x1, I feel sad, down I feel not hopeless or helpless, anxiety and feel restless and fidgety, in the day I live in assistance living and not exciting, I do activity and therapy and is good for me, sleep restless, I feel it is ok, I feel it is better, average varies and still take Melatonin 10 mg and no dizzy, appetite good I gain not much weight, memory not so great, concentration and focus not real well I am able to focus on tv and no A/V psychosis no jennifer, no SI/HI no delusions, no paranoia, no self cutting no self harm, no nightmares or flashbacks, no agitation or irritable. I get along with everyone I live at [facility] in a duplex present with family- denies SI/HI no plans or intent no thoughts harm to self or others, no past attempts, no psychiatric hospital weapons in home guns not locked up educated on locking in safe, FH none ETOH- occasional, minimal if any wine smoking- denies labs- PCP drugs- denies CT brain and been to [facility] for most test, I been to ENT for ears, pacer and AFIB Major Depressive DisorderReported by patient. Severity: moderate Context: history of depression Modifying Factors: psychotropic medication Associated Symptoms: no agitation; no change in appetite; no weight loss; weight gain; no feelings of hopelessness; no feelings of helplessness; no inappropriate guilt; participates in usual acitivities; no suicidal ideations; no hallucinations; no delusions; difficulty concentrating; fatigue; sleep disturbances ManiaReported by patient.Notes:Denies PsychosisReported by patient.Notes:denies Psychotherapy InterventionReported by patient. RX HX Wellbutrin, Trazodone, Zoloft Depression screening [...] Mild Depression Intervention Depression Screening Findings: P ositve Follow-Up for Depression: Management of mental health treatment Suicide Risk Assessment Performed: Additional Evaluation for De pression: Psychiatric interview and evaluation Name of the standardized too l used for adult depression screening:: Patient Health Questionnaire (PHQ-9) Depression Screening MALIK-7 (2018 Edition) Feelin g nervous, anxious, or [...] WC and slow gait h x falls Abnormal body movements: none Attention: good Degree of awareness of surroundings: wit hin normal limits Orientation: day week unable ambrose h- unable year - unable town reported in between a [place] towns and tricky SLOW RECALL [place] alert to self and family 47 President [...] chemicals and other materials Patient lives in recreational assistant living Topics discussed for dangerousness to [...] food by any method, including tube feedings: Independent Toilet use: including using the toilet room or commode, bedpan, urinal, transferring on/off toilet, cleaning self after toilet use or incontinent episode, changing pad, managing any special devices required (ostomy or catheter), and adjusting clothes.: Limited assistance Transfer: including moving t o and between surfaces--to/from bed, chair, wheelchair, standing position (excludes to/from bath/toilet): Limited assistance Transportation: Great difficulty Continence:: Independent (1)
--- OUTSIDE RECORDS SUMMARY | 2024-08-31 09:11 | XMS_ITS | Clinical Summary ---
Author Organization [facility] [place] Address [address] [place] [address] Care Team Providers Care Benefits Assistant Name Role Phone Torres Manzano MD Primary Care Provider [phone] Allergies No known active allergies Medications loratadine [...] mcg capsule Take 50 mcg by mouth owner manager before breakfast Active fluticasone propionate (FLONASE) 50 mcg/actuation nasal spray Administer 2 sprays into each nostril daily [place] 2 sprays in each nostril daily [...] 06/01/2020 Assessment & Plan (06/01/2020 3:40 PM FLIGHT CONTROL TOWER OPERATOR): Patient has history of postural hypotension associated [...] 05/29/2020 Assessment & Plan (05/31/2020 11:18 AM FLIGHT CONTROL TOWER OPERATOR): P/w worsening orthostatic hypotension with profound drops [...] 06/01/20 Assessment & Plan (05/30/2020 9:27 AM FLIGHT CONTROL TOWER OPERATOR): Presenting with worsening orthostatic hypotension with profound [...] 05/29/2020 Assessment & Plan (05/31/2020 11:03 AM FLIGHT CONTROL TOWER OPERATOR): TSH wnl on current Synthroid dose. - Continue Synthroid 50mcg daily Assessment & Plan (05/30/2020 9:25 AM FLIGHT CONTROL TOWER OPERATOR): TSH wnl on current Synthroid dose. - Continue Synthroid 50mcg daily TRVAIS (obstructive sleep apnea) 05/29/2020 Assessment & Plan (05/31/2020 11:12 AM FLIGHT CONTROL TOWER OPERATOR): Diagnosed on recent sleep study, now currently on CPAP due to intolerance, working on getting mouthpiece. - Defer further eval to outpatient Assessment & Plan (05/30/2020 9:27 AM FLIGHT CONTROL TOWER OPERATOR): Diagnosed on recent sleep study, now currently on CPAP due to intolerance, working on getting mouthpiece. - Defer further eval to outpatient Osteoarthritis of left acromioclavicular joint 1 07/10/2019 Primary osteoarthritis of left shoulder 05/10/20 20 Superior glenoid labrum lesion of left shoulder 05/10/2020 Postural dizziness 03/27/2020 CHF (congestive heart failure) 02/28/2020 Hyperlipidemia 02/23/2020 Assessment & Plan (05/31/2020 11:03 AM FLIGHT CONTROL TOWER OPERATOR): - Continue Lipitor 80mg daily Assessment & Plan (05/30/2020 9:25 AM FLIGHT CONTROL TOWER OPERATOR): - Continue Lipitor 80mg daily Mild cognitive impairment 02/23/2020 Assessment & Plan (06/01/2020 3:41 PM FLIGHT CONTROL TOWER OPERATOR): Patient's history of mild cognitive impairment. He was taking donepezil but it has been discontinued given the potential for orthostatic hypotension. With the cessation of the donepezil in addition to other medications, his orthostasis has improved. I have not seen any significant change in his cognition. Observation off donepezil would be appropriate at this time. Assessment & Plan (05/31/2020 11:03 AM FLIGHT CONTROL TOWER OPERATOR): History of MCI, on Aricept. - Hold Aricept in setting of orthostatic hypotension Assessment & Plan (05/30/2020 9:25 AM FLIGHT CONTROL TOWER OPERATOR): History of MCI, on Aricept. - Hold [...] 06/23/2019 Assessment & Plan (06/01/2020 3:39 PM FLIGHT CONTROL TOWER OPERATOR): Patient has history of idiopathic peripheral neuropathy [...] 04/28/2019 Assessment & Plan (05/31/2020 11:02 AM FLIGHT CONTROL TOWER OPERATOR): History of HTN on metoprolol XL 25mg bid, losartan 25mg daily, amlodipine 2.5mg daily. Now presenting with elevated BP while lying, sitting, but profound orthostatic hypotension. - See discussion above for orthostatic hypotension Assessment & Plan (05/30/2020 9:24 AM FLIGHT CONTROL TOWER OPERATOR): History of HTN on metoprolol XL 25mg bid, losartan 25mg daily, amlodipine 2.5mg daily. Now presenting with elevated BP while lying, sitting, but profound orthostatic hypotension. - See discussion above for orthostatic hypotension Dry eyes 07/12/2018 History of laser assisted in situ keratomileusis 07/12/2018 Meibomian gland dysfunction 07/12/2018 Fatigue 07/09/2018 History of pulmonary embolism 06/05/2018 Assessment & Plan (05/31/2020 11:03 AM FLIGHT CONTROL TOWER OPERATOR): History of DVT/PE, on Eliquis. - Continue Eliquis 5mg bid Assessment & Plan (05/30/2020 9:25 AM FLIGHT CONTROL TOWER OPERATOR): History of DVT/PE, on Eliquis. - Continue Eliquis 5mg bid Cervical spinal stenosis 06/05/2018 History of atrial fibrillation 06/05/2018 Assessment & Plan (05/31/2020 11:03 AM FLIGHT CONTROL TOWER OPERATOR): History of afib in 2018 following DVT/PE, cardioverted with amiodarone, recurrence 02/28/2020. S/p PVI 04/30/2020 at [facility], now off amiodarone. - Continue Eliquis 5mg BID - Change Metoprolol XL 25mg BID to daily in setting of orthostatic hypotension Assessment & Plan (05/30/2020 9:24 AM FLIGHT CONTROL TOWER OPERATOR): History of afib in 2018 following DVT/PE, cardioverted with amiodarone, recurrence 02/28/2020. S/p PVI 04/30/2020 at [facility], now off amiodarone. - Continue Eliquis [...] suction. Assessment & Plan (07/07/2021 9:12 AM FLIGHT CONTROL TOWER OPERATOR): S/P chest tube placement. Had to be [...] heal. Assessment & Plan (07/06/2021 11:01 AM FLIGHT CONTROL TOWER OPERATOR): S/P chest tube placement. Had to be [...] 06/18/2015 Pneumococcal Polysaccharide PPV23 04/27/2012 Tdap 04/20/2018,11/09/2012 Surgical History Surgery Date Site/Laterality Comments PROSTATE SURGERY 07/30/2018 Medical History Medical History Date Comments Hypertension Hyperlipidemia A-fib (HCC) Dementia (HCC) Family History Medical History Relation Name Comments Lung cancer Brother Heart disease Mother Stroke Mother No Known Problems Sister Relation Name Status Comments Brother Alive Father Mother Sister Alive Social History [...] on file Legal Sex Male 9:21 AM FLIGHT CONTROL TOWER OPERATOR Gender Identity Not on file Sexual Orientation Not on file Obstetrics History Last Filed Vital Signs Vital Sign Reading Time Taken Comments Blood Pressure 110/60 12/23/2022 1:50 PM CDT Pulse 79 12/23/2022 1:50 PM CDT Temperature 36.9 C (98.4 F) 09/22/2022 2:30 PM CDT Respiratory Rate 18 07/09/2021 3:33 PM FLIGHT CONTROL TOWER OPERATOR Oxygen Saturation 95% 12/23/2022 1:50 PM CDT Inhaled Oxygen Concentration - - Weight 92.2 kg (203 lb 3.2 oz) 12/23/2022 1:50 P M CDT Height 182.9 cm (6' 0.01 ) 09/22/2022 2:30 PM CD T Body Mass Index 27.55 09/22/2022 2:30 PM CDT Plan of Treatment Health Maintenance Due Date Last Done Comments Depression Screening 1945 Hepatitis C Screening 1945 Hepatitis B Screening 02/09[birth year]1964 Zoster Vaccine (1 of 2) 02/09/1996 Well Visit 65+ 2011 Fall Risk Assessment 07/09/2022 07/09/2021 Covid-19 Vaccine (4 - 2023-2 5 season) 2024 03/22/2021, 09/11/2020, 08/18/2020 Influenza Vaccine (#1) 2024 , 03/29/2020, 03/29/2020, Additional history exists DTaP/Tdap/Td Vaccine (3 - Td or Tdap) 04/20/2028 04/20/2018, 11/09/2012 Pneumococcal vaccine 65+ Completed 023, 06/18/2015, 04/27/2012 Medical Devices Implanted Type Area Filler Blender Device Identifier Shelf Expiration Date Model / Serial / Lot [employer] 8tc/58 Tendril Sts 6fr 58cm Is-1 Connector Active Fixation Bipolar Soft - [id number] - [id number] Implanted:Qty : 1 on 07/01/2021 by Fahad Gutierrez MD at [facility] Lead Left: Heart [employer] 02/27/20248TC/58 / [id number] / [employer] 2088tc/52 Tendril Sts 6fr 52cm Is-1 Connector Active Fixation Bipolar Soft - [id number] - [id number] Implanted:Qty : 1 on 07/01/2021 by Fahad Gutierrez MD at [facility] Lead Left: Heart [employer] 01/27/20248TC/52 / [id number] / [employer] [id number] Assurity Mri [id number] Chamber Is-1 Connector Thk6mm Pacemaker - [id number] - [id number] Implanted:Qty : 1 on 07/01/2021 by Fahad Gutierrez MD at [facility] Pacemaker Left: Chest Wall [employer] 10/26/2022 [id number] / [id number] / Insurance MEDICARE [facility] MEDICARE [facility] [address] [facility] Advance Directives For more information, please contact: [phone] Documents on File Type Date Recorded Patient Contract Associate Expl anation ADVANCE DIRECTIVE 07/31/2017 12:00 AM POWER OF MATE CHIEF FINANCIAL/MEDICAL ADVANCE DIRECTIVE 07/31/2017 12:00 AM LING JOHNSON * Full Code (Latest Code Status on File) Date Activated Date Inactivated Comments 06/26/2021 2:19 PM 07/09/2021 9:41 PM * Full Code Date Activated Date Inactivated Comments 05/29/2020 9:56 PM 05/31/2020 4:59 PM Healthcare Agents on File Name Relationship Healthcare Agent Joein elie Communication So Dave Daughter Health Care Agent Ni Taylor Daughter Health Care Agent [place] Son Health Care Agent Care Teams Benefits Assistant Relationship Specialty Start Date End Date Malcharek, Torres, MD [address] [place] [address] PCP - General 02/02/19 Christiane Sanchez, [employer] [address] [facility] [address] Customer Program Specialist Infectious Diseases 09/22/22
--- OUTSIDE RECORDS SUMMARY | 2024-08-31 09:11 | XMS_ITS ---
Author Organization [facility] Address [address] [place] [address] Care Team Providers Care Manager Research Name Role Phone Torres Manzano MD Primary Care Provider Dr. Jagjit Alvarado Unavailable [phone] REASON FOR VISIT Refills Medications Medication SIG (Take, Route, Frequency, Duration) Notes Start Date End Date Status DONEPEZIL HYDROCHLORIDE 10 mg 1 tab(s) orally once a day (at bedtime) for 30 days 06/04/2023 Active Encounters Encounter Location Date Provider Diagnosis [address] [address] 11/10/2023 Jagjit Vang Alzheimer's diseas e with late onset G30.1 Assessments Encounter Date Diagnosis (ICD Code) Assessment Notes Treatment Notes Treatment Clinical Notes Section Notes 11/10/2023 Alzheimer's disease with late onset (ICD-10 - G30.1) Plan Of Treatment Medication Medication Name Sig Start Date Stop Date Notes DONEPEZIL HYDROCHLORIDE 10 mg 1 tab(s) o rally once a day (at bedtime) for 30 days 06/04/2023 Progress Notes * David ACOSTA ADOB:1945 (78 yo M)Acc No.[id number]:11/10/2023 Patient: Parul RADHA David Leslie :1945 A ge:78 Y S ex:Male Address:[address] [place] [address], [id number] * Refills Refill Donepezil Hydrochloride tablet, 10 mg, orally, 30, 1 tab(s), once a day (at bedtime), 30 days, Refills=5 * true * Date: Generated for Gilberto randolph/Deepthi/Gabriel on: 0 08/31/2024 09:11 AM DRAFTER (CAD) ELECTRICAL
[2024-08-31 09:23] LABS: Creatine Kinase 23 U/L (55-170)
[2024-08-31 09:36] LABS: Troponin I < 0.012 ng/mL (0.000-0.034)
[2024-08-31 10:00] VITALS: BP 153/82; PULSE 85; RESP 20; O2SAT 97
[2024-08-31 10:18] LABS: Influenza A QL RT-PCR Positive (Negative); Influenza B QL RT-PCR Negative (Negative); RSV RNA, RT-PCR Negative (Negative); SARS-CoV-2 RNA PCR Negative (Negative)
[2024-08-31 10:38] LABS: NT Pro B Type Natriuretic Pept 1380 pg/mL (19.9-100)
[2024-08-31] MEDS: PIPERACILLN/TAZ 3.375GM/NS50ML 3.375 GM/50 ML BAG IVPB ×3 (10:39→23:32)
[2024-08-31] MEDS: SODIUM CHLORIDE 0.9% IV 1,000 ML 999 ML IV CONT (10:40)
[2024-08-31 11:16] VITALS: BP 158/84; PULSE 81; RESP 18; O2SAT 94
[2024-08-31] MEDS: SODIUM CHLORIDE 0.9% IV 1,000 ML 75 ML IV CONT (11:59)
[2024-08-31 13:39] VITALS: BP 177/88; PULSE 85; RESP 14; O2SAT 96
--- NOTE | 2024-08-31 14:02 | PC.NURSE ---
Pt daughter, So, updated with pt admission status and bed number.
[2024-08-31 15:18] VITALS: BMI 17.4
--- NOTE | 2024-08-31 15:19 | ADMGEN ---
This patient, David Acosta, was admitted to 3 [facility] Surg Room 329-01. Patient/family oriented to hospital policies and general routines including ID bracelet, bed and alarms, visiting hours, pain management, procedures, bathroom and other care routines, personal items, smoking policy, room service/diet, and visiting hours. Information on how to activate the Rapid Response Team has been discussed. Patient/Family are encouraged to report perceived risks to care and to ask questions if they do not understand what they are told or what they should do.
--- NOTE | 2024-08-31 15:26 | P.HP_ITS ---
H&P: HPI History of Present Illness Date/Time: 08/31/24 15:26 Chief Complaint: AMS and hypoxia Narrative: 79 M with PMh of dementia, CVA, AFIB on eliquis, hypothyroidism, CKD, seizure disorder on keppra, pacemaker, correction resident brought to the ER on account of altered mental status and low oxygen. Patient was altered at the time of this encounter unable to provide a history. Nava was a bedside noted she was called from the correction is I was told at the since yesterday patient has been having altered mental status and poor oral intake much today oxygen was low on his transported to the ER for proper evaluation and care. ER evaluation notable for blood pressure 177/88, patient on med. Labs notable for WBC 7.1, hemoglobin 10.8, platelets 84. Creatinine is 1.29, flu positive. Chest x-ray was left basilar atelectasis versus pneumonia. CT head unremarkable. Review of Systems Review of Systems: Unable to do review of systems as patient was altered. [facility] Family History Family History Mother Hypertension Father Polycythemia Sibling Cancer Social History Social History Smoking status: Never smoker Alcohol intake: former Substance use: never Do You Feel Safe in your Home?: Yes Lack of Transportation: No Lack of Food: Never True Current Housing: I Have Housing Concerned About Future Housing: No Difficulty Paying Gas/Electric Bills: No Difficulty Paying for Meds: No Currently Unemployed: No Education: High School Diploma/GED Difficulty w/ Childcare or Family Care: No Spiritual care concerns: No Meds Home Medications and Allergies Home Medications ?Medication ?Instructions ?Recorded ?Confirmed ?Type Glucosamine Chondroitin 1,500 mg PO BID 12/29/23 04/28/24 History Home Medication 1 ea BYMOUTH PRN PRN ##0 01/11/24 04/28/24 Rx atorvastatin 80 mg tablet 80 mg PO HS #30 tabs 01/11/24 08/31/24 Rx benzocaine 6 mg-menthol 10 mg 1 dalila PO PRN PRN Sore Throat #18 ea 01/11/24 04/28/24 Rx lozenges (Chloraseptic Sore Throat) cetirizine 10 mg tablet 10 mg PO HS #30 tabs 01/11/24 04/28/24 Rx donepezil 5 mg tablet (Aricept) 10 mg (2 x 5 mg) PO HS #30 tabs 01/11/24 08/31/24 Rx ezetimibe 10 mg tablet (Zetia) 10 mg PO HS #30 tabs 01/11/24 08/31/24 Rx ferrous sulfate 325 mg (65 mg 325 mg PO DAILY #30 tabs 01/11/24 04/28/24 Rx iron) tablet,delayed release fluticasone propionate 50 2 spray intranasal DAILY #1 g 01/11/24 04/28/24 Rx mcg/actuation nasal spray,suspension levetiracetam 500 mg tablet 500 mg PO Q12HR #60 tabs 01/11/24 04/28/24 Rx (Keppra) levothyroxine 75 mcg tablet 75 mcg PO DAILY@0630 #30 tabs 01/11/24 08/31/24 Rx (Synthroid) magnesium hydroxide 400 mg/5 mL 30 ml PO QAM PRN Constipation #0 mL 01/11/24 04/28/24 Rx oral suspension (Milk of Magnesia) melatonin 3 mg tablet 6 mg (2 x 3 mg) PO HS #30 tabs 01/11/24 08/31/24 Rx midodrine 5 mg tablet 5 mg PO 0900,1300 #60 tabs 01/11/24 04/28/24 Rx nebivolol 5 mg tablet (Bystolic) 20 mg (4 x 5 mg) PO DAILY #30 tabs 01/11/24 04/28/24 Rx oxybutynin chloride 5 mg tablet 5 mg PO BID #60 tabs 01/11/24 04/28/24 Rx sennosides 8.6 mg-docusate sodium 2 tab-cap (2 x 8.6-50 mg) PO BID 01/11/24 04/28/24 Rx 50 mg tablet (Senokot-S) #0 tabs sertraline 50 mg tablet (Zoloft) 50 mg PO HS #30 tabs 01/11/24 08/31/24 Rx tamsulosin 0.4 mg capsule 0.4 mg PO DAILY #30 caps 01/11/24 04/28/24 Rx trazodone 50 mg tablet 50 mg PO HS #30 tabs 01/11/24 04/28/24 Rx Allergies Allergy/AdvReac Type Severity Reaction Status Date / Time No Known Allergies Allergy Verified 08/31/24 09:57 Vital Signs Vital Signs - 24 hr 08/31/24 08:33 08/31/24 08:46 08/31/24 10:00 Temperature 98.1 F Pulse Rate 88 85 Respiratory Rate 20 20 Blood Pressure 156/64 H 153/82 H Pulse Oximetry 94 97 Oxygen Delivery Room Air Room Air 08/31/24 11:16 08/31/24 13:39 Temperature Pulse Rate 81 85 Respiratory Rate 18 14 Blood Pressure 158/84 H 177/88 H Pulse Oximetry 94 96 Oxygen Delivery Exam Narrative: General: Somnolent Eyes: EOMI, PERRLA ENNT External ears normal, Neck is supple, no masses, Respiratory systems: Clear to auscultation Cardiovascular S1, S2, normal rhythm, no murmur, rub, or gallop; no thrill or palpable murmurs on palpation. Gastrointestinal: soft, non-tender, and non-distended abdomen with no masses; BS present Skin: no rash, lesions, ulcerations, subcutaneous nodules or induration Musculoskeletal: no abnormality and no tenderness, normal ROM Neurologic: Lethargic, somnolent nonverbal. H&P: Results Labs Labs: Short CBC 08/31/24 Range/Units 08:49 WBC 7.1 (4.5-10.0) K/mm3 Hgb 10.8 L (14.0-18.0) g/dL Hct 34.0 L (42.0-52.0) % Plt Count 84 L (150-375) k/mm3 BMP 08/31/24 08:49 Sodium 145 Potassium 4.4 Chloride 108 H Carbon Dioxide 28 BUN 39 H Creatinine 1.29 Glucose 114 H Calcium 9.2 Cardiac Enzymes 08/31/24 Range/Units 08:48 Total Creatine Kinase 23 L (55-170) U/L Troponin I < 0.012 (0.000-0.034) ng/mL Liver Function 08/31/24 Range/Units 08:49 Total Bilirubin 0.5 (0.2-1.3) mg/dL AST 35 (17-59) U/L ALT 27 (6-50) U/L Alkaline Phosphatase 74 (38-126) U/L Albumin 3.5 (3.5-5.1) g/dL Urine 08/31/24 Range/Units 08:51 Urine Color Dark yellow (Yellow) Urine Appearance Clear (Clear) Urine pH 5.0 (5.0-9.0) Ur Specific [place] 1.024 (1.001-1.035) Urine Protein 2+ H (Negative) mg/dL Urine Glucose (UA) Negative (Negative) mg/dL Assessment and Plan Assessment and plan (1) Thrombocytopenia: Code(s): D69.6 - Thrombocytopenia, unspecified Status: Acute (2) Left lower lobe pneumonia: Qualifiers: Pneumonia type: due to unspecified organism Qualified Code(s): J18.9 - Pneumonia, unspecified organism Code(s): J18.9 - Pneumonia, unspecified organism Status: Acute (3) Influenza A: Code(s): J10.1 - Influenza due to other identified influenza virus with other respiratory manifestations Status: Acute Plan Influenza a Patient presented with altered mental status hypoxia Chest is clear showed left lower lobe mass neck continue tamoxifen. Left lower lobe pneumonia Blood culture MRSA pending Continue Zosyn at doxycycline. Monitor Altered mental status Due to the above CT head unremarkable. An. Patient passes bedside swallow eval. Speech therapy consult) IV fluid in the meantime. Seizures Continue home Keppra Hypertension Titrate medication clinical course. Dementia Continue medication Chronic atrial fibrillation Continue medications Hypothyroidism Continue home medications we CKD Cranial baseline Monitor. DVT prophylaxis on subQ Lovenox. DNR Health power of real estate attorney, Son, El [facility] Hospitalist MIPS Advance Care Plan I have confirmed that the patient's Advanced Care Plan is present, code status is documented, or surrogate decision maker is listed in patient medical record.: Yes Medication Reconciliation I have utilized all available resources to obtain, update and review the patients current medications (includes all prescriptions, OTC, herbals, cannabis, and nutritional supplements).: Yes
[2024-08-31] MEDS: levETIRAcetam 500MG/NACL 100ML 500 MG/100 ML BAG 400 MG IVPB (15:55)
[2024-08-31] MEDS: DOXYCYCLINE 100 MG/NS 100 ML 100 MG/100 ML BAG IVPB (17:38)
[2024-08-31 18:29] LABS: Iron 18 ug/dL (49-181)
[2024-08-31 18:39] LABS: Percent Iron Saturation 8 % (20-50)
[2024-08-31 19:55] VITALS: BP 145/77; PULSE 81; RESP 16; TEMP 37.3; O2SAT 94
[2024-08-31 21:43] VITALS: BMI 16.7
[2024-08-31 22:44] VITALS: BP 170/86; PULSE 80; RESP 16; TEMP 36.9; O2SAT 96
[2024-09-01] MEDS: DOXYCYCLINE 100 MG/NS 100 ML 100 MG/100 ML BAG IVPB ×2 (04:19→16:08)
[2024-09-01] MEDS: PIPERACILLN/TAZ 3.375GM/NS50ML 3.375 GM/50 ML BAG IVPB ×3 (05:04→17:35)
[2024-09-01 06:00] VITALS: BP 169/91; PULSE 81; RESP 16; TEMP 37.2; O2SAT 95
[2024-09-01 08:14] LABS: Basophils Percent Auto 0.5 % (0.2-1.2); Eosinophils Absolute Auto 0.1 K/mm3 (0-0.3); Eosinophils Percent Auto 1.6 % (0-4.4); Hematocrit 33.1 % (42.0-52.0); Hemoglobin 10.3 g/dL (14.0-18.0); Immature Granulocyte Absolute 0.02 K/mm3 (0.00-0.031); Immature Granulocyte Percent A 0.3 % (0-0.5); Immature Platelet Fraction Pct 8.9 % (0.9-11.2); Lymphocytes Absolute Auto 1.33 K/mm3 (0.9-3.2); Lymphocytes Percent Auto 21.2 % (18.3-44.2); Mean Corpuscular HGB Conc 31.1 g/dl (32-36); Mean Corpuscular Hemoglobin 30.3 pg (26-34); Mean Corpuscular Volume 97.4 fl (80-100); Mean Platelet Volume 12.3 fl (7.4-10.4); Monocytes Absolute Auto 0.7 K/mm3 (0.1-0.6); Monocytes Percent Auto 11.8 % (2.6-8.5); Neutrophils Percent Auto 64.6 % (45.5-73.1); Platelet Count Result 87 k/mm3 (150-375); Red Cell Distribution Width 13.3 % (11.5-14.5); White Blood Count 6.3 K/mm3 (4.5-10.0)
[2024-09-01 08:33] LABS: Alanine Aminotransferase 23 U/L (6-50); Alkaline Phosphatase 73 U/L (38-126); Anion Gap 6 mmol/L (4-12); Aspartate Amino Transferase 32 U/L (17-59); Bilirubin,Total 0.6 mg/dL (0.2-1.3); Blood Urea Nitrogen 29 mg/dL (9-20); Calcium 8.9 mg/dL (8.4-10.2); Carbon Dioxide 30 mmol/L (22-30); Chloride 109 mmol/L (98-107); Estimated CRCL calculation 42 ml/min; Estimated Glomerular Filt Rate > 60; Glucose 91 mg/dL (65-110); Magnesium 1.8 mg/dL (1.6-2.3); Potassium 4.4 mmol/L (3.4-5.0); Sodium 145 mmol/L (137-145)
[2024-09-01] MEDS: OSELTAMIVIR PHOSPHATE 30 MG CAPSULE PO (09:34)
[2024-09-01] MEDS: levETIRAcetam 500MG/NACL 100ML 500 MG/100 ML BAG 400 MG IVPB ×2 (09:34→20:43)
[2024-09-01 10:20] LABS: Iron 19 ug/dL (49-181)
[2024-09-01] MEDS: SODIUM CHLORIDE 0.9% IV 1,000 ML 75 ML IV CONT (10:20)
[2024-09-01 10:30] LABS: Percent Iron Saturation 9 % (20-50)
[2024-09-01 12:51] VITALS: BMI 16.7
[2024-09-01 13:54] VITALS: BP 181/86; PULSE 80; RESP 17; TEMP 36.6; O2SAT 97
--- NOTE | 2024-09-01 14:59 | PCSTNOTE ---
Please refer to the Bedside Swallow Evaluation in the EMR. Please note, silent aspiration cannot be ruled out at bedside.
--- NOTE | 2024-09-01 15:26 | P.PNIM_ITS ---
Progress Note: A&P Assessment and Plan (1) Thrombocytopenia: Code(s): D69.6 - Thrombocytopenia, unspecified Status: Acute (2) Left lower lobe pneumonia: Qualifiers: Pneumonia type: due to unspecified organism Qualified Code(s): J18.9 - Pneumonia, unspecified organism Code(s): J18.9 - Pneumonia, unspecified organism Status: Acute (3) Influenza A: Code(s): J10.1 - Influenza due to other identified influenza virus with other respiratory manifestations Status: Acute Plan Influenza a Patient presented with altered mental status hypoxia Chest CT showed left lower lobe mass neck continue tamoxifen. Left lower lobe pneumonia Blood culture MRSA pending Day 2 Zosyn at doxycycline. Monitor Altered mental status Due to the above CT head unremarkable. IV fluid in the meantime. Speech eval recommends MBS Follow up Seizures Continue home Keppra Hypertension Titrate medication clinical course. Dementia Continue medication Chronic atrial fibrillation Continue medications Hypothyroidism Continue home medications we CKD Cranial baseline Monitor. DVT prophylaxis on subQ Lovenox. DNR Health power of commonwealth attorney, Son, El [employer] Subjective Date/time seen: 09/01/24 15:26 Interval history: Patient comfortable at bedside More alert today however not able to communicate ST recommends [facility] Review of Systems Review of Systems: Unable to do review of systems as patient was altered. Exam Narrative: General: Somnolent Eyes: EOMI, PERRLA ENNT External ears normal, Neck is supple, no masses, Respiratory systems: Clear to auscultation Cardiovascular S1, S2, normal rhythm, no murmur, rub, or gallop; no thrill or palpable murmurs on palpation. Gastrointestinal: soft, non-tender, and non-distended abdomen with no masses; BS present Skin: no rash, lesions, ulcerations, subcutaneous nodules or induration Musculoskeletal: no abnormality and no tenderness, normal ROM Neurologic: Lethargic, somnolent nonverbal. Objective Data Vital Signs Vital Signs: Vital Signs - 24 hr 08/31/24 19:55 08/31/24 22:44 09/01/24 06:00 Temperature 99.2 F 98.4 F 98.9 F Pulse Rate 81 80 81 Respiratory Rate 16 16 16 Blood Pressure 145/77 H 170/86 H 169/91 H Pulse Oximetry 94 96 95 09/01/24 13:54 Temperature 97.9 F Pulse Rate 80 Respiratory Rate 17 Blood Pressure 181/86 H Pulse Oximetry 97 Intake/Output Intake/Output: Intake & Output 08/29/24 08/30/24 08/31/24 09/01/24 23:59 23:59 23:59 23:59 Intake Total 1310 1350 Output Total 50 Balance 1260 1350 Meds/Results Medications: Active Medications Generic Name Dose Route Start Last Admin Trade Name Freq PRN Reason Stop Dose Admin Acetaminophen 650 mg 08/31/24 11:19 Acetaminophen 325 Mg Tablet PO Q4H PRN Mild Pain (1-3) or Fever Atorvastatin Calcium 80 mg 08/31/24 21:00 08/31/24 21:38 Atorvastatin 40 Mg Tablet PO Not Given HS PHILLIP Dextrose 12.5 gm 08/31/24 11:19 Dextrose 50% 25 Gm/50 Ml Syringe IV PUSH PRN PRN Hypoglycemia Protocol Donepezil HCl 10 mg 08/31/24 21:00 08/31/24 21:38 Donepezil Hcl 5 Mg Tablet PO Not Given HS PHILLIP Glucagon 1 mg 08/31/24 11:19 Glucagon For Inj 1 Mg Vial IM PRN PRN Hypoglycemia Protocol Glucose 15 gm 08/31/24 11:19 Glucose Oral Gel 15 Gm Of Glucse In 37.5 Gm Tube PO PRN PRN Hypoglycemia Protocol Piperacillin/Tazobactam/Dextrose 3.375 gm in 50 mls @ 100 mls/hr 08/31/24 18:00 09/01/24 12:12 Zosyn 3.375 Gm/Ns 50 Ml IVPB Infused Q6HR PHILLIP Infusion Sodium Chloride 1,000 mls @ 75 mls/hr 08/31/24 11:20 09/01/24 10:20 Normal Saline Iv IV CONT 75 mls/hr .[id number] PHILLIP Administration Dextrose 1,000 mls @ 100 mls/hr 08/31/24 11:19 Dextrose 5% 1,000 Ml IVPB PRN PRN Hypoglycemia Protocol Doxycycline Hyclate 100 mg in 100 mls @ 100 mls/hr 08/31/24 17:00 09/01/24 05:19 Vibramycin 100 Mg/Ns 100 Ml IVPB Infused Q12H PHILLIP Infusion Levetiracetam 500 mg in 100 mls @ 400 mls/hr 08/31/24 16:00 09/01/24 09:49 Keppra Iv IVPB Infused Q12HR [facility] Infusion Levothyroxine Sodium 75 mcg 09/01/24 06:30 09/01/24 05:02 Levothyroxine Sodium 75 Mcg Tablet PO Not Given DAILY@0630 [facility] Ondansetron HCl 4 mg 08/31/24 11:19 Ondansetron Inj 4 Mg/2 Ml Vial IV PUSH Q4H PRN Nausea Oseltamivir Phosphate 30 mg 09/01/24 08:00 09/01/24 09:34 Oseltamivir Phosphate 30 Mg Capsule PO 09/06/24 07:59 30 mg Q12HR PHILLIP Administration Radiology Results: ITS Impressions Head CT 08/31/24 09:34 IMPRESSION: No acute intracranial findings. Chest X-Ray 08/31/24 09:52 IMPRESSION: Left basilar atelectasis versus pneumonia. Labs Labs: Laboratory Results - last 24 hr 08/31/24 09/01/24 17:32 07:43 WBC 6.3 RBC 3.40 L Hgb 10.3 L Hct 33.1 L MCV 97.4 MCH 30.3 MCHC 31.1 L RDW 13.3 Plt Count 87 L MPV 12.3 H Immature Gran % (Auto) 0.3 Neut % (Auto) 64.6 Lymph % (Auto) 21.2 [place] % (Auto) 11.8 H Eos % (Auto) 1.6 Baso % (Auto) 0.5 Lymph # (Auto) 1.33 [place] # (Auto) 0.7 H Eos # (Auto) 0.1 Baso # (Auto) 0.0 Abs Immat Gran (auto) 0.02 Absolute Neuts (auto) 4.0 Absolute Nucleated RBC 0.000 Nucleated RBC % 0.0 % Immature Plt Fraction 8.9 Sodium 145 Potassium 4.4 Chloride 109 H Carbon Dioxide 30 Anion Gap 6 BUN 29 H D Creatinine 1.15 Estim Creat Clear Calc 42 Estimated GFR > 60 Glucose 91 Calcium 8.9 Magnesium 1.8 Iron 18 L 19 L TIBC 227 L 219 L % Saturation 8 L 9 L Ferritin 168.00 192.00 Total Bilirubin 0.6 AST 32 ALT 23 Alkaline Phosphatase 73 Total Protein 6.0 L Albumin 3.0 L
[2024-09-01 20:19] VITALS: BP 187/96; PULSE 79; RESP 16; TEMP 36.5; O2SAT 95
[2024-09-02] MEDS: PIPERACILLN/TAZ 3.375GM/NS50ML 3.375 GM/50 ML BAG IVPB ×4 (00:06→18:11)
[2024-09-02] MEDS: DOXYCYCLINE 100 MG/NS 100 ML 100 MG/100 ML BAG IVPB ×2 (05:02→17:06)
[2024-09-02] MEDS: SODIUM CHLORIDE 0.9% IV 1,000 ML 75 ML IV CONT (05:07)
[2024-09-02 05:16] VITALS: BP 182/97; PULSE 82; RESP 16; TEMP 36.5; O2SAT 95
[2024-09-02] MEDS: hydrALAZINE HCL 20 MG/ML VIAL 10 MG IV PUSH (06:24)
[2024-09-02 06:37] LABS: Basophils Percent Auto 0.3 % (0.2-1.2); Eosinophils Absolute Auto 0.1 K/mm3 (0-0.3); Eosinophils Percent Auto 2.1 % (0-4.4); Hematocrit 31.8 % (42.0-52.0); Hemoglobin 10.1 g/dL (14.0-18.0); Immature Granulocyte Absolute 0.01 K/mm3 (0.00-0.031); Immature Granulocyte Percent A 0.2 % (0-0.5); Immature Platelet Fraction Pct 6.8 % (0.9-11.2); Lymphocytes Absolute Auto 1.56 K/mm3 (0.9-3.2); Lymphocytes Percent Auto 25.2 % (18.3-44.2); Mean Corpuscular HGB Conc 31.8 g/dl (32-36); Mean Corpuscular Hemoglobin 30.3 pg (26-34); Mean Corpuscular Volume 95.5 fl (80-100); Mean Platelet Volume 11.8 fl (7.4-10.4); Monocytes Absolute Auto 0.6 K/mm3 (0.1-0.6); Monocytes Percent Auto 9.5 % (2.6-8.5); Neutrophils Absolute Auto 3.9 K/mm3 (1.3-6.7); Neutrophils Percent Auto 62.7 % (45.5-73.1); Platelet Count Result 98 k/mm3 (150-375); Red Blood Count 3.33 M/mm3 (4.6-6.20); White Blood Count 6.2 K/mm3 (4.5-10.0)
[2024-09-02 06:46] LABS: Alanine Aminotransferase 20 U/L (6-50); Albumin Level 3.1 g/dL (3.5-5.1); Alkaline Phosphatase 75 U/L (38-126); Anion Gap 8 mmol/L (4-12); Aspartate Amino Transferase 30 U/L (17-59); Bilirubin,Total 0.7 mg/dL (0.2-1.3); Blood Urea Nitrogen 22 mg/dL (9-20); Calcium 8.9 mg/dL (8.4-10.2); Carbon Dioxide 26 mmol/L (22-30); Chloride 109 mmol/L (98-107); Estimated CRCL calculation 48 ml/min; Estimated Glomerular Filt Rate > 60; Glucose 82 mg/dL (65-110); Magnesium 1.6 mg/dL (1.6-2.3); Potassium 3.6 mmol/L (3.4-5.0); Sodium 143 mmol/L (137-145)
[2024-09-02 06:47] LABS: Lactic Acid Reflex 0.6 mmol/L (0.7-2.0)
--- NOTE | 2024-09-02 07:04 | P.CDI_ITS ---
CDI Query Clarification Request BMI: 16.8 Nutritional Diagnostic Statement: Please refer to the comprehensive nutrition assessment for further information. If you agree with diagnosis of Severe protein calorie malnutrition related to chronic loss of appetite as evidenced by weight loss (33lb) -20%/8 months; severe muscle wasting and fat loss. Please specify severity if known: * Mild * Moderate * Severe * Other/Unknown <Lisa Ocampo RN - Last Filed: 09/02/24 07:05> Clarified Diagnosis Clarified Diagnosis: * Severe <Candace Rush MD - Last Filed: 09/02/24 07:07>
[2024-09-02] MEDS: levETIRAcetam 500MG/NACL 100ML 500 MG/100 ML BAG 400 MG IVPB ×2 (12:15→20:15)
--- NOTE | 2024-09-02 12:45 | PCSTNOTE ---
Please refer to the Modified Barium Swallow Evaluation in the EMR.
[2024-09-02 13:43] VITALS: BMI 16.7
--- NOTE | 2024-09-02 13:54 | PCDIET ---
TUBE FEEDING RECOMMENDATIONS: Jevity 1.5@ goal rate 55 ml/h continuous, provides 1815 kcal, 77 g protein, 920 ml free water. Flush 150 ml water q 4 hours for total water 1820 ml/h. Start at 30 ml/h and advance to goal rate as tolerated, 10 ml q 4 h.
[2024-09-02 14:00] VITALS: BP 168/85; PULSE 81; RESP 18; TEMP 36.7; O2SAT 99
--- NOTE | 2024-09-02 14:42 | P.PNIM_ITS ---
Progress Note: A&P Assessment and Plan (1) Thrombocytopenia: Code(s): D69.6 - Thrombocytopenia, unspecified Status: Acute (2) Left lower lobe pneumonia: Qualifiers: Pneumonia type: due to unspecified organism Qualified Code(s): J18.9 - Pneumonia, unspecified organism Code(s): J18.9 - Pneumonia, unspecified organism Status: Acute (3) Influenza A: Code(s): J10.1 - Influenza due to other identified influenza virus with other respiratory manifestations Status: Acute Plan Influenza a Patient presented with altered mental status hypoxia Chest CT showed left lower lobe mass neck continue tamoxifen. Left lower lobe pneumonia Blood culture MRSA pending Day 3 Zosyn at doxycycline. Monitor Altered mental status Due to the above CT head unremarkable. IV fluid in the meantime. Speech eval recommends MBS Follow up Seizures Continue home Keppra Hypertension Titrate medication clinical course. Dementia Continue medication Chronic atrial fibrillation Continue medications Hypothyroidism Continue home medications we CKD Cranial baseline Monitor. Severe protein energy malnutrition ST noted aspiration and poor instruction following recommended NPO Called daughter about tueb feeding and she stated she will reach out to her brother who is the HPOA to make decision continue IVF DVT prophylaxis on subQ Lovenox. DNR Health power of document review attorney, Son, El MCRAE Subjective Date/time seen: 09/02/24 14:42 Interval history: Patient comfortable at bedside More alert today however not able to communicate patient failed Swallow eval called the daughter who stated she will discussed with the brother who is the HPOA in the meantime she wants Tube feeding held until she discusses with the brother Review of Systems Review of Systems: Unable to do review of systems as patient was altered. Exam Narrative: General: Somnolent Eyes: EOMI, PERRLA ENNT External ears normal, Neck is supple, no masses, Respiratory systems: Clear to auscultation Cardiovascular S1, S2, normal rhythm, no murmur, rub, or gallop; no thrill or palpable murmurs on palpation. Gastrointestinal: soft, non-tender, and non-distended abdomen with no masses; BS present Skin: no rash, lesions, ulcerations, subcutaneous nodules or induration Musculoskeletal: no abnormality and no tenderness, normal ROM Neurologic: Lethargic, somnolent nonverbal. Objective Data Vital Signs Vital Signs: Vital Signs - 24 hr 09/01/24 20:19 09/02/24 05:16 09/02/24 13:26 Temperature 97.7 F 97.7 F Pulse Rate 79 82 Respiratory Rate 16 16 Blood Pressure 187/96 H 182/97 H Pulse Oximetry 95 95 Oxygen Delivery Room Air 09/02/24 14:00 Temperature 98.1 F Pulse Rate 81 Respiratory Rate 18 Blood Pressure 168/85 H Pulse Oximetry 99 Oxygen Delivery Intake/Output Intake/Output: Intake & Output 08/30/24 08/31/24 09/01/24 09/02/24 23:59 23:59 23:59 23:59 Intake Total 1310 2600 200 Output Total 50 Balance 1260 2600 200 Meds/Results Medications: Active Medications Generic Name Dose Route Start Last Admin Trade Name Freq PRN Reason Stop Dose Admin Acetaminophen 650 mg 08/31/24 11:19 Acetaminophen 325 Mg Tablet PO Q4H PRN Mild Pain (1-3) or Fever Apixaban 5 mg 09/02/24 09:00 09/02/24 12:59 Apixaban 5 Mg Tablet PO Not Given Q12HR PHILLIP Atorvastatin Calcium 80 mg 08/31/24 21:00 09/01/24 21:31 Atorvastatin 40 Mg Tablet PO Not Given HS PHILLIP Dextrose 12.5 gm 08/31/24 11:19 Dextrose 50% 25 Gm/50 Ml Syringe IV PUSH PRN PRN Hypoglycemia Protocol Donepezil HCl 10 mg 08/31/24 21:00 09/01/24 21:31 Donepezil Hcl 5 Mg Tablet PO Not Given HS PHILLIP Glucagon 1 mg 08/31/24 11:19 Glucagon For Inj 1 Mg Vial IM PRN PRN Hypoglycemia Protocol Glucose 15 gm 08/31/24 11:19 Glucose Oral Gel 15 Gm Of Glucse In 37.5 Gm Tube PO PRN PRN Hypoglycemia Protocol Hydralazine HCl 10 mg 09/02/24 07:29 Hydralazine 10 Mg Tablet PO BID PRN hypertension SBP >160 Hydralazine HCl 10 mg 09/02/24 07:30 Hydralazine Hcl 20 Mg/Ml Vial IV PUSH Q8H PRN Blood Pressure - High Piperacillin/Tazobactam/Dextrose 3.375 gm in 50 mls @ 100 mls/hr 08/31/24 18:00 09/02/24 12:43 Zosyn 3.375 Gm/Ns 50 Ml IVPB 100 mls/hr Q6HR PHILLIP Administration Sodium Chloride 1,000 mls @ 75 mls/hr 08/31/24 11:20 09/02/24 06:01 Normal Saline Iv IV CONT Not Given .[id number] PHILLIP Dextrose 1,000 mls @ 100 mls/hr 08/31/24 11:19 Dextrose 5% 1,000 Ml IVPB PRN PRN Hypoglycemia Protocol Doxycycline Hyclate 100 mg in 100 mls @ 100 mls/hr 08/31/24 17:00 09/02/24 06:01 Vibramycin 100 Mg/Ns 100 Ml IVPB Infused Q12H PHILLIP Infusion Levetiracetam 500 mg in 100 mls @ 400 mls/hr 08/31/24 16:00 09/02/24 12:15 Keppra Iv IVPB 400 mls/hr Q12HR PHILLIP Administration Levothyroxine Sodium 75 mcg 09/01/24 06:30 09/02/24 05:07 Levothyroxine Sodium 75 Mcg Tablet PO Not Given DAILY@0630 PHILLIP Memantine 5 mg 09/02/24 09:00 09/02/24 12:59 Memantine 5 Mg Tablet PO Not Given DAILY PHILLIP Nebivolol 20 mg 09/02/24 09:00 09/02/24 13:00 Nebivolol Hcl 5 Mg Tablet PO Not Given DAILY PHILLIP Ondansetron HCl 4 mg 08/31/24 11:19 Ondansetron Inj 4 Mg/2 Ml Vial IV PUSH Q4H PRN Nausea Oseltamivir Phosphate 30 mg 09/01/24 08:00 09/02/24 13:00 Oseltamivir Phosphate 30 Mg Capsule PO 09/06/24 07:59 Not Given Q12HR PHILLIP Trazodone HCl 50 mg 09/02/24 21:00 Trazodone Hcl 50 Mg Tablet PO [facility] Radiology Results: ITS Impressions Head CT 08/31/24 09:34 IMPRESSION: No acute intracranial findings. Chest X-Ray 08/31/24 09:52 IMPRESSION: Left basilar atelectasis versus pneumonia. Modified Barium Swallow 09/02/24 11:26 IMPRESSION: 1. Silent aspiration of thin liquids and pudding. 2. Please refer to the speech therapy report for recommendations. Labs Labs: Laboratory Results - last 24 hr 09/02/24 06:14 WBC 6.2 RBC 3.33 L Hgb 10.1 L Hct 31.8 L MCV 95.5 MCH 30.3 MCHC 31.8 L RDW 13.0 Plt Count 98 L MPV 11.8 H Immature Gran % (Auto) 0.2 Neut % (Auto) 62.7 Lymph % (Auto) 25.2 [place] % (Auto) 9.5 H Eos % (Auto) 2.1 Baso % (Auto) 0.3 Lymph # (Auto) 1.56 [place] # (Auto) 0.6 Eos # (Auto) 0.1 Baso # (Auto) 0.0 Abs Immat Gran (auto) 0.01 Absolute Neuts (auto) 3.9 Absolute Nucleated RBC 0.000 Nucleated RBC % 0.0 % Immature Plt Fraction 6.8 Sodium 143 Potassium 3.6 Chloride 109 H Carbon Dioxide 26 Anion Gap 8 BUN 22 H Creatinine 0.98 Estim Creat Clear Calc 48 Estimated GFR > 60 Glucose 82 Lactic Acid 0.6 L Calcium 8.9 Magnesium 1.6 Total Bilirubin 0.7 AST 30 ALT 20 Alkaline Phosphatase 75 Total Protein 6.0 L Albumin 3.1 L
--- NOTE | 2024-09-02 16:46 | PC.NURSE ---
Patient removed his NG tube. Called Dr. Rush from hospitalist office and informed the removal. Dr. Rush stated to not replace NG tube until he hears from his family of plan.
[2024-09-02 19:43] VITALS: BP 182/98; PULSE 80; RESP 20; TEMP 36.7; O2SAT 97
[2024-09-02 20:10] VITALS: PULSE 80; RESP 20; O2SAT 97
[2024-09-03] MEDS: PIPERACILLN/TAZ 3.375GM/NS50ML 3.375 GM/50 ML BAG IVPB ×5 (00:12→23:44)
[2024-09-03 04:52] VITALS: BP 186/88; PULSE 80; RESP 16; TEMP 36.5; O2SAT 97
[2024-09-03] MEDS: DOXYCYCLINE 100 MG/NS 100 ML 100 MG/100 ML BAG IVPB ×2 (05:19→18:27)
[2024-09-03 06:27] LABS: Basophils Percent Auto 0.3 % (0.2-1.2); Eosinophils Absolute Auto 0.1 K/mm3 (0-0.3); Eosinophils Percent Auto 1.9 % (0-4.4); Hematocrit 32.1 % (42.0-52.0); Hemoglobin 10.1 g/dL (14.0-18.0); Immature Granulocyte Absolute 0.02 K/mm3 (0.00-0.031); Immature Granulocyte Percent A 0.3 % (0-0.5); Lymphocytes Absolute Auto 1.48 K/mm3 (0.9-3.2); Lymphocytes Percent Auto 25.6 % (18.3-44.2); Mean Corpuscular HGB Conc 31.5 g/dl (32-36); Mean Corpuscular Hemoglobin 29.7 pg (26-34); Mean Corpuscular Volume 94.4 fl (80-100); Mean Platelet Volume 11.5 fl (7.4-10.4); Monocytes Absolute Auto 0.5 K/mm3 (0.1-0.6); Monocytes Percent Auto 8.6 % (2.6-8.5); Neutrophils Absolute Auto 3.7 K/mm3 (1.3-6.7); Neutrophils Percent Auto 63.3 % (45.5-73.1); Platelet Count Result 114 k/mm3 (150-375); Red Cell Distribution Width 12.9 % (11.5-14.5); White Blood Count 5.8 K/mm3 (4.5-10.0)
[2024-09-03 06:35] LABS: Alanine Aminotransferase 16 U/L (6-50); Albumin Level 3.2 g/dL (3.5-5.1); Alkaline Phosphatase 73 U/L (38-126); Anion Gap 11 mmol/L (4-12); Aspartate Amino Transferase 29 U/L (17-59); Bilirubin,Total 0.7 mg/dL (0.2-1.3); Blood Urea Nitrogen 20 mg/dL (9-20); Calcium 8.9 mg/dL (8.4-10.2); Carbon Dioxide 21 mmol/L (22-30); Chloride 110 mmol/L (98-107); Estimated CRCL calculation 52 ml/min; Estimated Glomerular Filt Rate > 60; Glucose 66 mg/dL (65-110); Magnesium 1.6 mg/dL (1.6-2.3); Potassium 3.7 mmol/L (3.4-5.0); Sodium 142 mmol/L (137-145)
[2024-09-03] MEDS: hydrALAZINE HCL 20 MG/ML VIAL 10 MG IV PUSH (08:11)
[2024-09-03] MEDS: levETIRAcetam 500MG/NACL 100ML 500 MG/100 ML BAG 400 MG IVPB ×2 (08:11→21:24)
--- NOTE | 2024-09-03 13:59 | P.PNIM_ITS ---
Progress Note: A&P Assessment and Plan (1) Thrombocytopenia: Code(s): D69.6 - Thrombocytopenia, unspecified Status: Acute (2) Left lower lobe pneumonia: Qualifiers: Pneumonia type: due to unspecified organism Qualified Code(s): J18.9 - Pneumonia, unspecified organism Code(s): J18.9 - Pneumonia, unspecified organism Status: Acute (3) Influenza A: Code(s): J10.1 - Influenza due to other identified influenza virus with other respiratory manifestations Status: Acute Plan Influenza a Patient presented with altered mental status hypoxia Chest CT showed left lower lobe mass neck continue tamoxifen. Left lower lobe pneumonia Blood culture MRSA pending Day 4 Zosyn at doxycycline. Monitor Altered mental status Due to the above CT head unremarkable. IV fluid in the meantime. Speech eval recommends MBS Follow up Seizures Continue home Keppra Hypertension Titrate medication clinical course. Dementia Continue medication Chronic atrial fibrillation Continue medications Hypothyroidism Continue home medications we CKD Cranial baseline Monitor. Severe protein energy malnutrition ST noted aspiration and poor instruction following recommended NPO Called daughter about tueb feeding and she stated she will reach out to her brother who is the HPOA to make decision continue IVF DVT prophylaxis on subQ Lovenox. Family decided to transition to hospice care and to continue comfort feeding Awaiting hospice eval Subjective Date/time seen: 09/03/24 13:59 Interval history: Patient comfortable at bedside Family decided to transition to hospice care Awaiting hospice eval Review of Systems Review of Systems: Unable to do review of systems as patient was altered. Exam Narrative: General: Lethargic Eyes: EOMI, PERRLA ENNT External ears normal, Neck is supple, no masses, Respiratory systems: Clear to auscultation Cardiovascular S1, S2, normal rhythm, no murmur, rub, or gallop; no thrill or palpable murmurs on palpation. Gastrointestinal: soft, non-tender, and non-distended abdomen with no masses; BS present Skin: no rash, lesions, ulcerations, subcutaneous nodules or induration Musculoskeletal: no abnormality and no tenderness, normal ROM Neurologic: Lethargic, somnolent nonverbal. Objective Data Vital Signs Vital Signs: Vital Signs - 24 hr 09/02/24 14:00 09/02/24 19:43 09/02/24 20:10 Temperature 98.1 F 98.1 F Pulse Rate 81 80 80 Respiratory Rate 18 20 20 Blood Pressure 168/85 H 182/98 H Pulse Oximetry 99 97 97 Oxygen Delivery Room Air 09/03/24 04:52 Temperature 97.7 F Pulse Rate 80 Respiratory Rate 16 Blood Pressure 186/88 H Pulse Oximetry 97 Oxygen Delivery Intake/Output Intake/Output: Intake & Output 08/31/24 09/01/24 09/02/24 09/03/24 23:59 23:59 23:59 23:59 Intake Total 1310 2600 600 50 Output Total 50 Balance 1260 2600 600 50 Meds/Results Medications: Active Medications Generic Name Dose Route Start Last Admin Trade Name Freq PRN Reason Stop Dose Admin Acetaminophen 650 mg 08/31/24 11:19 Acetaminophen 325 Mg Tablet PO Q4H PRN Mild Pain (1-3) or Fever Apixaban 5 mg 09/02/24 09:00 09/03/24 08:11 Apixaban 5 Mg Tablet PO Not Given Q12HR PHILLIP Atorvastatin Calcium 80 mg 08/31/24 21:00 09/02/24 20:09 Atorvastatin 40 Mg Tablet PO Not Given HS PHILLIP Dextrose 12.5 gm 08/31/24 11:19 Dextrose 50% 25 Gm/50 Ml Syringe IV PUSH PRN PRN Hypoglycemia Protocol Donepezil HCl 10 mg 08/31/24 21:00 09/02/24 20:09 Donepezil Hcl 5 Mg Tablet PO Not Given HS PHILLIP Glucagon 1 mg 08/31/24 11:19 Glucagon For Inj 1 Mg Vial IM PRN PRN Hypoglycemia Protocol Glucose 15 gm 08/31/24 11:19 Glucose Oral Gel 15 Gm Of Glucse In 37.5 Gm Tube PO PRN PRN Hypoglycemia Protocol Hydralazine HCl 10 mg 09/02/24 07:29 Hydralazine 10 Mg Tablet PO BID PRN hypertension SBP >160 Hydralazine HCl 10 mg 09/02/24 07:30 09/03/24 08:11 Hydralazine Hcl 20 Mg/Ml Vial IV PUSH 10 mg Q8H PRN Administration Blood Pressure - High Piperacillin/Tazobactam/Dextrose 3.375 gm in 50 mls @ 100 mls/hr 08/31/24 18:00 09/03/24 06:23 Zosyn 3.375 Gm/Ns 50 Ml IVPB 100 mls/hr Q6HR PHILLIP Administration Sodium Chloride 1,000 mls @ 75 mls/hr 08/31/24 11:20 09/02/24 06:01 Normal Saline Iv IV CONT Not Given .[id number] PHILLIP Dextrose 1,000 mls @ 100 mls/hr 08/31/24 11:19 Dextrose 5% 1,000 Ml IVPB PRN PRN Hypoglycemia Protocol Doxycycline Hyclate 100 mg in 100 mls @ 100 mls/hr 08/31/24 17:00 09/03/24 05:19 Vibramycin 100 Mg/Ns 100 Ml IVPB 100 mls/hr Q12H PHILLIP Administration Levetiracetam 500 mg in 100 mls @ 400 mls/hr 08/31/24 16:00 09/03/24 08:11 Keppra Iv IVPB 400 mls/hr Q12HR PHILLIP Administration Levothyroxine Sodium 75 mcg 09/01/24 06:30 09/03/24 06:23 Levothyroxine Sodium 75 Mcg Tablet PO Not Given DAILY@0630 PHILLIP Memantine 5 mg 09/02/24 09:00 09/03/24 08:11 Memantine 5 Mg Tablet PO Not Given DAILY PHILLIP Nebivolol 20 mg 09/02/24 09:00 09/03/24 08:12 Nebivolol Hcl 5 Mg Tablet PO Not Given DAILY PHILLIP Ondansetron HCl 4 mg 08/31/24 11:19 Ondansetron Inj 4 Mg/2 Ml Vial IV PUSH Q4H PRN Nausea Oseltamivir Phosphate 30 mg 09/01/24 08:00 09/03/24 08:12 Oseltamivir Phosphate 30 Mg Capsule PO 09/06/24 07:59 Not Given Q12HR PHILLIP Trazodone HCl 50 mg 09/02/24 21:00 09/02/24 20:09 Trazodone Hcl 50 Mg Tablet PO Not Given HS [facility] Radiology Results: ITS Impressions Head CT 08/31/24 09:34 IMPRESSION: No acute intracranial findings. Chest X-Ray 08/31/24 09:52 IMPRESSION: Left basilar atelectasis versus pneumonia. Modified Barium Swallow 09/02/24 11:26 IMPRESSION: 1. Silent aspiration of thin liquids and pudding. 2. Please refer to the speech therapy report for recommendations. Abdomen X-Ray 09/02/24 15:30 IMPRESSION: 1. Nasogastric tube tip in the body the stomach. Consider advancement by [address] the proximal side-port below level of the gastroesophageal junction. Labs Labs: Laboratory Results - last 24 hr 09/03/24 09/03/24 06:03 06:04 WBC 5.8 RBC 3.40 L Hgb 10.1 L Hct 32.1 L MCV 94.4 MCH 29.7 MCHC 31.5 L RDW 12.9 Plt Count 114 L MPV 11.5 H Immature Gran % (Auto) 0.3 Neut % (Auto) 63.3 Lymph % (Auto) 25.6 [place] % (Auto) 8.6 H Eos % (Auto) 1.9 Baso % (Auto) 0.3 Lymph # (Auto) 1.48 [place] # (Auto) 0.5 Eos # (Auto) 0.1 Baso # (Auto) 0.0 Abs Immat Gran (auto) 0.02 Absolute Neuts (auto) 3.7 Absolute Nucleated RBC 0.000 Nucleated RBC % 0.0 Sodium 142 Potassium 3.7 Chloride 110 H Carbon Dioxide 21 L Anion Gap 11 BUN 20 Creatinine 0.90 Estim Creat Clear Calc 52 Estimated GFR > 60 Glucose 66 Calcium 8.9 Magnesium 1.6 Total Bilirubin 0.7 AST 29 ALT 16 Alkaline Phosphatase 73 Total Protein 6.0 L Albumin 3.2 L
[2024-09-03 14:00] VITALS: BP 172/87; PULSE 82; RESP 16; TEMP 36.5; O2SAT 100
[2024-09-03 20:00] VITALS: PULSE 81; RESP 20; O2SAT 96
[2024-09-03 20:08] VITALS: BP 181/94; PULSE 81; RESP 20; TEMP 36.6; O2SAT 96
[2024-09-03] MEDS: APIXABAN 5 MG TABLET PO (21:28)
[2024-09-03] MEDS: ATORVASTATIN 40 MG TABLET 80 MG PO (21:28)
[2024-09-03] MEDS: OSELTAMIVIR PHOSPHATE 30 MG CAPSULE PO (21:29)
[2024-09-03] MEDS: traZODone HCL 50 MG TABLET PO (21:29)
[2024-09-03] MEDS: DONEPEZIL HCL 5 MG TABLET 10 MG PO (21:29)
[2024-09-03] MEDS: SODIUM CHLORIDE 0.9% IV 1,000 ML 75 ML IV CONT (23:44)
--- NOTE | 2024-09-04 03:11 | PC.NURSE ---
Daylight Savings Time For Daylight Savings Time Ending in the Fall - Clocks are moved back. For Daylight Savings Time Beginning in the Spring - Clocks are moved ahead. For [facility], the time of change occurs at 0200 hrs. Time is taken from the time study observer. This entry on the patient's chart recognizes the change in time reflected during documentation. Example: 2 entries for vital signs may be charted for 0200 hrs.
[2024-09-04 04:48] VITALS: BP 159/93; PULSE 79; RESP 20; TEMP 36.9; O2SAT 93
[2024-09-04] MEDS: DOXYCYCLINE 100 MG/NS 100 ML 100 MG/100 ML BAG IVPB ×2 (05:21→16:45)
[2024-09-04] MEDS: LEVOTHYROXINE SODIUM 75 MCG TABLET PO (05:41)
[2024-09-04] MEDS: PIPERACILLN/TAZ 3.375GM/NS50ML 3.375 GM/50 ML BAG IVPB ×4 (05:41→23:40)
[2024-09-04] MEDS: levETIRAcetam 500MG/NACL 100ML 500 MG/100 ML BAG 400 MG IVPB ×2 (09:22→20:42)
[2024-09-04] MEDS: APIXABAN 5 MG TABLET PO ×2 (09:22→20:49)
[2024-09-04] MEDS: NEBIVOLOL HCL 5 MG TABLET 20 MG PO (09:22)
[2024-09-04] MEDS: MEMANTINE 5 MG TABLET PO (09:23)
[2024-09-04] MEDS: OSELTAMIVIR PHOSPHATE 30 MG CAPSULE PO ×2 (09:23→20:49)
--- NOTE | 2024-09-04 13:52 | PM.IMPN ---
Progress Note: A&P Assessment and Plan (1) Thrombocytopenia: Code(s): D69.6 - Thrombocytopenia, unspecified Status: Acute (2) Left lower lobe pneumonia: Qualifiers: Pneumonia type: due to unspecified organism Qualified Code(s): J18.9 - Pneumonia, unspecified organism Code(s): J18.9 - Pneumonia, unspecified organism Status: Acute (3) Influenza A: Code(s): J10.1 - Influenza due to other identified influenza virus with other respiratory manifestations Status: Acute Plan Influenza a Patient presented with altered mental status hypoxia Chest CT showed left lower lobe mass neck continue tamoxifen. Left lower lobe pneumonia Blood culture MRSA pending Day 5 Zosyn at doxycycline. Monitor Altered mental status, improvved Due to the above CT head unremarkable. IV fluid in the meantime. failed speech eval as he was aspirating during exam Follow up Seizures Continue home Keppra Hypertension Titrate medication clinical course. Dementia Continue medication Chronic atrial fibrillation Continue medications Hypothyroidism Continue home medications we CKD Cranial baseline Monitor. Severe protein energy malnutrition ST noted aspiration and poor instruction following recommended NPO family declined tube feeding and opted for hospice with comfort feeding continue IVF DVT prophylaxis on subQ Lovenox. Family decided to transition to hospice care and to continue comfort feeding Awaiting hospice discharge tomorrow Subjective Date/time seen: 09/04/24 13:52 Interval history: Patient comfortable at bedside Awaiting hospice discharge tomorrow Review of Systems Review of Systems: Unable to do review of systems as patient was altered. Exam Narrative: General: Lethargic Eyes: EOMI, PERRLA ENNT External ears normal, Neck is supple, no masses, Respiratory systems: Clear to auscultation Cardiovascular S1, S2, normal rhythm, no murmur, rub, or gallop; no thrill or palpable murmurs on palpation. Gastrointestinal: soft, non-tender, and non-distended abdomen with no masses; BS present Skin: no rash, lesions, ulcerations, subcutaneous nodules or induration Musculoskeletal: no abnormality and no tenderness, normal ROM Neurologic: Lethargic, somnolent nonverbal. Objective Data Vital Signs Vital Signs: Vital Signs - 24 hr 09/03/24 14:00 09/03/24 20:00 09/03/24 20:08 Temperature 97.7 F 97.9 F Pulse Rate 82 81 81 Respiratory Rate 16 20 20 Blood Pressure 172/87 H 181/94 H Pulse Oximetry 100 96 96 Oxygen Delivery Room Air 09/04/24 04:48 Temperature 98.4 F Pulse Rate 79 Respiratory Rate 20 Blood Pressure 159/93 H Pulse Oximetry 93 Oxygen Delivery Intake/Output Intake/Output: Intake & Output 09/01/24 09/02/24 09/03/24 09/05/24 23:59 23:59 23:59 00:59 Intake Total 2600 1600 1440 340 Output Total 125 300 Balance 2600 1600 1315 40 Meds/Results Medications: Active Medications Generic Name Dose Route Start Last Admin Trade Name Freq PRN Reason Stop Dose Admin Acetaminophen 650 mg 08/31/24 11:19 Acetaminophen 325 Mg Tablet PO Q4H PRN Mild Pain (1-3) or Fever Apixaban 5 mg 09/02/24 09:00 09/04/24 09:22 Apixaban 5 Mg Tablet PO 5 mg Q12HR PHILLIP Administration Atorvastatin Calcium 80 mg 08/31/24 21:00 09/03/24 21:28 Atorvastatin 40 Mg Tablet PO 80 mg HS PHILLIP Administration Dextrose 12.5 gm 08/31/24 11:19 Dextrose 50% 25 Gm/50 Ml Syringe IV PUSH PRN PRN Hypoglycemia Protocol Donepezil HCl 10 mg 08/31/24 21:00 09/03/24 21:29 Donepezil Hcl 5 Mg Tablet PO 10 mg HS PHILLIP Administration Glucagon 1 mg 08/31/24 11:19 Glucagon For Inj 1 Mg Vial IM PRN PRN Hypoglycemia Protocol Glucose 15 gm 08/31/24 11:19 Glucose Oral Gel 15 Gm Of Glucse In 37.5 Gm Tube PO PRN PRN Hypoglycemia Protocol Hydralazine HCl 10 mg 09/02/24 07:29 Hydralazine 10 Mg Tablet PO BID PRN hypertension SBP >160 Hydralazine HCl 10 mg 09/02/24 07:30 09/03/24 08:11 Hydralazine Hcl 20 Mg/Ml Vial IV PUSH 10 mg Q8H PRN Administration Blood Pressure - High Piperacillin/Tazobactam/Dextrose 3.375 gm in 50 mls @ 100 mls/hr 08/31/24 18:00 09/04/24 12:45 Zosyn 3.375 Gm/Ns 50 Ml IVPB 100 mls/hr Q6HR PHILLIP Administration Sodium Chloride 1,000 mls @ 75 mls/hr 08/31/24 11:20 09/03/24 23:44 Normal Saline Iv IV CONT 75 mls/hr .[id number] PHILLIP Administration Dextrose 1,000 mls @ 100 mls/hr 08/31/24 11:19 Dextrose 5% 1,000 Ml IVPB PRN PRN Hypoglycemia Protocol Doxycycline Hyclate 100 mg in 100 mls @ 100 mls/hr 08/31/24 17:00 09/04/24 05:21 Vibramycin 100 Mg/Ns 100 Ml IVPB 100 mls/hr Q12H PHILLIP Administration Levetiracetam 500 mg in 100 mls @ 400 mls/hr 08/31/24 16:00 09/04/24 09:22 Keppra Iv IVPB 400 mls/hr Q12HR PHILLIP Administration Levothyroxine Sodium 75 mcg 09/01/24 06:30 09/04/24 05:41 Levothyroxine Sodium 75 Mcg Tablet PO 75 mcg DAILY@0630 PHILLIP Administration Memantine 5 mg 09/02/24 09:00 09/04/24 09:23 Memantine 5 Mg Tablet PO 5 mg DAILY PHILLIP Administration Nebivolol 20 mg 09/02/24 09:00 09/04/24 09:22 Nebivolol Hcl 5 Mg Tablet PO 20 mg DAILY PHILLIP Administration Ondansetron HCl 4 mg 08/31/24 11:19 Ondansetron Inj 4 Mg/2 Ml Vial IV PUSH Q4H PRN Nausea Oseltamivir Phosphate 30 mg 09/01/24 08:00 09/04/24 09:23 Oseltamivir Phosphate 30 Mg Capsule PO 09/06/24 07:59 30 mg Q12HR PHILLIP Administration Trazodone HCl 50 mg 09/02/24 21:00 09/03/24 21:29 Trazodone Hcl 50 Mg Tablet PO 50 mg HS PHILLIP Administration Radiology Results: ITS Impressions Head CT 08/31/24 09:34 IMPRESSION: No acute intracranial findings. Chest X-Ray 08/31/24 09:52 IMPRESSION: Left basilar atelectasis versus pneumonia. Modified Barium Swallow 09/02/24 11:26 IMPRESSION: 1. Silent aspiration of thin liquids and pudding. 2. Please refer to the speech therapy report for recommendations. Abdomen X-Ray 09/02/24 15:30 IMPRESSION: 1. Nasogastric tube tip in the body the stomach. Consider advancement by [address] the proximal side-port below level of the gastroesophageal junction.
[2024-09-04 14:00] VITALS: BP 163/112; PULSE 81; RESP 18; TEMP 36.2; O2SAT 98
[2024-09-04] MEDS: hydrALAZINE HCL 20 MG/ML VIAL 10 MG IV PUSH (15:16)
[2024-09-04 19:05] VITALS: BP 153/105
[2024-09-04 20:00] VITALS: PULSE 81; RESP 18; O2SAT 98
[2024-09-04] MEDS: SODIUM CHLORIDE 0.9% IV 1,000 ML 75 ML IV CONT (20:47)
[2024-09-04] MEDS: ATORVASTATIN 40 MG TABLET 80 MG PO (20:48)
[2024-09-04] MEDS: DONEPEZIL HCL 5 MG TABLET 10 MG PO (20:49)
[2024-09-04] MEDS: traZODone HCL 50 MG TABLET PO (20:49)
[2024-09-04 21:21] VITALS: BP 139/82; PULSE 80; RESP 16; TEMP 37.4; O2SAT 97
[2024-09-05 05:05] VITALS: BP 161/82; PULSE 82; RESP 16; TEMP 36.8; O2SAT 96
[2024-09-05] MEDS: DOXYCYCLINE 100 MG/NS 100 ML 100 MG/100 ML BAG IVPB (05:09)
[2024-09-05] MEDS: PIPERACILLN/TAZ 3.375GM/NS50ML 3.375 GM/50 ML BAG IVPB ×2 (06:00→12:17)
[2024-09-05] MEDS: LEVOTHYROXINE SODIUM 75 MCG TABLET PO (06:02)
[2024-09-05 08:50] VITALS: O2SAT 96
[2024-09-05 08:52] VITALS: PULSE 82
[2024-09-05] MEDS: NEBIVOLOL HCL 5 MG TABLET 20 MG PO (08:52)
[2024-09-05] MEDS: APIXABAN 5 MG TABLET PO (08:52)
[2024-09-05] MEDS: OSELTAMIVIR PHOSPHATE 30 MG CAPSULE PO (08:52)
[2024-09-05] MEDS: MEMANTINE 5 MG TABLET PO (08:52)
[2024-09-05] MEDS: levETIRAcetam 500MG/NACL 100ML 500 MG/100 ML BAG 400 MG IVPB (08:52)
--- NOTE | 2024-09-05 10:34 | PM.DS ---
DS: Admitting Diagnosis Discharge Date 09/05/24 Admitting Diagnosis AMS and hypoxia DS: Discharge Diagnosis Discharge Diagnosis (1) Left lower lobe pneumonia: Qualifiers: Pneumonia type: due to unspecified organism Qualified Code(s): J18.9 - Pneumonia, unspecified organism Code(s): J18.9 - Pneumonia, unspecified organism Status: Acute (2) Influenza A: Code(s): J10.1 - Influenza due to other identified influenza virus with other respiratory manifestations Status: Acute DS: Summary Hospital Course Hospital Course: 79 M with PMh of dementia, CVA, AFIB on eliquis, hypothyroidism, CKD, seizure disorder on keppra, pacemaker, group home resident brought to the ER on account of altered mental status and low oxygen. Patient was altered at the time of this encounter unable to provide a history. Nava was a bedside noted she was called from the group home is I was told at the since yesterday patient has been having altered mental status and poor oral intake much today oxygen was low on his transported to the ER for proper evaluation and care. ER evaluation notable for blood pressure 177/88, patient on med. Labs notable for WBC 7.1, hemoglobin 10.8, platelets 84. Creatinine is 1.29, flu positive. Chest x-ray was left basilar atelectasis versus pneumonia. CT head unremarkable. Patient cultures were obtained and patient was placed on Tamiflu, Zosyn and Doxycycline. Patient was evaluated for aspiration and he was aspirating, NPO was recommended by ST. However family declined tube feeding and instread opted for hospice care with comfort feeding. Patient discharged on 5 more days of Augmentin and Doxycycline. Continue Follow up with hospice care. Continue comfort feeding. Time Spent with Patient Time attestation: Total time spent providing and/or coordinating discharge services: DS: Data Data Completed and Pending Labs on day of discharge: Preliminary micro results at discharge 08/31/24 10:29 Blood Culture - Preliminary Blood 08/31/24 10:30 Blood Culture - Preliminary Blood Discharge Plan Discharge Attending physician on discharge: Candace Rush Discharging Clinician: Candace Rush Anticipated Discharge Date/Time: 09/05/24 10:29 Patient Disposition: Hospice - Medical Facility Activity: as tolerated Diet: as tolerated Patient Instructions: Pain Management in Older Adults (DC) Patient Language: Tuvaluan Stand Alone Forms: General Discharge Information Discharge Medications: New oseltamivir [Tamiflu] 30 mg Capsule 30 mg PO Q12HR 1 Days Qty: 2 0RF amoxicillin-pot clavulanate 875-125 mg tablet 1 tablet PO Q12H Qty: 10 0RF doxycycline hyclate 100 mg tablet 100 mg PO BID 3 Days Qty: 6 0RF Continued polyethylene glycol 3350 [ClearLax] 17 gram/dose powder 17 g PO DAILY memantine 5 mg tablet 5 mg PO DAILY Eliquis 5 mg tablet 5 mg PO Q12H hydralazine 10 mg tablet 10 mg PO BID PRN (Reason: hypertension SBP >160) melatonin 5 mg capsule 5 mg PO QHS Healthy Eyes SuperVision 4,296 mcg-226 mg-90 mg capsule 1 cap PO DAILY bisacodyl 10 mg suppository 10 mg RECTAL DAILY PRN (Reason: constipation) cholecalciferol (vitamin D3) 125 mcg (5,000 unit) capsule 125 mcg PO DAILY donepezil 10 mg tablet 10 mg PO QHS levetiracetam [Keppra] 500 mg Tablet 750 mg PO Q12HR Glucosamine Chondroitin 1,500 mg PO BID atorvastatin 80 mg Tablet 80 mg PO HS Qty: 30 0RF cetirizine 10 mg Tablet 10 mg PO HS Qty: 30 0RF donepezil [Aricept] 5 mg Tablet 10 mg PO HS Qty: 30 0RF ferrous sulfate 325 mg (65 mg iron) Tablet,Delayed Release (Dr/Ec) 325 mg PO DAILY Qty: 30 0RF ezetimibe [Zetia] 10 mg Tablet 10 mg PO HS Qty: 30 0RF melatonin 3 mg Tablet 6 mg PO HS Qty: 30 0RF levothyroxine [Synthroid] 75 mcg Tablet 75 mcg PO DAILY@0630 Qty: 30 0RF fluticasone propionate 50 mcg/actuation Excel,Suspension 2 spray intranasal DAILY Qty: 1 0RF nebivolol [Bystolic] 5 mg Tablet 20 mg PO DAILY Qty: 30 0RF trazodone 50 mg Tablet 50 mg PO HS Qty: 30 0RF tamsulosin 0.4 mg Capsule 0.4 mg PO DAILY Qty: 30 0RF oxybutynin chloride 5 mg Tablet 5 mg PO BID Qty: 60 0RF sertraline [Zoloft] 50 mg Tablet 50 mg PO HS Qty: 30 0RF Chloraseptic Sore Throat 6-10 mg Lozenge 1 dalila PO PRN PRN (Reason: Sore Throat) Qty: 18 0RF sennosides-docusate sodium [Senokot-S] 8.6-50 mg Tablet 2 tab-cap PO BID Qty: 0 0RF magnesium hydroxide [Milk of Magnesia] 400 mg/5 mL Suspension 30 ml PO QAM PRN (Reason: Constipation) Qty: 0 0RF Home Medication 1 ea BYMOUTH PRN PRN (Reason: unknown) Qty: 0 0RF midodrine 5 mg Tablet 5 mg PO 0900,1300 Qty: 60 0RF Date of admission: 09/01/24 09:34 Primary Care Provider: NatachaTorres Admitting Provider: Candace Rush Attending physician on admission: Candace Rush Condition: Stable
--- NOTE | 2024-09-05 11:18 | PCNFU ---
Nutrition Follow-Up Complete: 1. Severe protein calorie malnutrition related to chronic loss of appetite as evidenced by weight loss (33lb) -20%/8 months; severe muscle wasting and fat loss 2. Inability to meet estimated energy needs PO related to swallowing difficulties as evidenced by need for full tube feedings Goal: Meet estimated nutrition needs Patient will continue current goal. Pt current nutrition: regular with Ensure Enlive BID. Last recorded weight is 62.5 kg, stable Bowel Motility: +BM 09/03 Labs Reviewed: No labs to report. Meds Noted:Normal Saline, Zosyn, Keppra Skin: WNL Additional Notes: Patient is currently on a regular diet with Ensure Enlive BID. Plans for hospice at discharge. No further nutritional interventions needed. Following oral intake, labs, weights, plan of care every 7 days.
[2024-09-05 12:43] LABS: SARS-CoV-2 RNA PCR Negative (Negative)
== END 2024-09-05 13:43 | disposition hospice, inpatient (51) | DRG 193 ==
LOC: ANHED 11:11 → ANH3MEDSUR 12:05
PROVIDERS: Emergency Medicine; Admitting Provider Internal Medicine; Emergency Provider Physician Assistant; PCP Internal Medicine; Visit Provider Internal Medicine
DX: J10.00 Influenza due to other identified influenza virus with unspecified type of pneumonia (principal); E43 Unspecified severe protein-calorie malnutrition; I48.20 Chronic atrial fibrillation, unspecified; Z68.1 Body mass index [BMI] 19.9 or less, adult; T17.208A Unspecified foreign body in pharynx causing other injury, initial encounter; D69.6 Thrombocytopenia, unspecified; E03.9 Hypothyroidism, unspecified; N18.9 Chronic kidney disease, unspecified; G40.909 Epilepsy, unspecified, not intractable, without status epilepticus; F03.90 Unspecified dementia, unspecified severity, without behavioral disturbance, psychotic disturbance, mood disturbance, and anxiety; Z20.822 Contact with and (suspected) exposure to COVID-19; Z11.52 Encounter for screening for COVID-19; Z95.0 Presence of cardiac pacemaker; Z79.01 Long term (current) use of anticoagulants; Z86.73 Personal history of transient ischemic attack (TIA), and cerebral infarction without residual deficits; Z51.5 Encounter for palliative care
CPT/HCPCS: 36415; 70450; 71045; 71046; 80053; 81001; 82550; 82728; 83540; 83550; 83605; 83735; 83880; 84443; 84484; 85025; 85055; 85610; 85730; 87040; 87086; 87186; 87635; 87637; 92523; 92526; 92610; 92611; 93005; 96361; 96365; 96366; 96367; 96375; 97162; 97165; 97530; 99285; A9270; G0378; J0360; J1953; J2543; J7030